=== PATIENT | male | born 1955 | race Caucasian/White ===

== ENCOUNTER → 2018-03-25 | Outpatient (CLI) | payer BC ==
--- NOTE | 2018-03-25 15:20 | US ---
EXAMINATION TYPE: US kidneys/renal and bladder DATE OF EXAM: 03/25/2018 COMPARISON: US of 2010 CLINICAL HISTORY: N17.9 KIDNEY FAILURE, N28.9 KNOWN RENAL DISEASE. EXAM MEASUREMENTS: Right Kidney: 23.3 x 10.1 x 12.9 cm Left Kidney: 21.1 x 10.1 x 10.3 cm Right Kidney: no renal cortex seen, polycystic kidney Left Kidney: no renal cortex seen, polycystic kidney Bladder: wnl Bilateral Jets seen: Yes There is no evidence for hydronephrosis at this point in time. No nephrolithiasis is seen. No gross evidence of solid masses are identified. The urinary bladder is anechoic. Bilateral ureteral jets are seen. IMPRESSION: Findings again suggestive of polycystic kidney disease is seen on the prior of 2010. No gross evidenc e of solid renal mass or hydronephrosis.
== END ==
LOC: RADUSWWP 13:52
PROVIDERS: ATTEND Internal Medicine
DX: N17.9 Acute kidney failure, unspecified (principal)
CPT/HCPCS: 76770

== ENCOUNTER 2018-04-25 07:09 | Day surgery (SDC) | payer BC ==
[2018-04-22 09:30] VITALS: BMI 31.8
[~2018-04-25 07:09] MED LIST: LACTATED RINGERS 1,000 ML IV SCH; LIDOCAINE 1% 20 ML VIAL (10MG/ML) FOR IV START INTRADERMA PRN
[2018-04-25 07:48] VITALS: TEMP 97.4
[2018-04-25] MEDS ORDERED: PROPOFOL 10 MG/ML 20 ML VIAL IV ONE (08:16)
--- NOTE | 2018-04-25 08:43 | P.PCN ---
Date of Procedure: 04/25/18 Procedure(s) Performed: Procedure: Total colonoscopy and biopsy. Preoperative diagnosis: Screening for neoplasia, patient has history of polyps. Postoperative diagnosis: 1. Sigmoid diverticulosis with no evidence of acute diverticulitis or strictures. 2. Two diminutive polyps in the proximal right colon biopsied, but no large polyps or cancer. Preparation: HalfLytely prep. Sedation: Was provided by anesthesia. Brief clinical history: The patient is a 63-year-old male who is scheduled for this evaluation for screening for neoplasia age being his risk factor as well as history of polyps. He had a prior exam in March 2014. This would be his surveillance because of history of polyps. He has no abdominal complaints, bleeding or anemia. Procedure: With the patient on his left lateral decubitus position and after informed consent and adequate sedation, the perianal area was inspected and it did not show any fissures or fistulas. There were no masses felt on digital rectal examination. The Olympus CFH 190L video colonoscope was then inserted in the rectum in the usual fashion and advanced to the cecum. There were several diverticular orifices seen scattered in the sigmoid with no evidence of acute diverticulitis or strictures. 2 diminutive polyps were seen in the proximal right colon and these were biopsied but there were no large polyps or tumors. The mucosa appeared healthy. I retroflexed the endoscope in the rectum before the endoscope was withdrawn. The patient tolerated the procedure well. Plan: The patient was reassured. Discussed dietary measures. He will follow up with you as planned and I recommended repeat exam in 5 years.
[2018-04-25 09:08] VITALS: BP 130/90; PULSE 78; RESP 18
== END 2018-04-25 09:13 | disposition home or self-care (01) ==
LOC: ORWHC2ENDO 07:09
DX: Z12.11 Encounter for screening for malignant neoplasm of colon (principal); K63.5 Polyp of colon; K57.30 Diverticulosis of large intestine without perforation or abscess without bleeding; Z86.010 Personal history of colon polyps; J44.9 Chronic obstructive pulmonary disease, unspecified; K21.9 Gastro-esophageal reflux disease without esophagitis; M19.90 Unspecified osteoarthritis, unspecified site; I10 Essential (primary) hypertension; K04.7 Periapical abscess without sinus; Z79.899 Other long term (current) drug therapy; Z87.442 Personal history of urinary calculi
CPT/HCPCS: 88305; 45380; J2704

== ENCOUNTER 2021-12-05 09:45 | Inpatient (IN) | payer BC, MEDICARE ==
--- NOTE | 2021-12-05 10:28 | ED ---
General Adult HPI - General Chief complaint: Nausea/Vomiting/Diarrhea Stated complaint: Vomiting,abd & back pain Time Seen by Provider: 12/05/21 10:20 Source: patient, RN notes reviewed Mode of arrival: ambulatory Limitations: no limitations - History of Present Illness Initial comments: 66-year-old male presents to the emergency department on day 3 of loss of appetite, nausea and vomiting, and lower abdominal pain. Patient states his symptoms have been progressively worsening and is unable to tolerate any oral intake. Complains of diffuse lower abdominal pain. Reports marked fatigue and generalized weakness. States he has had cold sweats but no known fever. No known sick exposures. Denies dizziness, chest pain, shortness of breath, pain with breathing, diarrhea, and dysuria. - Related Data Home Medications Medication Instructions Recorded Confirmed Omeprazole [PriLOSEC] 20 mg PO DAILY 03/26/14 12/05/21 lisinopriL [Prinivil] 20 mg PO DAILY 03/26/14 12/05/21 Acetaminophen Tab [Tylenol Tab] 500 mg PO Q6H PRN 12/05/21 12/05/21 Multivit-Min/FA/Lycopen/Lutein 1 tab PO DAILY 12/05/21 12/05/21 [Centrum Silver Men Tablet] amLODIPine [Norvasc] 5 mg PO DAILY 12/05/21 12/05/21 Allergies Allergy/AdvReac Type Severity Reaction Status Date / Time No Known Allergies Allergy Verified 12/05/21 12:25 Review of Systems ROS Statement: Those systems with pertinent positive or pertinent negative responses have been documented in the HPI. ROS Other: All systems not noted in ROS Statement are negative. Past Medical History Past Medical History: COPD, GERD/Reflux, Hypertension, Osteoarthritis (OA) Additional Past Medical History / Comment(s): BACK PAIN, KIDNEY STONES. abscessed tooth tx with antibiotics History of Any Multi-Drug Resistant Organisms: None Reported Past Surgical History: Appendectomy, Orthopedic Surgery Additional Past Surgical History / Comment(s): ed. KNEE SURG A CHILD. ORIF LEFT ANKLE. Past Anesthesia/Blood Transfusion Reactions: No Reported Reaction Past Psychological History: No Psychological Hx Reported Smoking Status: Never smoker Past Alcohol Use History: Occasional Past Drug Use History: Marijuana - Past Family History Mother Family Medical History: No Reported History General Exam Limitations: no limitations General appearance: alert, in distress (Well-developed, ill-appearing male in moderate distress due to pain. Initial temperature 96.7, pulse 101, respirati ons 24, blood pressure 154/89, pulse ox 96% on room air.) Eye exam: Present: normal appearance, PERRL, EOMI. Absent: scleral icterus, conjunctival injection ENT exam: Present: mucous membranes dry Respiratory exam: Present: normal lung sounds bilaterally. Absent: respiratory distress, wheezes, rales, rhonchi, stridor, chest wall tenderness Cardiovascular Exam: Present: tachycardia, normal heart sounds GI/Abdominal exam: Present: distended, tenderness (Generalized tenderness upon palpation of the lower abdomen), normal bowel sounds, other (periumbilical discoloration). Absent: guarding, rebound, rigid Extremities exam: Present: other (Left lower extremity dusky in color. Patient states this is normal given the previous surgery. +2 pedal and posttibial pulse. ) Back exam: Present: normal inspection, full ROM, paraspinal tenderness (Nonlocalized tenderness upon palpation of the low back patient attributes to m ultiple episodes of vomiting dry heaves.). Absent: vertebral tenderness Neurological exam: Present: alert, oriented X3 Expanded Patient oriented to: Present: person, place, time Speech: Present: fluid speech Cranial nerves: EOM's Intact: Normal Motor strength exam: RUE: 5, LUE: 5, RLE: 5, LLE: 5 Eye Response: (4) open spontaneously Motor Response: (6) obeys commands Verbal Response: (5) oriented [place] Total: 15 Psychiatric exam: Present: flat affect Skin exam: Present: warm, intact, normal color, diaphoretic Course Vital Signs 12/05/21 12/05/21 12/05/21 09:50 11:24 11:40 Temperature 96.7 F L Pulse Rate 101 H 94 87 Respiratory 24 20 20 Rate Blood Pressure 154/89 65/47 77/61 O2 Sat by Pulse 96 96 91 L Oximetry 12/05/21 12/05/21 12/05/21 14:18 14:48 15:25 Temperature Pulse Rate 100 102 H 96 Respiratory 20 20 Rate Blood Pressure 98/78 108/73 110/73 O2 Sat by Pulse 97 91 L Oximetry 12/05/21 15:57 Temperature Pulse Rate 98 Respiratory 18 Rate Blood Pressure 110/73 O2 Sat by Pulse 92 L Oximetry - Reevaluation(s) Reevaluation #1: 12/05/21 11:30 On reassessment, patient is taken to room 6. EKG was obtained and IV access was placed. Patient is now hypotensive (89/42) and remains diaphoretic. Complains of pain radiating to the back. Periumbilical discoloration noted. Abdomen is markedly tender upon palpation. Dr. Dukes is notified and is present at bedside to reassess. Patient will go to CT prior to labs given his change in condition. 12/05/21 12:30 Upon reassessment, patient is resting more comfortably at this time. NG has bee n placed with 1500 mL output. Patient does flank for sepsis, however this does not appear to be the case; his hypotension and tachycardia are more likely secondary to poor oral intake and pain secondary to bowel obstruction. He has received 2 L of IV fluids, but given his renal failure, fluids will be infused gently. 12/05/21 13:[address] Ge who agrees to accept this patient. Consults will be placed to his surgery, cardiology, nephrology, and intensive care. I was also provided with an EKG showing a transient episode of atrial fibrillation with rapid ventricular response. Ventricular rate of 147. Patient did return to sinus rhythm with a rate in the 80s spontaneously. Cardiology consult placed. Medical Decision Making - Medical Decision Making 66-year-old male with a past medical history of hypertension, COPD, and polycystic kidney disease presents to the emergency department for evaluation of dental pain. Upon exam, patient is ill-appearing and in distress due to pain. Abdomen is distended and tender upon palpation of both lower quadrants. CT of the abdomen and pelvis was obtained without contrast due to poor renal function. Results are concerning for small bowel obstruction but no perforation. Laboratory studies were obtained. Patient is hemoconcentrated likely due to poor oral intake. Hemoglobin and hematocrit are significantly elevated. BUN and creatinine are also markedly elevated. Lactic is 3.4. Patient is given 2 L of IV fluids due to hypotension. He was then placed at a maintenance rate being cognizant of his poor renal function. Patient is not felt to be septic, but related to volume depletion secondary to his small bowel obstruction. Patient was given small doses of Dilaudid given his hypotension. NG was placed with 1500mL output; patient is resting more comfortably. Vital signs have improved. He will be admitted to the hospital. Dr. Ge agrees to accept this admission. Consults will be placed to nephrology for renal failure, cardiology for episodic A. 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 Attending: Ernst. - Lab Data Result diagrams: 12/05/21 11:34 12/05/21 11:34 Lab Results 12/05/21 12/05/21 12/05/21 Range/Units 09:57 11:26 11:34 WBC 11.6 H (3.8-10.6) k/uL RBC 6.96 H (4.30-5.90) m/uL Hgb 21.3 H* (13.0-17.5) gm/dL Hct 65.8 H* (39.0-53.0) % MCV 94.5 (80.0-100.0) fL MCH 30.6 (25.0-35.0) pg MCHC 32.4 (31.0-37.0) g/dL RDW 13.9 (11.5-15.5) % Plt Count 116 L (150-450) k/uL MPV 7.7 Neutrophils % 85 % Lymphocytes % 4 % Monocytes % 7 % Eosinophils % 1 % Basophils % 2 % Neutrophils # 9.8 H (1.3-7.7) k/uL Lymphocytes # 0.5 L (1.0-4.8) k/uL Monocytes # 0.8 (0-1.0) k/uL Eosinophils # 0.1 (0-0.7) k/uL Basophils # 0.2 (0-0.2) k/uL PT (9.0-12.0) sec INR (<1.2) APTT (22.0-30.0) sec Sodium (137-145) mmol/L Potassium (3.5-5.1) mmol/L Chloride (98-107) mmol/L Carbon Dioxide (22-30) mmol/L Anion Gap mmol/L BUN (9-20) mg/dL Creatinine (0.66-1.25) mg/dL Est GFR (CKD-EPI)AfAm (>60 ml/min/1.73 sqM) Est GFR (CKD-EPI)NonAf (>60 ml/min/1.73 sqM) Glucose (74-99) mg/dL Lactic Ac Sepsis Rflx Plasma Lactic Acid Chase (0.7-2.0) mmol/L Calcium (8.4-10.2) mg/dL Total Bilirubin (0.2-1.3) mg/dL AST (17-59) U/L ALT (4-49) U/L Alkaline Phosphatase (38-126) U/L Total Protein (6.3-8.2) g/dL Albumin (3.5-5.0) g/dL Lipase (23-300) U/L Gastric Occult Blood (Negative) Coronavirus (PCR) Not Detected (Not Detectd) Blood Type AB Positive Blood Type Confirm Blood Type Recheck No Previous Record Bld Type Recheck Status CABO Indicated Antibody Screen NEGATIVE Spec Expiration Date 12/08/2021 - 232512/05/21 12/05/21 12/05/21 Range/Units 11:34 11:34 12:05 WBC (3.8-10.6) k/uL RBC (4.30-5.90) m/uL Hgb (13.0-17.5) gm/dL Hct (39.0-53.0) % MCV (80.0-100.0) fL MCH (25.0-35.0) pg MCHC (31.0-37.0) g/dL RDW (11.5-15.5) % Plt Count (150-450) k/uL MPV Neutrophils % % Lymphocytes % % Monocytes % % Eosinophils % % Basophils % % Neutrophils # (1.3-7.7) k/uL Lymphocytes # (1.0-4.8) k/uL Monocytes # (0-1.0) k/uL Eosinophils # (0-0.7) k/uL Basophils # (0-0.2) k/uL PT (9.0-12.0) sec INR (<1.2) APTT (22.0-30.0) sec Sodium 134 L (137-145) mmol/L Potassium 5.0 (3.5-5.1) mmol/L Chloride 94 L (98-107) mmol/L Carbon Dioxide 16 L (22-30) mmol/L Anion Gap 24 mmol/L BUN 91 H (9-20) mg/dL Creatinine 4.95 H (0.66-1.25) mg/dL Est GFR (CKD-EPI)AfAm 13 (>60 ml/min/1.73 sqM) Est GFR (CKD-EPI)NonAf 11 (>60 ml/min/1.73 sqM) Glucose 142 H (74-99) mg/dL Lactic Ac Sepsis Rflx Plasma Lactic Acid Chase 3.4 H* (0.7-2.0) mmol/L Calcium 10.1 (8.4-10.2) mg/dL Total Bilirubin 1.5 H (0.2-1.3) mg/dL AST 95 H (17-59) U/L ALT 62 H (4-49) U/L Alkaline Phosphatase 59 (38-126) U/L Total Protein 6.8 (6.3-8.2) g/dL Albumin 4.1 (3.5-5.0) g/dL Lipase 103 (23-300) U/L Gastric Occult Blood (Negative) Coronavirus (PCR) (Not Detectd) Blood Type Blood Type Confirm AB Positive Blood Type Recheck Bld Type Recheck Status Antibody Screen Spec Expiration Date 12/05/21 12/05/21 12/05/21 Range/Units 12:28 13:00 13:08 WBC (3.8-10.6) k/uL RBC (4.30-5.90) m/uL Hgb (13.0-17.5) gm/dL Hct (39.0-53.0) % MCV (80.0-100.0) fL MCH (25.0-35.0) pg MCHC (31.0-37.0) g/dL RDW (11.5-15.5) % Plt Count (150-450) k/uL MPV Neutrophils % % Lymphocytes % % Monocytes % % Eosinophils % % Basophils % % Neutrophils # (1.3-7.7) k/uL Lymphocytes # (1.0-4.8) k/uL Monocytes # (0-1.0) k/uL Eosinophils # (0-0.7) k/uL Basophils # (0-0.2) k/uL PT 11.7 (9.0-12.0) sec INR 1.1 (<1.2) APTT 25.9 (22.0-30.0) sec Sodium (137-145) mmol/L Potassium (3.5-5.1) mmol/L Chloride (98-107) mmol/L Carbon Dioxide (22-30) mmol/L Anion Gap mmol/L BUN (9-20) mg/dL Creatinine (0.66-1.25) mg/dL Est GFR (CKD-EPI)AfAm (>60 ml/min/1.73 sqM) Est GFR (CKD-EPI)NonAf (>60 ml/min/1.73 sqM) Glucose (74-99) mg/dL Lactic Ac Sepsis Rflx Y Plasma Lactic Acid Chase (0.7-2.0) mmol/L Calcium (8.4-10.2) mg/dL Total Bilirubin (0.2-1.3) mg/dL AST (17-59) U/L ALT (4-49) U/L Alkaline Phosphatase (38-126) U/L Total Protein (6.3-8.2) g/dL Albumin (3.5-5.0) g/dL Lipase (23-300) U/L Gastric Occult Blood Positive (Negative) Coronavirus (PCR) (Not Detectd) Blood Type Blood Type Confirm Blood Type Recheck Bld Type Recheck Status Antibody Screen Spec Expiration Date - EKG Data EKG shows normal: sinus rhythm Rate: normal EKG Comments: #1. EKG obtained at 1107 shows sinus tachycardia with occasional supraventricular premature complexes and left anterior fascicular block. Ventricular rate 100, ME interval 166, QRS duration 89, QT/QTC 323/380. Interpretation abnormal ECG. #2. EKG obtained and 1258 shows atrial fibrillation with rapid ventricular response and possible right ventricular hypertrophy. Ventricular rate 147, ME interval indeterminate, QRS duration 97, QT/QTC 304/388. Interpretation abnormal ECG. - Radiology Data Radiology results: report reviewed, image reviewed Two-view chest x-ray was obtained. Report was reviewed in its entirety. Impression per Dr. Enriquez is may be some mild interstitial lung disease. Question coronary artery disease. Compression deformity of L1 is chronic. CT of the abdomen and pelvis was obtained. Report was reviewed in its entirety. Impression per Dr. Miller is #1. Findings felt to reflect distal small bowel obstruction. #2. Autosomal dominant polycystic kidney disease. #3. Small am ount of ascites about the liver and within the pelvis. Disposition Clinical Impression: Renal failure, Small bowel obstruction, Hypotension Disposition: ADMITTED IP TO THIS [facility] Condition: Serious Decision Date: 12/05/21 Decision Time: 13:17
--- NOTE | 2021-12-05 10:59 | XR ---
EXAMINATION TYPE: XR chest 2V DATE OF EXAM: 12/05/2021 COMPARISON: NONE HISTORY: Shortness of breath, nausea and vomiting, epigastric pain TECHNIQUE: Frontal and lateral views of the chest are obtained. FINDINGS: Lung volumes are low. There is no focal air space opacity, pleural effusion, or pneumothora x seen. The cardiac silhouette size is within normal limits, possible coronary artery calcifications . The aorta is dense. Interstitium mildly increased. The osseous structures are intact, compression deformity is noted at L1 as on prior MRI. IMPRESSION: May be some mild interstitial lung disease. Question coronary artery disease. Compressio n deformity L1 is chronic
[2021-12-05] MEDS ORDERED: SODIUM CHLORIDE 0.9% 1,000 ML IV STA (11:32)
[2021-12-05] MEDS ORDERED: HYDROmorphone 0.5 MG/0.5 ML SYRINGE IVP STA ×3 (11:32→13:26)
[2021-12-05 11:44] LABS: Basophils # (A) 0.2 k/uL (0-0.2); Basophils % (A) 2 %; Eosinophils # (A) 0.1 k/uL (0-0.7); Eosinophils % (A) 1 %; Lymphocytes # (A) 0.5 k/uL (1.0-4.8); Lymphocytes % (A) 4 %; MCH 30.6 pg (25.0-35.0); MCHC 32.4 g/dL (31.0-37.0); MCV 94.5 fL (80.0-100.0); Mean Platelet Volume 7.7; Monocytes # (A) 0.8 k/uL (0-1.0); Monocytes % (A) 7 %; Neutrophils # (A) 9.8 k/uL (1.3-7.7); Neutrophils % (A) 85 %; Platelet Count 116 k/uL (150-450); RBC 6.96 m/uL (4.30-5.90); RDW 13.9 % (11.5-15.5); WBC 11.6 k/uL (3.8-10.6)
[2021-12-05 11:56] LABS: Albumin 4.1 g/dL (3.5-5.0); Calcium 10.1 mg/dL (8.4-10.2); Total Bilirubin 1.5 mg/dL (0.2-1.3); Total Protein 6.8 g/dL (6.3-8.2)
[2021-12-05 12:22] LABS: HCT 65.8 % (39.0-53.0); HGB 21.3 gm/dL (13.0-17.5)
--- NOTE | 2021-12-05 12:25 | CT ---
EXAMINATION TYPE: CT abdomen pelvis wo con DATE OF EXAM: 12/05/2021 COMPARISON: none HISTORY: abdominal pain radiating to back Examination of the solid and hollow viscera is limited given the lack of contrast. FINDINGS: LUNG BASES: No evidence for nodule. No evidence for infiltrate. LIVER/GB: The gallbladder is unremarkable. Multiple hepatic cysts. PANCREAS: No pancreatic mass identified. No inflammatory process seen. SPLEEN: No evidence for splenomegaly. No intrasplenic lesions seen. ADRENALS: No adrenal nodules identified. No evidence for thickening. KIDNEYS: Changes of polycystic kidney disease. No nephrolithiasis. No hydronephrosis. BOWEL: Dilated stomach and small bowel with transition zone within the right lower quadrant and decom pressed large bowel. Small bowel loops measure up to 5 cm in greatest dimension. Findings are felt to reflect distal small bowel obstruction. No evidence for abscess or free air. Small amount of free fl uid seen within the pelvis. Lymph nodes: No evidence for adenopathy greater than 1 cm. Abdominal aorta: Atheromatous changes seen. No evidence for aneurysm. Genital organs: No significant abnormality. Other: Fat-containing hernia seen. IMPRESSION: 1 findings felt to reflect distal small bowel obstruction. 2. Autosomal dominant polycystic kidney disease. 3. Small amount of ascites about the liver and within the pelvis.
[2021-12-05] MEDS: SODIUM CHLORIDE 0.9% 1,000 ML IV STA ×2 (12:38→17:29)
[2021-12-05 13:21] LABS: INR 1.1 (<1.2); Partial Thromboplastin Time 25.9 sec (22.0-30.0); Prothrombin Time 11.7 sec (9.0-12.0)
[2021-12-05] MEDS ORDERED: NALOXONE 0.4 MG/ML 1 ML VIAL IV PRN (13:26)
--- NOTE | 2021-12-05 13:39 | P.HPIM ---
History of Present Illness H&P Date: 12/05/21 Constantino Hernandez, is a 66 year old male who presented to [facility] emergency room, with a chief complaint of abdominal pain nausea and vomiting, his symptoms started 3 days ago and has been worsening. He was evaluated in the emergency room vital examination on presentation revealed a temperature of 96.7 pulse 101 respiration 24 blood pressure 154/89 however blood pressure dropped to 65/47 shortly after arrival pulse ox was 96% on room air Laboratory data revealed a white blood count of 11.6 hemoglobin 21.3 platelet count 116 sodium 134 potassium 5.0 chloride 94 CO2 16 BUN 91 creatinine 4.95 lactic acid was elevated at 3.4 total bilirubin 1.5 AST 95 ALT 62 lipase within normal limits, zavala virus PCR was negative Testing in the emergency room revealed chest x-ray done in the emergency room revealed interstitial lung disease and chronic compression deformity of L1, computed tomography scan of the abdomen and pelvis revealed distal small bowel obstruction and 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 On review of systems patient is alert and oriented 3, he has an NG tube in, he is complaining of some abdominal discomfort, otherwise he denies any complaints, there is no fever or chills no headache or dizziness no chest pain no shortness of breath, no nausea or vomiting since NG tube has been placed, no burning with urination no frequency or urgency and no hematuria. Past Medical History Past Medical History: COPD, GERD/Reflux, Hypertension, Osteoarthritis (OA) Additional Past Medical History / Comment(s): BACK PAIN, KIDNEY STONES. abscessed tooth tx with antibiotics History of Any Multi-Drug Resistant Organisms: None Reported Past Surgical History: Appendectomy, Orthopedic Surgery Additional Past Surgical History / Comment(s): ed. KNEE SURG A CHILD. ORIF LEFT ANKLE. Past Anesthesia/Blood Transfusion Reactions: No Reported Reaction Past Psychological History: No Psychological Hx Reported Smoking Status: Never smoker Past Alcohol Use History: Occasional Past Drug Use History: Marijuana - Past Family History Mother Family Medical History: No Reported History Medications and Allergies Home Medications Medication Instructions Recorded Confirmed Type Omeprazole [PriLOSEC] 20 mg PO DAILY 03/26/14 12/05/21 History lisinopriL [Prinivil] 20 mg PO DAILY 03/26/14 12/05/21 History Acetaminophen Tab [Tylenol Tab] 500 mg PO Q6H PRN 12/05/21 12/05/21 History Multivit-Min/FA/Lycopen/Lutein 1 tab PO DAILY 12/05/21 12/05/21 History [Centrum Silver Men Tablet] amLODIPine [Norvasc] 5 mg PO DAILY 12/05/21 12/05/21 History Allergies Allergy/AdvReac Type Severity Reaction Status Date / Time No Known Allergies Allergy Verified 12/05/21 12:25 Physical Exam Vitals: Vital Signs Temp Pulse Resp BP Pulse Ox 12/05/21 11:40 87 20 77/61 91 L 12/05/21 11:24 94 20 65/47 96 12/05/21 09:50 96.7 F L 101 H 24 154/89 96 Intake and Output 12/04/21 12/05/21 12/05/21 22:59 06:59 14:59 Other: Weight 113.398 kg In general patient is alert and oriented x 3 in no distress HEENT head normocephalic and atraumatic, NG tube is in Neck is supple no JVD no goiter no lymphadenopathy no carotid bruit Chest examination is clear to auscultation no crackles no wheezing Cardiac exam reveals regular heart sounds S1 and S2 no gallops no murmurs Abdomen is soft with mild diffuse tenderness no palpable masses no organomegaly Extremity exam reveals no edema no cyanosis or clubbing Neurological examination reveals no gross focal deficits Results CBC & Chem 7: 12/05/21 11:34 12/05/21 11:34 Labs: Abnormal Lab Results - Last 24 Hours (Table) 12/05/21 12/05/21 12/05/21 Range/Units 11:34 11:34 11:34 WBC 11.6 H (3.8-10.6) k/uL RBC 6.96 H (4.30-5.90) m/uL Hgb 21.3 H* (13.0-17.5) gm/dL Hct 65.8 H* (39.0-53.0) % Plt Count 116 L (150-450) k/uL Neutrophils # 9.8 H (1.3-7.7) k/uL Lymphocytes # 0.5 L (1.0-4.8) k/uL Sodium 134 L (137-145) mmol/L Chloride 94 L (98-107) mmol/L Carbon Dioxide 16 L (22-30) mmol/L BUN 91 H (9-20) mg/dL Creatinine 4.95 H (0.66-1.25) mg/dL Glucose 142 H (74-99) mg/dL Plasma Lactic Acid Chase 3.4 H* (0.7-2.0) mmol/L Total Bilirubin 1.5 H (0.2-1.3) mg/dL AST 95 H (17-59) U/L ALT 62 H (4-49) U/L Assessment and Plan Plan: Distal small bowel obstruction Underlying history of COPD Underlying history of hypertension Acute on chronic renal failure was elevated BUN and creatinine Chronic kidney disease with evidence of autosomal dominant polycystic kidney disease on computed tomography scan Episodes of atrial flutter in the emergency room Underlying history of osteoarthritis. At this time patient is in the emergency room plan is to admit to ICU He is maintained on IV fluids and NG tube is in Surgical consultation requested in regard to distal small bowel obstruction Pulmonary critical care consult requested Cardiology consult requested in regard to episodes of atrial flutter Nephrology consultation was requested in that regard to acute on chronic renal failure Will follow closely
[2021-12-05] MEDS ORDERED: PANTOPRAZOLE 40 MG/10 ML VIAL IVP STA (14:25)
[2021-12-05] MEDS ORDERED: ONDANSETRON 4 MG/2 ML VIAL IVP STA (15:17)
--- NOTE | 2021-12-05 16:12 | XR ---
EXAMINATION TYPE: XR chest 1V confirm line [facility] DATE OF EXAM: 12/05/2021 COMPARISON: Chest x-ray 12/05/2021 HISTORY: NG tube placement TECHNIQUE: Single frontal view of the chest is obtained. FINDINGS: NG tube has been placed, distal tip not well seen, tube is coursing towards the left upper quadrant, side-port not definitively seen. No acute cardiopulmonary disease is evident. IMPRESSION: NG tube as described.
[2021-12-05 16:38] LABS: Glucose,Whole Blood 136 mg/dL (70-110)
[2021-12-05] MEDS ORDERED: SODIUM CHLORIDE 0.9% 1,000 ML IV ONE (16:46)
--- NOTE | 2021-12-05 16:57 | P.CNPUL ---
History of Present Illness Consult date: 12/05/21 Chief complaint: Abdominal pain History of present illness: This is a 66-year-old male patient, who presented to the emergency because of abdominal pain and nausea and emesis and the patient states that he has not passed a bowel movement for the past 3 days. His oral intake was minimal and was becoming progressively more sick and dehydrated. Upon arrival, he was hypotensive with a BP of 65/47. The patient was started on IV fluids. The theresa leon is known to have polycystic kidney disease and he has chronic kidney disease and his baseline creatinine was 1.8 from 2019. His initial blood work showed a white cell count of 11.6. His hemoglobin was elevated at 21.3 and the baseline is not known. It'll platelet count 214. BUN was at 91 with a creatinine of 4.95 consistent with an acute on top of chronic kidney disease. Lactic acid level was elevated at 3.4. Based on that, a CAT scan of the abdomen was done that showed a distended stomach, distended small bowel, transition point and a decompressed large bowel. The patient is known to have an umbilical hernia. No evidence of any incarceration. There was evidence of polycystic kidney disease. The patient currently has an NG tube in place. He has occult positive stools. The NG output was 1600. He is known to have COPD, polycystic kidney disease, hypertension. No previous history of abdominal surgeries. His abdomen is still distended. No altered mentation. He is able to follow commands and answer questions appropriately. No previous history of cardiac disease. The liver function tests showed an AST of 95, ALT of 62, normal alkaline phosphatase of 59, and the bilirubin was at 1.5. Follow-up lactic acid level is down to 2.5. His COVID 19 by PCR was negative. Normal coagulation profile. Review of Systems Constitutional: Reports daytime sleepiness, Reports poor appetite, Reports weakness, Denies chills, Denies fever Eyes: denies as per HPI, denies blurred vision, denies bulging eye, denies decreased vision, denies diplopia, denies discharge, denies dry eye, denies irritation, denies itching, denies pain, denies photophobia, denies loss of peripheral vision, denies loss of vision, denies tunnel vision/blind spots Ears: deny: decreased hearing, ear discharge, earache, tinnitus Ears, nose, mouth and throat: Reports as per HPI Breasts: absent: as per HPI, gynecomastia Cardiovascular: Reports dyspnea on exertion, Denies decreased exercise tolerance Respiratory: Reports as per HPI Gastrointestinal: Reports abdominal pain, Reports loss of appetite, Reports nausea, Reports vomiting Genitourinary: Reports as per HPI Musculoskeletal: Reports as per HPI Musculoskeletal: absent: ankle pain, ankle stiffness, ankle swelling Integumentary: Reports as per HPI Neurological: Reports as per HPI Psychiatric: Reports as per HPI Endocrine: Reports as per HPI Hematologic/Lymphatic: Reports as per HPI Allergic/Immunologic: Reports as per HPI Past Medical History Past Medical History: COPD, GERD/Reflux, Hypertension, Osteoarthritis (OA) Additional Past Medical History / Comment(s): BACK PAIN, KIDNEY STONES. abscessed tooth tx with antibiotics History of Any Multi-Drug Resistant Organisms: None Reported Past Surgical History: Appendectomy, Orthopedic Surgery Additional Past Surgical History / Comment(s): ed. KNEE SURG A CHILD. ORIF LEFT ANKLE. Past Anesthesia/Blood Transfusion Reactions: No Reported Reaction Past Psychological History: No Psychological Hx Reported Smoking Status: Never smoker Past Alcohol Use History: Occasional Past Drug Use History: Marijuana - Past Family History Mother Family Medical History: No Reported History Medications and Allergies Home Medications Medication Instructions Recorded Confirmed Type Omeprazole [PriLOSEC] 20 mg PO DAILY 03/26/14 12/05/21 History lisinopriL [Prinivil] 20 mg PO DAILY 03/26/14 12/05/21 History Acetaminophen Tab [Tylenol Tab] 500 mg PO Q6H PRN 12/05/21 12/05/21 History Multivit-Min/FA/Lycopen/Lutein 1 tab PO DAILY 12/05/21 12/05/21 History [Centrum Silver Men Tablet] amLODIPine [Norvasc] 5 mg PO DAILY 12/05/21 12/05/21 History Allergies Allergy/AdvReac Type Severity Reaction Status Date / Time No Known Allergies Allergy Verified 12/05/21 12:25 Physical Exam Vitals: Vital Signs Temp Pulse Resp BP Pulse Ox 12/05/21 15:57 98 18 110/73 92 L 12/05/21 15:25 96 20 110/73 91 L 12/05/21 14:48 102 H 108/73 12/05/21 14:18 100 20 98/78 97 12/05/21 11:40 87 20 77/61 91 L 12/05/21 11:24 94 20 65/47 96 12/05/21 09:50 96.7 F L 101 H 24 154/89 96 Intake and Output 12/05/21 12/05/21 12/05/21 06:59 14:59 22:59 Other: Weight 113.398 kg The patient is calm and comfortable. Breathing is nonlabored and the patient is currently on oxygen at 2 L Head exam was generally normal. There was no scleral icterus or corneal arcus. Mucous membranes were moist. Neck was supple and without jugular venous distension, thyromegaly, or carotid bruits. Carotids were easily palpable bilaterally. There was no adenopathy. The patient is a Mallampati class IV. Lungs were clear to auscultation and percussion, and with normal diaphragmatic excursion. No wheezes or rales were noted. Cardiac exam revealed the PMI to be normally situated and sized. The rhythm was regular and no extrasystoles were noted during several minutes of auscultation. The first and second heart sounds were normal and physiologic splitting of the second heart sound was noted. There were no murmurs, rubs, clicks, or gallops. Abdomen is distended. There is mild direct tenderness. No rebound tenderness or guarding. No organomegaly. There is an umbilical hernia which is reducible. Bowel sounds are hypoactive. Examination of the extremities revealed easily palpable radial, femoral and pedal pulses. There was no cyanosis, clubbing or edema. Examination of the skin revealed no evidence of significant rashes, suspicious appearing nevi or other concerning lesions. Results - Laboratory Findings CBC and BMP: 12/05/21 11:34 12/05/21 11:34 PT/INR, D-dimer PT 11.7 sec (9.0-12.0) 12/05/21 13:00 INR 1.1 (<1.2) 12/05/21 13:00 Abnormal lab findings: Abnormal Labs 12/05/21 12/05/21 12/05/21 11:34 11:34 11:34 WBC 11.6 H RBC 6.96 H Hgb 21.3 H* Hct 65.8 H* Plt Count 116 L Neutrophils # 9.8 H Lymphocytes # 0.5 L Sodium 134 L Chloride 94 L Carbon Dioxide 16 L BUN 91 H Creatinine 4.95 H Glucose 142 H POC Glucose (mg/dL) Plasma Lactic Acid Chase 3.4 H* Total Bilirubin 1.5 H AST 95 H ALT 62 H 12/05/21 12/05/21 14:52 16:36 WBC RBC Hgb Hct Plt Count Neutrophils # Lymphocytes # Sodium Chloride Carbon Dioxide BUN Creatinine Glucose POC Glucose (mg/dL) 136 H Plasma Lactic Acid Chase 2.5 H* Total Bilirubin AST ALT - Diagnostic Findings Chest x-ray: image reviewed Assessment and Plan Plan: Acute small bowel obstruction. The patient presented to us with abdominal pain and distention and no bowel movements for the past 3 days. He also had nausea and emesis. CAT scan of the abdomen is consistent with small bowel obstruction. NG tube was placed for decompression. Total of 1.6 L of gastric output was obtained Abdominal pain secondary to above Umbilical hernia without evidence of any incarceration Acute on chronic kidney disease. The patient is known to have chronic with cystic kidney disease and he was extremely dehydrated and he developed an acute kidney injury on top of his chronic kidney failure Acute dehydration secondary to above Secondary erythrocytosis with an elevated hemoglobin level. Rule out underlying obstructive sleep apnea. Rule out dehydration. Current hematocrit and hemog lobin of elevated. Hemoglobin is at 21 Anion gap metabolic acidosis, mild lactic acidosis COPD Hypertension maternal lisinopril and Norvasc on outpatient basis Osteoarthritis Acid reflux Chronic back pain History of kidney stones Plan The patient has already received a total of 2 L of normal saline. We will introduce another 1 L and will maintain him on a rate of 100 mL an hour. We'll need an immediate Rivero catheter insertion to monitor his urine output. Keep NG tube in place and monitor the output. empiric antibiotic coverage with IV Zosyn Obtain a general surgery consultation Pain control with Dilaudid as needed IV Protonix Lovenox 40 mg subcu 40 prophylaxis Hold antihypertensive medication for now Supplemental O2 to maintain a saturation above 90% Monitor hemoglobin and will consult hematology as the hemoglobin/hematocrit remains elevated Keep the patient intensive care unit for now. We will obtain also nephrology consultation.
[2021-12-05 17:41] LABS: Appearance,Urine Cloudy (Clear); Bilirubin,Urine Negative (Negative); Blood,Urine Large (Negative); Color,Urine Yellow; Glucose,Urine (UA) Negative (Negative); Hyaline Casts,Urine 1 /lpf (0-2); Ketones,Urine Negative (Negative); Leukocyte Esterase,Urine Negative (Negative); Mucus,Urine Rare /hpf; Nitrite,Urine Negative (Negative); Protein,Urine 1+ (Negative); RBC,Urine 1 /hpf (0-5); Specific Gravity,Urine 1.019 (1.001-1.035); Urobilinogen,Urine <2.0 mg/dL (<2.0)
--- NOTE | 2021-12-05 17:44 | P.GSCN ---
History of Present Illness Consult date: 12/05/21 Reason for Consult: Small bowel obstruction, abdominal pain, lactic acidosis, tachycardia and hypotension History of present illness: Patient is a 66-year-old gentleman who presents to [facility] emergency department 12/05/2021 with complaints of 72 hours of progressive diffuse abdominal pain with radiation to the lower back, progressive nausea and multiple bouts of emesis without signs of GI bleeding. Symptoms are accompanied by a bsence of bowel movement and new onset obstipation. He hasn't had similar problems in the past. Surgical history is significant for a remote appendectomy many years ago. He underwent colonoscopy within the past 2 years and recalls some manner of lesions or polyps may have been removed. No previous EGD. No known personal history of inflammatory bowel disease. Nasogastric tube was placed in the emergency department, some 2000 mL of gastric aspirate obtained and the patient has had some mild to modest relief and abdominal distention and pain. He did have a transient episode of atrial flutter in the emergency department. He denies known history of arrhythmias. No known personal history of heart attack, stroke, DVT or pulmonary embolus. He is not maintained on any manner of oral anticoagulants. Computed tomography scan of the abdomen and pelvis was obtained in the emergency department, images and official report were reviewed. There is evidence of distal mechanical small bowel obstruction with transition point in the right lower quadrant, there is proximal dilation of the small bowel and stomach up to around 4.5 cm or so. There is mild mesenteric edema, trace intra-abdominal free fluid, no free air. There is extensive polycystic kidney disease and mild cystic disease of the liver. Patient has a fat-containing umbilical hernia. Initially patient showed a modest tachycardia and a degree of hypotension and mild lactic acidosis between 3 and 4. This says are shown improvement with administration of 3000 mL crystalloids. Laboratory studies showed normal range INR 1.1, mild leukocytosis with evidence OF 11.6, SIGNS OF CONCENTRATION WITH HEMOGLOBIN 21.3, PLATELET COUNT OF 116. SERUM SODIUM WAS 134, POTASSIUM 5.0, CO2 16, CREATININE OF 4.95 AND GLUCOSE OF 142. L ipase acceptable at 103. COVID screen was negative. Review of Systems All systems: negative - Constitutional Reports as per HPI - EENT Ears, nose, mouth and throat: Reports as per HPI - Cardiovascular Reports as per HPI - Respiratory Reports as per HPI - Gastrointestinal Reports as per HPI - Genitourinary Reports as per HPI - Musculoskeletal Reports as per HPI - Integumentary Reports as per HPI - Neurological Reports as per HPI - Psychiatric Reports as per HPI - Endocrine Reports as per HPI - Hematologic/Lymphatic Reports as per HPI - Allergic/Immunologic Reports as per HPI Past Medical History Past Medical History: COPD, GERD/Reflux, Hypertension, Osteoarthritis (OA) Additional Past Medical History / Comment(s): BACK PAIN, KIDNEY STONES. abscessed tooth tx with antibiotics History of Any Multi-Drug Resistant Organisms: None Reported Past Surgical History: Appendectomy, Orthopedic Surgery Additional Past Surgical History / Comment(s): ed. KNEE SURG A CHILD. ORIF LEFT ANKLE. Past Anesthesia/Blood Transfusion Reactions: No Reported Reaction Past Psychological History: No Psychological Hx Reported Smoking Status: Never smoker Past Alcohol Use History: Occasional Past Drug Use History: Marijuana - Past Family History Mother Family Medical History: No Reported History Medications and Allergies Home Medications Medication Instructions Recorded Confirmed Type Omeprazole [PriLOSEC] 20 mg PO DAILY 03/26/14 12/05/21 History lisinopriL [Prinivil] 20 mg PO DAILY 03/26/14 12/05/21 History Acetaminophen Tab [Tylenol Tab] 500 mg PO Q6H PRN 12/05/21 12/05/21 History Multivit-Min/FA/Lycopen/Lutein 1 tab PO DAILY 12/05/21 12/05/21 History [Centrum Silver Men Tablet] amLODIPine [Norvasc] 5 mg PO DAILY 12/05/21 12/05/21 History Allergies Allergy/AdvReac Type Severity Reaction Status Date / Time No Known Allergies Allergy Verified 12/05/21 12:25 Surgical - Exam Osteopathic Statement: *. No significant issues noted on an osteopathic structural exam other than those noted in the History and Physical/Consult. Vital Signs Temp Pulse Resp BP Pulse Ox 96.7 F L 101 H 24 154/89 96 12/05/21 09:50 12/05/21 09:50 12/05/21 09:50 12/05/21 09:50 12/05/21 09:50 - General well developed, well nourished, no distress - Eyes PERRL, normal ocular movement - ENT normal pinna, normal nares, normal mucosa, no hearing loss, no congestion - Neck no masses, trachea midline, no venous distension - Respiratory normal expansion, normal respiratory effort, clear to auscultation - Cardiovascular Rhythm: regular - Abdomen Abdomen is moderately distended with tympany, mild diffuse tenderness with more focal moderate right lower quadrant tenderness to palpation. No guarding or rebound. Umbilical hernia is reducible without difficulty. No clinical signs of peritonitis. Abdomen: distended - Neurologic normal coordination, normal sensation - Psychiatric oriented to time, oriented to person, oriented to place, speech is normal Results - Labs 12/05/21 11:34 12/05/21 11:34 Abnormal Lab Results - Last 24 Hours (Table) 12/05/21 12/05/21 12/05/21 Range/Units 11:34 11:34 11:34 WBC 11.6 H (3.8-10.6) k/uL RBC 6.96 H (4.30-5.90) m/uL Hgb 21.3 H* (13.0-17.5) gm/dL Hct 65.8 H* (39.0-53.0) % Plt Count 116 L (150-450) k/uL Neutrophils # 9.8 H (1.3-7.7) k/uL Lymphocytes # 0.5 L (1.0-4.8) k/uL Sodium 134 L (137-145) mmol/L Chloride 94 L (98-107) mmol/L Carbon Dioxide 16 L (22-30) mmol/L BUN 91 H (9-20) mg/dL Creatinine 4.95 H (0.66-1.25) mg/dL Glucose 142 H (74-99) mg/dL POC Glucose (mg/dL) (70-110) mg/dL Plasma Lactic Acid Chase 3.4 H* (0.7-2.0) mmol/L Total Bilirubin 1.5 H (0.2-1.3) mg/dL AST 95 H (17-59) U/L ALT 62 H (4-49) U/L 12/05/21 12/05/21 Range/Units 14:52 16:36 WBC (3.8-10.6) k/uL RBC (4.30-5.90) m/uL Hgb (13.0-17.5) gm/dL Hct (39.0-53.0) % Plt Count (150-450) k/uL Neutrophils # (1.3-7.7) k/uL Lymphocytes # (1.0-4.8) k/uL Sodium (137-145) mmol/L Chloride (98-107) mmol/L Carbon Dioxide (22-30) mmol/L BUN (9-20) mg/dL Creatinine (0.66-1.25) mg/dL Glucose (74-99) mg/dL POC Glucose (mg/dL) 136 H (70-110) mg/dL Plasma Lactic Acid Chase 2.5 H* (0.7-2.0) mmol/L Total Bilirubin (0.2-1.3) mg/dL AST (17-59) U/L ALT (4-49) U/L Diabetes panel 12/05/21 Range/Units 11:34 Sodium 134 L (137-145) mmol/L Potassium 5.0 (3.5-5.1) mmol/L Chloride 94 L (98-107) mmol/L Carbon Dioxide 16 L (22-30) mmol/L BUN 91 H (9-20) mg/dL Creatinine 4.95 H (0.66-1.25) mg/dL Glucose 142 H (74-99) mg/dL Calcium 10.1 (8.4-10.2) mg/dL AST 95 H (17-59) U/L ALT 62 H (4-49) U/L Alkaline Phosphatase 59 (38-126) U/L Total Protein 6.8 (6.3-8.2) g/dL Albumin 4.1 (3.5-5.0) g/dL Calcium panel 12/05/21 Range/Units 11:34 Calcium 10.1 (8.4-10.2) mg/dL Albumin 4.1 (3.5-5.0) g/dL Pituitary panel 12/05/21 Range/Units 11:34 Sodium 134 L (137-145) mmol/L Potassium 5.0 (3.5-5.1) mmol/L Chloride 94 L (98-107) mmol/L Carbon Dioxide 16 L (22-30) mmol/L BUN 91 H (9-20) mg/dL Creatinine 4.95 H (0.66-1.25) mg/dL Glucose 142 H (74-99) mg/dL Calcium 10.1 (8.4-10.2) mg/dL Adrenal panel 12/05/21 Range/Units 11:34 Sodium 134 L (137-145) mmol/L Potassium 5.0 (3.5-5.1) mmol/L Chloride 94 L (98-107) mmol/L Carbon Dioxide 16 L (22-30) mmol/L BUN 91 H (9-20) mg/dL Creatinine 4.95 H (0.66-1.25) mg/dL Glucose 142 H (74-99) mg/dL Calcium 10.1 (8.4-10.2) mg/dL Total Bilirubin 1.5 H (0.2-1.3) mg/dL AST 95 H (17-59) U/L ALT 62 H (4-49) U/L Alkaline Phosphatase 59 (38-126) U/L Total Protein 6.8 (6.3-8.2) g/dL Albumin 4.1 (3.5-5.0) g/dL - Imaging Chest x-ray: report reviewed CT scan - abdomen: report reviewed, image reviewed CT scan - pelvis: report reviewed, image reviewed Assessment and Plan Assessment: 66-year-old gentleman with presentation, clinical history, and imaging consistent with an acute distal small bowel obstruction. Signs of hypovolemic shock on initial presentation, resolving with crystalloids. Extensive polycystic kidney disease with likely a degree of acute on chronic kidney injury. No evidence of peritonitis on exam, no conclusive evidence of sepsis. Lactic acidosis is improving with IV fluids. Suspect due to intra-abdominal adhesions likely associated with previous appendectomy. Transient episode of atrial flutter that I suspect is related to pressure on the heart from his rather distended stomach on initial imaging. Plan: Options for treatment were discussed with the patient. We'll continue with initial nonoperative management with IV fluids, nasogastric decompression, and bowel rest. If he is not showing signs of resolution by day 3 will administer a Gastrografin challenge. If he doesn't resolve by day 5 will anticipate need for laparotomy. If he has interval decompensation at any point we will need to adjust our plan accordingly. Time with Patient: Greater than 30
[2021-12-05 18:44] LABS: Potassium 5.2 mmol/L (3.5-5.1)
[2021-12-05] MEDS: SODIUM CHLORIDE 0.9% 1,000 ML IV SCH (19:06)
[2021-12-05] MEDS: HYDROmorphone 0.5 MG/0.5 ML SYRINGE IVP PRN ×2 (19:54→22:20)
[2021-12-05] MEDS ORDERED: FAMOTIDINE 20 MG/2 ML VIAL IV SCH (21:00)
[2021-12-05] MEDS ORDERED: PIPERACILLIN-TAZOBACTAM 3.375 GM in SODIUM CHLORIDE 0.9% 100 ML IVPB SCH (21:00)
[2021-12-05] MEDS ORDERED: DILTIAZEM DRIP BOLUS FROM BAG 1 MG SOLN IV ONE (22:58)
[2021-12-05] MEDS: DILTIAZEM 125 MG in SODIUM CHLORIDE 0.9% 100 ML IV SCH (23:13)
[2021-12-06] MEDS ORDERED: DILTIAZEM DRIP BOLUS FROM BAG 1 MG SOLN IV ONE (00:21)
[2021-12-06] MEDS: HYDROmorphone 0.5 MG/0.5 ML SYRINGE IVP PRN ×10 (01:10→23:11)
[2021-12-06] MEDS ORDERED: SODIUM CHLORIDE 0.9% 500 ML 500 ML IV ONE (02:15)
[2021-12-06] MEDS: METOPROLOL TARTRATE 5 MG/5 ML VIAL IVP SCH ×2 (02:17→02:33)
[2021-12-06] MEDS: SODIUM CHLORIDE 0.9% 1,000 ML IV SCH ×3 (03:30→23:30)
--- NOTE | 2021-12-06 04:17 | XR ---
EXAMINATION TYPE: XR chest 1V portable DATE OF EXAM: 12/06/2021 COMPARISON: 12/05/2021 HISTORY: Tube placement TECHNIQUE: Single view FINDINGS: There is a nasogastric tube and its tip appears to be at the distal esophagus near the tia roesophageal junction. There is some patchy mild atelectasis at the lung bases. No heart failure. The re are no hilar masses. IMPRESSION: There is increased atelectasis at the lung bases compared to yesterday. NG tube has tip i n the distal esophagus.
--- NOTE | 2021-12-06 06:02 | XR ---
EXAMINATION TYPE: XR chest 1V portable DATE OF EXAM: 12/06/2021 COMPARISON: Today HISTORY: Tube placement TECHNIQUE: Single view FINDINGS: There is some linear density left and right lung base consistent with atelectasis. Heart si ze is normal. No heart failure. There is nasogastric tube tip is in the gastric fundus. IMPRESSION: NG tube is in the stomach. There is some atelectasis at the lung bases without change.
[2021-12-06 06:50] LABS: HGB 18.5 gm/dL (13.0-17.5); MCH 30.4 pg (25.0-35.0); MCHC 31.7 g/dL (31.0-37.0); Mean Platelet Volume 8.1; RBC 6.07 m/uL (4.30-5.90)
[2021-12-06 07:01] LABS: Albumin 3.1 g/dL (3.5-5.0); Calcium 7.8 mg/dL (8.4-10.2); Potassium 4.8 mmol/L (3.5-5.1); Total Bilirubin 0.8 mg/dL (0.2-1.3); Total Protein 5.4 g/dL (6.3-8.2)
[2021-12-06 07:04] LABS: HCT 58.3 % (39.0-53.0)
[2021-12-06 07:05] LABS: Platelet Count 93 k/uL (150-450)
[2021-12-06 08:16] LABS: Band Neutrophils % 3 %; Lymphocytes # (M) 1.17 k/uL (1.0-4.8); Monocytes # (M) 0.63 k/uL (0-1.0); Neutrophils % (M) 77 %; Nucleated Red Blood Cells 0 /100 WBC (0-0); Total Cells Counted 100
[2021-12-06] MEDS: PANTOPRAZOLE 40 MG/10 ML VIAL IVP SCH (08:59)
[2021-12-06] MEDS ORDERED: SODIUM BICARB 8.4% 50 ML SYR (1 MEQ/ML) IV STA (09:14)
--- NOTE | 2021-12-06 09:14 | P.NPCON ---
History of Present Illness - Reason for Consult acute renal failure, chronic renal failure - History of Present Illness Reason for consultation: Acute kidney injury on chronic kidney disease History of present illness: Patient is a 66-year-old male seen in renal consultation for acute kidney injury on chronic kidney disease. Patient has chronic kidney disease stage IIIB with baseline creatinine near 1.8 and 2020 due to polycystic kidney disease. Patient presented to the hospital with nausea and vomiting as well as sharp abdominal pain started 3 days ago. Patient states he has not been able to keep anything down orally due to the vomiting. He also noticed distention of his abdomen. He denies any hematuria or dysuria. Denies use of nonsteroidals. Patient has received 3 L of normal saline and is currently maintained on normal saline at 100 mL an hour. He is noted to have small bowel obstruction and currently has an NG tube. Surgery is following. He went into A. fib with RVR last night and is maintained on Cardizem drip. Heart rate is still in the 130s. No hydronephrosis was noted on CAT scan. Creatinine was 4.95 on admission and is 3.8 today. Urine output has been 50-75 mL an hour for the last 3 hours. Patient is awake but tired. Denies chest pain or shortness of breath. Afebrile. Vital signs are stable. In A. fib. General: Awake. No acute distress. HEENT: Head exam is unremarkable. NG tube noted. LUNGS: Breath sounds decreased. HEART: Irregular rate and rhythm. ABDOMEN: Soft, distention noted. Nontender. EXTREMITITES: No edema. Past Medical History Past Medical History: COPD, GERD/Reflux, Hypertension, Osteoarthritis (OA) Additional Past Medical History / Comment(s): BACK PAIN, KIDNEY STONES. abscessed tooth tx with antibiotics History of Any Multi-Drug Resistant Organisms: None Reported Past Surgical History: Appendectomy, Orthopedic Surgery Additional Past Surgical History / Comment(s): ed. KNEE SURG A CHILD. ORIF LEFT ANKLE. Past Anesthesia/Blood Transfusion Reactions: No Reported Reaction Past Psychological History: No Psychological Hx Reported Smoking Status: Never smoker Past Alcohol Use History: Occasional Past Drug Use History: Marijuana - Past Family History Mother Family Medical History: No Reported History Medications and Allergies Home Medications Medication Instructions Recorded Confirmed Type Omeprazole [PriLOSEC] 20 mg PO DAILY 03/26/14 12/05/21 History lisinopriL [Prinivil] 20 mg PO DAILY 03/26/14 12/05/21 History Acetaminophen Tab [Tylenol Tab] 500 mg PO Q6H PRN 12/05/21 12/05/21 History Multivit-Min/FA/Lycopen/Lutein 1 tab PO DAILY 12/05/21 12/05/21 History [Centrum Silver Men Tablet] amLODIPine [Norvasc] 5 mg PO DAILY 12/05/21 12/05/21 History Allergies Allergy/AdvReac Type Severity Reaction Status Date / Time No Known Allergies Allergy Verified 12/05/21 12:25 Physical Exam Vitals: Vital Signs Temp Pulse Resp BP Pulse Ox 12/06/21 07:00 115 H 16 98/88 93 L 12/06/21 06:30 125 H 21 72/61 92 L 12/06/21 06:00 126 H 16 87/65 93 L 12/06/21 05:30 130 H 18 70/57 90 L 12/06/21 05:00 126 H 22 80/53 93 L 12/06/21 04:30 107 H 17 112/61 92 L 12/06/21 04:00 97.8 F 129 H 15 112/61 93 L 12/06/21 03:30 112 H 18 84/72 93 L 12/06/21 03:00 138 H 22 95/67 94 L 12/06/21 02:30 99 12 84/52 92 L 12/06/21 02:00 125 H 16 65/48 91 L 12/06/21 01:30 138 H 17 79/56 92 L 12/06/21 01:00 136 H 165 H 79/64 94 L 12/06/21 00:30 133 H 16 88/64 94 L 12/06/21 00:00 97.9 F 142 H 18 81/64 93 L 12/05/21 23:30 152 H 18 82/65 92 L 12/05/21 23:00 151 H 16 88/67 93 L 12/05/21 22:30 105 H 25 H 97/68 93 L 12/05/21 22:04 89 19 114/95 92 L 12/05/21 22:00 92 22 114/95 93 L 12/05/21 21:30 96 20 107/89 93 L 12/05/21 21:00 92 17 86/66 94 L 12/05/21 20:30 104 H 42 H 88/66 90 L 12/05/21 20:00 98.0 F 112 H 20 98/71 94 L 12/05/21 19:00 112 H 24 92/73 93 L 12/05/21 18:45 108 H 22 89/74 93 L 12/05/21 18:30 109 H 17 106/73 91 L 12/05/21 18:15 109 H 10 L 130/81 93 L 12/05/21 18:00 107 H 21 116/79 93 L 12/05/21 17:59 16 12/05/21 17:45 92 19 123/74 93 L 12/05/21 17:30 96 39 H 115/81 95 12/05/21 17:20 92 18 115/81 93 L 12/05/21 17:10 91 17 96/73 94 L 12/05/21 17:00 92 19 96/67 92 L 12/05/21 16:50 97 20 96/67 92 L 12/05/21 16:40 97.9 F 98 22 88/63 93 L 12/05/21 16:35 16 12/05/21 15:57 98 18 110/73 92 L 12/05/21 15:25 96 20 110/73 91 L 12/05/21 14:48 102 H 108/73 12/05/21 14:18 100 20 98/78 97 12/05/21 11:40 87 20 77/61 91 L 12/05/21 11:24 94 20 65/47 96 12/05/21 09:50 96.7 F L 101 H 24 154/89 96 Intake and Output 12/05/21 12/06/21 12/06/21 22:59 06:59 14:59 Intake Total 1430 1224.25 100 Output Total 625 540 50 Balance 805 684.25 50 Intake: IV 300 1200 100 Sodium Chloride 0.9% 1, 300 700 100 000 ml @ 100 mls/hr IV . Q10H [facility] Rx#:[id number] Sodium Chloride 0.9% 500 500 ml 500 ml @ 999 mls/hr IV .Q31M [facility] Rx#:[id number] Intake, IV Titration 1130 24.25 Amount Diltiazem 125 mg In 24.25 Sodium Chloride 0.9% 100 ml @ 5 MG/HR 5 mls/hr IV .Q24H [facility] Rx#:[id number] Sodium Chloride 0.9% 1, 130 000 ml @ 100 mls/hr IV . Q10H [facility] Rx#:[id number] Sodium Chloride 0.9% 1, 1000 000 ml @ 999 mls/hr IV . Q1H1M [facility] Rx#:[id number] Output: Urine 625 540 50 Other: Voiding Method Indwelling Catheter Indwelling Catheter Weight 113.398 kg 119 kg 118.2 kg Results - Lab Results Most recent lab results Calcium 7.8 mg/dL (8.4-10.2) L 12/06/21 06:19 12/06/21 06:19 12/06/21 06:19 Assessment and Plan Plan: Assessment: 1. Acute kidney injury mostly prerenal secondary to hypovolemia from vomiting as well as hypotension and A. fib. Creatinine 4.95 on admission and as 3.82 today. No hydronephrosis noted on CAT scan. 2. Chronic kidney disease stage IIIB with baseline creatinine near 1.18 2020 secondary to polycystic kidney disease. 3. A. fib with RVR maintain on Cardizem drip. Cardiology following. 4. Metabolic acidosis secondary to acute kidney injury and IV fluids. Also lactic acidosis. 5. Small bowel obstruction. Has NG tube. Surgery following. Plan: Maintain IV fluids. 2 A of sodium bicarb IV push today. Avoid nephrotoxins. Continue to monitor renal function and urine output. Thank you for the consultation. I will continue to follow the patient with you during his hospital stay.
[2021-12-06] MEDS ORDERED: DEXTROSE 5% IN WATER 100 ML with AMIODARONE 150 MG IV ONE (09:20)
--- NOTE | 2021-12-06 09:21 | P.CRDCN ---
History of Present Illness Consult date: 12/06/21 History of present illness: History of Present Illness: The patient is a 66-year-old male with no prior cardiac history who presented was progressive abdominal discomfort, going on for 3 days, was found to have small bowel obstruction. Cardiology consultation was requested because of atrial fibrillation. The patient has a history of hypertension but no other cardiac history. He is active physically and only limited by his back pain. He has no history of arrhythmia, chest discomfort or dyspnea. 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 He has no PND, orthopnea or palpitations. He continues to have an NG tube. He is on IV Cardizem and he had episodes of hypotension. He continues to be in atrial fibrillation with rapid ventricular response. He is unaware of the arrhythmia. He has chronic discoloration of his lower extremities, unchanged. Has a history of polycystic kidney disease. He has no prior abdominal surgery. He is a nonsmoker nondrinker. His corneas factors positive for hypertension, his nondiabetic. Medications: Amlodipine 5 mg daily, lisinopril 20 mg daily, Prilosec Review of Systems: Respiratory: No history of asthma, bronchitis or recent cough. GI: No nausea or vomiting . No history of peptic ulcer disease. No recent GI bl eed. : He has the recent abdominal discomfort, he had no bowel movement in 4 days Nervous System: No stroke or seizure. Physical Examination: 66-year-old male, alert, nauseated ,Blood pressure 98/70, Heart rate 120s Head: Normocephalic. Eyes: Sclerae nonicteric. Neck: Good carotid upstroke, no bruit, no jugular venous distention. Lungs: Clear to auscultation. Heart: Irregular rate and rhythm, S1-S2, no S3, no rub. No murmur. Abdomen: Soft , distended, mild tenderness, hypoactive bowel sounds Extremities: Chronic discoloration bilaterally with trace edema. Labs: Hemoglobin 21.3, white blood cell 11.6. BUN 91, creatinine 4.95, AST 95, ALT 62, plasma lactic acid 3.4. This morning his BUN 3.82 with a creatinine 96, his hemoglobin is 18.5. Computed tomography scan shows distal small bowel obstruction was polycystic kidney disease and small amount of ascites. EKG: EKG in the ER is suggestive of sinus tachycardia, on the monitor now he is in atrial fibrillation Impression: 1. Small bowel obstruction, NG tube in place, followed by surgery 2. Atrial fibrillation, new onset with rapid ventricular response, probably exacerbated by the abdominal status 3. . Erythrocytosis 4. Acute renal injury, acute on chronic with a history of polycystic kidney disease 5. History of hypertension 6. History of chronic back pain Plan: 1. Obtain an echocardiogram Doppler 2. Continue IV Cardizem 3. Start IV amiodarone 4. Hold anticoagulation pending surgical intervention, if no surgery is planned then start IV heparin 5. Follow renal functions 6. Depending on his progress further recommendations will be made 7. Thank you for this consult we will follow with you Past Medical History Past Medical History: COPD, GERD/Reflux, Hypertension, Osteoarthritis (OA) Additional Past Medical History / Comment(s): BACK PAIN, KIDNEY STONES. abscessed tooth tx with antibiotics History of Any Multi-Drug Resistant Organisms: None Reported Past Surgical History: Appendectomy, Orthopedic Surgery Additional Past Surgical History / Comment(s): ed. KNEE SURG A CHILD. ORIF LEFT ANKLE. Past Anesthesia/Blood Transfusion Reactions: No Reported Reaction Past Psychological History: No Psychological Hx Reported Smoking Status: Never smoker Past Alcohol Use History: Occasional Past Drug Use History: Marijuana - Past Family History Mother Family Medical History: No Reported History Medications and Allergies Home Medications Medication Instructions Recorded Confirmed Type Omeprazole [PriLOSEC] 20 mg PO DAILY 03/26/14 12/05/21 History lisinopriL [Prinivil] 20 mg PO DAILY 03/26/14 12/05/21 History Acetaminophen Tab [Tylenol Tab] 500 mg PO Q6H PRN 12/05/21 12/05/21 History Multivit-Min/FA/Lycopen/Lutein 1 tab PO DAILY 12/05/21 12/05/21 History [Centrum Silver Men Tablet] amLODIPine [Norvasc] 5 mg PO DAILY 12/05/21 12/05/21 History Allergies Allergy/AdvReac Type Severity Reaction Status Date / Time No Known Allergies Allergy Verified 12/05/21 12:25 Physical Exam Vitals: Vital Signs Temp Pulse Resp BP Pulse Ox 12/06/21 07:00 115 H 16 98/88 93 L 12/06/21 06:30 125 H 21 72/61 92 L 12/06/21 06:00 126 H 16 87/65 93 L 12/06/21 05:30 130 H 18 70/57 90 L 12/06/21 05:00 126 H 22 80/53 93 L 12/06/21 04:30 107 H 17 112/61 92 L 12/06/21 04:00 97.8 F 129 H 15 112/61 93 L 12/06/21 03:30 112 H 18 84/72 93 L 12/06/21 03:00 138 H 22 95/67 94 L 12/06/21 02:30 99 12 84/52 92 L 12/06/21 02:00 125 H 16 65/48 91 L 12/06/21 01:30 138 H 17 79/56 92 L 12/06/21 01:00 136 H 165 H 79/64 94 L 12/06/21 00:30 133 H 16 88/64 94 L 12/06/21 00:00 97.9 F 142 H 18 81/64 93 L 12/05/21 23:30 152 H 18 82/65 92 L 12/05/21 23:00 151 H 16 88/67 93 L 12/05/21 22:30 105 H 25 H 97/68 93 L 12/05/21 22:04 89 19 114/95 92 L 12/05/21 22:00 92 22 114/95 93 L 12/05/21 21:30 96 20 107/89 93 L 12/05/21 21:00 92 17 86/66 94 L 12/05/21 20:30 104 H 42 H 88/66 90 L 12/05/21 20:00 98.0 F 112 H 20 98/71 94 L 12/05/21 19:00 112 H 24 92/73 93 L 12/05/21 18:45 108 H 22 89/74 93 L 12/05/21 18:30 109 H 17 106/73 91 L 12/05/21 18:15 109 H 10 L 130/81 93 L 12/05/21 18:00 107 H 21 116/79 93 L 12/05/21 17:59 16 12/05/21 17:45 92 19 123/74 93 L 12/05/21 17:30 96 39 H 115/81 95 12/05/21 17:20 92 18 115/81 93 L 12/05/21 17:10 91 17 96/73 94 L 12/05/21 17:00 92 19 96/67 92 L 12/05/21 16:50 97 20 96/67 92 L 12/05/21 16:40 97.9 F 98 22 88/63 93 L 12/05/21 16:35 16 12/05/21 15:57 98 18 110/73 92 L 12/05/21 15:25 96 20 110/73 91 L 12/05/21 14:48 102 H 108/73 12/05/21 14:18 100 20 98/78 97 12/05/21 11:40 87 20 77/61 91 L 12/05/21 11:24 94 20 65/47 96 12/05/21 09:50 96.7 F L 101 H 24 154/89 96 Intake and Output 12/05/21 12/06/21 12/06/21 22:59 06:59 14:59 Intake Total 1430 1224.25 134.5 Output Total 625 540 50 Balance 805 684.25 84.5 Intake: IV 300 1200 100 Sodium Chloride 0.9% 1, 300 700 100 000 ml @ 100 mls/hr IV . Q10H [facility] Rx#:[id number] Sodium Chloride 0.9% 500 500 ml 500 ml @ 999 mls/hr IV .Q31M [facility] Rx#:[id number] Intake, IV Titration 1130 24.25 34.5 Amount Diltiazem 125 mg In 24.25 34.5 Sodium Chloride 0.9% 100 ml @ 5 MG/HR 5 mls/hr IV .Q24H [facility] Rx#:[id number] Sodium Chloride 0.9% 1, 130 000 ml @ 100 mls/hr IV . Q10H [facility] Rx#:[id number] Sodium Chloride 0.9% 1, 1000 000 ml @ 999 mls/hr IV . Q1H1M [facility] Rx#:[id number] Output: Urine 625 540 50 Other: Voiding Method Indwelling Catheter Indwelling Catheter Weight 113.398 kg 119 kg 118.2 kg Results 12/06/21 06:19 12/06/21 06:19 Cardiac Enzymes 12/05/21 12/06/21 Range/Units 11:34 06:19 AST 95 H 52 (17-59) U/L Coagulation 12/05/21 Range/Units 13:00 PT 11.7 (9.0-12.0) sec APTT 25.9 (22.0-30.0) sec CBC 12/05/21 12/06/21 Range/Units 11:34 06:19 WBC 11.6 H 9.0 (3.8-10.6) k/uL RBC 6.96 H 6.07 H (4.30-5.90) m/uL Hgb 21.3 H* 18.5 H (13.0-17.5) gm/dL Hct 65.8 H* 58.3 H* (39.0-53.0) % Plt Count 116 L 93 L (150-450) k/uL Comprehensive Metabolic Panel 12/05/21 12/05/21 12/06/21 Range/Units 11:34 18:08 06:19 Sodium 134 L 135 L 138 (137-145) mmol/L Potassium 5.0 5.2 H 4.8 (3.5-5.1) mmol/L Chloride 94 L 97 L 105 (98-107) mmol/L Carbon Dioxide 16 L 21 L 18 L (22-30) mmol/L BUN 91 H 96 H (9-20) mg/dL Creatinine 4.95 H 3.82 H (0.66-1.25) mg/dL Glucose 142 H 131 H (74-99) mg/dL Calcium 10.1 7.8 L (8.4-10.2) mg/dL AST 95 H 52 (17-59) U/L ALT 62 H 58 H (4-49) U/L Alkaline Phosphatase 59 47 (38-126) U/L Total Protein 6.8 5.4 L (6.3-8.2) g/dL Albumin 4.1 3.1 L (3.5-5.0) g/dL Current Medications Generic Name Dose Route Start Last Admin Trade Name Freq PRN Reason Stop Dose Admin Hydromorphone HCl 0.5 mg 12/05/21 13:26 12/06/21 08:59 Hydromorphone 0.5 Mg/0.5 Ml Syringe IVP 0.5 mg Q2HR PRN Administration Pain Scale 4 to 5 Sodium Chloride 1,000 mls @ 100 mls/hr 12/05/21 17:00 12/06/21 03:30 Saline 0.9% IV 100 mls/hr .Q10H [facility] Administration Diltiazem HCl 125 mg/ Sodium 125 mls @ 5 mls/hr 12/05/21 23:00 12/06/21 09:07 Chloride IV 10 mg/hr .Q24H [facility] 10 mls/hr Infusion 5 MG/HR Amiodarone HCl 150 mg/ 103 mls @ 618 mls/hr 12/06/21 09:20 Dextrose/Water IV 12/06/21 09:29 .Q10M [facility] Amiodarone HCl 360 mg/ 200 mls @ 33.333 mls/hr 12/06/21 09:30 Dextrose/Water IV 12/06/21 15:29 .Q6H [facility] Protocol 1 MG/MIN Amiodarone HCl 450 mg/ 250 mls @ 16.667 mls/hr 12/06/21 15:30 Dextrose/Water IV 12/07/21 09:29 .Q15H [facility] Protocol 0.5 MG/MIN Naloxone HCl 0.2 mg 12/05/21 13:26 Naloxone 0.4 Mg/Ml 1 Ml Vial IV Q2M PRN Opioid Reversal Pantoprazole Sodium 40 mg 12/06/21 09:00 12/06/21 08:59 Pantoprazole 40 Mg/10 Ml Vial IVP 40 mg DAILY [facility] Administration Intake and Output 12/05/21 12/06/21 12/06/21 22:59 06:59 14:59 Intake Total 1430 1224.25 134.5 Output Total 625 540 50 Balance 805 684.25 84.5 Intake: IV 300 1200 100 Sodium Chloride 0.9% 1, 300 700 100 000 ml @ 100 mls/hr IV . Q10H [facility] Rx#:[id number] Sodium Chloride 0.9% 500 500 ml 500 ml @ 999 mls/hr IV .Q31M [facility] Rx#:[id number] Intake, IV Titration 1130 24.25 34.5 Amount Diltiazem 125 mg In 24.25 34.5 Sodium Chloride 0.9% 100 ml @ 5 MG/HR 5 mls/hr IV .Q24H [facility] Rx#:[id number] Sodium Chloride 0.9% 1, 130 000 ml @ 100 mls/hr IV . Q10H [facility] Rx#:[id number] Sodium Chloride 0.9% 1, 1000 000 ml @ 999 mls/hr IV . Q1H1M [facility] Rx#:[id number] Output: Urine 625 540 50 Other: Voiding Method Indwelling Catheter Indwelling Catheter Weight 113.398 kg 119 kg 118.2 kg Patient Weight 12/07/21 06:59 Weight 118.2 kg 12/06/21 06:19 12/06/21 06:19
[2021-12-06] MEDS ORDERED: AMIODARONE 360 MG in DEXTROSE 5% IN WATER 200 ML IV ONE ×2 (09:30)
--- NOTE | 2021-12-06 09:38 | P.PN ---
Subjective Progress Note Date: 12/06/21 This is a 66-year-old male patient, who presented to the emergency because of abdominal pain and nausea and emesis and the patient states that he has not passed a bowel movement for the past 3 days. His oral intake was minimal and was becoming progressively more sick and dehydrated. Upon arrival, he was hypotensive with a BP of 65/47. The patient was started on IV fluids. The patient is known to have polycystic kidney disease and he has chronic kidney disease and his baseline creatinine was 1.8 from 2019. His initial blood work showed a white cell count of 11.6. His hemoglobin was elevated at 21.3 and the baseline is not known. It'll platelet count 214. BUN was at 91 with a creatinine of 4.95 consistent with an acute on top of chronic kidney disease. Lactic acid level was elevated at 3.4. Based on that, a CAT scan of the abdomen was done that showed a distended stomach, distended small bowel, transition point and a decompressed large bowel. The patient is known to have an umbilical hernia. No evidence of any incarceration. There was evidence of polycystic kidney disease. The patient currently has an NG tube in place. He has occult positive stools. The NG output was 1600. He is known to have COPD, polycystic kidney disease, hypertension. No previous history of abdominal surgeries. His abdomen is still distended. No altered mentation. He is able to follow commands and answer questions appropriately. No previous history of cardiac disease. The liver function tests showed an AST of 95, ALT of 62, normal alkaline phosphatase of 59, and the bilirubin was at 1.5. Follow-up lactic acid level is down to 2.5. His COVID 19 by PCR was negative. Normal coagulation profile. On 12/06/2021, the patient's condition essentially unchanged. The patient has an NG tube in place and output was around 400 mL over the past 12 hours. Abdomen is slightly distended. The patient umbilical hernia. He does have some mild direct tenderness. No bowel sounds. No bowel movements. No flatus. He remains obstructive. He was IV fluids and he is still on IV fluids running at the rate of 100 mL an hour of normal saline. The blood work from today shows a white cell count of 9 with a hemoglobin of 18.5. There was an obvious drop in hemoglobin from 21 down to 18. Platelet counts are 93. Blood work shows improvement acute kidney injury. The patient's creatinine is down to 3.8 with a BM 96. Serum bicarbonate of 18 with a sodium level of 138. Liver function tests are all within normal limits. The patient was weaned by general surgery. We'll continue our conservative measures of gastric decompression via an NG tube and general surgeries also on the case. Chest x-ray from today shows some atelectatic changes in lung bases. NG tube is in a good location the stomach. No other acute abnormalities noted. The patient was also seen by nephrology and the patient was also seen by cardiology. The patient wasn't into atrial fibrillation with rapid ventricular response yesterday. He was initially on a Cardizem drip which controlled his rate is not controlled his rate. He became hypotensive. Subsequently, he was switched to a amiodarone drip and currently he is loaded with amiodarone and he is on a maintenance of 1 mg per minute as part of the loading protocol. His current heart rate is 101 and it is still in atrial fibrillation. Echo was also ordered by cardiology. Objective - Vital Signs Vital signs: Vital Signs Temp 97.8 F 12/06/21 04:00 Pulse 115 H 12/06/21 07:00 Resp 16 12/06/21 07:00 BP 98/88 12/06/21 07:00 Pulse Ox 93 L 12/06/21 07:00 FiO2 Intake & Output 12/05/21 12/06/21 12/06/21 18:59 06:59 18:59 Intake Total 1130 1524.25 134.5 Output Total 225 940 50 Balance 905 584.25 84.5 Weight 113.398 kg 119 kg 118.2 kg Intake: IV 1500 100 Sodium Chloride 0.9% 1, 1000 100 000 ml @ 100 mls/hr IV . Q10H [facility] Rx#:[id number] Sodium Chloride 0.9% 500 500 ml 500 ml @ 999 mls/hr IV .Q31M [facility] Rx#:[id number] Intake, IV Titration 1130 24.25 34.5 Amount Diltiazem 125 mg In 24.25 34.5 Sodium Chloride 0.9% 100 ml @ 5 MG/HR 5 mls/hr IV .Q24H [facility] Rx#:[id number] Sodium Chloride 0.9% 1, 130 000 ml @ 100 mls/hr IV . Q10H [facility] Rx#:[id number] Sodium Chloride 0.9% 1, 1000 000 ml @ 999 mls/hr IV . Q1H1M [facility] Rx#:[id number] Output: Urine 225 940 50 Other: Voiding Method Indwelling Catheter Indwelling Catheter - Exam The patient is calm and comfortable. Breathing is nonlabored and the patient is currently on oxygen at 2 L, resting comfortably in bed Head exam was generally normal. There was no scleral icterus or corneal arcus. Mucous membranes were moist. Neck was supple and without jugular venous distension, thyromegaly, or carotid bruits. Carotids were easily palpable bilaterally. There was no adenopathy. The patient is a Mallampati class IV. Lungs were clear to auscultation and percussion, and with normal diaphragmatic excursion. No wheezes or rales were noted. Cardiac exam revealed the PMI to be normally situated and sized. The rhythm was irregular consistent with atrial fibrillation with rapid ventricular response and the heart is improved as the patient is currently on amiodarone and no extrasystoles were noted during several minutes of auscultation. The first and second heart sounds were normal and physiologic splitting of the second heart sound was noted. There were no murmurs, rubs, clicks, or gallops. Abdomen is distended. There is mild direct tenderness. No rebound tenderness or guarding. No organomegaly. There is an umbilical hernia which is reducible. Bowel sounds are hypoactive. Examination of the extremities revealed easily palpable radial, femoral and pedal pulses. There was no cyanosis, clubbing or edema. Examination of the skin revealed no evidence of significant rashes, suspicious appearing nevi or other concerning lesions. - Labs CBC & Chem 7: 12/06/21 06:19 12/06/21 06:19 Labs: Abnormal Lab Results - Last 24 Hours (Table) 12/05/21 12/05/21 12/05/21 Range/Units 11:34 11:34 11:34 WBC 11.6 H (3.8-10.6) k/uL RBC 6.96 H (4.30-5.90) m/uL Hgb 21.3 H* (13.0-17.5) gm/dL Hct 65.8 H* (39.0-53.0) % Plt Count 116 L (150-450) k/uL Neutrophils # 9.8 H (1.3-7.7) k/uL Lymphocytes # 0.5 L (1.0-4.8) k/uL Sodium 134 L (137-145) mmol/L Potassium (3.5-5.1) mmol/L Chloride 94 L (98-107) mmol/L Carbon Dioxide 16 L (22-30) mmol/L BUN 91 H (9-20) mg/dL Creatinine 4.95 H (0.66-1.25) mg/dL Glucose 142 H (74-99) mg/dL POC Glucose (mg/dL) (70-110) mg/dL Plasma Lactic Acid Chase 3.4 H* (0.7-2.0) mmol/L Calcium (8.4-10.2) mg/dL Total Bilirubin 1.5 H (0.2-1.3) mg/dL AST 95 H (17-59) U/L ALT 62 H (4-49) U/L Total Protein (6.3-8.2) g/dL Albumin (3.5-5.0) g/dL Urine Protein (Negative) Urine Blood (Negative) Urine Mucus (None) /hpf 12/05/21 12/05/21 12/05/21 Range/Units 14:52 16:36 17:00 WBC (3.8-10.6) k/uL RBC (4.30-5.90) m/uL Hgb (13.0-17.5) gm/dL Hct (39.0-53.0) % Plt Count (150-450) k/uL Neutrophils # (1.3-7.7) k/uL Lymphocytes # (1.0-4.8) k/uL Sodium (137-145) mmol/L Potassium (3.5-5.1) mmol/L Chloride (98-107) mmol/L Carbon Dioxide (22-30) mmol/L BUN (9-20) mg/dL Creatinine (0.66-1.25) mg/dL Glucose (74-99) mg/dL POC Glucose (mg/dL) 136 H (70-110) mg/dL Plasma Lactic Acid Chase 2.5 H* (0.7-2.0) mmol/L Calcium (8.4-10.2) mg/dL Total Bilirubin (0.2-1.3) mg/dL AST (17-59) U/L ALT (4-49) U/L Total Protein (6.3-8.2) g/dL Albumin (3.5-5.0) g/dL Urine Protein 1+ H (Negative) Urine Blood Large H (Negative) Urine Mucus Rare H (None) /hpf 12/05/21 12/05/21 12/06/21 Range/Units 18:08 18:08 06:19 WBC (3.8-10.6) k/uL RBC 6.07 H (4.30-5.90) m/uL Hgb 18.5 H (13.0-17.5) gm/dL Hct 58.3 H* (39.0-53.0) % Plt Count 93 L (150-450) k/uL Neutrophils # (1.3-7.7) k/uL Lymphocytes # (1.0-4.8) k/uL Sodium 135 L (137-145) mmol/L Potassium 5.2 H (3.5-5.1) mmol/L Chloride 97 L (98-107) mmol/L Carbon Dioxide 21 L (22-30) mmol/L BUN (9-20) mg/dL Creatinine (0.66-1.25) mg/dL Glucose (74-99) mg/dL POC Glucose (mg/dL) (70-110) mg/dL Plasma Lactic Acid Chase 2.1 H* (0.7-2.0) mmol/L Calcium (8.4-10.2) mg/dL Total Bilirubin (0.2-1.3) mg/dL AST (17-59) U/L ALT (4-49) U/L Total Protein (6.3-8.2) g/dL Albumin (3.5-5.0) g/dL Urine Protein (Negative) Urine Blood (Negative) Urine Mucus (None) /hpf 12/06/21 Range/Units 06:19 WBC (3.8-10.6) k/uL RBC (4.30-5.90) m/uL Hgb (13.0-17.5) gm/dL Hct (39.0-53.0) % Plt Count (150-450) k/uL Neutrophils # (1.3-7.7) k/uL Lymphocytes # (1.0-4.8) k/uL Sodium (137-145) mmol/L Potassium (3.5-5.1) mmol/L Chloride (98-107) mmol/L Carbon Dioxide 18 L (22-30) mmol/L BUN 96 H (9-20) mg/dL Creatinine 3.82 H (0.66-1.25) mg/dL Glucose 131 H (74-99) mg/dL POC Glucose (mg/dL) (70-110) mg/dL Plasma Lactic Acid Chase (0.7-2.0) mmol/L Calcium 7.8 L (8.4-10.2) mg/dL Total Bilirubin (0.2-1.3) mg/dL AST (17-59) U/L ALT 58 H (4-49) U/L Total Protein 5.4 L (6.3-8.2) g/dL Albumin 3.1 L (3.5-5.0) g/dL Urine Protein (Negative) Urine Blood (Negative) Urine Mucus (None) /hpf Assessment and Plan Plan: Acute small bowel obstruction. The patient presented to us with abdominal pain and distention and no bowel movements for the past 3 days. He also had nausea and emesis. CAT scan of the abdomen is consistent with small bowel obstruction. NG tube was placed for decompression. Total of 1.6 L of gastric output was obtained. On today's evaluation, NG tube remains in place and bowel obstr uction remains active and unchanged with increased output from the NG and order of 400 mL over the past 8 hours. He continues to have bowel rest and gastric decompression. General surgeries on the case. Abdominal pain secondary to above New onset atrial fibrillation with rapid ventricular response, currently on amiodarone drip Umbilical hernia without evidence of any incarceration Acute on chronic kidney disease. The patient is known to have chronic with cystic kidney disease and he was extremely dehydrated and he developed an acute kidney injury on top of his chronic kidney failure, renal function continues to improve Acute dehydration secondary to above Secondary erythrocytosis with an elevated hemoglobin level. Rule out underlying obstructive sleep apnea. Rule out dehydration. Current hematocrit and hemoglobin of elevated. Hemoglobin was 21 at time of admission and hemoglobin is down to 18 Anion gap metabolic acidosis, mild lactic acidosis COPD Hypertension maternal lisinopril and Norvasc on outpatient basis Osteoarthritis Acid reflux Chronic back pain History of kidney stones Plan Continue IV fluids with normal saline today to 100 mL an hour Keep NG tube in place Bicarb deficit is being replaced by nephrology Continue amiodarone drip in regards to atrial fibrillation, no anticoagulants for now Echocardiogram General surgery consultation is appreciated Pain control with Dilaudid as needed IV Protonix Lovenox 40 mg subcu 40 prophylaxis Hold antihypertensive medication for now Supplemental O2 to maintain a saturation above 90% Keep the patient intensive care unit for now.
[2021-12-06] MEDS ORDERED: SODIUM BICARB 8.4% 50 ML SYR (1 MEQ/ML) ONE (09:50)
--- NOTE | 2021-12-06 11:31 | P.PN ---
Subjective Progress Note Date: 12/06/21 Constantino Hernandez, is a 66 year old male who presented to [facility] emergency room, with a chief complaint of abdominal pain nausea and vomiting, his symptoms started 3 days ago and has been worsening. He was evaluated in the emergency room vital examination on presentation revealed a temperature of 96.7 pulse 101 respiration 24 blood pressure 154/89 however blood pressure dropped to 65/47 shortly after arrival pulse ox was 96% on room air Laboratory data revealed a white blood count of 11.6 hemoglobin 21.3 platelet count 116 sodium 134 potassium 5.0 chloride 94 CO2 16 BUN 91 creatinine 4.95 la ctic acid was elevated at 3.4 total bilirubin 1.5 AST 95 ALT 62 lipase within normal limits, zavala virus PCR was negative Testing in the emergency room revealed chest x-ray done in the emergency room revealed interstitial lung disease and chronic compression deformity of L1, computed tomography scan of the abdomen and pelvis revealed distal small bowel obstruction and 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 In the emergency room patient had an NG tube placed and had large amount of fluid removed, plan is to admit patient, consultation for surgery, nephrology, cardiology, and critical care initiated in the emergency room Past medical history is significant for history of hypertension, history of COPD, history of osteoarthritis, history of chronic kidney disease, history of chronic back pain. 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 On review of systems patient is alert and oriented 3, he has an NG tube in, he is complaining of some abdominal discomfort, otherwise he denies any complaints, there is no fever or chills no headache or dizziness no chest pain no shortness of breath, no nausea or vomiting since NG tube has been placed, no burning with urination no frequency or urgency and no hematuria. On 12/06/2021 patient was seen and examined in the ICU he is alert responsive in no apparent distress, he has an NG tube, he is maintained on oxygen via nasal cannula at 4 L, vital exam at 8 AM temperature 98.4 pulse 123 respiration 16 blood pressure 78/64 pulse ox 92% he is sleepy and denies any complaints at this time, there is no fever or chills no headache or dizziness no chest pain no shortness of breath no cough no nausea or vomiting no abdominal pain no diarrhea and no urinary symptoms, patient has not had any bowel movement or passed any gas since admission, there is some improvement on his laboratory data white blood count is down from 11.6-9.0 creatinine is down from 4.95-3.82 and lactic acid is down to 1.5, recommendation from nephrology, cardiology and critical care reviewed Objective - Vital Signs Vital signs: Vital Signs Temp 98.4 F 12/06/21 08:00 Pulse 109 H 12/06/21 10:30 Resp 13 12/06/21 10:30 BP 83/57 12/06/21 10:30 Pulse Ox 96 12/06/21 10:30 FiO2 Intake & Output 12/05/21 12/06/21 12/06/21 18:59 06:59 18:59 Intake Total 1130 1524.25 760.5 Output Total 225 940 325 Balance 905 584.25 435.5 Weight 113.398 kg 119 kg 118.2 kg Intake: IV 1500 500 Sodium Chloride 0.9% 1, 1000 500 000 ml @ 100 mls/hr IV . Q10H [facility] Rx#:[id number] Sodium Chloride 0.9% 500 500 ml 500 ml @ 999 mls/hr IV .Q31M [facility] Rx#:[id number] Intake, IV Titration 1130 24.25 260.5 Amount Amiodarone 360 mg In 66 Dextrose 5% in Water 200 ml @ 1 MG/MIN 33.333 mls/ hr IV .Q6H [facility] Rx#: [id number] Dextrose 5% in Water 100 150 ml @ 618 mls/hr IV .Q10M [facility] with Amiodarone 150 mg Rx#:[id number] Diltiazem 125 mg In 24.25 44.5 Sodium Chloride 0.9% 100 ml @ 5 MG/HR 5 mls/hr IV .Q24H [facility] Rx#:[id number] Sodium Chloride 0.9% 1, 130 000 ml @ 100 mls/hr IV . Q10H [facility] Rx#:[id number] Sodium Chloride 0.9% 1, 1000 000 ml @ 999 mls/hr IV . Q1H1M [facility] Rx#:[id number] Output: Urine 225 940 325 Other: Voiding Method Indwelling Catheter Indwelling Catheter Indwelling Catheter - Exam In general patient is alert and oriented x 3 in no distress HEENT head normocephalic and atraumatic, NG tube is in Neck is supple no JVD no goiter no lymphadenopathy no carotid bruit Chest examination is clear to auscultation no crackles no wheezing Cardiac exam reveals regular heart sounds S1 and S2 no gallops no murmurs Abdomen is soft with mild diffuse tenderness no palpable masses no organomegaly Extremity exam reveals no edema no cyanosis or clubbing Neurological examination reveals no gross focal deficits - Labs CBC & Chem 7: 12/06/21 06:19 12/06/21 06:19 Labs: Abnormal Lab Results - Last 24 Hours (Table) 12/05/21 12/05/21 12/05/21 Range/Units 11:34 11:34 11:34 WBC 11.6 H (3.8-10.6) k/uL RBC 6.96 H (4.30-5.90) m/uL Hgb 21.3 H* (13.0-17.5) gm/dL Hct 65.8 H* (39.0-53.0) % Plt Count 116 L (150-450) k/uL Neutrophils # 9.8 H (1.3-7.7) k/uL Lymphocytes # 0.5 L (1.0-4.8) k/uL Sodium 134 L (137-145) mmol/L Potassium (3.5-5.1) mmol/L Chloride 94 L (98-107) mmol/L Carbon Dioxide 16 L (22-30) mmol/L BUN 91 H (9-20) mg/dL Creatinine 4.95 H (0.66-1.25) mg/dL Glucose 142 H (74-99) mg/dL POC Glucose (mg/dL) (70-110) mg/dL Plasma Lactic Acid Chase 3.4 H* (0.7-2.0) mmol/L Calcium (8.4-10.2) mg/dL Total Bilirubin 1.5 H (0.2-1.3) mg/dL AST 95 H (17-59) U/L ALT 62 H (4-49) U/L Total Protein (6.3-8.2) g/dL Albumin (3.5-5.0) g/dL Urine Protein (Negative) Urine Blood (Negative) Urine Mucus (None) /hpf 12/05/21 12/05/21 12/05/21 Range/Units 14:52 16:36 17:00 WBC (3.8-10.6) k/uL RBC (4.30-5.90) m/uL Hgb (13.0-17.5) gm/dL Hct (39.0-53.0) % Plt Count (150-450) k/uL Neutrophils # (1.3-7.7) k/uL Lymphocytes # (1.0-4.8) k/uL Sodium (137-145) mmol/L Potassium (3.5-5.1) mmol/L Chloride (98-107) mmol/L Carbon Dioxide (22-30) mmol/L BUN (9-20) mg/dL Creatinine (0.66-1.25) mg/dL Glucose (74-99) mg/dL POC Glucose (mg/dL) 136 H (70-110) mg/dL Plasma Lactic Acid Chase 2.5 H* (0.7-2.0) mmol/L Calcium (8.4-10.2) mg/dL Total Bilirubin (0.2-1.3) mg/dL AST (17-59) U/L ALT (4-49) U/L Total Protein (6.3-8.2) g/dL Albumin (3.5-5.0) g/dL Urine Protein 1+ H (Negative) Urine Blood Large H (Negative) Urine Mucus Rare H (None) /hpf 12/05/21 12/05/21 12/06/21 Range/Units 18:08 18:08 06:19 WBC (3.8-10.6) k/uL RBC 6.07 H (4.30-5.90) m/uL Hgb 18.5 H (13.0-17.5) gm/dL Hct 58.3 H* (39.0-53.0) % Plt Count 93 L (150-450) k/uL Neutrophils # (1.3-7.7) k/uL Lymphocytes # (1.0-4.8) k/uL Sodium 135 L (137-145) mmol/L Potassium 5.2 H (3.5-5.1) mmol/L Chloride 97 L (98-107) mmol/L Carbon Dioxide 21 L (22-30) mmol/L BUN (9-20) mg/dL Creatinine (0.66-1.25) mg/dL Glucose (74-99) mg/dL POC Glucose (mg/dL) (70-110) mg/dL Plasma Lactic Acid Chase 2.1 H* (0.7-2.0) mmol/L Calcium (8.4-10.2) mg/dL Total Bilirubin (0.2-1.3) mg/dL AST (17-59) U/L ALT (4-49) U/L Total Protein (6.3-8.2) g/dL Albumin (3.5-5.0) g/dL Urine Protein (Negative) Urine Blood (Negative) Urine Mucus (None) /hpf 12/06/21 Range/Units 06:19 WBC (3.8-10.6) k/uL RBC (4.30-5.90) m/uL Hgb (13.0-17.5) gm/dL Hct (39.0-53.0) % Plt Count (150-450) k/uL Neutrophils # (1.3-7.7) k/uL Lymphocytes # (1.0-4.8) k/uL Sodium (137-145) mmol/L Potassium (3.5-5.1) mmol/L Chloride (98-107) mmol/L Carbon Dioxide 18 L (22-30) mmol/L BUN 96 H (9-20) mg/dL Creatinine 3.82 H (0.66-1.25) mg/dL Glucose 131 H (74-99) mg/dL POC Glucose (mg/dL) (70-110) mg/dL Plasma Lactic Acid Chase (0.7-2.0) mmol/L Calcium 7.8 L (8.4-10.2) mg/dL Total Bilirubin (0.2-1.3) mg/dL AST (17-59) U/L ALT 58 H (4-49) U/L Total Protein 5.4 L (6.3-8.2) g/dL Albumin 3.1 L (3.5-5.0) g/dL Urine Protein (Negative) Urine Blood (Negative) Urine Mucus (None) /hpf Assessment and Plan Plan: Distal small bowel obstruction Underlying history of COPD Underlying history of hypertension Acute on chronic renal failure was elevated BUN and creatinine Chronic kidney disease with evidence of autosomal dominant polycystic kidney disease on computed tomography scan Episodes of atrial flutter in the emergency room Underlying history of osteoarthritis. At this time patient is in the emergency room plan is to admit to ICU He is maintained on IV fluids and NG tube is in Surgical consultation requested in regard to distal small bowel obstruction Pulmonary critical care consult requested Cardiology consult requested in regard to episodes of atrial flutter Nephrology consultation was requested in that regard to acute on chronic renal failure Will follow closely
--- NOTE | 2021-12-06 14:06 | P.PN ---
Subjective Progress Note Date: 12/06/21 Principal diagnosis: Acute small bowel obstruction with transition point, hypovolemic shock, new onset atrial fibrillation with rapid ventricular response, acute on chronic kidney injury Patient seen and examined at bedside. Abdominal pain and distention are very slightly Improved today compared to yesterday, still has a persistent lower back pain. Nasogastric tube remains in place with gastric output. No signs of upper GI bleeding. Overnight he's had more persistent atrial fibrillation and flutter with rapid ventricular response, has been started on Cardizem and request has been made for interval anticoagulation with heparin drip by cardiology. Echocardiogram is pending. Denies chest pain or shortness of breath at rest. He's feeling hungry, voiding without issue, has yet to have any flatus or bowel movement although he feels like he may be getting close. Patient's lactic acidosis is normalized overnight. Leukocytosis is improved to 9.0, hemoglobin still shows signs of concentration at 18, platelet count slightly low at 93. Metabolic panel shows slight improvement in serum creatinine to 3.8 to today. CO2 is a bit low at 18. Has been afebrile, modestly tachycardic in the setting of atrial arrhythmia, and relatively hypotensive overnight. Objective - Vital Signs Vital signs: Vital Signs Temp 97.4 F L 12/06/21 12:00 Pulse 146 H 12/06/21 13:30 Resp 19 12/06/21 13:30 BP 96/68 12/06/21 13:30 Pulse Ox 94 L 12/06/21 13:30 FiO2 Intake & Output 12/05/21 12/06/21 12/06/21 18:59 06:59 18:59 Intake Total 1130 1524.25 1026.5 Output Total 225 940 525 Balance 905 584.25 501.5 Weight 113.398 kg 119 kg 118.2 kg Intake: IV 1500 700 Sodium Chloride 0.9% 1, 1000 700 000 ml @ 100 mls/hr IV . Q10H [facility] Rx#:[id number] Sodium Chloride 0.9% 500 500 ml 500 ml @ 999 mls/hr IV .Q31M [facility] Rx#:[id number] Intake, IV Titration 1130 24.25 326.5 Amount Amiodarone 360 mg In 132 Dextrose 5% in Water 200 ml @ 1 MG/MIN 33.333 mls/ hr IV .Q6H [facility] Rx#: [id number] Dextrose 5% in Water 100 150 ml @ 618 mls/hr IV .Q10M [facility] with Amiodarone 150 mg Rx#:[id number] Diltiazem 125 mg In 24.25 44.5 Sodium Chloride 0.9% 100 ml @ 5 MG/HR 5 mls/hr IV .Q24H [facility] Rx#:[id number] Sodium Chloride 0.9% 1, 130 000 ml @ 100 mls/hr IV . Q10H [facility] Rx#:[id number] Sodium Chloride 0.9% 1, 1000 000 ml @ 999 mls/hr IV . Q1H1M [facility] Rx#:[id number] Output: Urine 225 940 525 Other: Voiding Method Indwelling Catheter Indwelling Catheter Indwelling Catheter - Constitutional General appearance: Present: cooperative, no acute distress, obese - EENT Eyes: Present: PERRLA ENT: Present: hearing grossly normal, NA/AT - Respiratory Respiratory: bilateral: CTA - Cardiovascular Rhythm: regularly irregular - Gastrointestinal Gastrointestinal Comment(s): Abdomen is soft, mild diffuse tenderness to palpation, moderately distended. Exam slightly improved compared to yesterday. No clinical signs of pancreatitis. Focal tenderness over the right lower quadrant has slightly improved. General gastrointestinal: Present: decreased bowel sounds, distended - Integumentary Integumentary: Present: normal - Neurologic Neurologic: Present: CNII-XII intact - Psychiatric Psychiatric: Present: A&O x's 3, appropriate affect, intact judgment & insight - Labs CBC & Chem 7: 12/06/21 06:19 12/06/21 06:19 Labs: Abnormal Lab Results - Last 24 Hours (Table) 12/05/21 12/05/21 12/05/21 Range/Units 14:52 16:36 17:00 RBC (4.30-5.90) m/uL Hgb (13.0-17.5) gm/dL Hct (39.0-53.0) % Plt Count (150-450) k/uL Sodium (137-145) mmol/L Potassium (3.5-5.1) mmol/L Chloride (98-107) mmol/L Carbon Dioxide (22-30) mmol/L BUN (9-20) mg/dL Creatinine (0.66-1.25) mg/dL Glucose (74-99) mg/dL POC Glucose (mg/dL) 136 H (70-110) mg/dL Plasma Lactic Acid Chase 2.5 H* (0.7-2.0) mmol/L Calcium (8.4-10.2) mg/dL ALT (4-49) U/L Total Protein (6.3-8.2) g/dL Albumin (3.5-5.0) g/dL Urine Protein 1+ H (Negative) Urine Blood Large H (Negative) Urine Mucus Rare H (None) /hpf 12/05/21 12/05/21 12/06/21 Range/Units 18:08 18:08 06:19 RBC 6.07 H (4.30-5.90) m/uL Hgb 18.5 H (13.0-17.5) gm/dL Hct 58.3 H* (39.0-53.0) % Plt Count 93 L (150-450) k/uL Sodium 135 L (137-145) mmol/L Potassium 5.2 H (3.5-5.1) mmol/L Chloride 97 L (98-107) mmol/L Carbon Dioxide 21 L (22-30) mmol/L BUN (9-20) mg/dL Creatinine (0.66-1.25) mg/dL Glucose (74-99) mg/dL POC Glucose (mg/dL) (70-110) mg/dL Plasma Lactic Acid Chase 2.1 H* (0.7-2.0) mmol/L Calcium (8.4-10.2) mg/dL ALT (4-49) U/L Total Protein (6.3-8.2) g/dL Albumin (3.5-5.0) g/dL Urine Protein (Negative) Urine Blood (Negative) Urine Mucus (None) /hpf 12/06/21 Range/Units 06:19 RBC (4.30-5.90) m/uL Hgb (13.0-17.5) gm/dL Hct (39.0-53.0) % Plt Count (150-450) k/uL Sodium (137-145) mmol/L Potassium (3.5-5.1) mmol/L Chloride (98-107) mmol/L Carbon Dioxide 18 L (22-30) mmol/L BUN 96 H (9-20) mg/dL Creatinine 3.82 H (0.66-1.25) mg/dL Glucose 131 H (74-99) mg/dL POC Glucose (mg/dL) (70-110) mg/dL Plasma Lactic Acid Chase (0.7-2.0) mmol/L Calcium 7.8 L (8.4-10.2) mg/dL ALT 58 H (4-49) U/L Total Protein 5.4 L (6.3-8.2) g/dL Albumin 3.1 L (3.5-5.0) g/dL Urine Protein (Negative) Urine Blood (Negative) Urine Mucus (None) /hpf Assessment and Plan Assessment: 66-year-old gentleman with presentation, clinical history, and imaging consistent with an acute distal small bowel obstruction with right lower quadrant transition point, likely relating to adhesions associated with remote appendectomy. No evidence of peritonitis on exam, no conclusive evidence of sepsis. Physical exam today shows very minimal improvement if any. Signs of hypovolemic shock and mild lactic acidosis on initial presentation, resolving with crystalloids. New onset atrial fibrillation and flutter with rapid ventricular response, suspect relative hypotension due to the same. Extensive polycystic kidney disease with a degree of acute on chronic kidney injury, serum creatinine started to trend down today. Mild thrombocytopenia. Plan: Continue with bowel rest, nasogastric decompression, IV fluids. Okay for ice chips sparingly. If he doesn't show signs of resolution tomorrow will anticipate repeat CT abdomen and pelvis with oral contrast via nasogastric tube to assess for persistence of mechanical obstruction this coming Wednesday. Rate control and anticoagulation with heparin per cardiology. Nephrology following as well. Time with Patient: Greater than 30
[2021-12-06] MEDS ORDERED: HEPARIN SODIUM 1,000 UN/ML (10ML VL) IV ONE (15:00)
[2021-12-06] MEDS: HEPARIN SOD,PORK IN 0.45% NACL 25,000 UNIT in 0.45% NACL 1 250ML.BAG IV SCH (15:10)
[2021-12-06] MEDS: AMIODARONE 450 MG in DEXTROSE 5% IN WATER 250 ML IV SCH ×2 (15:11)
--- NOTE | 2021-12-06 17:00 | CA ---
Transthoracic Echo Report Name: Constantino Hernandez Age: 66 Gender: M : 1955 Exam Date: 12/06/2021 12:10 Exam Location: [place] [facility] Ht (in): 75 Wt (lb): 260 Ordering Physician: Antonio Martinez MD ([id number]) Attending/Referring Phys: Seo Manager Yuni Ashton RDCS Procedure CPT: Indications: afib Cardiac Hx: Technical Quality: Good Contrast 1: Total Dose (mL): Contrast 2: Total Dose (mL): MEASUREMENTS (Male / Female) Normal Values 2D ECHO LV Diastolic Diameter PLAX 5.1 cm 4.2 - 5.9 / 3.9 - 5.3 cm LV Systolic Diameter PLAX 3.0 cm IVS Diastolic Thickness 1.2 cm 0.6 - 1.0 / 0.6 - 0.9 cm LVPW Diastolic Thickness 1.2 cm 0.6 - 1.0 / 0.6 - 0.9 cm LV Relative Wall Thickness 0.5 RV Internal Dim ED PLAX 3.1 cm LA Systolic Diameter LX 3.3 cm 3.0 - 4.0 / 2.7 - 3.8 cm LA Volume 57.3 cm??? 18 - 58 / 22 - 52 cm??? M-MODE Aortic Root Diameter MM 4.4 cm MV E Point Septal Separation 0.6 cm AV Cusp Separation MM 2.2 cm DOPPLER AV Peak Velocity 135.1 cm/s AV Peak Gradient 7.3 mmHg MV Area PHT 5.7 cm??? MV Deceleration Time 225.0 ms TR Peak Velocity 225.0 cm/s TR Peak Gradient 20.3 mmHg Right Ventricular Systolic Press 25.3 mmHg FINDINGS Left Ventricle Left ventricular ejection fraction is estimated at 60-65 %. Left ventricular cavity size normal. Mild left ventricular hypertrophy. Right Ventricle Normal right ventricular size. Right ventricular systolic pressure within normal limits. Right Atrium Normal right atrial size. Left Atrium Normal left atrial size. No patent foramen ovale. Mitral Valve Structurally normal mitral valve. No mitral stenosis, or prolapse. Mild mitral regurgitation Aortic Valve Trileaflet aortic valve. No aortic valve stenosis or regurgitation. Tricuspid Valve Mild tricuspid regurgitation.structurally normal tricuspid valve. Pulmonic Valve Structurally normal pulmonic valve. Pericardium Normal pericardium. No pericardial effusion. Aorta Moderate aortic dilatation at the level of the sinuses of valsalva 44 mm CONCLUSIONS 1. Normal left ventricle size and systolic function with mild left ventricular hypertrophy 2. Mild mitral and tricuspid regurgitation 3. Mildly dilated aortic root Previewed by: Dr. Antonio Martinez MD (Electronically Signed) Final Date: 06 December 2021 17:00
[2021-12-06] MEDS: HEPARIN SODIUM 1,000 UN/ML (10ML VL) IV PRN (21:42)
[2021-12-07] MEDS: HYDROmorphone 0.5 MG/0.5 ML SYRINGE IVP PRN ×4 (01:14→23:18)
[2021-12-07] MEDS: DILTIAZEM 125 MG in SODIUM CHLORIDE 0.9% 100 ML IV SCH ×2 (01:29→14:47)
[2021-12-07 04:45] LABS: Basophils % (A) 0 %; Eosinophils % (A) 0 %; HCT 54.1 % (39.0-53.0); HGB 17.8 gm/dL (13.0-17.5); Lymphocytes # (A) 0.4 k/uL (1.0-4.8); Lymphocytes % (A) 5 %; MCH 30.3 pg (25.0-35.0); MCHC 32.9 g/dL (31.0-37.0); Mean Platelet Volume 8.6; Monocytes # (A) 0.7 k/uL (0-1.0); Monocytes % (A) 8 %; Neutrophils # (A) 7.8 k/uL (1.3-7.7); Neutrophils % (A) 85 %; Platelet Count 113 k/uL (150-450); RBC 5.88 m/uL (4.30-5.90); RDW 14.1 % (11.5-15.5); WBC 9.1 k/uL (3.8-10.6)
[2021-12-07 04:50] LABS: INR 1.2 (<1.2); Partial Thromboplastin Time 42.6 sec (22.0-30.0); Prothrombin Time 12.3 sec (9.0-12.0)
[2021-12-07 04:55] LABS: Albumin 3.3 g/dL (3.5-5.0); Calcium 8.3 mg/dL (8.4-10.2); Potassium 4.3 mmol/L (3.5-5.1); Total Protein 5.8 g/dL (6.3-8.2)
[2021-12-07] MEDS: HEPARIN SODIUM 1,000 UN/ML (10ML VL) IV PRN (05:07)
[2021-12-07] MEDS: AMIODARONE 450 MG in DEXTROSE 5% IN WATER 250 ML IV SCH ×2 (06:09)
--- NOTE | 2021-12-07 07:36 | XR ---
EXAMINATION TYPE: XR chest 1V portable DATE OF EXAM: 12/07/2021 HISTORY: Shortness of breath. COMPARISON: 12/06/2021 TECHNIQUE: Single view of the chest is submitted. FINDINGS: Demonstrated are scattered senescent parenchymal change. NG tube is seen coursing towards the stomac h. Basilar infiltrates or atelectasis. Prominent interstitial pattern is nonspecific. The heart is stable. Hilar and mediastinal structures are within normal limits. Degenerative changes are seen of the dorsal spine. IMPRESSION: 1. Basilar infiltrates or atelectasis. Prominent interstitial pattern is nonspecific.
[2021-12-07] MEDS: PANTOPRAZOLE 40 MG/10 ML VIAL IVP SCH (08:13)
--- NOTE | 2021-12-07 08:33 | P.PN ---
Subjective Progress Note Date: 12/07/21 This is a 66-year-old male patient, who presented to the emergency because of abdominal pain and nausea and emesis and the patient states that he has not passed a bowel movement for the past 3 days. His oral intake was minimal and was becoming progressively more sick and dehydrated. Upon arrival, he was hypotensive with a BP of 65/47. The patient was started on IV fluids. The patient is known to have polycystic kidney disease and he has chronic kidney disease and his baseline creatinine was 1.8 from 2019. His initial blood work showed a white cell count of 11.6. His hemoglobin was elevated at 21.3 and the baseline is not known. It'll platelet count 214. BUN was at 91 with a creatinine of 4.95 consistent with an acute on top of chronic kidney disease. Lactic acid level was elevated at 3.4. Based on that, a CAT scan of the abdomen was done that showed a distended stomach, distended small bowel, transition point and a decompressed large bowel. The patient is known to have an umbilical hernia. No evidence of any incarceration. There was evidence of polycystic kidney disease. The patient currently has an NG tube in place. He has occult positive stools. The NG output was 1600. He is known to have COPD, polycystic kidney disease, hypertension. No previous history of abdominal surgeries. His abdomen is still distended. No altered mentation. He is able to follow commands and answer questions appropriately. No previous history of cardiac disease. The liver function tests showed an AST of 95, ALT of 62, normal alkaline phosphatase of 59, and the bilirubin was at 1.5. Follow-up lactic acid level is down to 2.5. His COVID 19 by PCR was negative. Normal coagulation profile. On 12/06/2021, the patient's condition essentially unchanged. The patient has an NG tube in place and output was around 400 mL over the past 12 hours. Abdomen is slightly distended. The patient umbilical hernia. He does have some mild direct tenderness. No bowel sounds. No bowel movements. No flatus. He remains obstructive. He was IV fluids and he is still on IV fluids running at the rate of 100 mL an hour of normal saline. The blood work from today shows a white cell count of 9 with a hemoglobin of 18.5. There was an obvious drop in hemoglobin from 21 down to 18. Platelet counts are 93. Blood work shows improvement acute kidney injury. The patient's creatinine is down to 3.8 with a BM 96. Serum bicarbonate of 18 with a sodium level of 138. Liver function tests are all within normal limits. The patient was weaned by general surgery. We'll continue our conservative measures of gastric decompression via an NG tube and general surgeries also on the case. Chest x-ray from today shows some atelectatic changes in lung bases. NG tube is in a good location the stomach. No other acute abnormalities noted. The patient was also seen by nephrology and the patient was also seen by cardiology. The patient wasn't into atrial fibrillation with rapid ventricular response yesterday. He was initially on a Cardizem drip which controlled his rate is not controlled his rate. He became hypotensive. Subsequently, he was switched to a amiodarone drip and currently he is loaded with amiodarone and he is on a maintenance of 1 mg per minute as part of the loading protocol. His current heart rate is 101 and it is still in atrial fibrillation. Echo was also ordered by cardiology. 12/07/2021, the patient is more lethargic compared to yesterday. This morning, he is confused and lethargic. He was requiring significant OUTPUT overnight and he has taken 0.5 mg of Dilaudid IV every 2 hours. NG output is still high in the order of 600 mL. Normal bowel sounds. Abdomen remains distended. The same time, the patient is in atrial fibrillation with rapid ventricular response. Earlier this morning, his heart rate went up to 153. It is still irregular. The patient remains on amiodarone 0.5 mg per minute and the patient also was started on IV heparin yesterday. No evidence of any bleeding. PTT this morning is at 42.6. At the same time, the patient's creatinine continues to improve. He is currently on IV fluids in the form of normal saline at the rate of 100 mL an hour and the BUN is at 92 with a creatinine of 3.18. Sodium is 143. LFTs are within normal limits. The white cell count is at 9.1. The blood cultures of been negative thus far. The overall fluid balance over the past 24 hours has been +1.4 L. She is afebrile. His neurologic exam is nonfocal. He remains on IV Protonix. Gen. surgery is on the case. Echocardiogram was done yesterday and the patient has a preserved LV function with an ejection fraction of 60%. No valvular Abnormalities. Objective - Vital Signs Vital signs: Vital Signs Temp 98 F 12/07/21 04:00 Pulse 155 H 12/07/21 07:00 Resp 17 12/07/21 07:00 BP 109/89 12/07/21 07:00 Pulse Ox 95 12/07/21 07:00 FiO2 Intake & Output 12/06/21 12/07/21 12/07/21 18:59 06:59 18:59 Intake Total 1642.6 1732.115 Output Total 1500 2055 Balance 142.6 -322.885 Weight 118.2 kg 118.2 kg Intake: IV 1200 1300 Sodium Chloride 0.9% 1, 1200 1300 000 ml @ 100 mls/hr IV . Q10H [facility] Rx#:[id number] Intake, IV Titration 442.6 432.115 Amount Amiodarone 360 mg In 198 Dextrose 5% in Water 200 ml @ 1 MG/MIN 33.333 mls/ hr IV .Q6H [facility] Rx#: [id number] Amiodarone 450 mg In 50.1 266.149 Dextrose 5% in Water 250 ml @ 0.5 MG/MIN 16.667 mls/hr IV .Q15H [facility] Rx#: [id number] Dextrose 5% in Water 100 150 ml @ 618 mls/hr IV .Q10M [facility] with Amiodarone 150 mg Rx#:[id number] Diltiazem 125 mg In 44.5 Sodium Chloride 0.9% 100 ml @ 5 MG/HR 5 mls/hr IV .Q24H [facility] Rx#:[id number] Heparin Sod,Pork in 0.45% 165.966 NaCl 25,000 unit In 0.45 % NaCl 1 250ml.bag @ 8.46 UNITS/KG/HR 10 mls/hr IV .Q24H [facility] Rx#:[id number] Output: Gastric Drainage 450 600 Urine 1050 1455 Other: Voiding Method Indwelling Catheter Indwelling Catheter - Exam The patient is calm and comfortable. Breathing is nonlabored and the patient is currently on oxygen at 2 L, resting comfortably in bed Head exam was generally normal. There was no scleral icterus or corneal arcus. Mucous membranes were moist. Neck was supple and without jugular venous distension, thyromegaly, or carotid bruits. Carotids were easily palpable bilaterally. There was no adenopathy. The patient is a Mallampati class IV. Lungs were clear to auscultation and percussion, and with normal diaphragmatic excursion. No wheezes or rales were noted. Cardiac exam revealed the PMI to be normally situated and sized. The rhythm was irregular consistent with atrial fibrillation with rapid ventricular response and the heart is improved as the patient is currently on amiodarone and no extrasystoles were noted during several minutes of auscultation. The first and second heart sounds were normal and physiologic splitting of the second heart sound was noted. There were no murmurs, rubs, clicks, or gallops. Abdomen is distended. There is mild direct tenderness. No rebound tenderness or guarding. No organomegaly. There is an umbilical hernia which is reducible. Bowel sounds are hypoactive. Examination of the extremities revealed easily palpable radial, femoral and pedal pulses. There was no cyanosis, clubbing or edema. Examination of the skin revealed no evidence of significant rashes, suspicious appearing nevi or other concerning lesions. - Labs CBC & Chem 7: 12/07/21 03:58 12/07/21 03:58 Labs: Abnormal Lab Results - Last 24 Hours (Table) 12/06/21 12/07/21 12/07/21 Range/Units 20:56 03:58 03:58 Hgb 17.8 H (13.0-17.5) gm/dL Hct 54.1 H (39.0-53.0) % Plt Count 113 L (150-450) k/uL Neutrophils # 7.8 H (1.3-7.7) k/uL Lymphocytes # 0.4 L (1.0-4.8) k/uL PT (9.0-12.0) sec INR (<1.2) APTT 31.8 H (22.0-30.0) sec Carbon Dioxide 19 L (22-30) mmol/L BUN 92 H (9-20) mg/dL Creatinine 3.18 H (0.66-1.25) mg/dL Glucose 147 H (74-99) mg/dL Calcium 8.3 L (8.4-10.2) mg/dL ALT 68 H (4-49) U/L Total Protein 5.8 L (6.3-8.2) g/dL Albumin 3.3 L (3.5-5.0) g/dL 12/07/21 Range/Units 03:58 Hgb (13.0-17.5) gm/dL Hct (39.0-53.0) % Plt Count (150-450) k/uL Neutrophils # (1.3-7.7) k/uL Lymphocytes # (1.0-4.8) k/uL PT 12.3 H (9.0-12.0) sec INR 1.2 H (<1.2) APTT 42.6 H (22.0-30.0) sec Carbon Dioxide (22-30) mmol/L BUN (9-20) mg/dL Creatinine (0.66-1.25) mg/dL Glucose (74-99) mg/dL Calcium (8.4-10.2) mg/dL ALT (4-49) U/L Total Protein (6.3-8.2) g/dL Albumin (3.5-5.0) g/dL Microbiology - Last 24 Hours (Table) 12/05/21 15:15 Blood Culture - Preliminary Blood No Growth after 24 hours 12/05/21 15:05 Blood Culture - Preliminary Blood No Growth after 24 hours Assessment and Plan Plan: Acute small bowel obstruction. The patient presented to us with abdominal pain and distention and no bowel movements for the past 3 days. He also had nausea and emesis. CAT scan of the abdomen is consistent with small bowel obstruction. NG tube was placed for decompression. Since his admission to the intensive care unit, the patient has not shown any progress. NG tube remains in place. Output from the NG tube remains high. No bowel sounds. Hemodynamically, he remains in atrial fibrillation with rapid ventricular response. No hypotension. Adequate urine output for now. General surgeries on the case. May consider expiratory laparotomy Altered mental status, delirium, could be metabolic encephalopathy, could be drug induced encephalopathy. Abdominal pain secondary to above New onset atrial fibrillation with rapid ventricular response, currently on amiodarone drip, and the patient continues to be in A. fib with RVR. The patient is on amiodarone drip for now and the patient is also on low-dose heparin drip. The patient's heart is in the 160s. Echo of the heart showed no acute abnormalities Umbilical hernia without evidence of any incarceration Acute on chronic kidney disease. The patient is known to have chronic with cystic kidney disease and he was extremely dehydrated and he developed an acute kidney injury on top of his chronic kidney failure, renal function continues to improve Acute dehydration secondary to above Secondary erythrocytosis with an elevated hemoglobin level. Rule out underlying obstructive sleep apnea. Rule out dehydration. Current hematocrit and hemoglobin of elevated. Hemoglobin was 21 at time of admission and hemoglobin is down to 17 Anion gap metabolic acidosis, mild lactic acidosis COPD Hypertension maternal lisinopril and Norvasc on outpatient basis Osteoarthritis Acid reflux Chronic back pain History of kidney stones Plan Continue IV fluids with normal saline today to 100 mL an hour Given another 1 liter bolus of normal saline. Chest x-ray from today showing some atelectatic changes in the right midlung and some mild interstitial markings. Given another amiodarone bolus 150 mg IV and continue the maintenance of 0.5 mg per minute. Echo was noted Keep NG tube in place Continue normal saline infusion Continued IV heparin May need to consider exp laparotomy and this will discuss with general surgery Check another lactic acid level Check. Calcitonin level Supplemental O2 to maintain a saturation above 90%, currently on 5 L minimize the use of narcotic medications including Dilaudid Keep the patient intensive care unit for now.
[2021-12-07] MEDS ORDERED: SODIUM CHLORIDE 0.9% 1,000 ML IV ONE ×2 (08:34→23:34)
[2021-12-07] MEDS ORDERED: DEXTROSE 5% IN WATER 100 ML with AMIODARONE 150 MG IV ONE (09:00)
[2021-12-07] MEDS ORDERED: SODIUM BICARB 8.4% 50 ML SYR (1 MEQ/ML) IV STA (09:30)
--- NOTE | 2021-12-07 09:31 | P.PN ---
Subjective Patient is seen in follow-up for acute kidney injury on chronic kidney disease. Renal function improving. Nonoliguric. More confused today. NG tube output about 600 mL overnight. On amiodarone drip for A. fib. Vital signs are stable. In A. fib. General: Awake. Confused. HEENT: Head exam is unremarkable. LUNGS: Breath sounds decreased. HEART: Irregular rate and rhythm. ABDOMEN: Distention noted. EXTREMITITES: No edema. Objective - Vital Signs Vital signs: Vital Signs Temp 97.6 F 12/07/21 08:00 Pulse 141 H 12/07/21 09:00 Resp 29 H 12/07/21 09:00 BP 93/67 12/07/21 09:00 Pulse Ox 96 12/07/21 09:00 FiO2 Intake & Output 12/06/21 12/07/21 12/07/21 18:59 06:59 18:59 Intake Total 1642.6 1732.115 100 Output Total 1500 2055 200 Balance 142.6 -322.885 -100 Weight 118.2 kg 118.2 kg Intake: IV 1200 1300 100 Sodium Chloride 0.9% 1, 1200 1300 100 000 ml @ 100 mls/hr IV . Q10H [facility] Rx#:[id number] Intake, IV Titration 442.6 432.115 Amount Amiodarone 360 mg In 198 Dextrose 5% in Water 200 ml @ 1 MG/MIN 33.333 mls/ hr IV .Q6H [facility] Rx#: [id number] Amiodarone 450 mg In 50.1 266.149 Dextrose 5% in Water 250 ml @ 0.5 MG/MIN 16.667 mls/hr IV .Q15H [facility] Rx#: [id number] Dextrose 5% in Water 100 150 ml @ 618 mls/hr IV .Q10M [facility] with Amiodarone 150 mg Rx#:[id number] Diltiazem 125 mg In 44.5 Sodium Chloride 0.9% 100 ml @ 5 MG/HR 5 mls/hr IV .Q24H [facility] Rx#:[id number] Heparin Sod,Pork in 0.45% 165.966 NaCl 25,000 unit In 0.45 % NaCl 1 250ml.bag @ 8.46 UNITS/KG/HR 10 mls/hr IV .Q24H [facility] Rx#:[id number] Output: Gastric Drainage 450 600 Urine 1050 1455 200 Other: Voiding Method Indwelling Catheter Indwelling Catheter Indwelling Catheter - Labs CBC & Chem 7: 12/07/21 03:58 12/07/21 03:58 Labs: Abnormal Lab Results - Last 24 Hours (Table) 12/06/21 12/07/21 12/07/21 Range/Units 20:56 03:58 03:58 Hgb 17.8 H (13.0-17.5) gm/dL Hct 54.1 H (39.0-53.0) % Plt Count 113 L (150-450) k/uL Neutrophils # 7.8 H (1.3-7.7) k/uL Lymphocytes # 0.4 L (1.0-4.8) k/uL PT (9.0-12.0) sec INR (<1.2) APTT 31.8 H (22.0-30.0) sec Carbon Dioxide 19 L (22-30) mmol/L BUN 92 H (9-20) mg/dL Creatinine 3.18 H (0.66-1.25) mg/dL Glucose 147 H (74-99) mg/dL Calcium 8.3 L (8.4-10.2) mg/dL ALT 68 H (4-49) U/L Total Protein 5.8 L (6.3-8.2) g/dL Albumin 3.3 L (3.5-5.0) g/dL 12/07/21 Range/Units 03:58 Hgb (13.0-17.5) gm/dL Hct (39.0-53.0) % Plt Count (150-450) k/uL Neutrophils # (1.3-7.7) k/uL Lymphocytes # (1.0-4.8) k/uL PT 12.3 H (9.0-12.0) sec INR 1.2 H (<1.2) APTT 42.6 H (22.0-30.0) sec Carbon Dioxide (22-30) mmol/L BUN (9-20) mg/dL Creatinine (0.66-1.25) mg/dL Glucose (74-99) mg/dL Calcium (8.4-10.2) mg/dL ALT (4-49) U/L Total Protein (6.3-8.2) g/dL Albumin (3.5-5.0) g/dL Microbiology - Last 24 Hours (Table) 12/05/21 15:15 Blood Culture - Preliminary Blood No Growth after 24 hours 12/05/21 15:05 Blood Culture - Preliminary Blood No Growth after 24 hours Assessment and Plan Plan: Assessment: 1. Acute kidney injury mostly prerenal secondary to hypovolemia from vomiting as well as hypotension and A. fib. Creatinine 4.95 on admission and is 3.18 today. No hydronephrosis noted on CAT scan. 2. Chronic kidney disease stage IIIB with baseline creatinine near 1.18 2020 secondary to polycystic kidney disease. 3. A. fib with RVR maintained on amiodarone drip. Cardiology following. 4. Metabolic acidosis secondary to acute kidney injury and IV fluids. Also lactic acidosis. Better. 5. Small bowel obstruction. Has NG tube. Surgery following. Plan: Maintain IV fluids. Receiving another liter bolus of normal saline now. Avoid nephrotoxins. Continue to monitor renal function and urine output. 2 A of sodium bicarbonate IV push today.
--- NOTE | 2021-12-07 09:38 | P.PN ---
Subjective Progress Note Date: 12/07/21 PROGRESS NOTE The patient is more confused today but is able to answer questions. He denies any chest discomfort or dyspnea but continues to have abdominal discomfort. His abdomen is distended. He denies any change in his breathing. He is in atrial fibrillation with rapid ventricular response. He continues to have an NG tube. His blood pressure has been borderline but stable. His echocardiogram showed a preserved systolic function. There was no significant valvular abnormalities. He received an additional IV amiodarone bolus. Medications: Amiodarone, IV Cardizem PHYSICAL EXAMINATION: Blood pressure 93/70 heart rate 04/04/1939 LUNGS: Clear to auscultation HEART: Irregular rate and rhythm, S1, S2. No S3. No systolic murmur ABDOMEN: Soft, mild tenderness, distended, hypoactive bowel sounds, no organomegaly EXTREMETIES: No edema , chronic discoloration LAB: Hemoglobin 17.8, BUN 92, creatinine 3.18 IMPRESSION: 1. Small bowel obstruction, surgery following 2. Atrial fibrillation with rapid ventricle response 3. Hypotension 4. Change in mental status with confusion, could be metabolic encephalopathy 5. Erythrocytosis 6. Abnormal renal functions PLAN: 1. Continue IV amiodarone 2. Add IV Lopressor 3. Follow renal functions 4. IV fluid 5. Await the input of surgical team regarding small bowel obstruction Objective - Vital Signs Vital signs: Vital Signs Temp 97.6 F 12/07/21 08:00 Pulse 141 H 12/07/21 09:00 Resp 29 H 12/07/21 09:00 BP 93/67 12/07/21 09:00 Pulse Ox 96 12/07/21 09:00 FiO2 Intake & Output 12/06/21 12/07/21 12/07/21 18:59 06:59 18:59 Intake Total 1642.6 1732.115 100 Output Total 1500 2055 200 Balance 142.6 -322.885 -100 Weight 118.2 kg 118.2 kg Intake: IV 1200 1300 100 Sodium Chloride 0.9% 1, 1200 1300 100 000 ml @ 100 mls/hr IV . Q10H [facility] Rx#:[id number] Intake, IV Titration 442.6 432.115 Amount Amiodarone 360 mg In 198 Dextrose 5% in Water 200 ml @ 1 MG/MIN 33.333 mls/ hr IV .Q6H [facility] Rx#: [id number] Amiodarone 450 mg In 50.1 266.149 Dextrose 5% in Water 250 ml @ 0.5 MG/MIN 16.667 mls/hr IV .Q15H [facility] Rx#: [id number] Dextrose 5% in Water 100 150 ml @ 618 mls/hr IV .Q10M [facility] with Amiodarone 150 mg Rx#:[id number] Diltiazem 125 mg In 44.5 Sodium Chloride 0.9% 100 ml @ 5 MG/HR 5 mls/hr IV .Q24H [facility] Rx#:[id number] Heparin Sod,Pork in 0.45% 165.966 NaCl 25,000 unit In 0.45 % NaCl 1 250ml.bag @ 8.46 UNITS/KG/HR 10 mls/hr IV .Q24H [facility] Rx#:[id number] Output: Gastric Drainage 450 600 Urine 1050 1455 200 Other: Voiding Method Indwelling Catheter Indwelling Catheter Indwelling Catheter - Labs CBC & Chem 7: 12/07/21 03:58 12/07/21 03:58 Labs: Abnormal Lab Results - Last 24 Hours (Table) 12/06/21 12/07/21 12/07/21 Range/Units 20:56 03:58 03:58 Hgb 17.8 H (13.0-17.5) gm/dL Hct 54.1 H (39.0-53.0) % Plt Count 113 L (150-450) k/uL Neutrophils # 7.8 H (1.3-7.7) k/uL Lymphocytes # 0.4 L (1.0-4.8) k/uL PT (9.0-12.0) sec INR (<1.2) APTT 31.8 H (22.0-30.0) sec Carbon Dioxide 19 L (22-30) mmol/L BUN 92 H (9-20) mg/dL Creatinine 3.18 H (0.66-1.25) mg/dL Glucose 147 H (74-99) mg/dL Calcium 8.3 L (8.4-10.2) mg/dL ALT 68 H (4-49) U/L Total Protein 5.8 L (6.3-8.2) g/dL Albumin 3.3 L (3.5-5.0) g/dL 12/07/21 Range/Units 03:58 Hgb (13.0-17.5) gm/dL Hct (39.0-53.0) % Plt Count (150-450) k/uL Neutrophils # (1.3-7.7) k/uL Lymphocytes # (1.0-4.8) k/uL PT 12.3 H (9.0-12.0) sec INR 1.2 H (<1.2) APTT 42.6 H (22.0-30.0) sec Carbon Dioxide (22-30) mmol/L BUN (9-20) mg/dL Creatinine (0.66-1.25) mg/dL Glucose (74-99) mg/dL Calcium (8.4-10.2) mg/dL ALT (4-49) U/L Total Protein (6.3-8.2) g/dL Albumin (3.5-5.0) g/dL Microbiology - Last 24 Hours (Table) 12/05/21 15:15 Blood Culture - Preliminary Blood No Growth after 24 hours 12/05/21 15:05 Blood Culture - Preliminary Blood No Growth after 24 hours
[2021-12-07] MEDS: SODIUM CHLORIDE 0.9% 1,000 ML IV SCH ×2 (10:13→23:55)
[2021-12-07] MEDS: HEPARIN SOD,PORK IN 0.45% NACL 25,000 UNIT in 0.45% NACL 1 250ML.BAG IV SCH (10:48)
--- NOTE | 2021-12-07 11:18 | P.PN ---
Subjective Progress Note Date: 12/07/21 Constantino Hernandez, is a 66 year old male who presented to [facility] emergency room, with a chief complaint of abdominal pain nausea and vomiting, his symptoms started 3 days ago and has been worsening. He was evaluated in the emergency room vital examination on presentation revealed a temperature of 96.7 pulse 101 respiration 24 blood pressure 154/89 however blood pressure dropped to 65/47 shortly after arrival pulse ox was 96% on room air Laboratory data revealed a white blood count of 11.6 hemoglobin 21.3 platelet count 116 sodium 134 potassium 5.0 chloride 94 CO2 16 BUN 91 creatinine 4.95 la ctic acid was elevated at 3.4 total bilirubin 1.5 AST 95 ALT 62 lipase within normal limits, zavala virus PCR was negative Testing in the emergency room revealed chest x-ray done in the emergency room revealed interstitial lung disease and chronic compression deformity of L1, computed tomography scan of the abdomen and pelvis revealed distal small bowel obstruction and 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 In the emergency room patient had an NG tube placed and had large amount of fluid removed, plan is to admit patient, consultation for surgery, nephrology, cardiology, and critical care initiated in the emergency room Past medical history is significant for history of hypertension, history of COPD, history of osteoarthritis, history of chronic kidney disease, history of chronic back pain. 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 On review of systems patient is alert and oriented 3, he has an NG tube in, he is complaining of some abdominal discomfort, otherwise he denies any complaints, there is no fever or chills no headache or dizziness no chest pain no shortness of breath, no nausea or vomiting since NG tube has been placed, no burning with urination no frequency or urgency and no hematuria. On 12/06/2021 patient was seen and examined in the ICU he is alert responsive in no apparent distress, he has an NG tube, he is maintained on oxygen via nasal cannula at 4 L, vital exam at 8 AM temperature 98.4 pulse 123 respiration 16 blood pressure 78/64 pulse ox 92% he is sleepy and denies any complaints at this time, there is no fever or chills no headache or dizziness no chest pain no shortness of breath no cough no nausea or vomiting no abdominal pain no diarrhea and no urinary symptoms, patient has not had any bowel movement or passed any gas since admission, there is some improvement on his laboratory data white blood count is down from 11.6-9.0 creatinine is down from 4.95-3.82 and lactic acid is down to 1.5, recommendation from nephrology, cardiology and critical care reviewed On 12/07/2021 patient is more confused. Per nursing staff patient had increased confusion throughout the night. Heart rate remains elevated. Cardiology services are following patient is on amiodarone. Surgical services ordering abdominal x-ray. Lactic acid 2.1. Creatinine improving to 3.18 awaiting further recommendations from surgery and critical care services Objective - Vital Signs Vital signs: Vital Signs Temp 97.6 F 12/07/21 08:00 Pulse 141 H 12/07/21 09:00 Resp 29 H 12/07/21 09:00 BP 93/67 12/07/21 09:00 Pulse Ox 96 12/07/21 09:00 FiO2 Intake & Output 12/06/21 12/07/21 12/07/21 18:59 06:59 18:59 Intake Total 1642.6 3707.129 6100.564 Output Total 1500 2055 475 Balance 142.6 -322.885 909.564 Weight 118.2 kg 118.2 kg Intake: IV 1200 1300 300 Sodium Chloride 0.9% 1, 1200 1300 300 000 ml @ 100 mls/hr IV . Q10H [facility] Rx#:[id number] Intake, IV Titration 442.6 906.360 2117.564 Amount Amiodarone 360 mg In 198 Dextrose 5% in Water 200 ml @ 1 MG/MIN 33.333 mls/ hr IV .Q6H [facility] Rx#: [id number] Amiodarone 450 mg In 50.1 266.149 Dextrose 5% in Water 250 ml @ 0.5 MG/MIN 16.667 mls/hr IV .Q15H [facility] Rx#: [id number] Dextrose 5% in Water 100 150 ml @ 618 mls/hr IV .Q10M [facility] with Amiodarone 150 mg Rx#:[id number] Diltiazem 125 mg In 44.5 Sodium Chloride 0.9% 100 ml @ 5 MG/HR 5 mls/hr IV .Q24H [facility] Rx#:[id number] Heparin Sod,Pork in 0.45% 165.966 84.564 NaCl 25,000 unit In 0.45 % NaCl 1 250ml.bag @ 8.46 UNITS/KG/HR 10 mls/hr IV .Q24H [facility] Rx#:[id number] Sodium Chloride 0.9% 1, 1000 000 ml @ 999 mls/hr IV . Q1H1M [facility] Rx#:[id number] Output: Gastric Drainage 450 600 Urine 1050 1455 475 Other: Voiding Method Indwelling Catheter Indwelling Catheter Indwelling Catheter - Exam In general patient is alert and oriented x 3 in no distress HEENT head normocephalic and atraumatic, NG tube is in Neck is supple no JVD no goiter no lymphadenopathy no carotid bruit Chest examination is clear to auscultation no crackles no wheezing Cardiac exam reveals regular heart sounds S1 and S2 no gallops no murmurs Abdomen is soft with mild diffuse tenderness no palpable masses no organomegaly Extremity exam reveals no edema no cyanosis or clubbing Neurological examination reveals no gross focal deficits - Labs CBC & Chem 7: 12/07/21 03:58 12/07/21 03:58 Labs: Abnormal Lab Results - Last 24 Hours (Table) 12/06/21 12/07/21 12/07/21 Range/Units 20:56 03:58 03:58 Hgb 17.8 H (13.0-17.5) gm/dL Hct 54.1 H (39.0-53.0) % Plt Count 113 L (150-450) k/uL Neutrophils # 7.8 H (1.3-7.7) k/uL Lymphocytes # 0.4 L (1.0-4.8) k/uL PT (9.0-12.0) sec INR (<1.2) APTT 31.8 H (22.0-30.0) sec Carbon Dioxide 19 L (22-30) mmol/L BUN 92 H (9-20) mg/dL Creatinine 3.18 H (0.66-1.25) mg/dL Glucose 147 H (74-99) mg/dL Plasma Lactic Acid Chase (0.7-2.0) mmol/L Calcium 8.3 L (8.4-10.2) mg/dL ALT 68 H (4-49) U/L Total Protein 5.8 L (6.3-8.2) g/dL Albumin 3.3 L (3.5-5.0) g/dL 12/07/21 12/07/21 12/07/21 Range/Units 03:58 09:44 09:44 Hgb (13.0-17.5) gm/dL Hct (39.0-53.0) % Plt Count (150-450) k/uL Neutrophils # (1.3-7.7) k/uL Lymphocytes # (1.0-4.8) k/uL PT 12.3 H (9.0-12.0) sec INR 1.2 H (<1.2) APTT 42.6 H 69.3 H (22.0-30.0) sec Carbon Dioxide (22-30) mmol/L BUN (9-20) mg/dL Creatinine (0.66-1.25) mg/dL Glucose (74-99) mg/dL Plasma Lactic Acid Chase 2.1 H* (0.7-2.0) mmol/L Calcium (8.4-10.2) mg/dL ALT (4-49) U/L Total Protein (6.3-8.2) g/dL Albumin (3.5-5.0) g/dL Microbiology - Last 24 Hours (Table) 12/05/21 15:15 Blood Culture - Preliminary Blood No Growth after 24 hours 12/05/21 15:05 Blood Culture - Preliminary Blood No Growth after 24 hours Assessment and Plan Plan: Distal small bowel obstruction Underlying history of COPD Underlying history of hypertension Acute on chronic renal failure was elevated BUN and creatinine Chronic kidney disease with evidence of autosomal dominant polycystic kidney disease on computed tomography scan Episodes of atrial flutter in the emergency room Underlying history of osteoarthritis. At this time patient is in the emergency room plan is to admit to ICU He is maintained on IV fluids and NG tube is in Surgical consultation requested in regard to distal small bowel obstruction Pulmonary critical care consult requested Cardiology consult requested in regard to episodes of atrial flutter Nephrology consultation was requested in that regard to acute on chronic renal failure Will follow closely
[2021-12-07] MEDS: METOPROLOL TARTRATE 5 MG/5 ML VIAL IVP SCH ×2 (11:28→16:16)
--- NOTE | 2021-12-07 11:34 | XR ---
EXAMINATION TYPE: XR abdomen 2V DATE OF EXAM: 12/07/2021 HISTORY: Pain. Technique: 4 views of the abdomen are submitted. Comparison: None. Findings: The NG tube appears to terminate within the distal esophagus and should be advanced. There are dilate d loops of small bowel measuring up to 4.4 cm. Nondistended large bowel noted. There is no convincing evidence of pneumoperitoneum. The Bowel gas pattern is nonspecific and nonobstructive. No sizable air-fluid levels are seen. No mass effects are noted. No renal calcifications are identified. IMPRESSION: 1. NG tube should be advanced. 2. Dilated small bowel may reflect ileus however distal left complete or early partial small bowel ob struction not excluded.
[2021-12-07] MEDS ORDERED: IOPAMIDOL CONTRAST (ORAL USE) VIAL PO PRN (11:58)
--- NOTE | 2021-12-07 11:58 | P.PN ---
Subjective Progress Note Date: 12/07/21 Principal diagnosis: Acute small bowel obstruction with transition point, hypovolemic shock, new onset atrial fibrillation with rapid ventricular response, acute on chronic kidney injury Patient seen and examined at bedside. Per nursing he started showing signs of agitation and disorientation. Patient tells me he does not have a drinking habit. He remains in atrial fibrillation with rapid ventricular response with a rate up to the 160s, cardiology following, has not been responsive to amiodarone. Remains relatively hypotensive with systolic blood pressure to low 100s over 80s. Afebrile. Saturating well at 96%. Patient tells me that he is feeling slightly better compared to yesterday but he looks restless and uncomfortable. He tells me his abdominal pain is no worse. Denies flatus or bowel movement yet. Morning labs show normal range white blood cell count 9.1, hemoglobin still a bit high at 17.8 suggesting improving volume deficit, platelet count of 113. INR is 1.2. Metabolic panel shows mildly low CO2 at 19, creatinine trending down slowly to 3.18. Venous lactate just above the normal threshold at 2.1. Blood cultures obtained December 05 are negative to date. Abdominal x-ray from today shows no colleen signs of pneumoperitoneum, compared to the CT there may be very slight improvement in distention of the small bowel, there is air and stool visualized today descending colon which was present on his initial CT. I don't appreciate any passage of air to the descending colon or rectum. His NG tube is resting with its tip in the distal esophagus. Objective - Vital Signs Vital signs: Vital Signs Temp 97.6 F 12/07/21 08:00 Pulse 156 H 12/07/21 11:00 Resp 21 12/07/21 11:00 BP 100/79 12/07/21 11:00 Pulse Ox 96 12/07/21 11:00 FiO2 Intake & Output 12/06/21 12/07/21 12/07/21 18:59 06:59 18:59 Intake Total 1642.6 6494.186 4026.564 Output Total 1500 2055 700 Balance 142.6 -322.885 934.564 Weight 118.2 kg 118.2 kg Intake: IV 1200 1300 400 Sodium Chloride 0.9% 1, 1200 1300 400 000 ml @ 100 mls/hr IV . Q10H [facility] Rx#:[id number] Intake, IV Titration 442.6 105.048 2766.564 Amount Amiodarone 360 mg In 198 Dextrose 5% in Water 200 ml @ 1 MG/MIN 33.333 mls/ hr IV .Q6H [facility] Rx#: [id number] Amiodarone 450 mg In 50.1 266.149 Dextrose 5% in Water 250 ml @ 0.5 MG/MIN 16.667 mls/hr IV .Q15H [facility] Rx#: [id number] Dextrose 5% in Water 100 150 ml @ 618 mls/hr IV .Q10M [facility] with Amiodarone 150 mg Rx#:[id number] Dextrose 5% in Water 100 150 ml @ 618 mls/hr IV .Q10M [facility] with Amiodarone 150 mg Rx#:[id number] Diltiazem 125 mg In 44.5 Sodium Chloride 0.9% 100 ml @ 5 MG/HR 5 mls/hr IV .Q24H [facility] Rx#:[id number] Heparin Sod,Pork in 0.45% 165.966 84.564 NaCl 25,000 unit In 0.45 % NaCl 1 250ml.bag @ 8.46 UNITS/KG/HR 10 mls/hr IV .Q24H [facility] Rx#:[id number] Sodium Chloride 0.9% 1, 1000 000 ml @ 999 mls/hr IV . Q1H1M [facility] Rx#:[id number] Output: Gastric Drainage 450 600 Urine 1050 1455 700 Other: Voiding Method Indwelling Catheter Indwelling Catheter Indwelling Catheter - Constitutional General appearance: Present: mild distress, obese - EENT Eyes: Present: PERRLA ENT: Present: NA/AT - Respiratory Respiratory: bilateral: CTA - Cardiovascular Details: Tenderness with atrial fibrillation and rapid ventricular response on telemetry. Rhythm: irregularly irregular - Gastrointestinal Gastrointestinal Comment(s): Mild to moderate diffuse tenderness to palpation, essentially equivocal exam compared to yesterday. General gastrointestinal: Present: decreased bowel sounds, distended - Neurologic Neurologic Comment(s): Patient shows some mild to moderate confusion and restlessness. No focal motor or sensory deficits appreciated. - Psychiatric Psychiatric Comment(s): Patient is confused, able to offer some brief responses to some questions. - Labs CBC & Chem 7: 12/07/21 03:58 12/07/21 03:58 Labs: Abnormal Lab Results - Last 24 Hours (Table) 12/06/21 12/07/21 12/07/21 Range/Units 20:56 03:58 03:58 Hgb 17.8 H (13.0-17.5) gm/dL Hct 54.1 H (39.0-53.0) % Plt Count 113 L (150-450) k/uL Neutrophils # 7.8 H (1.3-7.7) k/uL Lymphocytes # 0.4 L (1.0-4.8) k/uL PT (9.0-12.0) sec INR (<1.2) APTT 31.8 H (22.0-30.0) sec Carbon Dioxide 19 L (22-30) mmol/L BUN 92 H (9-20) mg/dL Creatinine 3.18 H (0.66-1.25) mg/dL Glucose 147 H (74-99) mg/dL Plasma Lactic Acid Chase (0.7-2.0) mmol/L Calcium 8.3 L (8.4-10.2) mg/dL ALT 68 H (4-49) U/L Total Protein 5.8 L (6.3-8.2) g/dL Albumin 3.3 L (3.5-5.0) g/dL 12/07/21 12/07/21 12/07/21 Range/Units 03:58 09:44 09:44 Hgb (13.0-17.5) gm/dL Hct (39.0-53.0) % Plt Count (150-450) k/uL Neutrophils # (1.3-7.7) k/uL Lymphocytes # (1.0-4.8) k/uL PT 12.3 H (9.0-12.0) sec INR 1.2 H (<1.2) APTT 42.6 H 69.3 H (22.0-30.0) sec Carbon Dioxide (22-30) mmol/L BUN (9-20) mg/dL Creatinine (0.66-1.25) mg/dL Glucose (74-99) mg/dL Plasma Lactic Acid Chase 2.1 H* (0.7-2.0) mmol/L Calcium (8.4-10.2) mg/dL ALT (4-49) U/L Total Protein (6.3-8.2) g/dL Albumin (3.5-5.0) g/dL Microbiology - Last 24 Hours (Table) 12/05/21 15:15 Blood Culture - Preliminary Blood No Growth after 24 hours 12/05/21 15:05 Blood Culture - Preliminary Blood No Growth after 24 hours - Imaging and Cardiology Chest x-ray: report reviewed, image reviewed Assessment and Plan Assessment: 66-year-old gentleman with presentation, clinical history, and imaging consistent with an acute distal small bowel obstruction with right lower quadrant transition point, likely relating to adhesions associated with remote appendectomy. No evidence of peritonitis on exam, no conclusive evidence of sepsis. Physical exam today equivocal compared to yesterday. No evidence of pneumoperitoneum on abdominal x-ray. Has of diffuse tenderness and distention consistent with yesterday but no guarding or rebound. Doubt perforation or bowel ischemia at present. Signs of hypovolemic shock and mild lactic acidosis on initial presentation, resolving with crystalloids. New onset atrial fibrillation and flutter with rapid ventricular response, suspect relative hypotension due to the same. Interval worsening may have to do malpositioned nasogastric tube and an increasing gastric distention putting pressure on the heart. Mild lactic acidosis may have to do with impaired perfusion the setting of tachyarrhythmia. Extensive polycystic kidney disease with a degree of acute on chronic kidney injury, serum creatinine started to trend down. Mild thrombocytopenia. Plan: Continue with bowel rest, nasogastric decompression, IV fluids. Advance nasogastric tube at least [address] abdomen and pelvis with oral contrast via nasogastric tube to assess for persistence of mechanical obstruction this coming Wednesday. Rate control and anticoagulation with heparin per cardiology. Nephrology following as well. If persistent obstruction implicated on imaging tomorrow will entertain surgical exploration. Time with Patient: Greater than 30
--- NOTE | 2021-12-07 13:42 | P.PN ---
Progress Note - Text Progress Note Date: 12/07/[address] Sanders, patient more confused today, lactic acid more elevated at this time will start coverage with IV antibiotics ( Zosyn and Flagyl ) despite noemal WBC at this time CT scan of the abdomen and pelvis scheduled for 5:00 am tomorrow
[2021-12-07] MEDS: PIPERACILLIN-TAZOBACTAM 3.375 GM in SODIUM CHLORIDE 0.9% 100 ML IVPB SCH (14:08)
[2021-12-07] MEDS ORDERED: HALOPERIDOL LACTATE 5 MG/ML 1 ML VIAL IVP PRN (14:20)
[2021-12-07] MEDS: DEXMEDETOMIDINE/0.9% NACL(PMX) 400 MCG in EMPTY BAG 1 BAG IV SCH (14:25)
--- NOTE | 2021-12-07 14:36 | P.PCN ---
Date of Procedure: 12/07/21 Preoperative Diagnosis: Bowel obstruction Postoperative Diagnosis: Same Procedure(s) Performed: Central line insertion Anesthesia: local Estimated Blood Loss (ml): 0 Pathology: other Condition: critical Disposition: ICU Operative Findings: Indication: Hemodynamic monitoring/Intravenous access. A time-out was completed verifying correct patient, procedure, site, positioning, and implant(s) or special equipment if applicable. The patient was placed in a dependent position appropriate for central line placement based on the vein to be cannulated. The patients left chest was prepped and draped in sterile fashion. 1% Lidocaine was used to anesthetize the surrounding skin area. A triple lumen 9F Cordis catheter was introduced into the left subclavian vein using Seldinger technique. The catheter was threaded smoothly over the guide wire and appropriate blood return was obtained. Each lumen of the catheter was evacuated of air and flushed with sterile saline. The catheter was then sutured in place to the skin and a sterile dressing applied. Perfusion to the extremity distal to the point of catheter insertion was checked and found to be adequate. The patient tolerated the procedure well and there were no complications.
--- NOTE | 2021-12-07 14:39 | XR ---
EXAMINATION TYPE: XR chest 1V confirm line [facility] DATE OF EXAM: 12/07/2021 COMPARISON: 12/07/2021 HISTORY: Confirm line placement. TECHNIQUE: Single frontal view of the chest is obtained. FINDINGS: There is no focal air space opacity, pleural effusion, or pneumothorax seen. The cardiac silhouette size is within normal limits. The osseous structures are intact. There is been interval insertion of a left arm PICC line the tip of which is in the SVC/RA junction. IMPRESSION: PICC line tip in the SVC/RA junction. There is an NG tube within the stomach. Suggestion of mild pulmonary vascular congestion unchanged compared to previous.
[2021-12-07 14:46] LABS: Basophils % (A) 0 %; Eosinophils % (A) 0 %; HCT 54.4 % (39.0-53.0); Lymphocytes # (A) 0.6 k/uL (1.0-4.8); Lymphocytes % (A) 6 %; MCH 30.3 pg (25.0-35.0); MCHC 33.1 g/dL (31.0-37.0); MCV 91.5 fL (80.0-100.0); Mean Platelet Volume 8.2; Monocytes # (A) 0.8 k/uL (0-1.0); Monocytes % (A) 8 %; Neutrophils # (A) 8.4 k/uL (1.3-7.7); Neutrophils % (A) 83 %; Platelet Count 106 k/uL (150-450); RBC 5.95 m/uL (4.30-5.90); RDW 14.2 % (11.5-15.5); WBC 10.1 k/uL (3.8-10.6)
[2021-12-07 14:57] LABS: Albumin 3.4 g/dL (3.5-5.0); Calcium 8.2 mg/dL (8.4-10.2); Magnesium 2.3 mg/dL (1.6-2.3); Potassium 4.2 mmol/L (3.5-5.1); Total Bilirubin 1.3 mg/dL (0.2-1.3)
[2021-12-07] MEDS: metroNIDAZOLE-NS PMX 500 MG in SALINE 1 100ML.BAG IVPB SCH (16:15)
[2021-12-07 20:05] LABS: ABG Base Excess 2.2 mmol/L; ABG HCO3 26 mmol/L (21-25); ABG Oxygen Saturation 95.1 % (94-97); ABG PCO2 36 mmHg (35-45); ABG PH 7.46 (7.35-7.45); ABG PO2 80 mmHg (83-108); ABG TCO2 27 mmol/L (19-24); Allen Test Performed? Yes
[2021-12-07] MEDS ORDERED: propofoL 100 ML IV ONE (20:34)
[2021-12-07] MEDS ORDERED: NOREPINEPHRIN 4 MG-0.9% NS PMX 4 MG/250 ML ML IV ONE (20:49)
--- NOTE | 2021-12-07 21:18 | XR ---
EXAMINATION TYPE: XR chest 1V portable DATE OF EXAM: 12/07/2021 COMPARISON: 12/07/2021 HISTORY: Line placement TECHNIQUE: Single view FINDINGS: There is endotracheal tube 3.5 cm from the kuldeep. There is left subclavian catheter with t ip in the superior vena cava. There is nasogastric tube in the stomach. There is some mild pulmonary interstitial edema Heart size is normal. There are chest leads. IMPRESSION: There is some increased pulmonary interstitial density not changed compared to exam earlier today. No obvious heart failure. Tubing in good position.
[2021-12-07 22:09] LABS: ABG HCO3 24 mmol/L (21-25); ABG Oxygen Saturation 99.1 % (94-97); ABG PCO2 34 mmHg (35-45); ABG PH 7.46 (7.35-7.45); ABG PO2 375 mmHg (83-108); ABG TCO2 25 mmol/L (19-24); Allen Test Performed? Yes
[2021-12-07] MEDS ORDERED: AMIODARONE 360 MG in DEXTROSE 5% IN WATER 200 ML IV ONE ×2 (22:24)
[2021-12-08] MEDS: METOPROLOL TARTRATE 5 MG/5 ML VIAL IVP SCH ×4 (00:01→23:22)
[2021-12-08] MEDS: fentaNYL (PF). 1,000 MCG in SODIUM CHLORIDE 0.9% 80 ML IV SCH ×4 (00:17→19:44)
[2021-12-08] MEDS: metroNIDAZOLE-NS PMX 500 MG in SALINE 1 100ML.BAG IVPB SCH ×4 (00:25→23:23)
[2021-12-08 00:48] LABS: Magnesium 2.3 mg/dL (1.6-2.3); Potassium 4.2 mmol/L (3.5-5.1)
[2021-12-08] MEDS: NOREPINEPHRINE 8 MG in SODIUM CHLORIDE 0.9% 250 ML IV SCH ×4 (01:18→23:09)
[2021-12-08] MEDS: HEPARIN SODIUM 1,000 UN/ML (10ML VL) IV PRN (02:04)
[2021-12-08] MEDS: CHLORHEXIDINE GLUCONATE 15 ML CUP MUCOUS MEM SCH ×3 (02:22→20:28)
[2021-12-08] MEDS: PIPERACILLIN-TAZOBACTAM 3.375 GM in SODIUM CHLORIDE 0.9% 100 ML IVPB SCH ×3 (02:57→18:18)
[2021-12-08] MEDS: AMIODARONE 450 MG in DEXTROSE 5% IN WATER 250 ML IV SCH ×4 (04:14→18:47)
[2021-12-08] MEDS: HEPARIN SOD,PORK IN 0.45% NACL 25,000 UNIT in 0.45% NACL 1 250ML.BAG IV SCH ×2 (04:15→18:16)
--- NOTE | 2021-12-08 05:29 | CT ---
EXAMINATION TYPE: CT abdomen pelvis wo con DATE OF EXAM: 12/08/2021 COMPARISON: 12/05/2021 HISTORY: follow upsmall bowel obstruction CT DLP: 3293.7 mGycm Automated exposure control for dose reduction was used. Images obtained from the diaphragm to the floor the pelvis with oral contrast. There is infiltrate and atelectasis at both lung bases. There are small bilateral pleural effusions. Heart is top normal in size. No pericardial effusion. There are multiple cysts in the liver that measure up to 3 cm. The bile ducts are not dilated. There is nasogastric tube in the stomach. Stomach is intact. No evidence of a splenic mass. No evidence of pancreatic mass. There is extensive cystic changes throughout the kidneys which are replaced by cysts and consistent w ith adult type polycystic kidney disease. There is a Rivero catheter in the urinary bladder. There is fat-containing small bilateral inguinal hernias. There are small amount of low-density free fluid in the pelvis. There are multiple dilated small bowel loops with fluid levels. Small bowel dilated up to 4.3 cm. Large bowel is not dilated. Distal small bowel not dilated. Transition point not seen. The lumbar spine shows normal alignment of the vertebra. There is anterior wedging 65% of the L1 vert ebral body that appears old. The bony pelvis is intact. The hip joints are intact. IMPRESSION: Dilated small bowel suggestive of a mechanical small bowel obstruction. Transition point not seen. Th is is likely in the mid ileum. Dilation similar to old exam. There is significant reduction of the di lated stomach compared to old exam. Polycystic disease noted of the liver and the kidneys. There is mild low density free fluid in the pe lvis without much change.
[2021-12-08 05:43] LABS: HCT 51.6 % (39.0-53.0); HGB 16.6 gm/dL (13.0-17.5); MCH 30.5 pg (25.0-35.0); MCHC 32.1 g/dL (31.0-37.0); MCV 94.9 fL (80.0-100.0); Mean Platelet Volume 7.9; RBC 5.44 m/uL (4.30-5.90); RDW 14.2 % (11.5-15.5); WBC 11.8 k/uL (3.8-10.6)
[2021-12-08 05:55] LABS: Platelet Count 169 k/uL (150-450)
[2021-12-08 05:57] LABS: Calcium 7.7 mg/dL (8.4-10.2); Potassium 4.2 mmol/L (3.5-5.1)
[2021-12-08 06:04] LABS: ABG Base Excess -0.9 mmol/L; ABG HCO3 23 mmol/L (21-25); ABG Oxygen Saturation 94.5 % (94-97); ABG PCO2 34 mmHg (35-45); ABG PH 7.45 (7.35-7.45); ABG PO2 76 mmHg (83-108); ABG TCO2 24 mmol/L (19-24); Allen Test Performed? Yes
--- NOTE | 2021-12-08 06:14 | CT ---
EXAMINATION TYPE: CT brain wo con DATE OF EXAM: 12/08/2021 COMPARISON: None HISTORY: AMS CT DLP: 1263.4 mGycm Automated exposure control for dose reduction was used. Images of the brain obtained with no contrast. There is some mild cerebral atrophy. There is no mass effect or midline shift. No sign of intracrania l hemorrhage. Calvarium is intact. There is normal aeration of the mastoid sinuses. Skull base is int act. IMPRESSION: Minimal atrophy. No acute intracranial abnormality.
[2021-12-08] MEDS: SODIUM CHLORIDE 0.9% 1,000 ML IV SCH (07:39)
[2021-12-08] MEDS: DEXMEDETOMIDINE/0.9% NACL(PMX) 400 MCG in EMPTY BAG 1 BAG IV SCH ×2 (07:40→23:20)
[2021-12-08] MEDS ORDERED: SODIUM CHLORIDE 0.45% 1,000 ML IV SCH (07:45)
[2021-12-08] MEDS: PANTOPRAZOLE 40 MG/10 ML VIAL IVP SCH (08:28)
--- NOTE | 2021-12-08 09:01 | P.PN ---
Subjective Progress Note Date: 12/08/21 Principal diagnosis: Acute small bowel obstruction with transition point, hypovolemic shock, new onset atrial fibrillation with rapid ventricular response, acute on chronic kidney injury Edges and examined at bedside. Clinical events from the past 24 hours reviewed. Patient was intubated yesterday for tachypnea, hypoxia and worsening mental status changes. He continues on amiodarone drip and low-dose beta marialuisa. He remains in atrial fibrillation but rate is under better control, mean arterial pressures above 65 on arterial line. Continues with heparin drip, is on a low- dose levo fed drip at 0.15 mcg/kg/m. Rivero catheters in place with clear urine output. Computed tomography scan of abdomen and pelvis was obtained showing a less distinct transition point, persistent mild distention of small bowel, contrast does not pass through to the cecum but there may be slightly more air and stool in the ascending and proximal transverse colon. There is been interval development of soft tissue edema, mild mesenteric edema, and a small amount of low density intra-abdominal free fluid without free air. Recent chest x-ray shows interstitial infiltrates. Nasogastric tube remains in place with gastric output, no signs of upper GI bleeding. Patient's mild lactic acidosis is normalized on follow-up. Creatinine is trending down slowly to 2.49, sodium is high today at 150. There is slight leukocytosis at 11.8 thousand. Objective - Vital Signs Vital signs: Vital Signs Temp 99.1 F 12/08/21 08:00 Pulse 111 H 12/08/21 08:45 Resp 21 12/08/21 08:45 BP 107/72 12/08/21 08:00 Pulse Ox 92 L 12/08/21 08:45 FiO2 50 12/08/21 08:00 Intake & Output 12/07/21 12/08/21 12/08/21 18:59 06:59 18:59 Intake Total 2636.836 2879.461 436.226 Output Total 1675 1390 240 Balance 882.861 0720.461 196.226 Weight 122.6 kg Intake: IV 1100 2400 280 Piperacillin-Tazobactam 3 100 .375 gm In Sodium Chloride 0.9% 100 ml @ 25 mls/hr IVPB Q12H [facility] Rx# :[id number] Sodium Chloride 0.9% 1, 1100 700 80 000 ml @ 100 mls/hr IV . Q10H [facility] Rx#:[id number] Sodium Chloride 0.9% 1, 1000 000 ml @ 999 mls/hr IV . Q1H1M ONE Rx#:[id number] metroNIDAZOLE-NS PMX 500 600 200 mg In Saline 1 100ml.bag @ 100 mls/hr IVPB Q8HR [facility] Rx#:[id number] Intake, IV Titration 1536.836 479.461 156.226 Amount Dexmedetomidine/0.9% NaCl 65.601 (Pmx) 400 mcg In Empty Bag 1 bag @ 0.2 MCG/KG/HR 5.91 mls/hr IV .[id number] [facility] Rx#:[id number] Dextrose 5% in Water 100 150 ml @ 618 mls/hr IV .Q10M ONE with Amiodarone 150 mg Rx#:[id number] Diltiazem 125 mg In 0 Sodium Chloride 0.9% 100 ml @ 5 MG/HR 5 mls/hr IV .Q24H [facility] Rx#:[id number] Heparin Sod,Pork in 0.45% 186.836 147.198 NaCl 25,000 unit In 0.45 % NaCl 1 250ml.bag @ 8.46 UNITS/KG/HR 10 mls/hr IV .Q24H [facility] Rx#:[id number] Piperacillin-Tazobactam 3 100 .375 gm In Sodium Chloride 0.9% 100 ml @ 25 mls/hr IVPB Q12H [facility] Rx# :[id number] Sodium Chloride 0.9% 1, 1000 000 ml @ 999 mls/hr IV . Q1H1M ONE Rx#:[id number] fentaNYL (PF). 1,000 mcg 68.167 In Sodium Chloride 0.9% 80 ml @ 100 MCG/HR 10 mls /hr IV .Q10H [facility] Rx#: [id number] metroNIDAZOLE-NS PMX 500 100 mg In Saline 1 100ml.bag @ 100 mls/hr IVPB Q8HR [facility] Rx#:[id number] propofoL 1,000 mg In 266.662 88.059 Empty Bag 1 bag @ 5 MCG/ KG/MIN 3.546 mls/hr IV . Q24H [facility] Rx#:[id number] Output: Gastric Drainage 250 Urine 1675 1140 240 Other: Voiding Method Indwelling Catheter Indwelling Catheter ABP, PAP, CO, CI - Last Documented Arterial Blood Pressure 143/79 - Constitutional Constitutional Comment(s): Patient's intubated and sedated, GCS 3T General appearance: Present: no acute distress - EENT EENT Comment(s): And the tracheal tubes in place, nasogastric tubes in place. ENT: Present: NA/AT - Respiratory Details: Lung sounds coarse mechanical bilaterally. - Cardiovascular Details: Continues with atrial fibrillation on telemetry. Heart rate between 110-130 Rhythm: regularly irregular - Gastrointestinal Gastrointestinal Comment(s): Abdomen is soft, less distended than yesterday, no guarding or rebound appreciated. General gastrointestinal: Present: decreased bowel sounds - Neurologic Neurologic Comment(s): GCS 3T - Labs CBC & Chem 7: 12/08/21 05:30 12/08/21 05:30 Labs: Abnormal Lab Results - Last 24 Hours (Table) 12/07/21 12/07/21 12/07/21 Range/Units 09:44 09:44 09:44 WBC (3.8-10.6) k/uL RBC (4.30-5.90) m/uL Hgb (13.0-17.5) gm/dL Hct (39.0-53.0) % Plt Count (150-450) k/uL Neutrophils # (1.3-7.7) k/uL Lymphocytes # (1.0-4.8) k/uL APTT 69.3 H (22.0-30.0) sec ABG pH (7.35-7.45) ABG pCO2 (35-45) mmHg ABG pO2 (83-108) mmHg ABG HCO3 (21-25) mmol/L ABG Total CO2 (19-24) mmol/L ABG O2 Saturation (94-97) % Sodium (137-145) mmol/L Chloride (98-107) mmol/L Carbon Dioxide (22-30) mmol/L BUN (9-20) mg/dL Creatinine (0.66-1.25) mg/dL Glucose (74-99) mg/dL Plasma Lactic Acid Chase 2.1 H* (0.7-2.0) mmol/L Calcium (8.4-10.2) mg/dL ALT (4-49) U/L Total Protein (6.3-8.2) g/dL Albumin (3.5-5.0) g/dL Procalcitonin 1.52 H (0.02-0.09) ng/mL 12/07/21 12/07/21 12/07/21 Range/Units 13:32 13:32 13:32 WBC (3.8-10.6) k/uL RBC 5.95 H (4.30-5.90) m/uL Hgb 18.0 H (13.0-17.5) gm/dL Hct 54.4 H (39.0-53.0) % Plt Count 106 L (150-450) k/uL Neutrophils # 8.4 H (1.3-7.7) k/uL Lymphocytes # 0.6 L (1.0-4.8) k/uL APTT (22.0-30.0) sec ABG pH (7.35-7.45) ABG pCO2 (35-45) mmHg ABG pO2 (83-108) mmHg ABG HCO3 (21-25) mmol/L ABG Total CO2 (19-24) mmol/L ABG O2 Saturation (94-97) % Sodium 147 H (137-145) mmol/L Chloride 110 H (98-107) mmol/L Carbon Dioxide (22-30) mmol/L BUN 78 H (9-20) mg/dL Creatinine 2.52 H (0.66-1.25) mg/dL Glucose 144 H (74-99) mg/dL Plasma Lactic Acid Chase 2.4 H* (0.7-2.0) mmol/L Calcium 8.2 L (8.4-10.2) mg/dL ALT 63 H (4-49) U/L Total Protein 6.0 L (6.3-8.2) g/dL Albumin 3.4 L (3.5-5.0) g/dL Procalcitonin (0.02-0.09) ng/mL 12/07/21 12/07/21 12/07/21 Range/Units 17:14 20:00 22:01 WBC (3.8-10.6) k/uL RBC (4.30-5.90) m/uL Hgb (13.0-17.5) gm/dL Hct (39.0-53.0) % Plt Count (150-450) k/uL Neutrophils # (1.3-7.7) k/uL Lymphocytes # (1.0-4.8) k/uL APTT 38.6 H (22.0-30.0) sec ABG pH 7.46 H 7.46 H (7.35-7.45) ABG pCO2 34 L (35-45) mmHg ABG pO2 80 L 375 H (83-108) mmHg ABG HCO3 26 H (21-25) mmol/L ABG Total CO2 27 H 25 H (19-24) mmol/L ABG O2 Saturation 99.1 H (94-97) % Sodium (137-145) mmol/L Chloride (98-107) mmol/L Carbon Dioxide (22-30) mmol/L BUN (9-20) mg/dL Creatinine (0.66-1.25) mg/dL Glucose (74-99) mg/dL Plasma Lactic Acid Chase (0.7-2.0) mmol/L Calcium (8.4-10.2) mg/dL ALT (4-49) U/L Total Protein (6.3-8.2) g/dL Albumin (3.5-5.0) g/dL Procalcitonin (0.02-0.09) ng/mL 12/07/21 12/08/21 12/08/21 Range/Units 23:45 05:30 05:30 WBC 11.8 H (3.8-10.6) k/uL RBC (4.30-5.90) m/uL Hgb (13.0-17.5) gm/dL Hct (39.0-53.0) % Plt Count (150-450) k/uL Neutrophils # (1.3-7.7) k/uL Lymphocytes # (1.0-4.8) k/uL APTT 42.2 H (22.0-30.0) sec ABG pH (7.35-7.45) ABG pCO2 (35-45) mmHg ABG pO2 (83-108) mmHg ABG HCO3 (21-25) mmol/L ABG Total CO2 (19-24) mmol/L ABG O2 Saturation (94-97) % Sodium 150 H (137-145) mmol/L Chloride 116 H (98-107) mmol/L Carbon Dioxide 20 L (22-30) mmol/L BUN 69 H (9-20) mg/dL Creatinine 2.49 H (0.66-1.25) mg/dL Glucose 157 H (74-99) mg/dL Plasma Lactic Acid Chase (0.7-2.0) mmol/L Calcium 7.7 L (8.4-10.2) mg/dL ALT (4-49) U/L Total Protein (6.3-8.2) g/dL Albumin (3.5-5.0) g/dL Procalcitonin (0.02-0.09) ng/mL 12/08/21 Range/Units 06:01 WBC (3.8-10.6) k/uL RBC (4.30-5.90) m/uL Hgb (13.0-17.5) gm/dL Hct (39.0-53.0) % Plt Count (150-450) k/uL Neutrophils # (1.3-7.7) k/uL Lymphocytes # (1.0-4.8) k/uL APTT (22.0-30.0) sec ABG pH (7.35-7.45) ABG pCO2 34 L (35-45) mmHg ABG pO2 76 L (83-108) mmHg ABG HCO3 (21-25) mmol/L ABG Total CO2 (19-24) mmol/L ABG O2 Saturation (94-97) % Sodium (137-145) mmol/L Chloride (98-107) mmol/L Carbon Dioxide (22-30) mmol/L BUN (9-20) mg/dL Creatinine (0.66-1.25) mg/dL Glucose (74-99) mg/dL Plasma Lactic Acid Chase (0.7-2.0) mmol/L Calcium (8.4-10.2) mg/dL ALT (4-49) U/L Total Protein (6.3-8.2) g/dL Albumin (3.5-5.0) g/dL Procalcitonin (0.02-0.09) ng/mL Microbiology - Last 24 Hours (Table) 12/05/21 15:15 Blood Culture - Preliminary Blood No Growth after 48 hours 12/05/21 15:05 Blood Culture - Preliminary Blood No Growth after 48 hours - Imaging and Cardiology Chest x-ray: report reviewed, image reviewed CT scan - abdomen: report reviewed, image reviewed CT Scan - head: report reviewed, image reviewed CT scan - pelvis: report reviewed, image reviewed Assessment and Plan Assessment: 66-year-old gentleman with presentation, clinical history, and imaging consistent with an acute distal small bowel obstruction with right lower quadrant transition point, likely relating to adhesions associated with remote appendectomy. No evidence of peritonitis on exam, no conclusive evidence of sepsis. Physical exam today equivocal compared to yesterday. No evidence of pneumoperitoneum on abdominal x-ray. Has of diffuse tenderness and distention consistent with yesterday but no guarding or rebound. Doubt perforation or bowel ischemia at present. Signs of hypovolemic shock and mild lactic acidosis on initial presentation, resolving with crystalloids. New onset atrial fibrillation and flutter with rapid ventricular response, suspect relative hypotension due to the same. Interval worsening may have to do malpositioned nasogastric tube and an increasing gastric distention putting pressure on the heart. Mild lactic acidosis may have to do with impaired perfusion the setting of tachyarrhythmia. Hypoxic Ventilator-dependent respiratory failure. Extensive polycystic kidney disease with a degree of acute on chronic kidney injury, serum creatinine started to trend down. Mild thrombocytopenia. Plan: Continue with ICU care, ventilator support, wean pressors as tolerated. Arrhythmia is coming under better control, I suspect his global perfusion is improving as well. At present I doubt bowel ischemia or perforation. Hopefully as he stabilizes a bit more from a cardiovascular standpoint we may see some passage of contrast to the cecum. Will obtain a flat plate abdominal x-ray tomorrow. If by then he still looks obstructed will plan to hold his heparin drip for 6 hours and move forward with an abdominal exploration. Time with Patient: Greater than 30
[2021-12-08] MEDS ORDERED: SODIUM BICARB 8.4% 50 ML SYR (1 MEQ/ML) IV STA (09:13)
--- NOTE | 2021-12-08 09:14 | P.PN ---
Subjective Patient is seen in follow-up for acute kidney injury on chronic kidney disease. Renal function fairly stable. Nonoliguric. Intubated. NG tube output about 200 mL overnight. On amiodarone drip for A. fib. On Levophed. Vital signs are stable. In A. fib. General: Intubated. HEENT: Head exam is unremarkable. LUNGS: Breath sounds decreased. HEART: Irregular rate and rhythm. ABDOMEN: Distention noted. EXTREMITITES: No edema. Objective - Vital Signs Vital signs: Vital Signs Temp 99.1 F 12/08/21 08:00 Pulse 121 H 12/08/21 09:00 Resp 33 H 12/08/21 09:00 BP 93/71 12/08/21 09:00 Pulse Ox 94 L 12/08/21 09:00 FiO2 50 12/08/21 08:00 Intake & Output 12/07/21 12/08/21 12/08/21 18:59 06:59 18:59 Intake Total 2636.836 2879.461 734.741 Output Total 1675 1390 240 Balance 773.775 6237.461 494.741 Weight 122.6 kg Intake: IV 1100 2400 280 Piperacillin-Tazobactam 3 100 .375 gm In Sodium Chloride 0.9% 100 ml @ 25 mls/hr IVPB Q12H [facility] Rx# :[id number] Sodium Chloride 0.9% 1, 1100 700 80 000 ml @ 100 mls/hr IV . Q10H [facility] Rx#:[id number] Sodium Chloride 0.9% 1, 1000 000 ml @ 999 mls/hr IV . Q1H1M [facility] Rx#:[id number] metroNIDAZOLE-NS PMX 500 600 200 mg In Saline 1 100ml.bag @ 100 mls/hr IVPB Q8HR [facility] Rx#:[id number] Intake, IV Titration 1536.836 479.461 454.741 Amount Dexmedetomidine/0.9% NaCl 65.601 (Pmx) 400 mcg In Empty Bag 1 bag @ 0.2 MCG/KG/HR 5.91 mls/hr IV .[id number] [facility] Rx#:[id number] Dextrose 5% in Water 100 150 ml @ 618 mls/hr IV .Q10M ONE with Amiodarone 150 mg Rx#:[id number] Diltiazem 125 mg In 0 Sodium Chloride 0.9% 100 ml @ 5 MG/HR 5 mls/hr IV .Q24H [facility] Rx#:[id number] Heparin Sod,Pork in 0.45% 186.836 147.198 NaCl 25,000 unit In 0.45 % NaCl 1 250ml.bag @ 8.46 UNITS/KG/HR 10 mls/hr IV .Q24H [facility] Rx#:[id number] Norepinephrine 8 mg In 258.572 Sodium Chloride 0.9% 250 ml @ 0.05 MCG/KG/MIN 11. 436 mls/hr IV .[id number] [facility] Rx#:[id number] Piperacillin-Tazobactam 3 100 .375 gm In Sodium Chloride 0.9% 100 ml @ 25 mls/hr IVPB Q12H [facility] Rx# :[id number] Sodium Chloride 0.9% 1, 1000 000 ml @ 999 mls/hr IV . Q1H1M [facility] Rx#:[id number] fentaNYL (PF). 1,000 mcg 86.834 In Sodium Chloride 0.9% 80 ml @ 100 MCG/HR 10 mls /hr IV .Q10H [facility] Rx#: [id number] metroNIDAZOLE-NS PMX 500 100 mg In Saline 1 100ml.bag @ 100 mls/hr IVPB Q8HR [facility] Rx#:[id number] propofoL 1,000 mg In 266.662 109.335 Empty Bag 1 bag @ 5 MCG/ KG/MIN 3.546 mls/hr IV . Q24H [facility] Rx#:[id number] Output: Gastric Drainage 250 Urine 1675 1140 240 Other: Voiding Method Indwelling Catheter Indwelling Catheter ABP, PAP, CO, CI - Last Documented Arterial Blood Pressure 87/57 - Labs CBC & Chem 7: 12/08/21 05:30 12/08/21 05:30 Labs: Abnormal Lab Results - Last 24 Hours (Table) 12/07/21 12/07/21 12/07/21 Range/Units 09:44 09:44 09:44 WBC (3.8-10.6) k/uL RBC (4.30-5.90) m/uL Hgb (13.0-17.5) gm/dL Hct (39.0-53.0) % Plt Count (150-450) k/uL Neutrophils # (1.3-7.7) k/uL Lymphocytes # (1.0-4.8) k/uL APTT 69.3 H (22.0-30.0) sec ABG pH (7.35-7.45) ABG pCO2 (35-45) mmHg ABG pO2 (83-108) mmHg ABG HCO3 (21-25) mmol/L ABG Total CO2 (19-24) mmol/L ABG O2 Saturation (94-97) % Sodium (137-145) mmol/L Chloride (98-107) mmol/L Carbon Dioxide (22-30) mmol/L BUN (9-20) mg/dL Creatinine (0.66-1.25) mg/dL Glucose (74-99) mg/dL Plasma Lactic Acid Chase 2.1 H* (0.7-2.0) mmol/L Calcium (8.4-10.2) mg/dL ALT (4-49) U/L Total Protein (6.3-8.2) g/dL Albumin (3.5-5.0) g/dL Procalcitonin 1.52 H (0.02-0.09) ng/mL 12/07/21 12/07/21 12/07/21 Range/Units 13:32 13:32 13:32 WBC (3.8-10.6) k/uL RBC 5.95 H (4.30-5.90) m/uL Hgb 18.0 H (13.0-17.5) gm/dL Hct 54.4 H (39.0-53.0) % Plt Count 106 L (150-450) k/uL Neutrophils # 8.4 H (1.3-7.7) k/uL Lymphocytes # 0.6 L (1.0-4.8) k/uL APTT (22.0-30.0) sec ABG pH (7.35-7.45) ABG pCO2 (35-45) mmHg ABG pO2 (83-108) mmHg ABG HCO3 (21-25) mmol/L ABG Total CO2 (19-24) mmol/L ABG O2 Saturation (94-97) % Sodium 147 H (137-145) mmol/L Chloride 110 H (98-107) mmol/L Carbon Dioxide (22-30) mmol/L BUN 78 H (9-20) mg/dL Creatinine 2.52 H (0.66-1.25) mg/dL Glucose 144 H (74-99) mg/dL Plasma Lactic Acid Chase 2.4 H* (0.7-2.0) mmol/L Calcium 8.2 L (8.4-10.2) mg/dL ALT 63 H (4-49) U/L Total Protein 6.0 L (6.3-8.2) g/dL Albumin 3.4 L (3.5-5.0) g/dL Procalcitonin (0.02-0.09) ng/mL 12/07/21 12/07/21 12/07/21 Range/Units 17:14 20:00 22:01 WBC (3.8-10.6) k/uL RBC (4.30-5.90) m/uL Hgb (13.0-17.5) gm/dL Hct (39.0-53.0) % Plt Count (150-450) k/uL Neutrophils # (1.3-7.7) k/uL Lymphocytes # (1.0-4.8) k/uL APTT 38.6 H (22.0-30.0) sec ABG pH 7.46 H 7.46 H (7.35-7.45) ABG pCO2 34 L (35-45) mmHg ABG pO2 80 L 375 H (83-108) mmHg ABG HCO3 26 H (21-25) mmol/L ABG Total CO2 27 H 25 H (19-24) mmol/L ABG O2 Saturation 99.1 H (94-97) % Sodium (137-145) mmol/L Chloride (98-107) mmol/L Carbon Dioxide (22-30) mmol/L BUN (9-20) mg/dL Creatinine (0.66-1.25) mg/dL Glucose (74-99) mg/dL Plasma Lactic Acid Chase (0.7-2.0) mmol/L Calcium (8.4-10.2) mg/dL ALT (4-49) U/L Total Protein (6.3-8.2) g/dL Albumin (3.5-5.0) g/dL Procalcitonin (0.02-0.09) ng/mL 12/07/21 12/08/21 12/08/21 Range/Units 23:45 05:30 05:30 WBC 11.8 H (3.8-10.6) k/uL RBC (4.30-5.90) m/uL Hgb (13.0-17.5) gm/dL Hct (39.0-53.0) % Plt Count (150-450) k/uL Neutrophils # (1.3-7.7) k/uL Lymphocytes # (1.0-4.8) k/uL APTT 42.2 H (22.0-30.0) sec ABG pH (7.35-7.45) ABG pCO2 (35-45) mmHg ABG pO2 (83-108) mmHg ABG HCO3 (21-25) mmol/L ABG Total CO2 (19-24) mmol/L ABG O2 Saturation (94-97) % Sodium 150 H (137-145) mmol/L Chloride 116 H (98-107) mmol/L Carbon Dioxide 20 L (22-30) mmol/L BUN 69 H (9-20) mg/dL Creatinine 2.49 H (0.66-1.25) mg/dL Glucose 157 H (74-99) mg/dL Plasma Lactic Acid Chase (0.7-2.0) mmol/L Calcium 7.7 L (8.4-10.2) mg/dL ALT (4-49) U/L Total Protein (6.3-8.2) g/dL Albumin (3.5-5.0) g/dL Procalcitonin (0.02-0.09) ng/mL 12/08/21 Range/Units 06:01 WBC (3.8-10.6) k/uL RBC (4.30-5.90) m/uL Hgb (13.0-17.5) gm/dL Hct (39.0-53.0) % Plt Count (150-450) k/uL Neutrophils # (1.3-7.7) k/uL Lymphocytes # (1.0-4.8) k/uL APTT (22.0-30.0) sec ABG pH (7.35-7.45) ABG pCO2 34 L (35-45) mmHg ABG pO2 76 L (83-108) mmHg ABG HCO3 (21-25) mmol/L ABG Total CO2 (19-24) mmol/L ABG O2 Saturation (94-97) % Sodium (137-145) mmol/L Chloride (98-107) mmol/L Carbon Dioxide (22-30) mmol/L BUN (9-20) mg/dL Creatinine (0.66-1.25) mg/dL Glucose (74-99) mg/dL Plasma Lactic Acid Chase (0.7-2.0) mmol/L Calcium (8.4-10.2) mg/dL ALT (4-49) U/L Total Protein (6.3-8.2) g/dL Albumin (3.5-5.0) g/dL Procalcitonin (0.02-0.09) ng/mL Microbiology - Last 24 Hours (Table) 12/05/21 15:15 Blood Culture - Preliminary Blood No Growth after 48 hours 12/05/21 15:05 Blood Culture - Preliminary Blood No Growth after 48 hours Assessment and Plan Plan: Assessment: 1. Acute kidney injury mostly prerenal secondary to hypovolemia from vomiting as well as hypotension and A. fib. Creatinine 4.95 on admission and is 2.49 today. No hydronephrosis noted on CAT scan. 2. Chronic kidney disease stage IIIB with baseline creatinine near 1.8 in 2020 secondary to polycystic kidney disease. 3. A. fib with RVR maintained on amiodarone drip. Cardiology following. 4. Metabolic acidosis secondary to acute kidney injury and IV fluids. 5. Small bowel obstruction. Has NG tube. Surgery following. 6. Hypernatremia from lack of oral water intake. 7. Shock maintained on Levophed. Plan: Stop normal saline. Start D5W at 100 mL an hour. Repeat sodium level this evening. Avoid nephrotoxins. Continue to monitor renal function and urine output. Monitor bicarb.
--- NOTE | 2021-12-08 09:14 | XR ---
EXAMINATION TYPE: XR chest 1V portable DATE OF EXAM: 12/08/2021 COMPARISON: 12/07/2021 HISTORY: Tube placement TECHNIQUE: Single frontal view of the chest is obtained. FINDINGS: ET and NG tube and central line stable. Interstitial pattern with bilateral infiltrate and pleural effusion noted. Heart size stable. No sizable pneumothorax. IMPRESSION: Pleural-parenchymal findings bilateral subsegmental atelectasis or infiltrate with small effusion. Mild underlying chronic interstitial lung disease, venous congestion or pneumonitis in the differential diagnosis
--- NOTE | 2021-12-08 09:53 | P.PN ---
Subjective PROGRESS NOTE The patient is more confused today but is able to answer questions. He denies any chest discomfort or dyspnea but continues to have abdominal discomfort. His abdomen is distended. He denies any change in his breathing. He is in atrial fibrillation with rapid ventricular response. He continues to have an NG tube. His blood pressure has been borderline but stable. His echocardiogram showed a preserved systolic function. There was no significant valvular abnormalities. He received an additional IV amiodarone bolus. 12/08 Patient seen and examined. Patient remains on norepinephrine at 0.18 with fairly well-controlled blood pressures. Receiving metoprolol 2.5 mg IV 3 times a day with some improvement in heart rates into the 100-110 range. Remains on amiodarone drip at 0.5. Remains intubated and sedated with FiO2 50% and a PEEP of 5. Noted to be hypernatremic and he was changed to D5W. Remains on a heparin drip for atrial fibrillation and no signs of bleeding per nursing. Cardizem drip have been discontinued as was causing some hypotension however is tolerating the metoprolol. Creatinine mildly improving to 2.4. PHYSICAL EXAMINATION: LUNGS: Clear to auscultation HEART: Irregular rate and rhythm, S1, S2. No S3. No systolic murmur ABDOMEN: Soft, mild tenderness, distended, hypoactive bowel sounds, no or ganomegaly EXTREMETIES: No edema , chronic discoloration LAB: IMPRESSION: 1. Small bowel obstruction, surgery following 2. Atrial fibrillation with rapid ventricle response 3. Hypotension, likely septic shock 4. Change in mental status with confusion, could be metabolic encephalopathy 5. Erythrocytosis 6. BELL, improving PLAN: Continue with IV heparin however hold if surgery is considered. Continue with supportive care and wean sedation and vasopressors as able. His heart rates appear somewhat better with the IV metoprolol and likely some expected mild tachycardia. Continue with IV amiodarone 0.5 at this time and transition to oral when patient able to tolerate oral medications. Creatinine appears improving. Patient was changed to D5. Echo showing preserved EF without significant valvular disease. Continue to monitor. Prognosis guarded. Objective - Vital Signs Vital signs: Vital Signs Temp 99.1 F 12/08/21 08:00 Pulse 121 H 12/08/21 09:00 Resp 33 H 12/08/21 09:00 BP 93/71 12/08/21 09:00 Pulse Ox 94 L 12/08/21 09:00 FiO2 50 12/08/21 08:00 Intake & Output 12/07/21 12/08/21 12/08/21 18:59 06:59 18:59 Intake Total 2636.836 2879.461 734.741 Output Total 1675 1390 240 Balance 698.368 8828.461 494.741 Weight 122.6 kg Intake: IV 1100 2400 280 Piperacillin-Tazobactam 3 100 .375 gm In Sodium Chloride 0.9% 100 ml @ 25 mls/hr IVPB Q12H [facility] Rx# :[id number] Sodium Chloride 0.9% 1, 1100 700 80 000 ml @ 100 mls/hr IV . Q10H [facility] Rx#:[id number] Sodium Chloride 0.9% 1, 1000 000 ml @ 999 mls/hr IV . Q1H1M [facility] Rx#:[id number] metroNIDAZOLE-NS PMX 500 600 200 mg In Saline 1 100ml.bag @ 100 mls/hr IVPB Q8HR [facility] Rx#:[id number] Intake, IV Titration 1536.836 479.461 454.741 Amount Dexmedetomidine/0.9% NaCl 65.601 (Pmx) 400 mcg In Empty Bag 1 bag @ 0.2 MCG/KG/HR 5.91 mls/hr IV .[id number] [facility] Rx#:[id number] Dextrose 5% in Water 100 150 ml @ 618 mls/hr IV .Q10M [facility] with Amiodarone 150 mg Rx#:[id number] Diltiazem 125 mg In 0 Sodium Chloride 0.9% 100 ml @ 5 MG/HR 5 mls/hr IV .Q24H [facility] Rx#:[id number] Heparin Sod,Pork in 0.45% 186.836 147.198 NaCl 25,000 unit In 0.45 % NaCl 1 250ml.bag @ 8.46 UNITS/KG/HR 10 mls/hr IV .Q24H [facility] Rx#:[id number] Norepinephrine 8 mg In 258.572 Sodium Chloride 0.9% 250 ml @ 0.05 MCG/KG/MIN 11. 436 mls/hr IV .[id number] [facility] Rx#:[id number] Piperacillin-Tazobactam 3 100 .375 gm In Sodium Chloride 0.9% 100 ml @ 25 mls/hr IVPB Q12H [facility] Rx# :[id number] Sodium Chloride 0.9% 1, 1000 000 ml @ 999 mls/hr IV . Q1H1M [facility] Rx#:[id number] fentaNYL (PF). 1,000 mcg 86.834 In Sodium Chloride 0.9% 80 ml @ 100 MCG/HR 10 mls /hr IV .Q10H [facility] Rx#: [id number] metroNIDAZOLE-NS PMX 500 100 mg In Saline 1 100ml.bag @ 100 mls/hr IVPB Q8HR [facility] Rx#:[id number] propofoL 1,000 mg In 266.662 109.335 Empty Bag 1 bag @ 5 MCG/ KG/MIN 3.546 mls/hr IV . Q24H [facility] Rx#:[id number] Output: Gastric Drainage 250 Urine 1675 1140 240 Other: Voiding Method Indwelling Catheter Indwelling Catheter ABP, PAP, CO, CI - Last Documented Arterial Blood Pressure 87/57 - Labs CBC & Chem 7: 12/08/21 05:30 12/08/21 05:30 Labs: Abnormal Lab Results - Last 24 Hours (Table) 12/07/21 12/07/21 12/07/21 Range/Units 09:44 09:44 09:44 WBC (3.8-10.6) k/uL RBC (4.30-5.90) m/uL Hgb (13.0-17.5) gm/dL Hct (39.0-53.0) % Plt Count (150-450) k/uL Neutrophils # (1.3-7.7) k/uL Lymphocytes # (1.0-4.8) k/uL APTT 69.3 H (22.0-30.0) sec ABG pH (7.35-7.45) ABG pCO2 (35-45) mmHg ABG pO2 (83-108) mmHg ABG HCO3 (21-25) mmol/L ABG Total CO2 (19-24) mmol/L ABG O2 Saturation (94-97) % Sodium (137-145) mmol/L Chloride (98-107) mmol/L Carbon Dioxide (22-30) mmol/L BUN (9-20) mg/dL Creatinine (0.66-1.25) mg/dL Glucose (74-99) mg/dL Plasma Lactic Acid Chase 2.1 H* (0.7-2.0) mmol/L Calcium (8.4-10.2) mg/dL ALT (4-49) U/L Total Protein (6.3-8.2) g/dL Albumin (3.5-5.0) g/dL Procalcitonin 1.52 H (0.02-0.09) ng/mL 12/07/21 12/07/21 12/07/21 Range/Units 13:32 13:32 13:32 WBC (3.8-10.6) k/uL RBC 5.95 H (4.30-5.90) m/uL Hgb 18.0 H (13.0-17.5) gm/dL Hct 54.4 H (39.0-53.0) % Plt Count 106 L (150-450) k/uL Neutrophils # 8.4 H (1.3-7.7) k/uL Lymphocytes # 0.6 L (1.0-4.8) k/uL APTT (22.0-30.0) sec ABG pH (7.35-7.45) ABG pCO2 (35-45) mmHg ABG pO2 (83-108) mmHg ABG HCO3 (21-25) mmol/L ABG Total CO2 (19-24) mmol/L ABG O2 Saturation (94-97) % Sodium 147 H (137-145) mmol/L Chloride 110 H (98-107) mmol/L Carbon Dioxide (22-30) mmol/L BUN 78 H (9-20) mg/dL Creatinine 2.52 H (0.66-1.25) mg/dL Glucose 144 H (74-99) mg/dL Plasma Lactic Acid Chase 2.4 H* (0.7-2.0) mmol/L Calcium 8.2 L (8.4-10.2) mg/dL ALT 63 H (4-49) U/L Total Protein 6.0 L (6.3-8.2) g/dL Albumin 3.4 L (3.5-5.0) g/dL Procalcitonin (0.02-0.09) ng/mL 12/07/21 12/07/21 12/07/21 Range/Units 17:14 20:00 22:01 WBC (3.8-10.6) k/uL RBC (4.30-5.90) m/uL Hgb (13.0-17.5) gm/dL Hct (39.0-53.0) % Plt Count (150-450) k/uL Neutrophils # (1.3-7.7) k/uL Lymphocytes # (1.0-4.8) k/uL APTT 38.6 H (22.0-30.0) sec ABG pH 7.46 H 7.46 H (7.35-7.45) ABG pCO2 34 L (35-45) mmHg ABG pO2 80 L 375 H (83-108) mmHg ABG HCO3 26 H (21-25) mmol/L ABG Total CO2 27 H 25 H (19-24) mmol/L ABG O2 Saturation 99.1 H (94-97) % Sodium (137-145) mmol/L Chloride (98-107) mmol/L Carbon Dioxide (22-30) mmol/L BUN (9-20) mg/dL Creatinine (0.66-1.25) mg/dL Glucose (74-99) mg/dL Plasma Lactic Acid Chase (0.7-2.0) mmol/L Calcium (8.4-10.2) mg/dL ALT (4-49) U/L Total Protein (6.3-8.2) g/dL Albumin (3.5-5.0) g/dL Procalcitonin (0.02-0.09) ng/mL 12/07/21 12/08/21 12/08/21 Range/Units 23:45 05:30 05:30 WBC 11.8 H (3.8-10.6) k/uL RBC (4.30-5.90) m/uL Hgb (13.0-17.5) gm/dL Hct (39.0-53.0) % Plt Count (150-450) k/uL Neutrophils # (1.3-7.7) k/uL Lymphocytes # (1.0-4.8) k/uL APTT 42.2 H (22.0-30.0) sec ABG pH (7.35-7.45) ABG pCO2 (35-45) mmHg ABG pO2 (83-108) mmHg ABG HCO3 (21-25) mmol/L ABG Total CO2 (19-24) mmol/L ABG O2 Saturation (94-97) % Sodium 150 H (137-145) mmol/L Chloride 116 H (98-107) mmol/L Carbon Dioxide 20 L (22-30) mmol/L BUN 69 H (9-20) mg/dL Creatinine 2.49 H (0.66-1.25) mg/dL Glucose 157 H (74-99) mg/dL Plasma Lactic Acid Chase (0.7-2.0) mmol/L Calcium 7.7 L (8.4-10.2) mg/dL ALT (4-49) U/L Total Protein (6.3-8.2) g/dL Albumin (3.5-5.0) g/dL Procalcitonin (0.02-0.09) ng/mL 12/08/21 12/08/21 Range/Units 06:01 08:49 WBC (3.8-10.6) k/uL RBC (4.30-5.90) m/uL Hgb (13.0-17.5) gm/dL Hct (39.0-53.0) % Plt Count (150-450) k/uL Neutrophils # (1.3-7.7) k/uL Lymphocytes # (1.0-4.8) k/uL APTT 66.2 H (22.0-30.0) sec ABG pH (7.35-7.45) ABG pCO2 34 L (35-45) mmHg ABG pO2 76 L (83-108) mmHg ABG HCO3 (21-25) mmol/L ABG Total CO2 (19-24) mmol/L ABG O2 Saturation (94-97) % Sodium (137-145) mmol/L Chloride (98-107) mmol/L Carbon Dioxide (22-30) mmol/L BUN (9-20) mg/dL Creatinine (0.66-1.25) mg/dL Glucose (74-99) mg/dL Plasma Lactic Acid Chase (0.7-2.0) mmol/L Calcium (8.4-10.2) mg/dL ALT (4-49) U/L Total Protein (6.3-8.2) g/dL Albumin (3.5-5.0) g/dL Procalcitonin (0.02-0.09) ng/mL Microbiology - Last 24 Hours (Table) 12/05/21 15:15 Blood Culture - Preliminary Blood No Growth after 48 hours 12/05/21 15:05 Blood Culture - Preliminary Blood No Growth after 48 hours
[2021-12-08] MEDS: DEXTROSE 5% IN WATER 1,000 ML IV SCH ×2 (10:16→18:18)
--- NOTE | 2021-12-08 11:33 | P.PN ---
Subjective Progress Note Date: 12/08/21 Principal diagnosis: Small bowel obstruction, abdominal sepsis, and septic shock This is a 66-year-old male patient, who presented to the emergency because of abdominal pain and nausea and emesis and the patient states that he has not passed a bowel movement for the past 3 days. His oral intake was minimal and was becoming progressively more sick and dehydrated. Upon arrival, he was hypotensive with a BP of 65/47. The patient was started on IV fluids. The patient is known to have polycystic kidney disease and he has chronic kidney disease and his baseline creatinine was 1.8 from 2019. His initial blood work showed a white cell count of 11.6. His hemoglobin was elevated at 21.3 and the baseline is not known. It'll platelet count 214. BUN was at 91 with a creatin ine of 4.95 consistent with an acute on top of chronic kidney disease. Lactic acid level was elevated at 3.4. Based on that, a CAT scan of the abdomen was done that showed a distended stomach, distended small bowel, transition point and a decompressed large bowel. The patient is known to have an umbilical hernia. No evidence of any incarceration. There was evidence of polycystic kidney disease. The patient currently has an NG tube in place. He has occult positive stools. The NG output was 1600. He is known to have COPD, polycystic kidney disease, hypertension. No previous history of abdominal surgeries. His abdomen is still distended. No altered mentation. He is able to follow c ommands and answer questions appropriately. No previous history of cardiac disease. The liver function tests showed an AST of 95, ALT of 62, normal alkaline phosphatase of 59, and the bilirubin was at 1.5. Follow-up lactic acid level is down to 2.5. His COVID 19 by PCR was negative. Normal coagulation profile. On 12/06/2021, the patient's condition essentially unchanged. The patient has an NG tube in place and output was around 400 mL over the past 12 hours. Abdomen is slightly distended. The patient umbilical hernia. He does have some mild direct tenderness. No bowel sounds. No bowel movements. No flatus. He remains obstructive. He was IV fluids and he is still on IV fluids running at the rate of 100 mL an hour of normal saline. The blood work from today shows a white cell count of 9 with a hemoglobin of 18.5. There was an obvious drop in hemoglobin from 21 down to 18. Platelet counts are 93. Blood work shows improvement acute kidney injury. The patient's creatinine is down to 3.8 with a BM 96. Serum bicarbonate of 18 with a sodium level of 138. Liver function tests are all within normal limits. The patient was weaned by general surgery. We'll continue our conservative measures of gastric decompression via an NG tube and general surgeries also on the case. Chest x-ray from today shows some atelectatic changes in lung bases. NG tube is in a good location the stomach. No other acute abnormalities noted. The patient was also seen by nephrology and the patient was also seen by cardiology. The patient wasn't into atrial fibrillation with rapid ventricular response yesterday. He was initially on a Cardizem drip which controlled his rate is not controlled his rate. He became hypotensive. Subsequently, he was switched to a amiodarone drip and currently he is loaded with amiodarone and he is on a maintenance of 1 mg per minute as part of the loading protocol. His current heart rate is 101 and it is still in atrial fibrillation. Echo was also ordered by cardiology. 12/07/2021, the patient is more lethargic compared to yesterday. This morning, he is confused and lethargic. He was requiring significant OUTPUT overnight and he has taken 0.5 mg of Dilaudid IV every 2 hours. NG output is still high in the order of 600 mL. Normal bowel sounds. Abdomen remains distended. The same time, the patient is in atrial fibrillation with rapid ventricular response. Earlier this morning, his heart rate went up to 153. It is still irregular. The patient remains on amiodarone 0.5 mg per minute and the patient also was started on IV heparin yesterday. No evidence of any bleeding. PTT this morning is at 42.6. At the same time, the patient's creatinine continues to improve. He is currently on IV fluids in the form of normal saline at the rate of 100 mL an hour and the BUN is at 92 with a creatinine of 3.18. Sodium is 143. LFTs are within normal limits. The white cell count is at 9.1. The blood cultures of been negative thus far. The overall fluid balance over the past 24 hours has been +1.4 L. She is afebrile. His neurologic exam is nonfocal. He remains on IV Protonix. Gen. surgery is on the case. Echocardiogram was done yesterday and the patient has a preserved LV function with an ejection fraction of 60%. No valvular Abnormalities. Reevaluated today on 12/08/2021, patient is intubated and mechanically ventilate d. Patient was intubated placed last night, and his clinical condition continued to deteriorate. Patient is now on assist control rate of 26, volume 450 FiO2 50% and PEEP of 5, ABG this morning showed a pO2 of 76 pCO2 34 pH of 7.45 and this is patient is on norepinephrine at 0.14 mcg/kg/m also on propofol at 50 mcg/kg/m patient is on IV fluid at 80 mL/h he is also on heparin for atrial fibrillation and his renal functioning seems to be improving however his BUN is 69 creatinine 2.49 and his sodium is 1:15 hence his IV fluid was changed to D5W by nephrology earlier today. Patient is on antibiotics is also on Flagyl. He is on amiodarone 0.5 mg/m, and he is on fentanyl at 0.8 mcg/kg/h all labs were reviewed today, his PTT is 66.2 WBC count is 11.8 hemoglobin is 16.6. Chest x-ray showed endotracheal tube and nasogastric tube as well as central line is stable position. It also showed evidence of interstitial edema/infiltrates with subsegmental atelectasis and small effusion. Pulmonary vascular congestion is noted, underlying pneumonia is not entirely ruled out, it is definitely in the differential diagnoses but this is felt to be less likely Objective - Vital Signs Vital signs: Vital Signs Temp 99.1 F 12/08/21 08:00 Pulse 105 H 12/08/21 10:00 Resp 32 H 12/08/21 10:00 BP 92/66 12/08/21 10:00 Pulse Ox 94 L 12/08/21 10:00 FiO2 50 12/08/21 11:01 Intake & Output 12/07/21 12/08/21 12/08/21 18:59 06:59 18:59 Intake Total 2636.836 2879.461 834.741 Output Total 1675 1390 355 Balance 318.039 9104.461 479.741 Weight 122.6 kg Intake: IV 1100 2400 380 Dextrose 5% in Water 1, 100 000 ml @ 100 mls/hr IV . Q10H [facility] Rx#:[id number] Piperacillin-Tazobactam 3 100 .375 gm In Sodium Chloride 0.9% 100 ml @ 25 mls/hr IVPB Q12H [facility] Rx# :[id number] Sodium Chloride 0.9% 1, 1100 700 80 000 ml @ 100 mls/hr IV . Q10H [facility] Rx#:[id number] Sodium Chloride 0.9% 1, 1000 000 ml @ 999 mls/hr IV . Q1H1M [facility] Rx#:[id number] metroNIDAZOLE-NS PMX 500 600 200 mg In Saline 1 100ml.bag @ 100 mls/hr IVPB Q8HR [facility] Rx#:[id number] Intake, IV Titration 1536.836 479.461 454.741 Amount Dexmedetomidine/0.9% NaCl 65.601 (Pmx) 400 mcg In Empty Bag 1 bag @ 0.2 MCG/KG/HR 5.91 mls/hr IV .[id number] [facility] Rx#:[id number] Dextrose 5% in Water 100 150 ml @ 618 mls/hr IV .Q10M [facility] with Amiodarone 150 mg Rx#:[id number] Diltiazem 125 mg In 0 Sodium Chloride 0.9% 100 ml @ 5 MG/HR 5 mls/hr IV .Q24H [facility] Rx#:[id number] Heparin Sod,Pork in 0.45% 186.836 147.198 NaCl 25,000 unit In 0.45 % NaCl 1 250ml.bag @ 8.46 UNITS/KG/HR 10 mls/hr IV .Q24H [facility] Rx#:[id number] Norepinephrine 8 mg In 258.572 Sodium Chloride 0.9% 250 ml @ 0.05 MCG/KG/MIN 11. 436 mls/hr IV .[id number] [facility] Rx#:[id number] Piperacillin-Tazobactam 3 100 .375 gm In Sodium Chloride 0.9% 100 ml @ 25 mls/hr IVPB Q12H [facility] Rx# :[id number] Sodium Chloride 0.9% 1, 1000 000 ml @ 999 mls/hr IV . Q1H1M [facility] Rx#:[id number] fentaNYL (PF). 1,000 mcg 86.834 In Sodium Chloride 0.9% 80 ml @ 100 MCG/HR 10 mls /hr IV .Q10H [facility] Rx#: [id number] metroNIDAZOLE-NS PMX 500 100 mg In Saline 1 100ml.bag @ 100 mls/hr IVPB Q8HR [facility] Rx#:[id number] propofoL 1,000 mg In 266.662 109.335 Empty Bag 1 bag @ 5 MCG/ KG/MIN 3.546 mls/hr IV . Q24H [facility] Rx#:[id number] Output: Gastric Drainage 250 Urine 1675 1140 355 Other: Voiding Method Indwelling Catheter Indwelling Catheter Indwelling Catheter ABP, PAP, CO, CI - Last Documented Arterial Blood Pressure 99/59 - Exam Physical Exam: Revealed a 66-year-old white male intubated and sedated and mec hanically ventilated in no distress. Head: Atraumatic, normocephalic, endotracheal tube and orogastric tube are intact HEENT:[Neck is supple.] [No neck masses.] [No thyromegaly.] [No JVD.]., EOMI, nonicteric. Chest: [Crackles at the bases symmetrical chest expansion Cardiac Exam: Irregular irregular rhythm. [Normal S1 and S2, no S3 gallop, no murmur.] Abdomen: [Obese, distended, could not appreciate tenderness however the patient is sedated and on fentanyl drip no megaly, no rebound, no guarding, no bowel sounds Extremities: [No clubbing, trace of bipedal edema, no cyanosis.], Diminished p ulses bilaterally. Neurological Exam: Cannot assess, patient is sedated and ventilated. Psychiatric: Could not assess. Musculoskeletal: No deformities. Skin: No rashes - Labs CBC & Chem 7: 12/08/21 05:30 12/08/21 05:30 Labs: Abnormal Lab Results - Last 24 Hours (Table) 12/07/21 12/07/21 12/07/21 Range/Units 09:44 13:32 13:32 WBC (3.8-10.6) k/uL RBC 5.95 H (4.30-5.90) m/uL Hgb 18.0 H (13.0-17.5) gm/dL Hct 54.4 H (39.0-53.0) % Plt Count 106 L (150-450) k/uL Neutrophils # 8.4 H (1.3-7.7) k/uL Lymphocytes # 0.6 L (1.0-4.8) k/uL APTT (22.0-30.0) sec ABG pH (7.35-7.45) ABG pCO2 (35-45) mmHg ABG pO2 (83-108) mmHg ABG HCO3 (21-25) mmol/L ABG Total CO2 (19-24) mmol/L ABG O2 Saturation (94-97) % Sodium 147 H (137-145) mmol/L Chloride 110 H (98-107) mmol/L Carbon Dioxide (22-30) mmol/L BUN 78 H (9-20) mg/dL Creatinine 2.52 H (0.66-1.25) mg/dL Glucose 144 H (74-99) mg/dL Plasma Lactic Acid Chase (0.7-2.0) mmol/L Calcium 8.2 L (8.4-10.2) mg/dL ALT 63 H (4-49) U/L Total Protein 6.0 L (6.3-8.2) g/dL Albumin 3.4 L (3.5-5.0) g/dL Procalcitonin 1.52 H (0.02-0.09) ng/mL 12/07/21 12/07/21 12/07/21 Range/Units 13:32 17:14 20:00 WBC (3.8-10.6) k/uL RBC (4.30-5.90) m/uL Hgb (13.0-17.5) gm/dL Hct (39.0-53.0) % Plt Count (150-450) k/uL Neutrophils # (1.3-7.7) k/uL Lymphocytes # (1.0-4.8) k/uL APTT 38.6 H (22.0-30.0) sec ABG pH 7.46 H (7.35-7.45) ABG pCO2 (35-45) mmHg ABG pO2 80 L (83-108) mmHg ABG HCO3 26 H (21-25) mmol/L ABG Total CO2 27 H (19-24) mmol/L ABG O2 Saturation (94-97) % Sodium (137-145) mmol/L Chloride (98-107) mmol/L Carbon Dioxide (22-30) mmol/L BUN (9-20) mg/dL Creatinine (0.66-1.25) mg/dL Glucose (74-99) mg/dL Plasma Lactic Acid Chase 2.4 H* (0.7-2.0) mmol/L Calcium (8.4-10.2) mg/dL ALT (4-49) U/L Total Protein (6.3-8.2) g/dL Albumin (3.5-5.0) g/dL Procalcitonin (0.02-0.09) ng/mL 12/07/21 12/07/21 12/08/21 Range/Units 22:01 23:45 05:30 WBC (3.8-10.6) k/uL RBC (4.30-5.90) m/uL Hgb (13.0-17.5) gm/dL Hct (39.0-53.0) % Plt Count (150-450) k/uL Neutrophils # (1.3-7.7) k/uL Lymphocytes # (1.0-4.8) k/uL APTT 42.2 H (22.0-30.0) sec ABG pH 7.46 H (7.35-7.45) ABG pCO2 34 L (35-45) mmHg ABG pO2 375 H (83-108) mmHg ABG HCO3 (21-25) mmol/L ABG Total CO2 25 H (19-24) mmol/L ABG O2 Saturation 99.1 H (94-97) % Sodium 150 H (137-145) mmol/L Chloride 116 H (98-107) mmol/L Carbon Dioxide 20 L (22-30) mmol/L BUN 69 H (9-20) mg/dL Creatinine 2.49 H (0.66-1.25) mg/dL Glucose 157 H (74-99) mg/dL Plasma Lactic Acid Chase (0.7-2.0) mmol/L Calcium 7.7 L (8.4-10.2) mg/dL ALT (4-49) U/L Total Protein (6.3-8.2) g/dL Albumin (3.5-5.0) g/dL Procalcitonin (0.02-0.09) ng/mL 12/08/21 12/08/21 12/08/21 Range/Units 05:30 06:01 08:49 WBC 11.8 H (3.8-10.6) k/uL RBC (4.30-5.90) m/uL Hgb (13.0-17.5) gm/dL Hct (39.0-53.0) % Plt Count (150-450) k/uL Neutrophils # (1.3-7.7) k/uL Lymphocytes # (1.0-4.8) k/uL APTT 66.2 H (22.0-30.0) sec ABG pH (7.35-7.45) ABG pCO2 34 L (35-45) mmHg ABG pO2 76 L (83-108) mmHg ABG HCO3 (21-25) mmol/L ABG Total CO2 (19-24) mmol/L ABG O2 Saturation (94-97) % Sodium (137-145) mmol/L Chloride (98-107) mmol/L Carbon Dioxide (22-30) mmol/L BUN (9-20) mg/dL Creatinine (0.66-1.25) mg/dL Glucose (74-99) mg/dL Plasma Lactic Acid Chase (0.7-2.0) mmol/L Calcium (8.4-10.2) mg/dL ALT (4-49) U/L Total Protein (6.3-8.2) g/dL Albumin (3.5-5.0) g/dL Procalcitonin (0.02-0.09) ng/mL Microbiology - Last 24 Hours (Table) 12/08/21 03:20 Sputum Culture - Preliminary Sputum 12/05/21 15:15 Blood Culture - Preliminary Blood No Growth after 48 hours 12/05/21 15:05 Blood Culture - Preliminary Blood No Growth after 48 hours Assessment and Plan Assessment: Impression: Acute small bowel obstruction Abdominal sepsis and septic shock Acute metabolic encephalopathy secondary to above New onset atrial fibrillation with RVR, patient is presently on amiodarone and is also on heparin History of umbilical hernia without incarceration Acute kidney injury secondary to sepsis Acute dehydration Anion gap metabolic acidosis secondary to abdominal sepsis and renal failure Underlying COPD Benign essential hypertension Degenerative joint disease History of nephrolithiasis Chronic back pain Recommendation: Continue ventilatory support Continue IV fluid agree with D5W since the patient is developing hyponatremia Continue amiodarone and heparin Continue norepinephrine,/hemodynamic support Continue propofol and fentanyl Continue nasogastric tube to suction Continue IV heparin Continue to monitor renal profile and electrolytes Continue GI and DVT prophylaxis Consider TPN Patient may require surgical intervention in the next 24 hours. We'll continue to optimize his clinical status in the IC as much as possible. Prognosis is definitely guarded and the patient is critically ill. Critical care time is over 30 minutes. Discussed his condition with surgery on the case. Time with Patient: Greater than 30
[2021-12-08 12:10] LABS: Glucose,Whole Blood 153 mg/dL (70-110)
--- NOTE | 2021-12-08 17:26 | P.PN ---
Subjective Progress Note Date: 12/08/21 Constantino Hernandez, is a 66 year old male who presented to [facility] emergency room, with a chief complaint of abdominal pain nausea and vomiting, his symptoms started 3 days ago and has been worsening. He was evaluated in the emergency room vital examination on presentation revealed a temperature of 96.7 pulse 101 respiration 24 blood pressure 154/89 however blood pressure dropped to 65/47 shortly after arrival pulse ox was 96% on room air Laboratory data revealed a white blood count of 11.6 hemoglobin 21.3 platelet count 116 sodium 134 potassium 5.0 chloride 94 CO2 16 BUN 91 creatinine 4.95 la ctic acid was elevated at 3.4 total bilirubin 1.5 AST 95 ALT 62 lipase within normal limits, zavala virus PCR was negative Testing in the emergency room revealed chest x-ray done in the emergency room revealed interstitial lung disease and chronic compression deformity of L1, computed tomography scan of the abdomen and pelvis revealed distal small bowel obstruction and 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 In the emergency room patient had an NG tube placed and had large amount of fluid removed, plan is to admit patient, consultation for surgery, nephrology, cardiology, and critical care initiated in the emergency room Past medical history is significant for history of hypertension, history of COPD, history of osteoarthritis, history of chronic kidney disease, history of chronic back pain. 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 On review of systems patient is alert and oriented 3, he has an NG tube in, he is complaining of some abdominal discomfort, otherwise he denies any complaints, there is no fever or chills no headache or dizziness no chest pain no shortness of breath, no nausea or vomiting since NG tube has been placed, no burning with urination no frequency or urgency and no hematuria. On 12/06/2021 patient was seen and examined in the ICU he is alert responsive in no apparent distress, he has an NG tube, he is maintained on oxygen via nasal cannula at 4 L, vital exam at 8 AM temperature 98.4 pulse 123 respiration 16 blood pressure 78/64 pulse ox 92% he is sleepy and denies any complaints at this time, there is no fever or chills no headache or dizziness no chest pain no shortness of breath no cough no nausea or vomiting no abdominal pain no diarrhea and no urinary symptoms, patient has not had any bowel movement or passed any gas since admission, there is some improvement on his laboratory data white blood count is down from 11.6-9.0 creatinine is down from 4.95-3.82 and lactic acid is down to 1.5, recommendation from nephrology, cardiology and critical care reviewed On 12/07/2021 patient is more confused. Per nursing staff patient had increased confusion throughout the night. Heart rate remains elevated. Cardiology services are following patient is on amiodarone. Surgical services ordering abdominal x-ray. Lactic acid 2.1. Creatinine improving to 3.18 awaiting further recommendations from surgery and critical care services On 12/08/2021 patient was seen and examined in the ICU he is intubated sedated maintained on mechanical ventilation, he is on assist control with FiO2 of 50% PEEP of 5 and draped of 26 he is maintained on norepinephrine for pressure control he remains in atrial fibrillation with a heart rate of 125 he is maintained on IV heparin kidney function is improving gradually his sodium is elevated at 150 he is maintained on IV amiodarone he is also maintained on IV antibiotics Zosyn and Flagyl, pulmonary critical care, cardiology, infectious disease, and nephrology are following patient is also followed by general surgery for bowel obstruction computed tomography scan of the brain done this morning did not reveal any evidence of intracranial bleeding, computed tomography scan of the abdomen and pelvis done again this morning and revealed evidence of bowel obstruction without significant change from previous computed tomography scan, will continue to follow closely prognosis is guarded. Objective - Vital Signs Vital signs: Vital Signs Temp 99.1 F 12/08/21 08:00 Pulse 105 H 12/08/21 10:00 Resp 32 H 12/08/21 10:00 BP 92/66 12/08/21 10:00 Pulse Ox 94 L 12/08/21 10:00 FiO2 50 12/08/21 08:00 Intake & Output 12/07/21 12/08/21 12/08/21 18:59 06:59 18:59 Intake Total 2636.836 2879.461 834.741 Output Total 1675 1390 355 Balance 508.395 8472.461 479.741 Weight 122.6 kg Intake: IV 1100 2400 380 Dextrose 5% in Water 1, 100 000 ml @ 100 mls/hr IV . Q10H [facility] Rx#:[id number] Piperacillin-Tazobactam 3 100 .375 gm In Sodium Chloride 0.9% 100 ml @ 25 mls/hr IVPB Q12H [facility] Rx# :[id number] Sodium Chloride 0.9% 1, 1100 700 80 000 ml @ 100 mls/hr IV . Q10H [facility] Rx#:[id number] Sodium Chloride 0.9% 1, 1000 000 ml @ 999 mls/hr IV . Q1H1M [facility] Rx#:[id number] metroNIDAZOLE-NS PMX 500 600 200 mg In Saline 1 100ml.bag @ 100 mls/hr IVPB Q8HR [facility] Rx#:[id number] Intake, IV Titration 1536.836 479.461 454.741 Amount Dexmedetomidine/0.9% NaCl 65.601 (Pmx) 400 mcg In Empty Bag 1 bag @ 0.2 MCG/KG/HR 5.91 mls/hr IV .[id number] [facility] Rx#:[id number] Dextrose 5% in Water 100 150 ml @ 618 mls/hr IV .Q10M [facility] with Amiodarone 150 mg Rx#:[id number] Diltiazem 125 mg In 0 Sodium Chloride 0.9% 100 ml @ 5 MG/HR 5 mls/hr IV .Q24H [facility] Rx#:[id number] Heparin Sod,Pork in 0.45% 186.836 147.198 NaCl 25,000 unit In 0.45 % NaCl 1 250ml.bag @ 8.46 UNITS/KG/HR 10 mls/hr IV .Q24H [facility] Rx#:[id number] Norepinephrine 8 mg In 258.572 Sodium Chloride 0.9% 250 ml @ 0.05 MCG/KG/MIN 11. 436 mls/hr IV .[id number] [facility] Rx#:[id number] Piperacillin-Tazobactam 3 100 .375 gm In Sodium Chloride 0.9% 100 ml @ 25 mls/hr IVPB Q12H [facility] Rx# :[id number] Sodium Chloride 0.9% 1, 1000 000 ml @ 999 mls/hr IV . Q1H1M [facility] Rx#:[id number] fentaNYL (PF). 1,000 mcg 86.834 In Sodium Chloride 0.9% 80 ml @ 100 MCG/HR 10 mls /hr IV .Q10H [facility] Rx#: [id number] metroNIDAZOLE-NS PMX 500 100 mg In Saline 1 100ml.bag @ 100 mls/hr IVPB Q8HR [facility] Rx#:[id number] propofoL 1,000 mg In 266.662 109.335 Empty Bag 1 bag @ 5 MCG/ KG/MIN 3.546 mls/hr IV . Q24H [facility] Rx#:[id number] Output: Gastric Drainage 250 Urine 1675 1140 355 Other: Voiding Method Indwelling Catheter Indwelling Catheter Indwelling Catheter ABP, PAP, CO, CI - Last Documented Arterial Blood Pressure 99/59 - Exam In general patient is intubated, sedated, maintained on mechanical ventilation HEENT head normocephalic and atraumatic, NG tube is in Neck is supple no JVD no goiter no lymphadenopathy no carotid bruit Chest examination is clear to auscultation no crackles no wheezing Cardiac exam reveals regular heart sounds S1 and S2 no gallops no murmurs Abdomen is soft with mild diffuse tenderness no palpable masses no organomegaly Extremity exam reveals no edema no cyanosis or clubbing Neurological examination reveals no gross focal deficits - Labs CBC & Chem 7: 12/08/21 05:30 12/08/21 05:30 Labs: Abnormal Lab Results - Last 24 Hours (Table) 12/07/21 12/07/21 12/07/21 Range/Units 09:44 13:32 13:32 WBC (3.8-10.6) k/uL RBC 5.95 H (4.30-5.90) m/uL Hgb 18.0 H (13.0-17.5) gm/dL Hct 54.4 H (39.0-53.0) % Plt Count 106 L (150-450) k/uL Neutrophils # 8.4 H (1.3-7.7) k/uL Lymphocytes # 0.6 L (1.0-4.8) k/uL APTT (22.0-30.0) sec ABG pH (7.35-7.45) ABG pCO2 (35-45) mmHg ABG pO2 (83-108) mmHg ABG HCO3 (21-25) mmol/L ABG Total CO2 (19-24) mmol/L ABG O2 Saturation (94-97) % Sodium 147 H (137-145) mmol/L Chloride 110 H (98-107) mmol/L Carbon Dioxide (22-30) mmol/L BUN 78 H (9-20) mg/dL Creatinine 2.52 H (0.66-1.25) mg/dL Glucose 144 H (74-99) mg/dL Plasma Lactic Acid Chase (0.7-2.0) mmol/L Calcium 8.2 L (8.4-10.2) mg/dL ALT 63 H (4-49) U/L Total Protein 6.0 L (6.3-8.2) g/dL Albumin 3.4 L (3.5-5.0) g/dL Procalcitonin 1.52 H (0.02-0.09) ng/mL 12/07/21 12/07/21 12/07/21 Range/Units 13:32 17:14 20:00 WBC (3.8-10.6) k/uL RBC (4.30-5.90) m/uL Hgb (13.0-17.5) gm/dL Hct (39.0-53.0) % Plt Count (150-450) k/uL Neutrophils # (1.3-7.7) k/uL Lymphocytes # (1.0-4.8) k/uL APTT 38.6 H (22.0-30.0) sec ABG pH 7.46 H (7.35-7.45) ABG pCO2 (35-45) mmHg ABG pO2 80 L (83-108) mmHg ABG HCO3 26 H (21-25) mmol/L ABG Total CO2 27 H (19-24) mmol/L ABG O2 Saturation (94-97) % Sodium (137-145) mmol/L Chloride (98-107) mmol/L Carbon Dioxide (22-30) mmol/L BUN (9-20) mg/dL Creatinine (0.66-1.25) mg/dL Glucose (74-99) mg/dL Plasma Lactic Acid Chase 2.4 H* (0.7-2.0) mmol/L Calcium (8.4-10.2) mg/dL ALT (4-49) U/L Total Protein (6.3-8.2) g/dL Albumin (3.5-5.0) g/dL Procalcitonin (0.02-0.09) ng/mL 12/07/21 12/07/21 12/08/21 Range/Units 22:01 23:45 05:30 WBC (3.8-10.6) k/uL RBC (4.30-5.90) m/uL Hgb (13.0-17.5) gm/dL Hct (39.0-53.0) % Plt Count (150-450) k/uL Neutrophils # (1.3-7.7) k/uL Lymphocytes # (1.0-4.8) k/uL APTT 42.2 H (22.0-30.0) sec ABG pH 7.46 H (7.35-7.45) ABG pCO2 34 L (35-45) mmHg ABG pO2 375 H (83-108) mmHg ABG HCO3 (21-25) mmol/L ABG Total CO2 25 H (19-24) mmol/L ABG O2 Saturation 99.1 H (94-97) % Sodium 150 H (137-145) mmol/L Chloride 116 H (98-107) mmol/L Carbon Dioxide 20 L (22-30) mmol/L BUN 69 H (9-20) mg/dL Creatinine 2.49 H (0.66-1.25) mg/dL Glucose 157 H (74-99) mg/dL Plasma Lactic Acid Chase (0.7-2.0) mmol/L Calcium 7.7 L (8.4-10.2) mg/dL ALT (4-49) U/L Total Protein (6.3-8.2) g/dL Albumin (3.5-5.0) g/dL Procalcitonin (0.02-0.09) ng/mL 12/08/21 12/08/21 12/08/21 Range/Units 05:30 06:01 08:49 WBC 11.8 H (3.8-10.6) k/uL RBC (4.30-5.90) m/uL Hgb (13.0-17.5) gm/dL Hct (39.0-53.0) % Plt Count (150-450) k/uL Neutrophils # (1.3-7.7) k/uL Lymphocytes # (1.0-4.8) k/uL APTT 66.2 H (22.0-30.0) sec ABG pH (7.35-7.45) ABG pCO2 34 L (35-45) mmHg ABG pO2 76 L (83-108) mmHg ABG HCO3 (21-25) mmol/L ABG Total CO2 (19-24) mmol/L ABG O2 Saturation (94-97) % Sodium (137-145) mmol/L Chloride (98-107) mmol/L Carbon Dioxide (22-30) mmol/L BUN (9-20) mg/dL Creatinine (0.66-1.25) mg/dL Glucose (74-99) mg/dL Plasma Lactic Acid Chase (0.7-2.0) mmol/L Calcium (8.4-10.2) mg/dL ALT (4-49) U/L Total Protein (6.3-8.2) g/dL Albumin (3.5-5.0) g/dL Procalcitonin (0.02-0.09) ng/mL Microbiology - Last 24 Hours (Table) 12/08/21 03:20 Sputum Culture - Preliminary Sputum 12/05/21 15:15 Blood Culture - Preliminary Blood No Growth after 48 hours 12/05/21 15:05 Blood Culture - Preliminary Blood No Growth after 48 hours Assessment and Plan Plan: Distal small bowel obstruction Underlying history of COPD Underlying history of hypertension Acute on chronic renal failure was elevated BUN and creatinine Chronic kidney disease with evidence of autosomal dominant polycystic kidney disease on computed tomography scan Episodes of atrial flutter in the emergency room Underlying history of osteoarthritis. At this time patient is in the emergency room plan is to admit to ICU He is maintained on IV fluids and NG tube is in Surgical consultation requested in regard to distal small bowel obstruction Pulmonary critical care consult requested Cardiology consult requested in regard to episodes of atrial flutter Nephrology consultation was requested in that regard to acute on chronic renal failure Will follow closely
[2021-12-08 17:49] LABS: Glucose,Whole Blood 153 mg/dL (70-110)
[2021-12-08] MEDS: HYDROmorphone 0.5 MG/0.5 ML SYRINGE IVP PRN (18:22)
[2021-12-08 23:39] LABS: Glucose,Whole Blood 140 mg/dL (70-110)
[2021-12-09] MEDS: AMIODARONE 450 MG in DEXTROSE 5% IN WATER 250 ML IV SCH ×6 (00:33→23:27)
[2021-12-09] MEDS: fentaNYL (PF). 1,000 MCG in SODIUM CHLORIDE 0.9% 80 ML IV SCH ×3 (01:06→11:34)
[2021-12-09] MEDS: PIPERACILLIN-TAZOBACTAM 3.375 GM in SODIUM CHLORIDE 0.9% 100 ML IVPB SCH ×3 (02:54→18:44)
[2021-12-09 04:26] LABS: Basophils % (A) 0 %; Eosinophils # (A) 0.1 k/uL (0-0.7); Eosinophils % (A) 1 %; HCT 48.9 % (39.0-53.0); HGB 15.7 gm/dL (13.0-17.5); Lymphocytes # (A) 1.1 k/uL (1.0-4.8); Lymphocytes % (A) 11 %; MCH 30.6 pg (25.0-35.0); MCHC 32.1 g/dL (31.0-37.0); MCV 95.3 fL (80.0-100.0); Monocytes # (A) 0.8 k/uL (0-1.0); Monocytes % (A) 8 %; Neutrophils # (A) 7.7 k/uL (1.3-7.7); Neutrophils % (A) 77 %; Platelet Count 137 k/uL (150-450); RBC 5.14 m/uL (4.30-5.90); RDW 14.3 % (11.5-15.5)
[2021-12-09 04:48] LABS: Albumin 2.6 g/dL (3.5-5.0); Calcium 7.9 mg/dL (8.4-10.2); Total Bilirubin 0.6 mg/dL (0.2-1.3); Total Protein 4.8 g/dL (6.3-8.2)
[2021-12-09] MEDS: NOREPINEPHRINE 8 MG in SODIUM CHLORIDE 0.9% 250 ML IV SCH ×2 (04:48→12:13)
[2021-12-09] MEDS: DEXTROSE 5% IN WATER 1,000 ML IV SCH ×2 (05:19→16:00)
[2021-12-09 06:10] LABS: ABG HCO3 27 mmol/L (21-25); ABG Oxygen Saturation 95.8 % (94-97); ABG PCO2 43 mmHg (35-45); ABG PO2 79 mmHg (83-108); ABG TCO2 28 mmol/L (19-24); Allen Test Performed? Yes
--- NOTE | 2021-12-09 06:49 | P.PN ---
Subjective PROGRESS NOTE The patient is more confused today but is able to answer questions. He denies any chest discomfort or dyspnea but continues to have abdominal discomfort. His abdomen is distended. He denies any change in his breathing. He is in atrial fibrillation with rapid ventricular response. He continues to have an NG tube. His blood pressure has been borderline but stable. His echocardiogram showed a preserved systolic function. There was no significant valvular abnormalities. He received an additional IV amiodarone bolus. 12/08 Patient seen and examined. Patient remains on norepinephrine at 0.18 with fairly well-controlled blood pressures. Receiving metoprolol 2.5 mg IV 3 times a day with some improvement in heart rates into the 100-110 range. Remains on amiodarone drip at 0.5. Remains intubated and sedated with FiO2 50% and a PEEP of 5. Noted to be hypernatremic and he was changed to D5W. Remains on a heparin drip for atrial fibrillation and no signs of bleeding per nursing. Cardizem drip have been discontinued as was causing some hypotension however is tolerating the metoprolol. Creatinine mildly improving to 2.4. 12/09 Patient seen and examined. Patient remains on ventilator with 50% FiO2 and a PEEP of 5. Remains on norepinephrine currently is 0.16 as well as heparin drip and amiodarone drip given he is nothing by mouth. Patient is maintained on D5 at 100 mL per hour. Creatinine mildly improved to 2.3 today. Patient's vasopressor needs mildly increased after metoprolol however metoprolol appears to be improving heart rate and mainly in the 80s up to 120s occasionally. PHYSICAL EXAMINATION: LUNGS: Clear to auscultation HEART: Irregular rate and rhythm, S1, S2. No S3. No systolic murmur ABDOMEN: Soft, mild tenderness, distended, hypoactive bowel sounds, no organomegaly EXTREMETIES: No edema , chronic discoloration LAB: IMPRESSION: 1. Small bowel obstruction, surgery following 2. Atrial fibrillation with rapid ventricle response 3. Hypotension, likely septic shock 4. Change in mental status with confusion, could be metabolic encephalopathy 5. Erythrocytosis 6. BELL, improving PLAN: Continue with IV amiodarone while patient is nothing by mouth. Surgery following for small bowel obstruction. Patient higher risk for surgery however currently appears optimized from a heart standpoint and no absolute contraindications to surgery. Hold heparin if surgery considered. Continue with supportive care. Prognosis guarded. Objective - Vital Signs Vital signs: Vital Signs Temp 98.8 F 12/09/21 04:00 Pulse 93 12/09/21 06:00 Resp 27 H 12/09/21 06:00 BP 102/74 12/09/21 05:15 Pulse Ox 94 L 12/09/21 06:00 FiO2 50 12/09/21 06:00 Intake & Output 12/08/21 12/08/21 12/09/21 06:59 18:59 06:59 Intake Total 2879.461 2944.731 2387.355 Output Total 1390 1365 1365 Balance 4444.870 4861.731 1022.355 Weight 122.6 kg 123 kg Intake: IV 2400 1380 1300 Dextrose 5% in Water 1, 900 1100 000 ml @ 100 mls/hr IV . Q10H [facility] Rx#:[id number] Piperacillin-Tazobactam 3 100 100 100 .375 gm In Sodium Chloride 0.9% 100 ml @ 25 mls/hr IVPB Q12H [facility] Rx# :[id number] Sodium Chloride 0.9% 1, 700 80 000 ml @ 100 mls/hr IV . Q10H [facility] Rx#:[id number] Sodium Chloride 0.9% 1, 1000 000 ml @ 999 mls/hr IV . Q1H1M [facility] Rx#:[id number] metroNIDAZOLE-NS PMX 500 600 300 100 mg In Saline 1 100ml.bag @ 100 mls/hr IVPB Q8HR [facility] Rx#:[id number] Intake, IV Titration 001.497 4248.731 1087.355 Amount Amiodarone 450 mg In 242.505 Dextrose 5% in Water 250 ml @ 0.5 MG/MIN 16.667 mls/hr IV .Q15H [facility] Rx#: [id number] Dexmedetomidine/0.9% NaCl 65.601 (Pmx) 400 mcg In Empty Bag 1 bag @ 0.2 MCG/KG/HR 5.91 mls/hr IV .[id number] [facility] Rx#:[id number] Heparin Sod,Pork in 0.45% 147.198 250 NaCl 25,000 unit In 0.45 % NaCl 1 250ml.bag @ 8.46 UNITS/KG/HR 10 mls/hr IV .Q24H [facility] Rx#:[id number] Norepinephrine 8 mg In 516.000 361.980 Sodium Chloride 0.9% 250 ml @ 0.05 MCG/KG/MIN 11. 436 mls/hr IV .[id number] [facility] Rx#:[id number] fentaNYL (PF). 1,000 mcg 168.167 282.125 In Sodium Chloride 0.9% 80 ml @ 100 MCG/HR 10 mls /hr IV .Q10H [facility] Rx#: [id number] propofoL 1,000 mg In 266.662 388.059 443.250 Empty Bag 1 bag @ 5 MCG/ KG/MIN 3.546 mls/hr IV . Q24H [facility] Rx#:[id number] Output: Gastric Drainage 250 300 400 Urine 1140 1065 965 Other: Voiding Method Indwelling Catheter Indwelling Catheter Indwelling Catheter ABP, PAP, CO, CI - Last Documented Arterial Blood Pressure 111/74 - Labs CBC & Chem 7: 12/09/21 04:09 12/09/21 04:09 Labs: Abnormal Lab Results - Last 24 Hours (Table) 12/08/21 12/08/21 12/08/21 Range/Units 08:49 12:08 17:47 Plt Count (150-450) k/uL APTT 66.2 H (22.0-30.0) sec ABG pO2 (83-108) mmHg ABG HCO3 (21-25) mmol/L ABG Total CO2 (19-24) mmol/L Sodium (137-145) mmol/L Chloride (98-107) mmol/L BUN (9-20) mg/dL Creatinine (0.66-1.25) mg/dL Glucose (74-99) mg/dL POC Glucose (mg/dL) 153 H 153 H (70-110) mg/dL Calcium (8.4-10.2) mg/dL Total Protein (6.3-8.2) g/dL Albumin (3.5-5.0) g/dL 12/08/21 12/08/21 12/08/21 Range/Units 18:04 22:56 23:37 Plt Count (150-450) k/uL APTT (22.0-30.0) sec ABG pO2 (83-108) mmHg ABG HCO3 (21-25) mmol/L ABG Total CO2 (19-24) mmol/L Sodium 148 H 147 H (137-145) mmol/L Chloride (98-107) mmol/L BUN (9-20) mg/dL Creatinine (0.66-1.25) mg/dL Glucose (74-99) mg/dL POC Glucose (mg/dL) 140 H (70-110) mg/dL Calcium (8.4-10.2) mg/dL Total Protein (6.3-8.2) g/dL Albumin (3.5-5.0) g/dL 12/09/21 12/09/21 12/09/21 Range/Units 04:09 04:09 04:09 Plt Count 137 L (150-450) k/uL APTT 64.3 H (22.0-30.0) sec ABG pO2 (83-108) mmHg ABG HCO3 (21-25) mmol/L ABG Total CO2 (19-24) mmol/L Sodium 146 H (137-145) mmol/L Chloride 112 H (98-107) mmol/L BUN 53 H (9-20) mg/dL Creatinine 2.31 H (0.66-1.25) mg/dL Glucose 168 H (74-99) mg/dL POC Glucose (mg/dL) (70-110) mg/dL Calcium 7.9 L (8.4-10.2) mg/dL Total Protein 4.8 L (6.3-8.2) g/dL Albumin 2.6 L (3.5-5.0) g/dL 12/09/21 Range/Units 06:07 Plt Count (150-450) k/uL APTT (22.0-30.0) sec ABG pO2 79 L (83-108) mmHg ABG HCO3 27 H (21-25) mmol/L ABG Total CO2 28 H (19-24) mmol/L Sodium (137-145) mmol/L Chloride (98-107) mmol/L BUN (9-20) mg/dL Creatinine (0.66-1.25) mg/dL Glucose (74-99) mg/dL POC Glucose (mg/dL) (70-110) mg/dL Calcium (8.4-10.2) mg/dL Total Protein (6.3-8.2) g/dL Albumin (3.5-5.0) g/dL Microbiology - Last 24 Hours (Table) 12/05/21 15:15 Blood Culture - Preliminary Blood No Growth after 72 hours 12/05/21 15:05 Blood Culture - Preliminary Blood No Growth after 72 hours 12/08/21 03:20 Gram Stain - Preliminary Sputum Sputum Culture - Preliminary
--- NOTE | 2021-12-09 08:11 | XR ---
Abdomen HISTORY: Small bowel obstruction Frontal the abdomen on 2 images correlated to prior exam CT 12/08/2021, abdomen 12/07/2021 NG tube is in place with the distal tip within the stomach. There are distended loops of small bowel. Basilar increased density may reflect atelectasis, effusion, difficult to exclude pneumonia. No evid ent pneumoperitoneum. There are probable vascular calcifications within the pelvis. Degenerative disc changes noted in the visualized spine. IMPRESSION: Findings consistent with small bowel obstruction, correlate.
--- NOTE | 2021-12-09 08:29 | XR ---
EXAMINATION TYPE: XR chest 1V portable DATE OF EXAM: 12/09/2021 COMPARISON: Chest x-ray 12/08/2021 HISTORY: Intubated TECHNIQUE: Single frontal view of the chest is obtained. FINDINGS: Endotracheal tube, NG tube, left-sided PICC line are overlying appropriate positions. Dist al tip the NG tube not included on exam. No evident pneumothorax. Lung volumes are low and the patien t is rotated. Cardiac mediastinal silhouette is stable. There is some prominence interstitium and dinh tral vascularity. There are overlying leads. Patchy basilar density is noted, there is blunting of th e left costophrenic angle. IMPRESSION: Correlate for congestive heart failure, there may be small effusion, difficult to exclud e pneumonia.
[2021-12-09] MEDS: METOPROLOL TARTRATE 5 MG/5 ML VIAL IVP SCH ×3 (09:11→23:05)
[2021-12-09] MEDS: metroNIDAZOLE-NS PMX 500 MG in SALINE 1 100ML.BAG IVPB SCH ×3 (09:12→23:05)
[2021-12-09] MEDS: CHLORHEXIDINE GLUCONATE 15 ML CUP MUCOUS MEM SCH ×2 (09:12→20:02)
[2021-12-09] MEDS: PANTOPRAZOLE 40 MG/10 ML VIAL IVP SCH (09:12)
[2021-12-09] MEDS: HEPARIN SOD,PORK IN 0.45% NACL 25,000 UNIT in 0.45% NACL 1 250ML.BAG IV SCH (09:12)
--- NOTE | 2021-12-09 09:13 | P.PN ---
Subjective Patient is seen in follow-up for acute kidney injury on chronic kidney disease. Renal function fairly stable. Nonoliguric. Intubated. NG tube output about 300 mL overnight. On amiodarone drip for A. fib. On Levophed. Receiving D5W. Sodium level 146 today. Vital signs are stable. In A. fib. General: Intubated. HEENT: Head exam is unremarkable. LUNGS: Breath sounds decreased. HEART: Irregular rate and rhythm. ABDOMEN: Distention noted. EXTREMITITES: No edema. Objective - Vital Signs Vital signs: Vital Signs Temp 98.6 F 12/09/21 08:00 Pulse 96 12/09/21 08:00 Resp 26 H 12/09/21 08:00 BP 103/74 12/09/21 08:00 Pulse Ox 94 L 12/09/21 08:00 FiO2 50 12/09/21 08:00 Intake & Output 12/08/21 12/09/21 12/09/21 18:59 06:59 18:59 Intake Total 2944.731 2487.355 100 Output Total 1365 1450 125 Balance 0452.723 3392.355 -25 Weight 123 kg Intake: IV 1380 1400 100 Dextrose 5% in Water 1, 900 1200 100 000 ml @ 100 mls/hr IV . Q10H [facility] Rx#:[id number] Piperacillin-Tazobactam 3 100 100 .375 gm In Sodium Chloride 0.9% 100 ml @ 25 mls/hr IVPB Q12H [facility] Rx# :[id number] Sodium Chloride 0.9% 1, 80 000 ml @ 100 mls/hr IV . Q10H [facility] Rx#:[id number] metroNIDAZOLE-NS PMX 500 300 100 mg In Saline 1 100ml.bag @ 100 mls/hr IVPB Q8HR [facility] Rx#:[id number] Intake, IV Titration 9860.499 8968.355 Amount Amiodarone 450 mg In 242.505 Dextrose 5% in Water 250 ml @ 0.5 MG/MIN 16.667 mls/hr IV .Q15H [facility] Rx#: [id number] Heparin Sod,Pork in 0.45% 250 NaCl 25,000 unit In 0.45 % NaCl 1 250ml.bag @ 8.46 UNITS/KG/HR 10 mls/hr IV .Q24H [facility] Rx#:[id number] Norepinephrine 8 mg In 516.000 361.980 Sodium Chloride 0.9% 250 ml @ 0.05 MCG/KG/MIN 11. 436 mls/hr IV .[id number] [facility] Rx#:[id number] fentaNYL (PF). 1,000 mcg 168.167 282.125 In Sodium Chloride 0.9% 80 ml @ 100 MCG/HR 10 mls /hr IV .Q10H [facility] Rx#: [id number] propofoL 1,000 mg In 388.059 443.250 Empty Bag 1 bag @ 5 MCG/ KG/MIN 3.546 mls/hr IV . Q24H [facility] Rx#:[id number] Output: Gastric Drainage 300 400 Urine 1065 1050 125 Other: Voiding Method Indwelling Catheter Indwelling Catheter ABP, PAP, CO, CI - Last Documented Arterial Blood Pressure 107/77 - Labs CBC & Chem 7: 12/09/21 04:09 12/09/21 04:09 Labs: Abnormal Lab Results - Last 24 Hours (Table) 12/08/21 12/08/21 12/08/21 Range/Units 08:49 12:08 17:47 Plt Count (150-450) k/uL APTT 66.2 H (22.0-30.0) sec ABG pO2 (83-108) mmHg ABG HCO3 (21-25) mmol/L ABG Total CO2 (19-24) mmol/L Sodium (137-145) mmol/L Chloride (98-107) mmol/L BUN (9-20) mg/dL Creatinine (0.66-1.25) mg/dL Glucose (74-99) mg/dL POC Glucose (mg/dL) 153 H 153 H (70-110) mg/dL Calcium (8.4-10.2) mg/dL Total Protein (6.3-8.2) g/dL Albumin (3.5-5.0) g/dL 12/08/21 12/08/21 12/08/21 Range/Units 18:04 22:56 23:37 Plt Count (150-450) k/uL APTT (22.0-30.0) sec ABG pO2 (83-108) mmHg ABG HCO3 (21-25) mmol/L ABG Total CO2 (19-24) mmol/L Sodium 148 H 147 H (137-145) mmol/L Chloride (98-107) mmol/L BUN (9-20) mg/dL Creatinine (0.66-1.25) mg/dL Glucose (74-99) mg/dL POC Glucose (mg/dL) 140 H (70-110) mg/dL Calcium (8.4-10.2) mg/dL Total Protein (6.3-8.2) g/dL Albumin (3.5-5.0) g/dL 12/09/21 12/09/21 12/09/21 Range/Units 04:09 04:09 04:09 Plt Count 137 L (150-450) k/uL APTT 64.3 H (22.0-30.0) sec ABG pO2 (83-108) mmHg ABG HCO3 (21-25) mmol/L ABG Total CO2 (19-24) mmol/L Sodium 146 H (137-145) mmol/L Chloride 112 H (98-107) mmol/L BUN 53 H (9-20) mg/dL Creatinine 2.31 H (0.66-1.25) mg/dL Glucose 168 H (74-99) mg/dL POC Glucose (mg/dL) (70-110) mg/dL Calcium 7.9 L (8.4-10.2) mg/dL Total Protein 4.8 L (6.3-8.2) g/dL Albumin 2.6 L (3.5-5.0) g/dL 12/09/21 Range/Units 06:07 Plt Count (150-450) k/uL APTT (22.0-30.0) sec ABG pO2 79 L (83-108) mmHg ABG HCO3 27 H (21-25) mmol/L ABG Total CO2 28 H (19-24) mmol/L Sodium (137-145) mmol/L Chloride (98-107) mmol/L BUN (9-20) mg/dL Creatinine (0.66-1.25) mg/dL Glucose (74-99) mg/dL POC Glucose (mg/dL) (70-110) mg/dL Calcium (8.4-10.2) mg/dL Total Protein (6.3-8.2) g/dL Albumin (3.5-5.0) g/dL Microbiology - Last 24 Hours (Table) 12/05/21 15:15 Blood Culture - Preliminary Blood No Growth after 72 hours 12/05/21 15:05 Blood Culture - Preliminary Blood No Growth after 72 hours 12/08/21 03:20 Gram Stain - Preliminary Sputum Sputum Culture - Preliminary Assessment and Plan Plan: Assessment: 1. Acute kidney injury mostly prerenal secondary to hypovolemia from vomiting as well as hypotension and A. fib. Creatinine 4.95 on admission and is 2.31 today. No hydronephrosis noted on CAT scan. 2. Chronic kidney disease stage IIIB with baseline creatinine near 1.8 in 2019 secondary to polycystic kidney disease. 3. A. fib with RVR maintained on amiodarone drip. Cardiology following. 4. Metabolic acidosis secondary to acute kidney injury and IV fluids. Improved. 5. Small bowel obstruction. Has NG tube. Surgery following. 6. Hypernatremia from lack of oral water intake. Better with D5W. 7. Shock maintained on Levophed. Plan: Maintain D5W 100 mL an hour. Repeat sodium level this evening. Avoid nephrotoxins. Continue to monitor renal function and urine output. Wean FiO2 and vasopressors.
[2021-12-09 12:06] LABS: Glucose,Whole Blood 121 mg/dL (70-110)
--- NOTE | 2021-12-09 12:51 | P.PN ---
Subjective Progress Note Date: 12/09/21 Principal diagnosis: Acute small bowel obstruction with transition point, hypovolemic shock, new onset atrial fibrillation with rapid ventricular response, acute on chronic kidney injury Patient seen and examined at bedside. Remains sedated on the ventilator. Rate set at 26 for a degree of acidosis. Nasogastric tube remains in place with more clear-appearing aspirate. Remains on amiodarone drip, atrial fibrillation with rapid ventricular response under better rate control with a rate between 80 and 100. I'll remains relatively hypotensive but with mean arterial pressures above 65. Pressor requirement is down almost half compared to yesterday. Remains relatively hypoxic on 50% FiO2. Laboratory studies showed normal range white blood cell count at 10.0, hemoglobin no settling to 15.7, platelet count 137. Creatinine 2.31. Liver function studies within normal limits. Sequence of abdominal images all was reviewed with our staff radiologist. He had a computed tomography scan abdomen and pelvis on initial presentation showing a mechanical obstruction of the distal ileum. Subsequent abdominal flat plate was consistent with the same. A repeat CT abdomen and pelvis was then obtained yesterday showing essentially equivocal results but the transition point was no longer clearly demonstrated. Abdominal x-ray from this morning and now seems to show passage of contrast into the ascending colon and new stool present in the rectum and suggestive of improvement of his obstruction. No pneumoperitoneum as visualized. His follow-up computed tomography scan did demonstrate soft tissue and mesenteric edema and chest x-rays have shown interstitial infiltrates, question of mild effusion and potential element of congestive heart failure. Objective - Vital Signs Vital signs: Vital Signs Temp 99.1 F 12/09/21 12:00 Pulse 101 H 12/09/21 12:00 Resp 26 H 12/09/21 12:00 BP 93/64 12/09/21 12:00 Pulse Ox 93 L 12/09/21 12:00 FiO2 50 12/09/21 12:00 Intake & Output 12/08/21 12/09/21 12/09/21 18:59 06:59 18:59 Intake Total 2944.731 2487.355 1492.083 Output Total 1365 1450 565 Balance 1797.698 1276.355 927.083 Weight 123 kg Intake: IV 1380 1400 500 Dextrose 5% in Water 1, 900 1200 500 000 ml @ 100 mls/hr IV . Q10H [facility] Rx#:[id number] Piperacillin-Tazobactam 3 100 100 .375 gm In Sodium Chloride 0.9% 100 ml @ 25 mls/hr IVPB Q12H [facility] Rx# :[id number] Sodium Chloride 0.9% 1, 80 000 ml @ 100 mls/hr IV . Q10H [facility] Rx#:[id number] metroNIDAZOLE-NS PMX 500 300 100 mg In Saline 1 100ml.bag @ 100 mls/hr IVPB Q8HR [facility] Rx#:[id number] Intake, IV Titration 5505.333 2663.355 992.083 Amount Amiodarone 450 mg In 242.505 Dextrose 5% in Water 250 ml @ 0.5 MG/MIN 16.667 mls/hr IV .Q15H [facility] Rx#: [id number] Amiodarone 450 mg In 194.448 Dextrose 5% in Water 250 ml @ 0.5 MG/MIN 16.667 mls/hr IV .Q15H [facility] Rx#: [id number] Heparin Sod,Pork in 0.45% 250 256.7 NaCl 25,000 unit In 0.45 % NaCl 1 250ml.bag @ 8.46 UNITS/KG/HR 10 mls/hr IV .Q24H [facility] Rx#:[id number] Norepinephrine 8 mg In 516.000 361.980 233.599 Sodium Chloride 0.9% 250 ml @ 0.05 MCG/KG/MIN 11. 436 mls/hr IV .[id number] [facility] Rx#:[id number] fentaNYL (PF). 1,000 mcg 168.167 282.125 109.821 In Sodium Chloride 0.9% 80 ml @ 100 MCG/HR 10 mls /hr IV .Q10H [facility] Rx#: [id number] propofoL 1,000 mg In 388.059 443.250 197.515 Empty Bag 1 bag @ 5 MCG/ KG/MIN 3.546 mls/hr IV . Q24H [facility] Rx#:[id number] Output: Gastric Drainage 300 400 100 Urine 1065 1050 465 Other: Voiding Method Indwelling Catheter Indwelling Catheter Indwelling Catheter ABP, PAP, CO, CI - Last Documented Arterial Blood Pressure 88/64 - Exam Patient remains intubated and sedated on the ventilator. GCS 3T. - Constitutional General appearance: Present: no acute distress, obese - EENT ENT: Present: NA/AT - Respiratory Details: Lung sounds coarse mechanical bilaterally. - Cardiovascular Rhythm: irregularly irregular - Gastrointestinal Gastrointestinal Comment(s): Abdominal exam is improved compared to the past 48 hours. Abdomen is soft, no guarding or rebound, and tympany is resolving, distention is resolving. No clinical signs of peritonitis. - Neurologic Neurologic: Present: CNII-XII intact - Labs CBC & Chem 7: 12/09/21 04:09 12/09/21 04:09 Labs: Abnormal Lab Results - Last 24 Hours (Table) 12/08/21 12/08/21 12/08/21 Range/Units 17:47 18:04 22:56 Plt Count (150-450) k/uL APTT (22.0-30.0) sec ABG pO2 (83-108) mmHg ABG HCO3 (21-25) mmol/L ABG Total CO2 (19-24) mmol/L Sodium 148 H 147 H (137-145) mmol/L Chloride (98-107) mmol/L BUN (9-20) mg/dL Creatinine (0.66-1.25) mg/dL Glucose (74-99) mg/dL POC Glucose (mg/dL) 153 H (70-110) mg/dL Calcium (8.4-10.2) mg/dL Total Protein (6.3-8.2) g/dL Albumin (3.5-5.0) g/dL 12/08/21 12/09/21 12/09/21 Range/Units 23:37 04:09 04:09 Plt Count 137 L (150-450) k/uL APTT (22.0-30.0) sec ABG pO2 (83-108) mmHg ABG HCO3 (21-25) mmol/L ABG Total CO2 (19-24) mmol/L Sodium 146 H (137-145) mmol/L Chloride 112 H (98-107) mmol/L BUN 53 H (9-20) mg/dL Creatinine 2.31 H (0.66-1.25) mg/dL Glucose 168 H (74-99) mg/dL POC Glucose (mg/dL) 140 H (70-110) mg/dL Calcium 7.9 L (8.4-10.2) mg/dL Total Protein 4.8 L (6.3-8.2) g/dL Albumin 2.6 L (3.5-5.0) g/dL 12/09/21 12/09/21 12/09/21 Range/Units 04:09 06:07 12:04 Plt Count (150-450) k/uL APTT 64.3 H (22.0-30.0) sec ABG pO2 79 L (83-108) mmHg ABG HCO3 27 H (21-25) mmol/L ABG Total CO2 28 H (19-24) mmol/L Sodium (137-145) mmol/L Chloride (98-107) mmol/L BUN (9-20) mg/dL Creatinine (0.66-1.25) mg/dL Glucose (74-99) mg/dL POC Glucose (mg/dL) 121 H (70-110) mg/dL Calcium (8.4-10.2) mg/dL Total Protein (6.3-8.2) g/dL Albumin (3.5-5.0) g/dL Microbiology - Last 24 Hours (Table) 12/05/21 15:15 Blood Culture - Preliminary Blood No Growth after 72 hours 12/05/21 15:05 Blood Culture - Preliminary Blood No Growth after 72 hours 12/08/21 03:20 Gram Stain - Preliminary Sputum Sputum Culture - Preliminary - Imaging and Cardiology Chest x-ray: report reviewed, image reviewed Abdominal x-ray: report reviewed, image reviewed CT scan - abdomen: report reviewed, image reviewed CT scan - pelvis: report reviewed, image reviewed Assessment and Plan Assessment: 66-year-old gentleman with presentation, clinical history, and imaging consis tent with an acute distal small bowel obstruction with right lower quadrant transition point, likely relating to adhesions associated with remote appendectomy. No evidence of peritonitis on exam, no conclusive evidence of sepsis. Physical exam today improved compared to yesterday. No evidence of pneumoperitoneum on abdominal x-ray suggestion of resolution of mechanical obstruction on today's abdominal flat plate film with what would appear to be passage of contrast to the ascending colon and passage of stool into the sigmoid and rectum. Doubt perforation or bowel ischemia at present. Signs of hypovolemic shock and mild lactic acidosis on initial presentation. Pressor requirement coming down. New onset atrial fibrillation and flutter with rapid ventricular response, hypotension due to the same. Element of pulmonary congestion seen on chest x- ray. On heparin drip. Hypoxic Ventilator-dependent respiratory failure. Extensive polycystic kidney disease with a degree of acute on chronic kidney injury, serum creatinine started to trend down. Mild thrombocytopenia. Plan: Continue with ICU care, ventilator support, wean pressors as tolerated. Arrhythmia is coming under better control, I suspect his global perfusion is improving as well. At present I doubt bowel ischemia or perforation. His radiographic findings and physical exam findings are encouraging today. Will obtain another flat plate abdominal x-ray tomorrow at 5 AM. May resume heparin drip for now. I'll reassess the patient tomorrow morning at 7 AM. Aforementioned findings and plan were discussed with the patient's at bedside and she is in agreement. Time with Patient: Greater than 30
--- NOTE | 2021-12-09 14:03 | P.PN ---
Subjective Progress Note Date: 12/09/21 Principal diagnosis: Small bowel obstruction, abdominal sepsis, and septic shock This is a 66-year-old male patient, who presented to the emergency because of abdominal pain and nausea and emesis and the patient states that he has not passed a bowel movement for the past 3 days. His oral intake was minimal and was becoming progressively more sick and dehydrated. Upon arrival, he was hypotensive with a BP of 65/47. The patient was started on IV fluids. The patient is known to have polycystic kidney disease and he has chronic kidney disease and his baseline creatinine was 1.8 from 2019. His initial blood work showed a white cell count of 11.6. His hemoglobin was elevated at 21.3 and the baseline is not known. It'll platelet count 214. BUN was at 91 with a creatin ine of 4.95 consistent with an acute on top of chronic kidney disease. Lactic acid level was elevated at 3.4. Based on that, a CAT scan of the abdomen was done that showed a distended stomach, distended small bowel, transition point and a decompressed large bowel. The patient is known to have an umbilical hernia. No evidence of any incarceration. There was evidence of polycystic kidney disease. The patient currently has an NG tube in place. He has occult positive stools. The NG output was 1600. He is known to have COPD, polycystic kidney disease, hypertension. No previous history of abdominal surgeries. His abdomen is still distended. No altered mentation. He is able to follow c ommands and answer questions appropriately. No previous history of cardiac disease. The liver function tests showed an AST of 95, ALT of 62, normal alkaline phosphatase of 59, and the bilirubin was at 1.5. Follow-up lactic acid level is down to 2.5. His COVID 19 by PCR was negative. Normal coagulation profile. On 12/06/2021, the patient's condition essentially unchanged. The patient has an NG tube in place and output was around 400 mL over the past 12 hours. Abdomen is slightly distended. The patient umbilical hernia. He does have some mild direct tenderness. No bowel sounds. No bowel movements. No flatus. He remains obstructive. He was IV fluids and he is still on IV fluids running at the rate of 100 mL an hour of normal saline. The blood work from today shows a white cell count of 9 with a hemoglobin of 18.5. There was an obvious drop in hemoglobin from 21 down to 18. Platelet counts are 93. Blood work shows improvement acute kidney injury. The patient's creatinine is down to 3.8 with a BM 96. Serum bicarbonate of 18 with a sodium level of 138. Liver function tests are all within normal limits. The patient was weaned by general surgery. We'll continue our conservative measures of gastric decompression via an NG tube and general surgeries also on the case. Chest x-ray from today shows some atelectatic changes in lung bases. NG tube is in a good location the stomach. No other acute abnormalities noted. The patient was also seen by nephrology and the patient was also seen by cardiology. The patient wasn't into atrial fibrillation with rapid ventricular response yesterday. He was initially on a Cardizem drip which controlled his rate is not controlled his rate. He became hypotensive. Subsequently, he was switched to a amiodarone drip and currently he is loaded with amiodarone and he is on a maintenance of 1 mg per minute as part of the loading protocol. His current heart rate is 101 and it is still in atrial fibrillation. Echo was also ordered by cardiology. 12/07/2021, the patient is more lethargic compared to yesterday. This morning, he is confused and lethargic. He was requiring significant OUTPUT overnight and he has taken 0.5 mg of Dilaudid IV every 2 hours. NG output is still high in the order of 600 mL. Normal bowel sounds. Abdomen remains distended. The same time, the patient is in atrial fibrillation with rapid ventricular response. Earlier this morning, his heart rate went up to 153. It is still irregular. The patient remains on amiodarone 0.5 mg per minute and the patient also was started on IV heparin yesterday. No evidence of any bleeding. PTT this morning is at 42.6. At the same time, the patient's creatinine continues to improve. He is currently on IV fluids in the form of normal saline at the rate of 100 mL an hour and the BUN is at 92 with a creatinine of 3.18. Sodium is 143. LFTs are within normal limits. The white cell count is at 9.1. The blood cultures of been negative thus far. The overall fluid balance over the past 24 hours has been +1.4 L. She is afebrile. His neurologic exam is nonfocal. He remains on IV Protonix. Gen. surgery is on the case. Echocardiogram was done yesterday and the patient has a preserved LV function with an ejection fraction of 60%. No valvular Abnormalities. Reevaluated today on 12/08/2021, patient is intubated and mechanically ventilate d. Patient was intubated placed last night, and his clinical condition continued to deteriorate. Patient is now on assist control rate of 26, volume 450 FiO2 50% and PEEP of 5, ABG this morning showed a pO2 of 76 pCO2 34 pH of 7.45 and this is patient is on norepinephrine at 0.14 mcg/kg/m also on propofol at 50 mcg/kg/m patient is on IV fluid at 80 mL/h he is also on heparin for atrial fibrillation and his renal functioning seems to be improving however his BUN is 69 creatinine 2.49 and his sodium is 1:15 hence his IV fluid was changed to D5W by nephrology earlier today. Patient is on antibiotics is also on Flagyl. He is on amiodarone 0.5 mg/m, and he is on fentanyl at 0.8 mcg/kg/h all labs were reviewed today, his PTT is 66.2 WBC count is 11.8 hemoglobin is 16.6. Chest x-ray showed endotracheal tube and nasogastric tube as well as central line is stable position. It also showed evidence of interstitial edema/infiltrates with subsegmental atelectasis and small effusion. Pulmonary vascular congestion is noted, underlying pneumonia is not entirely ruled out, it is definitely in the differential diagnoses but this is felt to be less likely Reevaluated today on 12/09/21, remains in the ICU intubated and mechanically ventilated. Patient is on assist control rate of 26, volume 450 FiO2 50% and PEEP of 5. ABG showed a pO2 of 79 pCO2 43 pH of 7.40. Hence no changes were made in the ventilator settings. Chest x-ray today showed minimal vascular congestion, no evidence of pneumonia/infiltrate patient remains on amiodarone of 0.5 mg/m and required norepinephrine at 0.14 mcg/kg/m he is on propofol at 50 mcg/kg/m he is also on Flagyl and Zosyn. Patient is receiving fentanyl at 1.5 mcg/kg/h. Flat plate of the abdomen continues to show dilated bowel however the surgeon on the case and reviewed the case with the radiologist and felt there may be actually better passage of contrast into the ascending colon and a new stool present in the rectum suggestive of improvement of the obstruction. Hence surgery is not planning any surgical intervention at this point, patient was cleared for surgical intervention if felt necessary by surgery on the case. I cleared the patient, and the boiler testing technician cleared the patient. WBC count today is 10 hemoglobin 15.7 PTT is 64.3 patient remains on heparin. Electrolytes are normal slightly elevated sodium of 146, renal profile is improving BUN is down to 53 and creatinine is down to 2.31 Objective - Vital Signs Vital signs: Vital Signs Temp 99.1 F 12/09/21 12:00 Pulse 92 12/09/21 13:15 Resp 26 H 12/09/21 13:15 BP 94/72 12/09/21 13:00 Pulse Ox 93 L 12/09/21 13:15 FiO2 50 12/09/21 12:00 Intake & Output 12/08/21 12/09/21 12/09/21 18:59 06:59 18:59 Intake Total 2944.731 2487.355 1492.083 Output Total 1365 1450 565 Balance 5234.079 5664.355 927.083 Weight 123 kg Intake: IV 1380 1400 500 Dextrose 5% in Water 1, 900 1200 500 000 ml @ 100 mls/hr IV . Q10H [facility] Rx#:[id number] Piperacillin-Tazobactam 3 100 100 .375 gm In Sodium Chloride 0.9% 100 ml @ 25 mls/hr IVPB Q12H [facility] Rx# :[id number] Sodium Chloride 0.9% 1, 80 000 ml @ 100 mls/hr IV . Q10H [facility] Rx#:[id number] metroNIDAZOLE-NS PMX 500 300 100 mg In Saline 1 100ml.bag @ 100 mls/hr IVPB Q8HR [facility] Rx#:[id number] Intake, IV Titration 6449.316 9535.355 992.083 Amount Amiodarone 450 mg In 242.505 Dextrose 5% in Water 250 ml @ 0.5 MG/MIN 16.667 mls/hr IV .Q15H [facility] Rx#: [id number] Amiodarone 450 mg In 194.448 Dextrose 5% in Water 250 ml @ 0.5 MG/MIN 16.667 mls/hr IV .Q15H [facility] Rx#: [id number] Heparin Sod,Pork in 0.45% 250 256.7 NaCl 25,000 unit In 0.45 % NaCl 1 250ml.bag @ 8.46 UNITS/KG/HR 10 mls/hr IV .Q24H [facility] Rx#:[id number] Norepinephrine 8 mg In 516.000 361.980 233.599 Sodium Chloride 0.9% 250 ml @ 0.05 MCG/KG/MIN 11. 436 mls/hr IV .T13L82H [facility] Rx#:[id number] fentaNYL (PF). 1,000 mcg 168.167 282.125 109.821 In Sodium Chloride 0.9% 80 ml @ 100 MCG/HR 10 mls /hr IV .Q10H [facility] Rx#: [id number] propofoL 1,000 mg In 388.059 443.250 197.515 Empty Bag 1 bag @ 5 MCG/ KG/MIN 3.546 mls/hr IV . Q24H [facility] Rx#:[id number] Output: Gastric Drainage 300 400 100 Urine 1065 1050 465 Other: Voiding Method Indwelling Catheter Indwelling Catheter Indwelling Catheter ABP, PAP, CO, CI - Last Documented Arterial Blood Pressure 95/61 - Exam Physical Exam: Revealed a 66-year-old white male intubated and sedated and mechanically ventilated in no distress. Head: Atraumatic, normocephalic, endotracheal tube and orogastric tube are intact HEENT:[Neck is supple.] [No neck masses.] [No thyromegaly.] [No JVD.]., EOMI, nonicteric. Chest: [Crackles at the bases symmetrical chest expansion Cardiac Exam: Irregular irregular rhythm. [Normal S1 and S2, no S3 gallop, no murmur.] Abdomen: [Obese, distended, could not appreciate tenderness however the patient is sedated and on fentanyl drip no megaly, no rebound, no guarding, no bowel sounds Extremities: [No clubbing, trace of bipedal edema, no cyanosis.], Diminished pulses bilaterally. Neurological Exam: Cannot assess, patient is sedated and ventilated. Psychiatric: Could not assess. Musculoskeletal: No deformities. Skin: No rashes - Labs CBC & Chem 7: 12/09/21 04:09 12/09/21 04:09 Labs: Abnormal Lab Results - Last 24 Hours (Table) 12/08/21 12/08/21 12/08/21 Range/Units 17:47 18:04 22:56 Plt Count (150-450) k/uL APTT (22.0-30.0) sec ABG pO2 (83-108) mmHg ABG HCO3 (21-25) mmol/L ABG Total CO2 (19-24) mmol/L Sodium 148 H 147 H (137-145) mmol/L Chloride (98-107) mmol/L BUN (9-20) mg/dL Creatinine (0.66-1.25) mg/dL Glucose (74-99) mg/dL POC Glucose (mg/dL) 153 H (70-110) mg/dL Calcium (8.4-10.2) mg/dL Total Protein (6.3-8.2) g/dL Albumin (3.5-5.0) g/dL 12/08/21 12/09/21 12/09/21 Range/Units 23:37 04:09 04:09 Plt Count 137 L (150-450) k/uL APTT (22.0-30.0) sec ABG pO2 (83-108) mmHg ABG HCO3 (21-25) mmol/L ABG Total CO2 (19-24) mmol/L Sodium 146 H (137-145) mmol/L Chloride 112 H (98-107) mmol/L BUN 53 H (9-20) mg/dL Creatinine 2.31 H (0.66-1.25) mg/dL Glucose 168 H (74-99) mg/dL POC Glucose (mg/dL) 140 H (70-110) mg/dL Calcium 7.9 L (8.4-10.2) mg/dL Total Protein 4.8 L (6.3-8.2) g/dL Albumin 2.6 L (3.5-5.0) g/dL 12/09/21 12/09/21 12/09/21 Range/Units 04:09 06:07 12:04 Plt Count (150-450) k/uL APTT 64.3 H (22.0-30.0) sec ABG pO2 79 L (83-108) mmHg ABG HCO3 27 H (21-25) mmol/L ABG Total CO2 28 H (19-24) mmol/L Sodium (137-145) mmol/L Chloride (98-107) mmol/L BUN (9-20) mg/dL Creatinine (0.66-1.25) mg/dL Glucose (74-99) mg/dL POC Glucose (mg/dL) 121 H (70-110) mg/dL Calcium (8.4-10.2) mg/dL Total Protein (6.3-8.2) g/dL Albumin (3.5-5.0) g/dL Microbiology - Last 24 Hours (Table) 12/05/21 15:15 Blood Culture - Preliminary Blood No Growth after 72 hours 12/05/21 15:05 Blood Culture - Preliminary Blood No Growth after 72 hours 12/08/21 03:20 Gram Stain - Preliminary Sputum Sputum Culture - Preliminary Assessment and Plan Assessment: Impression: Acute small bowel obstruction Abdominal sepsis and septic shock Acute metabolic encephalopathy secondary to above New onset atrial fibrillation with RVR, patient is presently on amiodarone and is also on heparin umbilical hernia without incarceration Acute kidney injury secondary to sepsis Acute dehydration improving and his renal functioning is also improving with hyd ration. Anion gap metabolic acidosis secondary to abdominal sepsis and renal failure Underlying COPD Benign essential hypertension Degenerative joint disease History of nephrolithiasis Chronic back pain Recommendation: Continue ventilatory support, no changes were made in vent settings today. Continue IV fluid, continue to monitor electrolytes. And renal profile. Continue amiodarone and heparin Continue norepinephrine,/hemodynamic support Continue propofol and fentanyl Continue nasogastric tube to suction Continue IV heparin Continue GI and DVT prophylaxis Consider TPN Discussed condition with surgery on the case. No plans for surgical intervention at this point considering his new flat plate of the abdomen Patient may require surgical intervention in the next 24 hours. Remains critically ill Critical care time is over 30 minutes. Time with Patient: Greater than 30
--- NOTE | 2021-12-09 15:51 | CDI ---
Documentation Clarification Form Date: 12/09/2021 03:34:33 PM From: Marcela Diaz CCS, CCDS Admit Date: 12/05/2021 01:39:00 PM Patient Name: Constantino Hernandez Visit Number: [id number] Discharge Date: ATTENTION: The Clinical Documentation Specialists (CDI) and [facility] Coding Staff appreciate your assistance in clarifying documentation. Please respond to the clarification below the line at the bottom and electronically sign. The CDI & [facility] Coding staff will review the response and follow-up if needed. Please note: Queries are made part of the Legal Health Record. If you have any questions, please contact the author of this message via ITS. Dr. Bessy Mehta: Hypoxic Ventilator-dependent respiratory failure is documented in the 12/08 & 12/09 Surgery Consult Progress Note. The patient was intubated and put on the vent on 12/07. Based on this information and the findings below, is there an additional diagnosis that is clinically appropriate for this patient? History/Risk Factors per the 12/05 H/P: Hypertension, COPD, Osteoarthritis, CKD, Chronic Back Pain, GERD, Kidney stones. Non smoker. Clinical Indicators: Presented to the ED on 12/05 with Nausea, Vomiting, Diarrhea and Abdominal and Back Pain; Fatigue and generalized weakness. Became hypotensive in ED, NGT placed. Received 2L of IV fluids for renal failure. Admit with Renal failure, Small bowel obstruction and Hypotension 12/05 VS: T 96.7, P 101, R 24, BP 154/80, PO 96 RA. 12/05 PO 91 RA. 12/07 PO 92 5Lnc, 89 5Lnc. Intubated/Vent. 12/05 CO2 16, 21. 12/07 CO2 19, 23. 12/07 Blood Gas: ABG pH 7.46, pO2 80, HCO3 26, Total CO2 27. 12/05 CXR: May be some mild interstitial lung disease. Question CAD. 12/07 CXR: Basilar infiltrates or atelectasis. Treatment 12/05: IV Dilaudid 0.5 mg x3, IV Na Chl 1,000 mls @ 999 mls/hr q1H x2, IV Na Chl 1,000 mls @ 130 mls/hr q7H, IV Zosyn 100 mls @ 25 mls/hr q12H, IV Cardizem 125 mls @ 5 mls/hr q24H. 12/07: Elev HOB, Ventilator, IV Na Chl 1,000 mls @ 999 mls/hr q1, IV Dextrose/Water w/Amiodarone, IV Na Bicarb 100 ml x1, IV Zosyn 100 mls @ 25 mls/hr q12H, IV Haldol 5 mg x1/prn, IV Lopressor 2.5 mg q8H, IV Flagyl 100 mls @ 100 mls/hr q8H, IV Propofol, , IV Levophed. Is there an additional diagnosis that is clinically appropriate for this patient? [ ] Acute Hypoxic Respiratory Failure [ ] Acute Hypercapnic Respiratory Failure [ ] Acute on Chronic Hypoxic Respiratory Failure [ ] Acute on Chronic Hypercapnic Respiratory Failure [ ] Other Diagnosis, please specify: [ ] Unable to determine, please specify: (Template Last Revised: May 2020) MTDD
--- NOTE | 2021-12-09 17:35 | P.PN ---
Subjective Progress Note Date: 12/09/21 Constantino Hernandez, is a 66 year old male who presented to [facility] emergency room, with a chief complaint of abdominal pain nausea and vomiting, his symptoms started 3 days ago and has been worsening. He was evaluated in the emergency room vital examination on presentation revealed a temperature of 96.7 pulse 101 respiration 24 blood pressure 154/89 however blood pressure dropped to 65/47 shortly after arrival pulse ox was 96% on room air Laboratory data revealed a white blood count of 11.6 hemoglobin 21.3 platelet count 116 sodium 134 potassium 5.0 chloride 94 CO2 16 BUN 91 creatinine 4.95 la ctic acid was elevated at 3.4 total bilirubin 1.5 AST 95 ALT 62 lipase within normal limits, zavala virus PCR was negative Testing in the emergency room revealed chest x-ray done in the emergency room revealed interstitial lung disease and chronic compression deformity of L1, computed tomography scan of the abdomen and pelvis revealed distal small bowel obstruction and 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 In the emergency room patient had an NG tube placed and had large amount of fluid removed, plan is to admit patient, consultation for surgery, nephrology, cardiology, and critical care initiated in the emergency room Past medical history is significant for history of hypertension, history of COPD, history of osteoarthritis, history of chronic kidney disease, history of chronic back pain. 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 On review of systems patient is alert and oriented 3, he has an NG tube in, he is complaining of some abdominal discomfort, otherwise he denies any complaints, there is no fever or chills no headache or dizziness no chest pain no shortness of breath, no nausea or vomiting since NG tube has been placed, no burning with urination no frequency or urgency and no hematuria. On 12/06/2021 patient was seen and examined in the ICU he is alert responsive in no apparent distress, he has an NG tube, he is maintained on oxygen via nasal cannula at 4 L, vital exam at 8 AM temperature 98.4 pulse 123 respiration 16 blood pressure 78/64 pulse ox 92% he is sleepy and denies any complaints at this time, there is no fever or chills no headache or dizziness no chest pain no shortness of breath no cough no nausea or vomiting no abdominal pain no diarrhea and no urinary symptoms, patient has not had any bowel movement or passed any gas since admission, there is some improvement on his laboratory data white blood count is down from 11.6-9.0 creatinine is down from 4.95-3.82 and lactic acid is down to 1.5, recommendation from nephrology, cardiology and critical care reviewed On 12/07/2021 patient is more confused. Per nursing staff patient had increased confusion throughout the night. Heart rate remains elevated. Cardiology services are following patient is on amiodarone. Surgical services ordering abdominal x-ray. Lactic acid 2.1. Creatinine improving to 3.18 awaiting further recommendations from surgery and critical care services On 12/08/2021 patient was seen and examined in the ICU he is intubated sedated maintained on mechanical ventilation, he is on assist control with FiO2 of 50% PEEP of 5 and draped of 26 he is maintained on norepinephrine for pressure control he remains in atrial fibrillation with a heart rate of 125 he is maintained on IV heparin kidney function is improving gradually his sodium is elevated at 150 he is maintained on IV amiodarone he is also maintained on IV antibiotics Zosyn and Flagyl, pulmonary critical care, cardiology, infectious disease, and nephrology are following patient is also followed by general surgery for bowel obstruction computed tomography scan of the brain done this morning did not reveal any evidence of intracranial bleeding, computed tomography scan of the abdomen and pelvis done again this morning and revealed evidence of bowel obstruction without significant change from previous computed tomography scan, will continue to follow closely prognosis is guarded. On 12/09/2021 patient was seen and examined in the ICU he is intubated sedated maintained on mechanical ventilation, no significant change on his ventilation settings, temperature is 90.8 heart rate 80 blood pressure 94/60 white blood count is 10.0 hemoglobin 15.7 platelet count 137 sodium 146 potassium 4.0 chloride 112 CO2 24 BUN 53 creatinine 2.31 patient was cleared by pulmonary and cardiology for abdominal surgery, however surgeon stated that there is some improvement on abdomen x-ray, no plans for surgery today, will continue to monitor closely Objective - Vital Signs Vital signs: Vital Signs Temp 98.3 F 12/09/21 16:00 Pulse 87 12/09/21 16:00 Resp 26 H 12/09/21 16:00 BP 97/75 12/09/21 16:00 Pulse Ox 93 L 12/09/21 16:00 FiO2 50 12/09/21 16:00 Intake & Output 12/08/21 12/09/21 12/09/21 18:59 06:59 18:59 Intake Total 2944.731 2487.355 2061.616 Output Total 1365 1450 865 Balance 3060.980 2566.355 1196.616 Weight 123 kg Intake: IV 1380 1400 900 Dextrose 5% in Water 1, 900 1200 900 000 ml @ 100 mls/hr IV . Q10H [facility] Rx#:[id number] Piperacillin-Tazobactam 3 100 100 .375 gm In Sodium Chloride 0.9% 100 ml @ 25 mls/hr IVPB Q12H [facility] Rx# :[id number] Sodium Chloride 0.9% 1, 80 000 ml @ 100 mls/hr IV . Q10H [facility] Rx#:[id number] metroNIDAZOLE-NS PMX 500 300 100 mg In Saline 1 100ml.bag @ 100 mls/hr IVPB Q8HR [facility] Rx#:[id number] Intake, IV Titration 3860.162 0435.355 1161.616 Amount Amiodarone 450 mg In 242.505 Dextrose 5% in Water 250 ml @ 0.5 MG/MIN 16.667 mls/hr IV .Q15H [facility] Rx#: [id number] Amiodarone 450 mg In 194.448 Dextrose 5% in Water 250 ml @ 0.5 MG/MIN 16.667 mls/hr IV .Q15H [facility] Rx#: [id number] Heparin Sod,Pork in 0.45% 250 256.7 NaCl 25,000 unit In 0.45 % NaCl 1 250ml.bag @ 8.46 UNITS/KG/HR 10 mls/hr IV .Q24H [facility] Rx#:[id number] Norepinephrine 8 mg In 516.000 361.980 275.682 Sodium Chloride 0.9% 250 ml @ 0.05 MCG/KG/MIN 11. 436 mls/hr IV .[id number] [facility] Rx#:[id number] fentaNYL (PF). 1,000 mcg 168.167 282.125 137.271 In Sodium Chloride 0.9% 80 ml @ 100 MCG/HR 10 mls /hr IV .Q10H [facility] Rx#: [id number] propofoL 1,000 mg In 388.059 443.250 297.515 Empty Bag 1 bag @ 5 MCG/ KG/MIN 3.546 mls/hr IV . Q24H [facility] Rx#:[id number] Output: Gastric Drainage 300 400 100 Urine 1065 1050 765 Other: Voiding Method Indwelling Catheter Indwelling Catheter Indwelling Catheter ABP, PAP, CO, CI - Last Documented Arterial Blood Pressure 94/62 - Exam In general patient is intubated, sedated, maintained on mechanical ventilation HEENT head normocephalic and atraumatic, NG tube is in Neck is supple no JVD no goiter no lymphadenopathy no carotid bruit Chest examination is clear to auscultation no crackles no wheezing Cardiac exam reveals regular heart sounds S1 and S2 no gallops no murmurs Abdomen is soft with mild diffuse tenderness no palpable masses no organomegaly Extremity exam reveals no edema no cyanosis or clubbing Neurological examination reveals no gross focal deficits - Labs CBC & Chem 7: 12/09/21 04:09 12/09/21 17:01 Labs: Abnormal Lab Results - Last 24 Hours (Table) 12/08/21 12/08/21 12/08/21 Range/Units 17:47 18:04 22:56 Plt Count (150-450) k/uL APTT (22.0-30.0) sec ABG pO2 (83-108) mmHg ABG HCO3 (21-25) mmol/L ABG Total CO2 (19-24) mmol/L Sodium 148 H 147 H (137-145) mmol/L Chloride (98-107) mmol/L BUN (9-20) mg/dL Creatinine (0.66-1.25) mg/dL Glucose (74-99) mg/dL POC Glucose (mg/dL) 153 H (70-110) mg/dL Calcium (8.4-10.2) mg/dL Total Protein (6.3-8.2) g/dL Albumin (3.5-5.0) g/dL 12/08/21 12/09/21 12/09/21 Range/Units 23:37 04:09 04:09 Plt Count 137 L (150-450) k/uL APTT (22.0-30.0) sec ABG pO2 (83-108) mmHg ABG HCO3 (21-25) mmol/L ABG Total CO2 (19-24) mmol/L Sodium 146 H (137-145) mmol/L Chloride 112 H (98-107) mmol/L BUN 53 H (9-20) mg/dL Creatinine 2.31 H (0.66-1.25) mg/dL Glucose 168 H (74-99) mg/dL POC Glucose (mg/dL) 140 H (70-110) mg/dL Calcium 7.9 L (8.4-10.2) mg/dL Total Protein 4.8 L (6.3-8.2) g/dL Albumin 2.6 L (3.5-5.0) g/dL 12/09/21 12/09/21 12/09/21 Range/Units 04:09 06:07 12:04 Plt Count (150-450) k/uL APTT 64.3 H (22.0-30.0) sec ABG pO2 79 L (83-108) mmHg ABG HCO3 27 H (21-25) mmol/L ABG Total CO2 28 H (19-24) mmol/L Sodium (137-145) mmol/L Chloride (98-107) mmol/L BUN (9-20) mg/dL Creatinine (0.66-1.25) mg/dL Glucose (74-99) mg/dL POC Glucose (mg/dL) 121 H (70-110) mg/dL Calcium (8.4-10.2) mg/dL Total Protein (6.3-8.2) g/dL Albumin (3.5-5.0) g/dL Microbiology - Last 24 Hours (Table) 12/05/21 15:15 Blood Culture - Preliminary Blood No Growth after 72 hours 12/05/21 15:05 Blood Culture - Preliminary Blood No Growth after 72 hours 12/08/21 03:20 Gram Stain - Preliminary Sputum Sputum Culture - Preliminary Assessment and Plan Plan: Distal small bowel obstruction Underlying history of COPD Underlying history of hypertension Acute on chronic renal failure was elevated BUN and creatinine Chronic kidney disease with evidence of autosomal dominant polycystic kidney disease on computed tomography scan Episodes of atrial flutter in the emergency room Underlying history of osteoarthritis. At this time patient is in the emergency room plan is to admit to ICU He is maintained on IV fluids and NG tube is in Surgical consultation requested in regard to distal small bowel obstruction Pulmonary critical care consult requested Cardiology consult requested in regard to episodes of atrial flutter Nephrology consultation was requested in that regard to acute on chronic renal failure Will follow closely
[2021-12-09 17:43] LABS: Glucose,Whole Blood 140 mg/dL (70-110)
[2021-12-09] MEDS: DEXMEDETOMIDINE/0.9% NACL(PMX) 400 MCG in EMPTY BAG 1 BAG IV SCH (18:31)
[2021-12-10] MEDS: DEXTROSE 5% IN WATER 1,000 ML IV SCH ×3 (01:08→20:08)
[2021-12-10] MEDS: PIPERACILLIN-TAZOBACTAM 3.375 GM in SODIUM CHLORIDE 0.9% 100 ML IVPB SCH ×3 (02:20→19:57)
[2021-12-10] MEDS: HEPARIN SOD,PORK IN 0.45% NACL 25,000 UNIT in 0.45% NACL 1 250ML.BAG IV SCH ×2 (03:02→16:35)
[2021-12-10 05:04] LABS: Basophils % (A) 0 %; Eosinophils # (A) 0.1 k/uL (0-0.7); Eosinophils % (A) 2 %; HCT 47.1 % (39.0-53.0); Lymphocytes # (A) 0.9 k/uL (1.0-4.8); Lymphocytes % (A) 10 %; MCH 30.7 pg (25.0-35.0); MCHC 31.9 g/dL (31.0-37.0); MCV 96.2 fL (80.0-100.0); Mean Platelet Volume 8.2; Monocytes # (A) 0.4 k/uL (0-1.0); Monocytes % (A) 5 %; Neutrophils % (A) 82 %; Platelet Count 137 k/uL (150-450); RBC 4.89 m/uL (4.30-5.90); RDW 14.5 % (11.5-15.5); WBC 8.6 k/uL (3.8-10.6)
[2021-12-10 06:03] LABS: ABG Base Excess 2.5 mmol/L; ABG HCO3 26 mmol/L (21-25); ABG Oxygen Saturation 96.6 % (94-97); ABG PCO2 35 mmHg (35-45); ABG PH 7.48 (7.35-7.45); ABG PO2 89 mmHg (83-108); ABG TCO2 27 mmol/L (19-24); Allen Test Performed? Yes
[2021-12-10 06:11] LABS: Glucose,Whole Blood 108 mg/dL (70-110)
[2021-12-10 06:16] LABS: Albumin 2.4 g/dL (3.5-5.0); Calcium 7.6 mg/dL (8.4-10.2); Potassium 3.8 mmol/L (3.5-5.1); Total Bilirubin 0.6 mg/dL (0.2-1.3); Total Protein 4.5 g/dL (6.3-8.2)
[2021-12-10] MEDS ORDERED: Potassium Replacement Protocol 1 EACH MISC MISCELLANE PRN (06:32)
[2021-12-10] MEDS: POTASSIUM CHLORIDE 10 MEQ in WATER FOR INJECTION 1 100ML.BAG IVPB SCH ×2 (06:43→08:09)
--- NOTE | 2021-12-10 07:53 | P.PN ---
Subjective Progress Note Date: 12/10/21 Principal diagnosis: Acute small bowel obstruction with transition point, hypovolemic shock, new onset atrial fibrillation with rapid ventricular response, acute on chronic kidney injury Patient seen and examined at bedside. Breathing slightly above the ventilator. Pressor requirement continuing to come down now at 0.04 mcg/kg/m, around fortis pressor requirement was yesterday. Her main sedated on the ventilator, appears comfortable at rest. Heart rate is now normalizing down to the 80s. Still slightly hypotensive from a relative standpoint but mean arterial pressure r emains above 65. Oxygenation is slightly improved on ABG. It is no longer acidotic. White blood cell count normal range at 8.6, hemoglobin 15.0, platelet count 137. Metabolic panel shows normal range sodium, potassium 3.8, creatinine continuing to trend down at 1.91. Liver function studies within normal limits. Chest x-ray from this morning was reviewed, and TURP rotation by radiology is pending blood images seemed to suggest more discrete by basilar pleural effusions, slight improvement in aeration and lung volumes. Abdominal x-ray similarly was reviewed showing less prominence of small bowel distention and an increase and air seen along the distal transverse and a persistent suggestion of a small amount of oral contrast at the ascending colon. No free air. Objective - Vital Signs Vital signs: Vital Signs Temp 98.2 F 12/10/21 00:00 Pulse 80 12/10/21 07:00 Resp 26 H 12/10/21 07:00 BP 111/80 12/10/21 06:30 Pulse Ox 96 12/10/21 07:00 FiO2 50 12/10/21 07:00 Intake & Output 12/09/21 12/10/21 12/10/21 18:59 06:59 18:59 Intake Total 2387.541 2098.937 Output Total 1015 1705 Balance 1372.541 393.937 Weight 125.4 kg Intake: IV 1100 1450 Dextrose 5% in Water 1, 1100 1300 000 ml @ 100 mls/hr IV . Q10H [facility] Rx#:[id number] Piperacillin-Tazobactam 3 50 .375 gm In Sodium Chloride 0.9% 100 ml @ 25 mls/hr IVPB Q12H [facility] Rx# :[id number] metroNIDAZOLE-NS PMX 500 100 mg In Saline 1 100ml.bag @ 100 mls/hr IVPB Q8HR [facility] Rx#:[id number] Intake, IV Titration 1287.541 648.937 Amount Amiodarone 450 mg In 194.448 Dextrose 5% in Water 250 ml @ 0.5 MG/MIN 16.667 mls/hr IV .Q15H [facility] Rx#: [id number] Heparin Sod,Pork in 0.45% 256.7 243.3 NaCl 25,000 unit In 0.45 % NaCl 1 250ml.bag @ 8.46 UNITS/KG/HR 10 mls/hr IV .Q24H [facility] Rx#:[id number] Norepinephrine 8 mg In 275.682 153.162 Sodium Chloride 0.9% 250 ml @ 0.05 MCG/KG/MIN 11. 436 mls/hr IV .[id number] [facility] Rx#:[id number] fentaNYL (PF). 1,000 mcg 163.196 In Sodium Chloride 0.9% 80 ml @ 100 MCG/HR 10 mls /hr IV .Q10H [facility] Rx#: [id number] propofoL 1,000 mg In 397.515 252.475 Empty Bag 1 bag @ 5 MCG/ KG/MIN 3.546 mls/hr IV . Q24H [facility] Rx#:[id number] Output: Gastric Drainage 100 650 Urine 915 1055 Other: Voiding Method Indwelling Catheter Indwelling Catheter ABP, PAP, CO, CI - Last Documented Arterial Blood Pressure 105/73 - Constitutional Constitutional Comment(s): Patient intubated and sedated, GCS 3T General appearance: Present: average body habitus - EENT ENT: Present: NA/AT - Respiratory Details: Endotracheal tube in place, lung sounds coarse a mechanical bilaterally. Breathing slightly above the vent at 30. - Cardiovascular Details: Continues with atrial fibrillation on telemetry bed rate is much more reasonable. Heart sounds are distant. - Gastrointestinal Gastrointestinal Comment(s): Abdominal distention continues to show slow improvement. Abdomen is soft. No guarding or rebound. - Neurologic Neurologic Comment(s): GCS 3T - Labs CBC & Chem 7: 12/10/21 04:27 12/10/21 04:27 Labs: Abnormal Lab Results - Last 24 Hours (Table) 12/09/21 12/09/21 12/10/21 Range/Units 12:04 17:42 04:27 Plt Count 137 L (150-450) k/uL Lymphocytes # 0.9 L (1.0-4.8) k/uL APTT (22.0-30.0) sec ABG pH (7.35-7.45) ABG HCO3 (21-25) mmol/L ABG Total CO2 (19-24) mmol/L Chloride (98-107) mmol/L BUN (9-20) mg/dL Creatinine (0.66-1.25) mg/dL Glucose (74-99) mg/dL POC Glucose (mg/dL) 121 H 140 H (70-110) mg/dL Calcium (8.4-10.2) mg/dL Total Protein (6.3-8.2) g/dL Albumin (3.5-5.0) g/dL 12/10/21 12/10/21 12/10/21 Range/Units 04:27 04:27 05:58 Plt Count (150-450) k/uL Lymphocytes # (1.0-4.8) k/uL APTT 56.7 H (22.0-30.0) sec ABG pH 7.48 H (7.35-7.45) ABG HCO3 26 H (21-25) mmol/L ABG Total CO2 27 H (19-24) mmol/L Chloride 111 H (98-107) mmol/L BUN 38 H (9-20) mg/dL Creatinine 1.91 H (0.66-1.25) mg/dL Glucose 140 H (74-99) mg/dL POC Glucose (mg/dL) (70-110) mg/dL Calcium 7.6 L (8.4-10.2) mg/dL Total Protein 4.5 L (6.3-8.2) g/dL Albumin 2.4 L (3.5-5.0) g/dL Microbiology - Last 24 Hours (Table) 12/05/21 15:15 Blood Culture - Preliminary Blood No Growth after 96 hours 12/05/21 15:05 Blood Culture - Preliminary Blood No Growth after 96 hours - Imaging and Cardiology Chest x-ray: image reviewed Abdominal x-ray: image reviewed Assessment and Plan Assessment: 66-year-old gentleman with presentation, clinical history, and imaging consistent with an acute distal small bowel obstruction with right lower quadrant transition point, likely relating to adhesions associated with remote appendectomy. No evidence of peritonitis on exam, no conclusive evidence of sepsis. Physical exam today improved compared to yesterday. No evidence of pneumoperitoneum on abdominal x-ray, suggestion of resolution of mechanical obstruction on today's abdominal flat plate film with what would appear to be passage of contrast to the ascending colon. Doubt perforation or bowel ischemia at present. Signs of hypovolemic shock and mild lactic acidosis on initial presentation. Pressor requirement coming down. New onset atrial fibrillation and flutter with rapid ventricular response, hypotension due to the same. Element of pulmonary congestion seen on chest x- ray. On heparin drip. Showing slow overall improvement. Hypoxic Ventilator-dependent respiratory failure. Extensive polycystic kidney disease with a degree of acute on chronic kidney injury, serum creatinine started to trend down. Mild thrombocytopenia. Plan: Continue with ICU care, wean ventilator and pressors as tolerated. At present I doubt bowel ischemia or perforation, his acidosis is resolving as his heart function has improved with better control of arrhythmia. His radiographic findings and physical exam are encouraging for resolving obstruction today. No surgical interventions planned for the time being. Time with Patient: Greater than 30
[2021-12-10] MEDS: METOPROLOL TARTRATE 5 MG/5 ML VIAL IVP SCH ×2 (08:09→16:34)
[2021-12-10] MEDS: PANTOPRAZOLE 40 MG/10 ML VIAL IVP SCH (08:09)
[2021-12-10] MEDS: metroNIDAZOLE-NS PMX 500 MG in SALINE 1 100ML.BAG IVPB SCH ×2 (08:09→16:34)
[2021-12-10] MEDS: CHLORHEXIDINE GLUCONATE 15 ML CUP MUCOUS MEM SCH ×2 (08:09→19:57)
--- NOTE | 2021-12-10 08:38 | XR ---
EXAMINATION TYPE: XR abdomen 1V DATE OF EXAM: 12/10/2021 COMPARISON: 12/09/2021 HISTORY: Small bowel obstruction follow-up TECHNIQUE: One view abdominal series FINDINGS: The osseous structures are intact. The bowel gas pattern is nonspecific. NG tube is seen with the ti p likely the level of the GE junction. Bibasilar consolidation and small effusion. Persistent promine nt bowel loops are seen in the midabdomen. Arthropathy of the hips. IMPRESSION: 1. NG tube seen with the tip at the level GE junction recommend advancement. There does appear to be interval reduction in the dilated bowel loops with persistent bowel distention suspicious for bowel o bstruction. 2. Bilateral lower lobe infiltrate and small effusion.
--- NOTE | 2021-12-10 08:39 | XR ---
EXAMINATION TYPE: XR chest 1V portable DATE OF EXAM: 12/10/2021 COMPARISON: 12/09/2021 HISTORY: Tube placement TECHNIQUE: Single frontal view of the chest is obtained. FINDINGS: ET and NG tube stable. Bilateral lower lobe consolidation and pleural effusion. Heart is e nlarged. No pneumothorax. Coarsened interstitial. Ectasia of the aorta. IMPRESSION: 1. Bilateral infiltrate and pleural effusion correlate for pneumonia. Underlying venous congestion no t excluded.
--- NOTE | 2021-12-10 09:22 | P.PN ---
Subjective Progress Note Date: 12/10/21 Patient is examined today in the ICU resting comfortably intubated and sedated. Remains on IV norepinephrine amiodarone and heparin. Patient is on IV Lopressor heart rate is maintaining in the 80s. On telemetry he remains in atrial fibrillation with a controlled ventricle rate. Blood cultures remained negative. Surgery feels that his small bowel obstruction is improving, and at this time there is no plan for surgery. Will continue with IV medications and the patient is able to take oral. Objective - Vital Signs Vital signs: Vital Signs Temp 98.3 F 12/10/21 08:00 Pulse 88 12/10/21 08:15 Resp 29 H 12/10/21 08:15 BP 121/88 12/10/21 08:15 Pulse Ox 98 12/10/21 08:15 FiO2 50 12/10/21 08:15 Intake & Output 12/09/21 12/10/21 12/10/21 18:59 06:59 18:59 Intake Total 2387.541 2098.937 262.755 Output Total 1015 1705 120 Balance 1372.541 393.937 142.755 Weight 125.4 kg Intake: IV 1100 1450 100 Dextrose 5% in Water 1, 1100 1300 100 000 ml @ 100 mls/hr IV . Q10H [facility] Rx#:[id number] Piperacillin-Tazobactam 3 50 .375 gm In Sodium Chloride 0.9% 100 ml @ 25 mls/hr IVPB Q12H [facility] Rx# :[id number] metroNIDAZOLE-NS PMX 500 100 mg In Saline 1 100ml.bag @ 100 mls/hr IVPB Q8HR [facility] Rx#:[id number] Intake, IV Titration 1287.541 648.937 162.755 Amount Amiodarone 450 mg In 194.448 Dextrose 5% in Water 250 ml @ 0.5 MG/MIN 16.667 mls/hr IV .Q15H [facility] Rx#: [id number] Heparin Sod,Pork in 0.45% 256.7 243.3 NaCl 25,000 unit In 0.45 % NaCl 1 250ml.bag @ 8.46 UNITS/KG/HR 10 mls/hr IV .Q24H [facility] Rx#:[id number] Norepinephrine 8 mg In 275.682 153.162 62.755 Sodium Chloride 0.9% 250 ml @ 0.05 MCG/KG/MIN 11. 436 mls/hr IV .[id number] [facility] Rx#:[id number] Potassium Chloride 10 meq 100 In Water For Injection 1 100ml.bag @ 100 mls/hr IVPB Q1H [facility] Rx#: [id number] fentaNYL (PF). 1,000 mcg 163.196 In Sodium Chloride 0.9% 80 ml @ 100 MCG/HR 10 mls /hr IV .Q10H [facility] Rx#: [id number] propofoL 1,000 mg In 397.515 252.475 Empty Bag 1 bag @ 5 MCG/ KG/MIN 3.546 mls/hr IV . Q24H [facility] Rx#:[id number] Output: Gastric Drainage 100 650 Urine 915 1055 120 Other: Voiding Method Indwelling Catheter Indwelling Catheter Indwelling Catheter ABP, PAP, CO, CI - Last Documented Arterial Blood Pressure 123/79 - Exam PHYSICAL EXAM: VITAL SIGNS: Reviewed. GENERAL: Well-developed in no acute distress. HEENT: Head is normocephalic. Pupils are equal, round. Sclerae anicteric. Mucous membranes of the mouth are moist. NECK: Supple. No JVD or thyromegaly RESPIRATORY: Patient is intubated and sedated Lungs diminished with scattered wheezes bilaterally CARDIO: irregular rate and rhythm. No murmur or gallops. EXTREMITIES: Normal range of motion. No clubbing or cyanosis. Peripheral pulses intact. Negative for bilateral lower extremity edema NEURO: Orientated to person, time, mood is appropriate - Labs CBC & Chem 7: 12/10/21 04:27 12/10/21 04:27 Labs: Abnormal Lab Results - Last 24 Hours (Table) 12/09/21 12/09/21 12/10/21 Range/Units 12:04 17:42 04:27 Plt Count 137 L (150-450) k/uL Lymphocytes # 0.9 L (1.0-4.8) k/uL APTT (22.0-30.0) sec ABG pH (7.35-7.45) ABG HCO3 (21-25) mmol/L ABG Total CO2 (19-24) mmol/L Chloride (98-107) mmol/L BUN (9-20) mg/dL Creatinine (0.66-1.25) mg/dL Glucose (74-99) mg/dL POC Glucose (mg/dL) 121 H 140 H (70-110) mg/dL Calcium (8.4-10.2) mg/dL Total Protein (6.3-8.2) g/dL Albumin (3.5-5.0) g/dL 12/10/21 12/10/21 12/10/21 Range/Units 04:27 04:27 05:58 Plt Count (150-450) k/uL Lymphocytes # (1.0-4.8) k/uL APTT 56.7 H (22.0-30.0) sec ABG pH 7.48 H (7.35-7.45) ABG HCO3 26 H (21-25) mmol/L ABG Total CO2 27 H (19-24) mmol/L Chloride 111 H (98-107) mmol/L BUN 38 H (9-20) mg/dL Creatinine 1.91 H (0.66-1.25) mg/dL Glucose 140 H (74-99) mg/dL POC Glucose (mg/dL) (70-110) mg/dL Calcium 7.6 L (8.4-10.2) mg/dL Total Protein 4.5 L (6.3-8.2) g/dL Albumin 2.4 L (3.5-5.0) g/dL Microbiology - Last 24 Hours (Table) 12/05/21 15:15 Blood Culture - Preliminary Blood No Growth after 96 hours 12/05/21 15:05 Blood Culture - Preliminary Blood No Growth after 96 hours Assessment and Plan Assessment: Atrial fibrillation with rapid ventricular response Hypotension secondary to septic shock Improving acute kidney injury Plan: Continue with all current cardiac medications Continue with IV amiodarone IV heparin and IV Lopressor will transition to oral when patient is able to tolerate oral medications Surgery continues to follow for small bowel obstruction Continue telemetry monitoring Prognosis guarded. Further recommendations based on clinical course The above impression and plan of care have been discussed and directed by the signing physician. Sheela Chao, nurse practitioner, acting as scribe for signing physician.
--- NOTE | 2021-12-10 09:31 | P.PN ---
Subjective Patient is seen in follow-up for acute kidney injury on chronic kidney disease. Renal function better today. Nonoliguric. Intubated. NG tube output about 300 mL overnight. On amiodarone drip for A. fib. On Levophed. Receiving D5W. Sodium level 143 today. Vital signs are stable. In A. fib. General: Intubated. HEENT: Head exam is unremarkable. LUNGS: Breath sounds decreased. HEART: Irregular rate and rhythm. ABDOMEN: Distention noted. EXTREMITITES: No edema. Objective - Vital Signs Vital signs: Vital Signs Temp 98.3 F 12/10/21 08:00 Pulse 88 12/10/21 08:15 Resp 29 H 12/10/21 08:15 BP 121/88 12/10/21 08:15 Pulse Ox 98 12/10/21 08:15 FiO2 50 12/10/21 08:15 Intake & Output 12/09/21 12/10/21 12/10/21 18:59 06:59 18:59 Intake Total 2387.541 2098.937 262.755 Output Total 1015 1705 120 Balance 1372.541 393.937 142.755 Weight 125.4 kg Intake: IV 1100 1450 100 Dextrose 5% in Water 1, 1100 1300 100 000 ml @ 100 mls/hr IV . Q10H [facility] Rx#:[id number] Piperacillin-Tazobactam 3 50 .375 gm In Sodium Chloride 0.9% 100 ml @ 25 mls/hr IVPB Q12H [facility] Rx# :[id number] metroNIDAZOLE-NS PMX 500 100 mg In Saline 1 100ml.bag @ 100 mls/hr IVPB Q8HR [facility] Rx#:[id number] Intake, IV Titration 1287.541 648.937 162.755 Amount Amiodarone 450 mg In 194.448 Dextrose 5% in Water 250 ml @ 0.5 MG/MIN 16.667 mls/hr IV .Q15H [facility] Rx#: [id number] Heparin Sod,Pork in 0.45% 256.7 243.3 NaCl 25,000 unit In 0.45 % NaCl 1 250ml.bag @ 8.46 UNITS/KG/HR 10 mls/hr IV .Q24H [facility] Rx#:[id number] Norepinephrine 8 mg In 275.682 153.162 62.755 Sodium Chloride 0.9% 250 ml @ 0.05 MCG/KG/MIN 11. 436 mls/hr IV .[id number] [facility] Rx#:[id number] Potassium Chloride 10 meq 100 In Water For Injection 1 100ml.bag @ 100 mls/hr IVPB Q1H [facility] Rx#: [id number] fentaNYL (PF). 1,000 mcg 163.196 In Sodium Chloride 0.9% 80 ml @ 100 MCG/HR 10 mls /hr IV .Q10H [facility] Rx#: [id number] propofoL 1,000 mg In 397.515 252.475 Empty Bag 1 bag @ 5 MCG/ KG/MIN 3.546 mls/hr IV . Q24H [facility] Rx#:[id number] Output: Gastric Drainage 100 650 Urine 915 1055 120 Other: Voiding Method Indwelling Catheter Indwelling Catheter Indwelling Catheter ABP, PAP, CO, CI - Last Documented Arterial Blood Pressure 123/79 - Labs CBC & Chem 7: 12/10/21 04:27 12/10/21 04:27 Labs: Abnormal Lab Results - Last 24 Hours (Table) 12/09/21 12/09/21 12/10/21 Range/Units 12:04 17:42 04:27 Plt Count 137 L (150-450) k/uL Lymphocytes # 0.9 L (1.0-4.8) k/uL APTT (22.0-30.0) sec ABG pH (7.35-7.45) ABG HCO3 (21-25) mmol/L ABG Total CO2 (19-24) mmol/L Chloride (98-107) mmol/L BUN (9-20) mg/dL Creatinine (0.66-1.25) mg/dL Glucose (74-99) mg/dL POC Glucose (mg/dL) 121 H 140 H (70-110) mg/dL Calcium (8.4-10.2) mg/dL Total Protein (6.3-8.2) g/dL Albumin (3.5-5.0) g/dL 12/10/21 12/10/21 12/10/21 Range/Units 04:27 04:27 05:58 Plt Count (150-450) k/uL Lymphocytes # (1.0-4.8) k/uL APTT 56.7 H (22.0-30.0) sec ABG pH 7.48 H (7.35-7.45) ABG HCO3 26 H (21-25) mmol/L ABG Total CO2 27 H (19-24) mmol/L Chloride 111 H (98-107) mmol/L BUN 38 H (9-20) mg/dL Creatinine 1.91 H (0.66-1.25) mg/dL Glucose 140 H (74-99) mg/dL POC Glucose (mg/dL) (70-110) mg/dL Calcium 7.6 L (8.4-10.2) mg/dL Total Protein 4.5 L (6.3-8.2) g/dL Albumin 2.4 L (3.5-5.0) g/dL Microbiology - Last 24 Hours (Table) 12/05/21 15:15 Blood Culture - Preliminary Blood No Growth after 96 hours 12/05/21 15:05 Blood Culture - Preliminary Blood No Growth after 96 hours Assessment and Plan Plan: Assessment: 1. Acute kidney injury mostly prerenal secondary to hypovolemia from vomiting as well as hypotension and A. fib. Creatinine 4.95 on admission and is 1.91 today. No hydronephrosis noted on CAT scan. 2. Chronic kidney disease stage IIIB with baseline creatinine near 1.8 in 2020 secondary to polycystic kidney disease. 3. A. fib with RVR maintained on amiodarone drip. Cardiology following. 4. Metabolic acidosis secondary to acute kidney injury and IV fluids. Improved. 5. Small bowel obstruction. Has NG tube. Surgery following. 6. Hypernatremia from lack of oral water intake. Better with D5W. 7. Shock maintained on Levophed. Plan: Maintain D5W. Repeat sodium level this evening. Avoid nephrotoxins. Continue to monitor renal function and urine output. Wean FiO2 and vasopressors.
--- NOTE | 2021-12-10 10:14 | P.PN ---
Subjective Progress Note Date: 12/10/21 Constantino Hernandez, is a 66 year old male who presented to [facility] emergency room, with a chief complaint of abdominal pain nausea and vomiting, his symptoms started 3 days ago and has been worsening. He was evaluated in the emergency room vital examination on presentation revealed a temperature of 96.7 pulse 101 respiration 24 blood pressure 154/89 however blood pressure dropped to 65/47 shortly after arrival pulse ox was 96% on room air Laboratory data revealed a white blood count of 11.6 hemoglobin 21.3 platelet count 116 sodium 134 potassium 5.0 chloride 94 CO2 16 BUN 91 creatinine 4.95 la ctic acid was elevated at 3.4 total bilirubin 1.5 AST 95 ALT 62 lipase within normal limits, zavala virus PCR was negative Testing in the emergency room revealed chest x-ray done in the emergency room revealed interstitial lung disease and chronic compression deformity of L1, computed tomography scan of the abdomen and pelvis revealed distal small bowel obstruction and 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 In the emergency room patient had an NG tube placed and had large amount of fluid removed, plan is to admit patient, consultation for surgery, nephrology, cardiology, and critical care initiated in the emergency room Past medical history is significant for history of hypertension, history of COPD, history of osteoarthritis, history of chronic kidney disease, history of chronic back pain. 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 On review of systems patient is alert and oriented 3, he has an NG tube in, he is complaining of some abdominal discomfort, otherwise he denies any complaints, there is no fever or chills no headache or dizziness no chest pain no shortness of breath, no nausea or vomiting since NG tube has been placed, no burning with urination no frequency or urgency and no hematuria. On 12/06/2021 patient was seen and examined in the ICU he is alert responsive in no apparent distress, he has an NG tube, he is maintained on oxygen via nasal cannula at 4 L, vital exam at 8 AM temperature 98.4 pulse 123 respiration 16 blood pressure 78/64 pulse ox 92% he is sleepy and denies any complaints at this time, there is no fever or chills no headache or dizziness no chest pain no shortness of breath no cough no nausea or vomiting no abdominal pain no diarrhea and no urinary symptoms, patient has not had any bowel movement or passed any gas since admission, there is some improvement on his laboratory data white blood count is down from 11.6-9.0 creatinine is down from 4.95-3.82 and lactic acid is down to 1.5, recommendation from nephrology, cardiology and critical care reviewed On 12/07/2021 patient is more confused. Per nursing staff patient had increased confusion throughout the night. Heart rate remains elevated. Cardiology services are following patient is on amiodarone. Surgical services ordering abdominal x-ray. Lactic acid 2.1. Creatinine improving to 3.18 awaiting further recommendations from surgery and critical care services On 12/08/2021 patient was seen and examined in the ICU he is intubated sedated maintained on mechanical ventilation, he is on assist control with FiO2 of 50% PEEP of 5 and draped of 26 he is maintained on norepinephrine for pressure control he remains in atrial fibrillation with a heart rate of 125 he is maintained on IV heparin kidney function is improving gradually his sodium is elevated at 150 he is maintained on IV amiodarone he is also maintained on IV antibiotics Zosyn and Flagyl, pulmonary critical care, cardiology, infectious disease, and nephrology are following patient is also followed by general surgery for bowel obstruction computed tomography scan of the brain done this morning did not reveal any evidence of intracranial bleeding, computed tomography scan of the abdomen and pelvis done again this morning and revealed evidence of bowel obstruction without significant change from previous computed tomography scan, will continue to follow closely prognosis is guarded. On 12/09/2021 patient was seen and examined in the ICU he is intubated sedated maintained on mechanical ventilation, no significant change on his ventilation settings, temperature is 90.8 heart rate 80 blood pressure 94/60 white blood count is 10.0 hemoglobin 15.7 platelet count 137 sodium 146 potassium 4.0 chloride 112 CO2 24 BUN 53 creatinine 2.31 patient was cleared by pulmonary and cardiology for abdominal surgery, however surgeon stated that there is some improvement on abdomen x-ray, no plans for surgery today, will continue to monitor closely 12/10/2021 2 patient remains in the intensive care unit intubated and sedated. No plans for surgical intervention at this time. Patient remains on Levophed for pressure support. Patient also on amiodarone. IV antibiotics of Flagyl and Zosyn. Critical care, surgical, cardiology and nephrology service following Objective - Vital Signs Vital signs: Vital Signs Temp 98.3 F 12/10/21 08:00 Pulse 79 12/10/21 09:30 Resp 24 12/10/21 09:30 BP 103/82 12/10/21 09:30 Pulse Ox 95 12/10/21 09:30 FiO2 50 12/10/21 09:30 Intake & Output 12/09/21 12/10/21 12/10/21 18:59 06:59 18:59 Intake Total 2387.541 2098.937 362.755 Output Total 1015 1705 270 Balance 1372.541 393.937 92.755 Weight 125.4 kg Intake: IV 1100 1450 200 Dextrose 5% in Water 1, 1100 1300 200 000 ml @ 100 mls/hr IV . Q10H [facility] Rx#:[id number] Piperacillin-Tazobactam 3 50 .375 gm In Sodium Chloride 0.9% 100 ml @ 25 mls/hr IVPB Q12H [facility] Rx# :[id number] metroNIDAZOLE-NS PMX 500 100 mg In Saline 1 100ml.bag @ 100 mls/hr IVPB Q8HR [facility] Rx#:[id number] Intake, IV Titration 1287.541 648.937 162.755 Amount Amiodarone 450 mg In 194.448 Dextrose 5% in Water 250 ml @ 0.5 MG/MIN 16.667 mls/hr IV .Q15H [facility] Rx#: [id number] Heparin Sod,Pork in 0.45% 256.7 243.3 NaCl 25,000 unit In 0.45 % NaCl 1 250ml.bag @ 8.46 UNITS/KG/HR 10 mls/hr IV .Q24H [facility] Rx#:[id number] Norepinephrine 8 mg In 275.682 153.162 62.755 Sodium Chloride 0.9% 250 ml @ 0.05 MCG/KG/MIN 11. 436 mls/hr IV .[id number] [facility] Rx#:[id number] Potassium Chloride 10 meq 100 In Water For Injection 1 100ml.bag @ 100 mls/hr IVPB Q1H [facility] Rx#: [id number] fentaNYL (PF). 1,000 mcg 163.196 In Sodium Chloride 0.9% 80 ml @ 100 MCG/HR 10 mls /hr IV .Q10H [facility] Rx#: [id number] propofoL 1,000 mg In 397.515 252.475 Empty Bag 1 bag @ 5 MCG/ KG/MIN 3.546 mls/hr IV . Q24H [facility] Rx#:[id number] Output: Gastric Drainage 100 650 Urine 915 1055 270 Other: Voiding Method Indwelling Catheter Indwelling Catheter Indwelling Catheter ABP, PAP, CO, CI - Last Documented Arterial Blood Pressure 95/64 - Exam In general patient is intubated, sedated, maintained on mechanical ventilation HEENT head normocephalic and atraumatic, NG tube is in Neck is supple no JVD no goiter no lymphadenopathy no carotid bruit Chest examination is clear to auscultation no crackles no wheezing Cardiac exam reveals regular heart sounds S1 and S2 no gallops no murmurs Abdomen is soft with mild diffuse tenderness no palpable masses no organomegaly Extremity exam reveals no edema no cyanosis or clubbing Neurological examination reveals no gross focal deficits - Labs CBC & Chem 7: 12/10/21 04:27 12/10/21 04:27 Labs: Abnormal Lab Results - Last 24 Hours (Table) 12/09/21 12/09/21 12/10/21 Range/Units 12:04 17:42 04:27 Plt Count 137 L (150-450) k/uL Lymphocytes # 0.9 L (1.0-4.8) k/uL APTT (22.0-30.0) sec ABG pH (7.35-7.45) ABG HCO3 (21-25) mmol/L ABG Total CO2 (19-24) mmol/L Chloride (98-107) mmol/L BUN (9-20) mg/dL Creatinine (0.66-1.25) mg/dL Glucose (74-99) mg/dL POC Glucose (mg/dL) 121 H 140 H (70-110) mg/dL Calcium (8.4-10.2) mg/dL Total Protein (6.3-8.2) g/dL Albumin (3.5-5.0) g/dL 12/10/21 12/10/21 12/10/21 Range/Units 04:27 04:27 05:58 Plt Count (150-450) k/uL Lymphocytes # (1.0-4.8) k/uL APTT 56.7 H (22.0-30.0) sec ABG pH 7.48 H (7.35-7.45) ABG HCO3 26 H (21-25) mmol/L ABG Total CO2 27 H (19-24) mmol/L Chloride 111 H (98-107) mmol/L BUN 38 H (9-20) mg/dL Creatinine 1.91 H (0.66-1.25) mg/dL Glucose 140 H (74-99) mg/dL POC Glucose (mg/dL) (70-110) mg/dL Calcium 7.6 L (8.4-10.2) mg/dL Total Protein 4.5 L (6.3-8.2) g/dL Albumin 2.4 L (3.5-5.0) g/dL Microbiology - Last 24 Hours (Table) 12/08/21 03:20 Gram Stain - Final Sputum Sputum Culture - Preliminary 12/05/21 15:15 Blood Culture - Preliminary Blood No Growth after 96 hours 12/05/21 15:05 Blood Culture - Preliminary Blood No Growth after 96 hours Assessment and Plan Plan: Distal small bowel obstruction Underlying history of COPD Underlying history of hypertension Acute on chronic renal failure was elevated BUN and creatinine Chronic kidney disease with evidence of autosomal dominant polycystic kidney di sease on computed tomography scan Episodes of atrial flutter in the emergency room Underlying history of osteoarthritis. Atrial fibrillation with RVR. Patient maintained on amiodarone Hypotension. Patient maintained on Levophed for pressure support At this time patient is in the emergency room plan is to admit to ICU He is maintained on IV fluids and NG tube is in Patient currently intubated and sedated Critical care, cardiology, nephrology and surgical service is following Patient maintained on IV antibiotics Zosyn and Flagyl
[2021-12-10] MEDS: DEXMEDETOMIDINE/0.9% NACL(PMX) 400 MCG in EMPTY BAG 1 BAG IV SCH (10:29)
[2021-12-10] MEDS: NOREPINEPHRINE 8 MG in SODIUM CHLORIDE 0.9% 250 ML IV SCH (11:04)
[2021-12-10 11:44] LABS: Glucose,Whole Blood 113 mg/dL (70-110)
[2021-12-10] MEDS: AMIODARONE 450 MG in DEXTROSE 5% IN WATER 250 ML IV SCH ×2 (14:03)
--- NOTE | 2021-12-10 14:30 | P.PN ---
Subjective Progress Note Date: 12/10/21 Principal diagnosis: Small bowel obstruction, abdominal sepsis, and septic shock This is a 66-year-old male patient, who presented to the emergency because of abdominal pain and nausea and emesis and the patient states that he has not passed a bowel movement for the past 3 days. His oral intake was minimal and was becoming progressively more sick and dehydrated. Upon arrival, he was hypotensive with a BP of 65/47. The patient was started on IV fluids. The patient is known to have polycystic kidney disease and he has chronic kidney disease and his baseline creatinine was 1.8 from 2019. His initial blood work showed a white cell count of 11.6. His hemoglobin was elevated at 21.3 and the baseline is not known. It'll platelet count 214. BUN was at 91 with a creatin ine of 4.95 consistent with an acute on top of chronic kidney disease. Lactic acid level was elevated at 3.4. Based on that, a CAT scan of the abdomen was done that showed a distended stomach, distended small bowel, transition point and a decompressed large bowel. The patient is known to have an umbilical hernia. No evidence of any incarceration. There was evidence of polycystic kidney disease. The patient currently has an NG tube in place. He has occult positive stools. The NG output was 1600. He is known to have COPD, polycystic kidney disease, hypertension. No previous history of abdominal surgeries. His abdomen is still distended. No altered mentation. He is able to follow c ommands and answer questions appropriately. No previous history of cardiac disease. The liver function tests showed an AST of 95, ALT of 62, normal alkaline phosphatase of 59, and the bilirubin was at 1.5. Follow-up lactic acid level is down to 2.5. His COVID 19 by PCR was negative. Normal coagulation profile. On 12/06/2021, the patient's condition essentially unchanged. The patient has an NG tube in place and output was around 400 mL over the past 12 hours. Abdomen is slightly distended. The patient umbilical hernia. He does have some mild direct tenderness. No bowel sounds. No bowel movements. No flatus. He remains obstructive. He was IV fluids and he is still on IV fluids running at the rate of 100 mL an hour of normal saline. The blood work from today shows a white cell count of 9 with a hemoglobin of 18.5. There was an obvious drop in hemoglobin from 21 down to 18. Platelet counts are 93. Blood work shows improvement acute kidney injury. The patient's creatinine is down to 3.8 with a BM 96. Serum bicarbonate of 18 with a sodium level of 138. Liver function tests are all within normal limits. The patient was weaned by general surgery. We'll continue our conservative measures of gastric decompression via an NG tube and general surgeries also on the case. Chest x-ray from today shows some atelectatic changes in lung bases. NG tube is in a good location the stomach. No other acute abnormalities noted. The patient was also seen by nephrology and the patient was also seen by cardiology. The patient wasn't into atrial fibrillation with rapid ventricular response yesterday. He was initially on a Cardizem drip which controlled his rate is not controlled his rate. He became hypotensive. Subsequently, he was switched to a amiodarone drip and currently he is loaded with amiodarone and he is on a maintenance of 1 mg per minute as part of the loading protocol. His current heart rate is 101 and it is still in atrial fibrillation. Echo was also ordered by cardiology. 12/07/2021, the patient is more lethargic compared to yesterday. This morning, he is confused and lethargic. He was requiring significant OUTPUT overnight and he has taken 0.5 mg of Dilaudid IV every 2 hours. NG output is still high in the order of 600 mL. Normal bowel sounds. Abdomen remains distended. The same time, the patient is in atrial fibrillation with rapid ventricular response. Earlier this morning, his heart rate went up to 153. It is still irregular. The patient remains on amiodarone 0.5 mg per minute and the patient also was started on IV heparin yesterday. No evidence of any bleeding. PTT this morning is at 42.6. At the same time, the patient's creatinine continues to improve. He is currently on IV fluids in the form of normal saline at the rate of 100 mL an hour and the BUN is at 92 with a creatinine of 3.18. Sodium is 143. LFTs are within normal limits. The white cell count is at 9.1. The blood cultures of been negative thus far. The overall fluid balance over the past 24 hours has been +1.4 L. She is afebrile. His neurologic exam is nonfocal. He remains on IV Protonix. Gen. surgery is on the case. Echocardiogram was done yesterday and the patient has a preserved LV function with an ejection fraction of 60%. No valvular Abnormalities. Reevaluated today on 12/08/2021, patient is intubated and mechanically ventilate d. Patient was intubated placed last night, and his clinical condition continued to deteriorate. Patient is now on assist control rate of 26, volume 450 FiO2 50% and PEEP of 5, ABG this morning showed a pO2 of 76 pCO2 34 pH of 7.45 and this is patient is on norepinephrine at 0.14 mcg/kg/m also on propofol at 50 mcg/kg/m patient is on IV fluid at 80 mL/h he is also on heparin for atrial fibrillation and his renal functioning seems to be improving however his BUN is 69 creatinine 2.49 and his sodium is 1:15 hence his IV fluid was changed to D5W by nephrology earlier today. Patient is on antibiotics is also on Flagyl. He is on amiodarone 0.5 mg/m, and he is on fentanyl at 0.8 mcg/kg/h all labs were reviewed today, his PTT is 66.2 WBC count is 11.8 hemoglobin is 16.6. Chest x-ray showed endotracheal tube and nasogastric tube as well as central line is stable position. It also showed evidence of interstitial edema/infiltrates with subsegmental atelectasis and small effusion. Pulmonary vascular congestion is noted, underlying pneumonia is not entirely ruled out, it is definitely in the differential diagnoses but this is felt to be less likely Reevaluated today on 12/09/21, remains in the ICU intubated and mechanically ventilated. Patient is on assist control rate of 26, volume 450 FiO2 50% and PEEP of 5. ABG showed a pO2 of 79 pCO2 43 pH of 7.40. Hence no changes were made in the ventilator settings. Chest x-ray today showed minimal vascular congestion, no evidence of pneumonia/infiltrate patient remains on amiodarone of 0.5 mg/m and required norepinephrine at 0.14 mcg/kg/m he is on propofol at 50 mcg/kg/m he is also on Flagyl and Zosyn. Patient is receiving fentanyl at 1.5 mcg/kg/h. Flat plate of the abdomen continues to show dilated bowel however the surgeon on the case and reviewed the case with the radiologist and felt there may be actually better passage of contrast into the ascending colon and a new stool present in the rectum suggestive of improvement of the obstruction. Hence surgery is not planning any surgical intervention at this point, patient was cleared for surgical intervention if felt necessary by surgery on the case. I cleared the patient, and the certified travel counselor cleared the patient. WBC count today is 10 hemoglobin 15.7 PTT is 64.3 patient remains on heparin. Electrolytes are normal slightly elevated sodium of 146, renal profile is improving BUN is down to 53 and creatinine is down to 2.31 Reevaluated today on 12/10/21, patient remains in the ICU, intubated and mechanically ventilated. He is presently on assist control rate of 26, tidal volume 450 FiO2 50% PEEP of 5, however after reviewing the ABG, patient a pO2 of 89 pCO2 35 pH of 7.48, I kept him on 50% however I increased his tidal volume to 500 and decrease the rate to 20. Patient is still requiring amiodarone. At 0.5 mg/m, he is also on heparin, propofol at 50 mcg/kg/m, is also on norepinephrine at 0.03 mcg/kg/m. Antibiotics [place], patient remains on Flagyl and on Zosyn. According to the surgeon his chest x-ray and flat bit of the abdomen is showing improvement in his obstructive pattern. Hence no surgery is scheduled. Patient will be started on TPN today, his endotracheal tube was advanced 1.5 cm.WBC count today is 8.6 hemoglobin is 15.0. PTT is 56.7.basic metabolic profile is normal, BUN is 38 creatinine 1.91, improving, but not back to normal.chest x-ray is showing bibasilar atelectasis, possible infiltrate/pneumonia. Objective - Vital Signs Vital signs: Vital Signs Temp 98.2 F 12/10/21 12:00 Pulse 78 12/10/21 13:15 Resp 26 H 12/10/21 13:15 BP 110/84 12/10/21 13:15 Pulse Ox 96 12/10/21 13:15 FiO2 50 12/10/21 13:15 Intake & Output 12/09/21 12/10/21 12/10/21 18:59 06:59 18:59 Intake Total 2387.541 2098.937 858.142 Output Total 1015 1705 565 Balance 1372.541 393.937 293.142 Weight 125.4 kg 125.4 kg Intake: IV 1100 1450 600 Dextrose 5% in Water 1, 1100 1300 600 000 ml @ 100 mls/hr IV . Q10H [facility] Rx#:[id number] Piperacillin-Tazobactam 3 50 .375 gm In Sodium Chloride 0.9% 100 ml @ 25 mls/hr IVPB Q12H [facility] Rx# :[id number] metroNIDAZOLE-NS PMX 500 100 mg In Saline 1 100ml.bag @ 100 mls/hr IVPB Q8HR [facility] Rx#:[id number] Intake, IV Titration 1287.541 648.937 258.142 Amount Amiodarone 450 mg In 194.448 Dextrose 5% in Water 250 ml @ 0.5 MG/MIN 16.667 mls/hr IV .Q15H [facility] Rx#: [id number] Heparin Sod,Pork in 0.45% 256.7 243.3 NaCl 25,000 unit In 0.45 % NaCl 1 250ml.bag @ 8.46 UNITS/KG/HR 10 mls/hr IV .Q24H [facility] Rx#:[id number] Norepinephrine 8 mg In 275.682 153.162 62.755 Sodium Chloride 0.9% 250 ml @ 0.05 MCG/KG/MIN 11. 436 mls/hr IV .[id number] [facility] Rx#:[id number] Potassium Chloride 10 meq 100 In Water For Injection 1 100ml.bag @ 100 mls/hr IVPB Q1H [facility] Rx#: [id number] fentaNYL (PF). 1,000 mcg 163.196 In Sodium Chloride 0.9% 80 ml @ 100 MCG/HR 10 mls /hr IV .Q10H [facility] Rx#: [id number] propofoL 1,000 mg In 397.515 252.475 95.387 Empty Bag 1 bag @ 5 MCG/ KG/MIN 3.546 mls/hr IV . Q24H [facility] Rx#:[id number] Output: Gastric Drainage 100 650 Urine 915 1055 565 Other: Voiding Method Indwelling Catheter Indwelling Catheter Indwelling Catheter ABP, PAP, CO, CI - Last Documented Arterial Blood Pressure 96/64 - Exam Physical Exam: Revealed a 66-year-old white male intubated and sedated and mechanically ventilated in no distress. Head: Atraumatic, normocephalic, endotracheal tube and orogastric tube are intact HEENT:[Neck is supple.] [No neck masses.] [No thyromegaly.] [No JVD.]., EOMI, nonicteric. Chest: [Crackles at the bases symmetrical chest expansion Cardiac Exam: Irregular irregular rhythm. [Normal S1 and S2, no S3 gallop, no murmur.] Abdomen: [Obese, distended, could not appreciate tenderness however the patient is sedated and on fentanyl drip no megaly, no rebound, no guarding, no bowel sounds Extremities: [No clubbing, trace of bipedal edema, no cyanosis.], Diminished pulses bilaterally. Neurological Exam: Cannot assess, patient is sedated and ventilated. Psychiatric: Could not assess. Musculoskeletal: No deformities. Skin: No rashes - Labs CBC & Chem 7: 12/10/21 04:27 12/10/21 04:27 Labs: Abnormal Lab Results - Last 24 Hours (Table) 12/09/21 12/10/21 12/10/21 Range/Units 17:42 04:27 04:27 Plt Count 137 L (150-450) k/uL Lymphocytes # 0.9 L (1.0-4.8) k/uL APTT (22.0-30.0) sec ABG pH (7.35-7.45) ABG HCO3 (21-25) mmol/L ABG Total CO2 (19-24) mmol/L Chloride 111 H (98-107) mmol/L BUN 38 H (9-20) mg/dL Creatinine 1.91 H (0.66-1.25) mg/dL Glucose 140 H (74-99) mg/dL POC Glucose (mg/dL) 140 H (70-110) mg/dL Calcium 7.6 L (8.4-10.2) mg/dL Total Protein 4.5 L (6.3-8.2) g/dL Albumin 2.4 L (3.5-5.0) g/dL 12/10/21 12/10/21 12/10/21 Range/Units 04:27 05:58 11:42 Plt Count (150-450) k/uL Lymphocytes # (1.0-4.8) k/uL APTT 56.7 H (22.0-30.0) sec ABG pH 7.48 H (7.35-7.45) ABG HCO3 26 H (21-25) mmol/L ABG Total CO2 27 H (19-24) mmol/L Chloride (98-107) mmol/L BUN (9-20) mg/dL Creatinine (0.66-1.25) mg/dL Glucose (74-99) mg/dL POC Glucose (mg/dL) 113 H (70-110) mg/dL Calcium (8.4-10.2) mg/dL Total Protein (6.3-8.2) g/dL Albumin (3.5-5.0) g/dL Microbiology - Last 24 Hours (Table) 12/08/21 03:20 Gram Stain - Final Sputum Sputum Culture - Preliminary 12/05/21 15:15 Blood Culture - Preliminary Blood No Growth after 96 hours 12/05/21 15:05 Blood Culture - Preliminary Blood No Growth after 96 hours Assessment and Plan Assessment: Impression: acute hypoxic respiratory failure requiring intubation and mechanical ventilation, secondary to above obstruction, abdominal sepsis, and possible septic shock. Acute small bowel obstruction Abdominal sepsis and septic shock Acute metabolic encephalopathy secondary to above New onset atrial fibrillation with RVR, patient is presently on amiodarone and is also on heparin umbilical hernia without incarceration Acute kidney injury secondary to sepsis Acute dehydration improving and his renal functioning is also improving with hydration. Anion gap metabolic acidosis secondary to abdominal sepsis and renal failure Underlying COPD Benign essential hypertension Degenerative joint disease History of nephrolithiasis Chronic back pain Recommendation: Continue ventilatory support, increased volume to 500 and decrease the rate down to 20 otherwise no changes made and vent settings. Continue IV fluid, continue to monitor electrolytes. Continue amiodarone and heparin Continue norepinephrine,/hemodynamic support Continue propofol, patient is off fentanyl today. Continue nasogastric tube to suction Continue IV heparin Continue GI and DVT prophylaxis we'll start the patient on TPN today. And the ball holder will be consulted Discussed condition with surgery on the case. No plans for surgical intervent ion at this point considering his new flat plate of the abdomen surgery is still on standby. Remains critically ill Critical care time is over 30 minutes. Time with Patient: Greater than 30
[2021-12-10 18:14] LABS: Magnesium 1.8 mg/dL (1.6-2.3)
[2021-12-10] MEDS ORDERED: Magnesium Replacement Protocol 1 EACH MISC MISCELLANE PRN (18:28)
[2021-12-10] MEDS: MAGNESIUM SULFATE-D5W PMX 1 GM in DEXTROSE/WATER 1 100ML.BAG IVPB SCH ×2 (18:47→20:32)
[2021-12-10] MEDS ORDERED: MVI, ADULT NO.4 WITH VIT K 10 ML, TRACE (CONC-1ML/DOSE) 1 ML in AMINO ACID 5%-D15W+LYTE... IV SCH ×3 (19:30)
[2021-12-10 23:52] LABS: Glucose,Whole Blood 109 mg/dL (70-110)
[2021-12-11] MEDS: fentaNYL (PF). 1,000 MCG in SODIUM CHLORIDE 0.9% 80 ML IV SCH ×4 (00:37→18:15)
[2021-12-11] MEDS: METOPROLOL TARTRATE 5 MG/5 ML VIAL IVP SCH ×2 (00:47→08:06)
[2021-12-11] MEDS: metroNIDAZOLE-NS PMX 500 MG in SALINE 1 100ML.BAG IVPB SCH ×4 (00:56→23:18)
[2021-12-11] MEDS: PIPERACILLIN-TAZOBACTAM 3.375 GM in SODIUM CHLORIDE 0.9% 100 ML IVPB SCH ×3 (02:59→18:35)
[2021-12-11] MEDS: DEXMEDETOMIDINE/0.9% NACL(PMX) 400 MCG in EMPTY BAG 1 BAG IV SCH ×2 (03:22→20:07)
[2021-12-11 03:51] LABS: Calcium 7.7 mg/dL (8.4-10.2); Phosphorus 3.1 mg/dL (2.5-4.5); Potassium 3.5 mmol/L (3.5-5.1)
[2021-12-11] MEDS ORDERED: Potassium Replacement Protocol 1 EACH MISC MISCELLANE PRN (04:05)
[2021-12-11] MEDS: POTASSIUM CHLORIDE 20 MEQ in WATER FOR INJECTION 1 100ML.BAG IVPB SCH ×2 (04:33→06:22)
[2021-12-11 06:09] LABS: ABG Base Excess 1.8 mmol/L; ABG HCO3 25 mmol/L (21-25); ABG Oxygen Saturation 96.3 % (94-97); ABG PCO2 34 mmHg (35-45); ABG PH 7.49 (7.35-7.45); ABG PO2 87 mmHg (83-108); ABG TCO2 26 mmol/L (19-24); Allen Test Performed? Yes
[2021-12-11] MEDS: HEPARIN SOD,PORK IN 0.45% NACL 25,000 UNIT in 0.45% NACL 1 250ML.BAG IV SCH ×2 (06:13→18:35)
[2021-12-11 06:24] LABS: Glucose,Whole Blood 107 mg/dL (70-110)
[2021-12-11] MEDS: CHLORHEXIDINE GLUCONATE 15 ML CUP MUCOUS MEM SCH ×2 (08:05→22:23)
[2021-12-11] MEDS: PANTOPRAZOLE 40 MG/10 ML VIAL IVP SCH (08:05)
--- NOTE | 2021-12-11 08:49 | XR ---
EXAMINATION TYPE: XR chest 1V portable DATE OF EXAM: 12/11/2021 COMPARISON: 12/10/2021 HISTORY: SOB, Follow Up FINDINGS: Indwelling tubes and catheters are unchanged. Improving basilar atelectasis and/or infiltrates as well as small left-sided effusion. Stable appearance of the cardio-mediastinal structures at this time. IMPRESSION: 1. Improving basilar atelectasis and/or infiltrates as well as small left-sided effusion.
--- NOTE | 2021-12-11 08:57 | P.PN ---
Subjective Progress Note Date: 12/11/21 Principal diagnosis: Small bowel obstruction The patient is seen on rounds. He is on a very low-dose of pressor. Good urine output. 500 NG output the last shift. Objective - Vital Signs Vital signs: Vital Signs Temp 98.1 F 12/11/21 08:00 Pulse 54 L 12/11/21 08:30 Resp 21 12/11/21 08:30 BP 104/70 12/11/21 08:30 Pulse Ox 97 12/11/21 08:30 FiO2 40 12/11/21 08:30 Intake & Output 12/10/21 12/11/21 12/11/21 18:59 06:59 18:59 Intake Total 2028.051 2326.441 30 Output Total 875 1600 75 Balance 1153.051 726.441 -45 Weight 125.4 kg 121 kg Intake: IV 1100 1300 Dextrose 5% in Water 1, 1100 1300 000 ml @ 100 mls/hr IV . Q10H [facility] Rx#:[id number] Intake, IV Titration 724.487 8910.441 30 Amount Amiodarone 450 mg In 243.338 Dextrose 5% in Water 250 ml @ 0.5 MG/MIN 16.667 mls/hr IV .Q15H [facility] Rx#: [id number] Heparin Sod,Pork in 0.45% 247.613 249.136 NaCl 25,000 unit In 0.45 % NaCl 1 250ml.bag @ 8.46 UNITS/KG/HR 10 mls/hr IV .Q24H [facility] Rx#:[id number] Mvi, Adult No.4 with Vit 330 30 K 10 ml Trace (Conc-1Ml/ Dose) 1 ml In Amino Acid 5%-D15w+Lytes*E* 1,000 ml @ 30 mls/hr IV .Q24H [facility] Rx#:[id number] Norepinephrine 8 mg In 62.755 161.022 Sodium Chloride 0.9% 250 ml @ 0.05 MCG/KG/MIN 11. 436 mls/hr IV .[id number] [facility] Rx#:[id number] Potassium Chloride 10 meq 100 In Water For Injection 1 100ml.bag @ 100 mls/hr IVPB Q1H [facility] Rx#: [id number] propofoL 1,000 mg In 274.345 286.283 Empty Bag 1 bag @ 5 MCG/ KG/MIN 3.546 mls/hr IV . Q24H [facility] Rx#:[id number] Output: Gastric Drainage 850 Urine 875 750 75 Other: Voiding Method Indwelling Catheter Indwelling Catheter Indwelling Catheter ABP, PAP, CO, CI - Last Documented Arterial Blood Pressure 117/68 - Constitutional Constitutional Comment(s): The patient is intubated. He is making some facial movements spontaneously General appearance: Present: no acute distress - Gastrointestinal General gastrointestinal: Present: distended, normal bowel sounds, umbilical hernia (Small incarcerated umbilical hernia). Absent: tenderness (No obvious tenderness, no grimacing with deep palpation) - Labs CBC & Chem 7: 12/10/21 04:27 12/11/21 03:00 Labs: Abnormal Lab Results - Last 24 Hours (Table) 12/10/21 12/10/21 12/11/21 Range/Units 11:42 14:44 03:00 APTT (22.0-30.0) sec ABG pH (7.35-7.45) ABG pCO2 (35-45) mmHg ABG Total CO2 (19-24) mmol/L Chloride 108 H (98-107) mmol/L BUN 30 H (9-20) mg/dL Creatinine 1.70 H (0.66-1.25) mg/dL Glucose 155 H (74-99) mg/dL POC Glucose (mg/dL) 113 H (70-110) mg/dL Calcium 7.7 L (8.4-10.2) mg/dL Triglycerides 186.00 H (0.00-149.00) mg/dL 12/11/21 12/11/21 Range/Units 05:40 06:07 APTT 54.4 H (22.0-30.0) sec ABG pH 7.49 H (7.35-7.45) ABG pCO2 34 L (35-45) mmHg ABG Total CO2 26 H (19-24) mmol/L Chloride (98-107) mmol/L BUN (9-20) mg/dL Creatinine (0.66-1.25) mg/dL Glucose (74-99) mg/dL POC Glucose (mg/dL) (70-110) mg/dL Calcium (8.4-10.2) mg/dL Triglycerides (0.00-149.00) mg/dL Microbiology - Last 24 Hours (Table) 12/05/21 15:15 Blood Culture - Preliminary Blood No Growth after 120 hours 12/05/21 15:05 Blood Culture - Preliminary Blood No Growth after 120 hours 12/08/21 03:20 Gram Stain - Final Sputum Sputum Culture - Preliminary Assessment and Plan (1) Small bowel obstruction Current Visit: Yes Status: Acute Code(s): K56.609 - UNSP INTESTNL OBST, UNSP TO PARTIAL VERSUS COMPLETE OBST SNOMED Code(s): 275880862 Plan: From a clinical standpoint the patient is slowly improving. Contrast did go through to the colon and yesterday's x-ray. Continue medical management. No plans for surgery at this point. We will continue to follow with you.
--- NOTE | 2021-12-11 09:08 | P.PN ---
Subjective Progress Note Date: 12/11/21 Patient is examined intubated and mechanically ventilated. Last night around midnight patient converted from atrial fibrillation to sinus bradycardia, heart rate is in the 50s, he has gone as low as the 40s. Amiodarone drip was discontinued and morning dose of IV Lopressor was held. Blood pressure stable 108/64. At this point there is no plans for surgery at this time. Will continue with IV norepinephrine and heparin. Will change IV Lopressor from scheduled to when necessary for heart rate above 100. Once patient is able to be transitioned to oral medications will do so at that time. Chest x-ray this morning shows improving basilar atelectasis and/or infiltrates as well as small left sided effusion. Kidney function has improved the BUN 30 creatinine 1.7 Objective - Vital Signs Vital signs: Vital Signs Temp 98.1 F 12/11/21 08:00 Pulse 54 L 12/11/21 08:30 Resp 21 12/11/21 08:30 BP 104/70 12/11/21 08:30 Pulse Ox 97 12/11/21 08:30 FiO2 40 12/11/21 08:30 Intake & Output 12/10/21 12/11/21 12/11/21 18:59 06:59 18:59 Intake Total 2028.051 2326.441 30 Output Total 875 1600 75 Balance 1153.051 726.441 -45 Weight 125.4 kg 121 kg Intake: IV 1100 1300 Dextrose 5% in Water 1, 1100 1300 000 ml @ 100 mls/hr IV . Q10H [facility] Rx#:[id number] Intake, IV Titration 949.027 7089.441 30 Amount Amiodarone 450 mg In 243.338 Dextrose 5% in Water 250 ml @ 0.5 MG/MIN 16.667 mls/hr IV .Q15H [facility] Rx#: [id number] Heparin Sod,Pork in 0.45% 247.613 249.136 NaCl 25,000 unit In 0.45 % NaCl 1 250ml.bag @ 8.46 UNITS/KG/HR 10 mls/hr IV .Q24H [facility] Rx#:[id number] Mvi, Adult No.4 with Vit 330 30 K 10 ml Trace (Conc-1Ml/ Dose) 1 ml In Amino Acid 5%-D15w+Lytes*E* 1,000 ml @ 30 mls/hr IV .Q24H [facility] Rx#:[id number] Norepinephrine 8 mg In 62.755 161.022 Sodium Chloride 0.9% 250 ml @ 0.05 MCG/KG/MIN 11. 436 mls/hr IV .[id number] [facility] Rx#:[id number] Potassium Chloride 10 meq 100 In Water For Injection 1 100ml.bag @ 100 mls/hr IVPB Q1H [facility] Rx#: [id number] propofoL 1,000 mg In 274.345 286.283 Empty Bag 1 bag @ 5 MCG/ KG/MIN 3.546 mls/hr IV . Q24H [facility] Rx#:[id number] Output: Gastric Drainage 850 Urine 875 750 75 Other: Voiding Method Indwelling Catheter Indwelling Catheter Indwelling Catheter ABP, PAP, CO, CI - Last Documented Arterial Blood Pressure 117/68 - Exam PHYSICAL EXAM: VITAL SIGNS: Reviewed. GENERAL: Well-developed in no acute distress. HEENT: Head is normocephalic. Pupils are equal, round. Sclerae anicteric. Mucous membranes of the mouth are moist. NECK: Supple. No JVD or thyromegaly RESPIRATORY: Patient is intubated and sedated Lungs diminished with scattered wheezes bilaterally CARDIO: irregular rate and rhythm. No murmur or gallops. EXTREMITIES: Normal range of motion. No clubbing or cyanosis. Peripheral pulses intact. Negative for bilateral lower extremity edema NEURO: sedated - Labs CBC & Chem 7: 12/10/21 04:27 12/11/21 03:00 Labs: Abnormal Lab Results - Last 24 Hours (Table) 12/10/21 12/10/21 12/11/21 Range/Units 11:42 14:44 03:00 APTT (22.0-30.0) sec ABG pH (7.35-7.45) ABG pCO2 (35-45) mmHg ABG Total CO2 (19-24) mmol/L Chloride 108 H (98-107) mmol/L BUN 30 H (9-20) mg/dL Creatinine 1.70 H (0.66-1.25) mg/dL Glucose 155 H (74-99) mg/dL POC Glucose (mg/dL) 113 H (70-110) mg/dL Calcium 7.7 L (8.4-10.2) mg/dL Triglycerides 186.00 H (0.00-149.00) mg/dL 12/11/21 12/11/21 Range/Units 05:40 06:07 APTT 54.4 H (22.0-30.0) sec ABG pH 7.49 H (7.35-7.45) ABG pCO2 34 L (35-45) mmHg ABG Total CO2 26 H (19-24) mmol/L Chloride (98-107) mmol/L BUN (9-20) mg/dL Creatinine (0.66-1.25) mg/dL Glucose (74-99) mg/dL POC Glucose (mg/dL) (70-110) mg/dL Calcium (8.4-10.2) mg/dL Triglycerides (0.00-149.00) mg/dL Microbiology - Last 24 Hours (Table) 12/05/21 15:15 Blood Culture - Preliminary Blood No Growth after 120 hours 12/05/21 15:05 Blood Culture - Preliminary Blood No Growth after 120 hours 12/08/21 03:20 Gram Stain - Final Sputum Sputum Culture - Preliminary Assessment and Plan Assessment: Persistent Atrial fibrillation converted to sinus rhythm Hypotension secondary to septic shock requiring intubation Improving acute kidney injury Small bowel obstruction Plan: Continue with all current cardiac medications Continue with IV heparin and IV Lopressor will transition to oral when patient is able to tolerate oral medications Surgery continues to follow for small bowel obstruction no plans for surgical intervention at this time Continue telemetry monitoring Prognosis guarded. Further recommendations based on clinical course The above impression and plan of care have been discussed and directed by the signing physician. Sheela Chao, nurse practitioner, acting as scribe for signing physician.
--- NOTE | 2021-12-11 09:51 | P.PN ---
Subjective Patient is seen in follow-up for acute kidney injury on chronic kidney disease. Renal function better. Nonoliguric. Intubated. Amiodarone stopped. Heart rate in the 50s. On Levophed. Sodium 138 today. Vital signs are stable. General: Intubated. HEENT: Head exam is unremarkable. LUNGS: Breath sounds decreased. HEART: Regular rhythm. Bradycardic. ABDOMEN: Distention noted. EXTREMITITES: No edema. Objective - Vital Signs Vital signs: Vital Signs Temp 98.1 F 12/11/21 08:00 Pulse 54 L 12/11/21 09:00 Resp 16 12/11/21 09:00 BP 104/70 12/11/21 09:00 Pulse Ox 97 12/11/21 09:00 FiO2 40 12/11/21 09:00 Intake & Output 12/10/21 12/11/21 12/11/21 18:59 06:59 18:59 Intake Total 2028.051 2326.441 60 Output Total 875 1600 250 Balance 1153.051 726.441 -190 Weight 125.4 kg 121 kg Intake: IV 1100 1300 Dextrose 5% in Water 1, 1100 1300 000 ml @ 100 mls/hr IV . Q10H [facility] Rx#:[id number] Intake, IV Titration 049.002 4754.441 60 Amount Amiodarone 450 mg In 243.338 Dextrose 5% in Water 250 ml @ 0.5 MG/MIN 16.667 mls/hr IV .Q15H [facility] Rx#: [id number] Heparin Sod,Pork in 0.45% 247.613 249.136 NaCl 25,000 unit In 0.45 % NaCl 1 250ml.bag @ 8.46 UNITS/KG/HR 10 mls/hr IV .Q24H [facility] Rx#:[id number] Mvi, Adult No.4 with Vit 330 60 K 10 ml Trace (Conc-1Ml/ Dose) 1 ml In Amino Acid 5%-D15w+Lytes*E* 1,000 ml @ 30 mls/hr IV .Q24H [facility] Rx#:[id number] Norepinephrine 8 mg In 62.755 161.022 Sodium Chloride 0.9% 250 ml @ 0.05 MCG/KG/MIN 11. 436 mls/hr IV .[id number] [facility] Rx#:[id number] Potassium Chloride 10 meq 100 In Water For Injection 1 100ml.bag @ 100 mls/hr IVPB Q1H [facility] Rx#: [id number] propofoL 1,000 mg In 274.345 286.283 Empty Bag 1 bag @ 5 MCG/ KG/MIN 3.546 mls/hr IV . Q24H [facility] Rx#:[id number] Output: Gastric Drainage 850 Urine 875 750 250 Other: Voiding Method Indwelling Catheter Indwelling Catheter Indwelling Catheter ABP, PAP, CO, CI - Last Documented Arterial Blood Pressure 116/68 - Labs CBC & Chem 7: 12/10/21 04:27 12/11/21 03:00 Labs: Abnormal Lab Results - Last 24 Hours (Table) 12/10/21 12/10/21 12/11/21 Range/Units 11:42 14:44 03:00 APTT (22.0-30.0) sec ABG pH (7.35-7.45) ABG pCO2 (35-45) mmHg ABG Total CO2 (19-24) mmol/L Chloride 108 H (98-107) mmol/L BUN 30 H (9-20) mg/dL Creatinine 1.70 H (0.66-1.25) mg/dL Glucose 155 H (74-99) mg/dL POC Glucose (mg/dL) 113 H (70-110) mg/dL Calcium 7.7 L (8.4-10.2) mg/dL Triglycerides 186.00 H (0.00-149.00) mg/dL 12/11/21 12/11/21 Range/Units 05:40 06:07 APTT 54.4 H (22.0-30.0) sec ABG pH 7.49 H (7.35-7.45) ABG pCO2 34 L (35-45) mmHg ABG Total CO2 26 H (19-24) mmol/L Chloride (98-107) mmol/L BUN (9-20) mg/dL Creatinine (0.66-1.25) mg/dL Glucose (74-99) mg/dL POC Glucose (mg/dL) (70-110) mg/dL Calcium (8.4-10.2) mg/dL Triglycerides (0.00-149.00) mg/dL Microbiology - Last 24 Hours (Table) 09/23/22 15:15 Blood Culture - Preliminary Blood No Growth after 120 hours 12/05/21 15:05 Blood Culture - Preliminary Blood No Growth after 120 hours 12/08/21 03:20 Gram Stain - Final Sputum Sputum Culture - Preliminary Assessment and Plan Plan: Assessment: 1. Acute kidney injury mostly prerenal secondary to hypovolemia from vomiting as well as hypotension and A. fib. Creatinine 4.95 on admission and is 1.7 today. No hydronephrosis noted on CAT scan. 2. Chronic kidney disease stage IIIB with baseline creatinine near 1.8 in 2019 secondary to polycystic kidney disease. 3. A. fib with RVR s/p amiodarone drip. Cardiology following. 4. Metabolic acidosis secondary to acute kidney injury and IV fluids. Improved. 5. Small bowel obstruction. Has NG tube. Surgery following. 6. Hypernatremia from lack of oral water intake. Resolved. 7. Shock maintained on Levophed. Plan: Hep-Lock IV fluids. Receiving TPN. Avoid nephrotoxins. Continue to monitor renal function and urine output. Wean FiO2 and vasopressors.
[2021-12-11] MEDS ORDERED: METOPROLOL TARTRATE 5 MG/5 ML VIAL IVP PRN (11:43)
[2021-12-11 11:55] LABS: Glucose,Whole Blood 112 mg/dL (70-110)
--- NOTE | 2021-12-11 12:46 | P.PN ---
Subjective Progress Note Date: 12/11/21 Principal diagnosis: Small bowel obstruction, abdominal sepsis, and septic shock This is a 66-year-old male patient, who presented to the emergency because of abdominal pain and nausea and emesis and the patient states that he has not passed a bowel movement for the past 3 days. His oral intake was minimal and was becoming progressively more sick and dehydrated. Upon arrival, he was hypotensive with a BP of 65/47. The patient was started on IV fluids. The patient is known to have polycystic kidney disease and he has chronic kidney disease and his baseline creatinine was 1.8 from 2019. His initial blood work showed a white cell count of 11.6. His hemoglobin was elevated at 21.3 and the baseline is not known. It'll platelet count 214. BUN was at 91 with a creatin ine of 4.95 consistent with an acute on top of chronic kidney disease. Lactic acid level was elevated at 3.4. Based on that, a CAT scan of the abdomen was done that showed a distended stomach, distended small bowel, transition point and a decompressed large bowel. The patient is known to have an umbilical hernia. No evidence of any incarceration. There was evidence of polycystic kidney disease. The patient currently has an NG tube in place. He has occult positive stools. The NG output was 1600. He is known to have COPD, polycystic kidney disease, hypertension. No previous history of abdominal surgeries. His abdomen is still distended. No altered mentation. He is able to follow c ommands and answer questions appropriately. No previous history of cardiac disease. The liver function tests showed an AST of 95, ALT of 62, normal alkaline phosphatase of 59, and the bilirubin was at 1.5. Follow-up lactic acid level is down to 2.5. His COVID 19 by PCR was negative. Normal coagulation profile. On 12/06/2021, the patient's condition essentially unchanged. The patient has an NG tube in place and output was around 400 mL over the past 12 hours. Abdomen is slightly distended. The patient umbilical hernia. He does have some mild direct tenderness. No bowel sounds. No bowel movements. No flatus. He remains obstructive. He was IV fluids and he is still on IV fluids running at the rate of 100 mL an hour of normal saline. The blood work from today shows a white cell count of 9 with a hemoglobin of 18.5. There was an obvious drop in hemoglobin from 21 down to 18. Platelet counts are 93. Blood work shows improvement acute kidney injury. The patient's creatinine is down to 3.8 with a BM 96. Serum bicarbonate of 18 with a sodium level of 138. Liver function tests are all within normal limits. The patient was weaned by general surgery. We'll continue our conservative measures of gastric decompression via an NG tube and general surgeries also on the case. Chest x-ray from today shows some atelectatic changes in lung bases. NG tube is in a good location the stomach. No other acute abnormalities noted. The patient was also seen by nephrology and the patient was also seen by cardiology. The patient wasn't into atrial fibrillation with rapid ventricular response yesterday. He was initially on a Cardizem drip which controlled his rate is not controlled his rate. He became hypotensive. Subsequently, he was switched to a amiodarone drip and currently he is loaded with amiodarone and he is on a maintenance of 1 mg per minute as part of the loading protocol. His current heart rate is 101 and it is still in atrial fibrillation. Echo was also ordered by cardiology. 12/07/2021, the patient is more lethargic compared to yesterday. This morning, he is confused and lethargic. He was requiring significant OUTPUT overnight and he has taken 0.5 mg of Dilaudid IV every 2 hours. NG output is still high in the order of 600 mL. Normal bowel sounds. Abdomen remains distended. The same time, the patient is in atrial fibrillation with rapid ventricular response. Earlier this morning, his heart rate went up to 153. It is still irregular. The patient remains on amiodarone 0.5 mg per minute and the patient also was started on IV heparin yesterday. No evidence of any bleeding. PTT this morning is at 42.6. At the same time, the patient's creatinine continues to improve. He is currently on IV fluids in the form of normal saline at the rate of 100 mL an hour and the BUN is at 92 with a creatinine of 3.18. Sodium is 143. LFTs are within normal limits. The white cell count is at 9.1. The blood cultures of been negative thus far. The overall fluid balance over the past 24 hours has been +1.4 L. She is afebrile. His neurologic exam is nonfocal. He remains on IV Protonix. Gen. surgery is on the case. Echocardiogram was done yesterday and the patient has a preserved LV function with an ejection fraction of 60%. No valvular Abnormalities. Reevaluated today on 12/08/2021, patient is intubated and mechanically ventilate d. Patient was intubated placed last night, and his clinical condition continued to deteriorate. Patient is now on assist control rate of 26, volume 450 FiO2 50% and PEEP of 5, ABG this morning showed a pO2 of 76 pCO2 34 pH of 7.45 and this is patient is on norepinephrine at 0.14 mcg/kg/m also on propofol at 50 mcg/kg/m patient is on IV fluid at 80 mL/h he is also on heparin for atrial fibrillation and his renal functioning seems to be improving however his BUN is 69 creatinine 2.49 and his sodium is 1:15 hence his IV fluid was changed to D5W by nephrology earlier today. Patient is on antibiotics is also on Flagyl. He is on amiodarone 0.5 mg/m, and he is on fentanyl at 0.8 mcg/kg/h all labs were reviewed today, his PTT is 66.2 WBC count is 11.8 hemoglobin is 16.6. Chest x-ray showed endotracheal tube and nasogastric tube as well as central line is stable position. It also showed evidence of interstitial edema/infiltrates with subsegmental atelectasis and small effusion. Pulmonary vascular congestion is noted, underlying pneumonia is not entirely ruled out, it is definitely in the differential diagnoses but this is felt to be less likely Reevaluated today on 12/09/21, remains in the ICU intubated and mechanically ventilated. Patient is on assist control rate of 26, volume 450 FiO2 50% and PEEP of 5. ABG showed a pO2 of 79 pCO2 43 pH of 7.40. Hence no changes were made in the ventilator settings. Chest x-ray today showed minimal vascular congestion, no evidence of pneumonia/infiltrate patient remains on amiodarone of 0.5 mg/m and required norepinephrine at 0.14 mcg/kg/m he is on propofol at 50 mcg/kg/m he is also on Flagyl and Zosyn. Patient is receiving fentanyl at 1.5 mcg/kg/h. Flat plate of the abdomen continues to show dilated bowel however the surgeon on the case and reviewed the case with the radiologist and felt there may be actually better passage of contrast into the ascending colon and a new stool present in the rectum suggestive of improvement of the obstruction. Hence surgery is not planning any surgical intervention at this point, patient was cleared for surgical intervention if felt necessary by surgery on the case. I cleared the patient, and the wool shearing supervisor cleared the patient. WBC count today is 10 hemoglobin 15.7 PTT is 64.3 patient remains on heparin. Electrolytes are normal slightly elevated sodium of 146, renal profile is improving BUN is down to 53 and creatinine is down to 2.31 Reevaluated today on 12/10/21, patient remains in the ICU, intubated and mechanically ventilated. He is presently on assist control rate of 26, tidal volume 450 FiO2 50% PEEP of 5, however after reviewing the ABG, patient a pO2 of 89 pCO2 35 pH of 7.48, I kept him on 50% however I increased his tidal volume to 500 and decrease the rate to 20. Patient is still requiring amiodarone. At 0.5 mg/m, he is also on heparin, propofol at 50 mcg/kg/m, is also on norepinephrine at 0.03 mcg/kg/m. Antibiotics [place], patient remains on Flagyl and on Zosyn. According to the surgeon his chest x-ray and flat bit of the abdomen is showing improvement in his obstructive pattern. Hence no surgery is scheduled. Patient will be started on TPN today, his endotracheal tube was advanced 1.5 cm.WBC count today is 8.6 hemoglobin is 15.0. PTT is 56.7.basic metabolic profile is normal, BUN is 38 creatinine 1.91, improving, but not back to normal.chest x-ray is showing bibasilar atelectasis, possible infiltrate/pneumonia. Patient was reevaluated today on 12/11/21, remains in the ICU, intubated and mechanically ventilated and sedated patient is on assist control rate of 20 tidal volume 500 FiO2 50% and PEEP of 5. ABG showed a pO2 of 87 pCO2 34 pH of 7.49 hence no changes made in his ventilator settings. Patient is still requiring norepinephrine at 0.02 mcg/kg/m he is on propofol 45 mcg/kg/m and I am cutting down the propofol to assess mental status and give him a sedation interruption trial. Patient remains on TPN remains on heparin. Continues to have no bowel movements, abdomen remains distended however I could hear bowel sounds today. Patient remains off fentanyl. Chest x-ray is showing mostly basilar atelectasis,/infiltrates, but improving steadily over the last few days. Patient is now off amiodarone, he converted to sinus rhythm. Nonetheless he remains on heparin. Renal profile is improving creatinine is down to 1.70 BUN is 30. His creatinine was as high as 4.95 on his initial evaluation/admission to [facility] - Vital Signs Vital signs: Vital Signs Temp 98.8 F 12/11/21 12:00 Pulse 56 L 12/11/21 12:00 Resp 14 12/11/21 12:00 BP 114/72 12/11/21 12:00 Pulse Ox 97 12/11/21 12:00 FiO2 40 12/11/21 12:00 Intake & Output 12/10/21 12/11/21 12/11/21 18:59 06:59 18:59 Intake Total 2028.051 2326.441 245.272 Output Total 875 1600 600 Balance 1153.051 726.441 -354.728 Weight 125.4 kg 121 kg Intake: IV 1100 1300 Dextrose 5% in Water 1, 1100 1300 000 ml @ 100 mls/hr IV . Q10H [facility] Rx#:[id number] Intake, IV Titration 950.414 4508.441 245.272 Amount Amiodarone 450 mg In 243.338 Dextrose 5% in Water 250 ml @ 0.5 MG/MIN 16.667 mls/hr IV .Q15H [facility] Rx#: [id number] Heparin Sod,Pork in 0.45% 247.613 249.136 NaCl 25,000 unit In 0.45 % NaCl 1 250ml.bag @ 8.46 UNITS/KG/HR 10 mls/hr IV .Q24H [facility] Rx#:[id number] Mvi, Adult No.4 with Vit 330 150 K 10 ml Trace (Conc-1Ml/ Dose) 1 ml In Amino Acid 5%-D15w+Lytes*E* 1,000 ml @ 30 mls/hr IV .Q24H [facility] Rx#:[id number] Norepinephrine 8 mg In 62.755 161.022 Sodium Chloride 0.9% 250 ml @ 0.05 MCG/KG/MIN 11. 436 mls/hr IV .[id number] [facility] Rx#:[id number] Potassium Chloride 10 meq 100 In Water For Injection 1 100ml.bag @ 100 mls/hr IVPB Q1H [facility] Rx#: [id number] propofoL 1,000 mg In 274.345 286.283 95.272 Empty Bag 1 bag @ 5 MCG/ KG/MIN 3.546 mls/hr IV . Q24H [facility] Rx#:[id number] Output: Gastric Drainage 850 Urine 875 750 600 Other: Voiding Method Indwelling Catheter Indwelling Catheter Indwelling Catheter ABP, PAP, CO, CI - Last Documented Arterial Blood Pressure 141/76 - Exam Physical Exam: Revealed a 66-year-old white male intubated and sedated and mechanically ventilated in no distress. Head: Atraumatic, normocephalic, endotracheal tube and orogastric tube are intact HEENT:[Neck is supple.] [No neck masses.] [No thyromegaly.] [No JVD.]., EOMI, nonicteric. Chest: [Crackles at the bases symmetrical chest expansion Cardiac Exam: Regular rate and rhythm. [Normal S1 and S2, no S3 gallop, no murmur.] Abdomen: [Obese, distended, could not appreciate tenderness however the patient is sedated and on fentanyl drip no megaly, no rebound, no guarding, positive bowel sounds today. Extremities: [No clubbing, trace of bipedal edema, no cyanosis.], Diminished pulses bilaterally. Neurological Exam: Cannot assess, patient is sedated and ventilated. Psychiatric: Could not assess. Musculoskeletal: No deformities. Skin: No rashes - Labs CBC & Chem 7: 12/10/21 04:27 12/11/21 11:55 Labs: Abnormal Lab Results - Last 24 Hours (Table) 12/10/21 12/11/21 12/11/21 Range/Units 14:44 03:00 05:40 APTT 54.4 H (22.0-30.0) sec ABG pH (7.35-7.45) ABG pCO2 (35-45) mmHg ABG Total CO2 (19-24) mmol/L Chloride 108 H (98-107) mmol/L BUN 30 H (9-20) mg/dL Creatinine 1.70 H (0.66-1.25) mg/dL Glucose 155 H (74-99) mg/dL POC Glucose (mg/dL) (70-110) mg/dL Calcium 7.7 L (8.4-10.2) mg/dL Triglycerides 186.00 H (0.00-149.00) mg/dL 12/11/21 12/11/21 Range/Units 06:07 11:54 APTT (22.0-30.0) sec ABG pH 7.49 H (7.35-7.45) ABG pCO2 34 L (35-45) mmHg ABG Total CO2 26 H (19-24) mmol/L Chloride (98-107) mmol/L BUN (9-20) mg/dL Creatinine (0.66-1.25) mg/dL Glucose (74-99) mg/dL POC Glucose (mg/dL) 112 H (70-110) mg/dL Calcium (8.4-10.2) mg/dL Triglycerides (0.00-149.00) mg/dL Microbiology - Last 24 Hours (Table) 12/05/21 15:15 Blood Culture - Preliminary Blood No Growth after 120 hours 12/05/21 15:05 Blood Culture - Preliminary Blood No Growth after 120 hours 12/08/21 03:20 Gram Stain - Final Sputum Sputum Culture - Preliminary Assessment and Plan Assessment: Impression: acute hypoxic respiratory failure requiring intubation and mechanical kendell tilation, secondary to above obstruction, abdominal sepsis, and possible septic shock. Acute small bowel obstruction Abdominal sepsis and septic shock Acute metabolic encephalopathy secondary to above New onset atrial fibrillation with RVR, however the patient converted to normal sinus to them yesterday, and is now off amiodarone umbilical hernia without incarceration Acute kidney injury secondary to sepsis, improving steadily since admission. Acute dehydration improving and his renal functioning is also improving with hydration. Anion gap metabolic acidosis secondary to abdominal sepsis and renal failure, resolved. Underlying COPD Benign essential hypertension Degenerative joint disease History of nephrolithiasis Chronic back pain Recommendation: Continue ventilatory support, no changes made in his vent settings today. Continue IV fluid, continue to monitor electrolytes. Continue heparin, discontinue amiodarone. Cardiology to address. Continue norepinephrine,/hemodynamic support, today he is still on a tiny dose of norepinephrine Cut down propofol and assess mental status today. Patient will be given a sedation interruption/sedation holiday today. Continue nasogastric tube to suction Continue GI and DVT prophylaxis Continue TPN Discussed his condition with the admitting physician Dr. Ge on the case. Updated him on his status Remains critically ill Critical care time is over 30 minutes. Time with Patient: Greater than 30
[2021-12-11] MEDS: HYDROmorphone 0.5 MG/0.5 ML SYRINGE IVP PRN ×2 (16:58→23:18)
--- NOTE | 2021-12-11 17:06 | P.PN ---
Subjective Progress Note Date: 12/11/21 Constantino Hernandez, is a 66 year old male who presented to [facility] emergency room, with a chief complaint of abdominal pain nausea and vomiting, his symptoms started 3 days ago and has been worsening. He was evaluated in the emergency room vital examination on presentation revealed a temperature of 96.7 pulse 101 respiration 24 blood pressure 154/89 however blood pressure dropped to 65/47 shortly after arrival pulse ox was 96% on room air Laboratory data revealed a white blood count of 11.6 hemoglobin 21.3 platelet count 116 sodium 134 potassium 5.0 chloride 94 CO2 16 BUN 91 creatinine 4.95 la ctic acid was elevated at 3.4 total bilirubin 1.5 AST 95 ALT 62 lipase within normal limits, zavala virus PCR was negative Testing in the emergency room revealed chest x-ray done in the emergency room revealed interstitial lung disease and chronic compression deformity of L1, computed tomography scan of the abdomen and pelvis revealed distal small bowel obstruction and 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 In the emergency room patient had an NG tube placed and had large amount of fluid removed, plan is to admit patient, consultation for surgery, nephrology, cardiology, and critical care initiated in the emergency room Past medical history is significant for history of hypertension, history of COPD, history of osteoarthritis, history of chronic kidney disease, history of chronic back pain. 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 On review of systems patient is alert and oriented 3, he has an NG tube in, he is complaining of some abdominal discomfort, otherwise he denies any complaints, there is no fever or chills no headache or dizziness no chest pain no shortness of breath, no nausea or vomiting since NG tube has been placed, no burning with urination no frequency or urgency and no hematuria. On 12/06/2021 patient was seen and examined in the ICU he is alert responsive in no apparent distress, he has an NG tube, he is maintained on oxygen via nasal cannula at 4 L, vital exam at 8 AM temperature 98.4 pulse 123 respiration 16 blood pressure 78/64 pulse ox 92% he is sleepy and denies any complaints at this time, there is no fever or chills no headache or dizziness no chest pain no shortness of breath no cough no nausea or vomiting no abdominal pain no diarrhea and no urinary symptoms, patient has not had any bowel movement or passed any gas since admission, there is some improvement on his laboratory data white blood count is down from 11.6-9.0 creatinine is down from 4.95-3.82 and lactic acid is down to 1.5, recommendation from nephrology, cardiology and critical care reviewed On 12/07/2021 patient is more confused. Per nursing staff patient had increased confusion throughout the night. Heart rate remains elevated. Cardiology services are following patient is on amiodarone. Surgical services ordering abdominal x-ray. Lactic acid 2.1. Creatinine improving to 3.18 awaiting further recommendations from surgery and critical care services On 12/08/2021 patient was seen and examined in the ICU he is intubated sedated maintained on mechanical ventilation, he is on assist control with FiO2 of 50% PEEP of 5 and draped of 26 he is maintained on norepinephrine for pressure control he remains in atrial fibrillation with a heart rate of 125 he is maintained on IV heparin kidney function is improving gradually his sodium is elevated at 150 he is maintained on IV amiodarone he is also maintained on IV antibiotics Zosyn and Flagyl, pulmonary critical care, cardiology, infectious disease, and nephrology are following patient is also followed by general surgery for bowel obstruction computed tomography scan of the brain done this morning did not reveal any evidence of intracranial bleeding, computed tomography scan of the abdomen and pelvis done again this morning and revealed evidence of bowel obstruction without significant change from previous computed tomography scan, will continue to follow closely prognosis is guarded. On 12/09/2021 patient was seen and examined in the ICU he is intubated sedated maintained on mechanical ventilation, no significant change on his ventilation settings, temperature is 90.8 heart rate 80 blood pressure 94/60 white blood count is 10.0 hemoglobin 15.7 platelet count 137 sodium 146 potassium 4.0 chloride 112 CO2 24 BUN 53 creatinine 2.31 patient was cleared by pulmonary and cardiology for abdominal surgery, however surgeon stated that there is some improvement on abdomen x-ray, no plans for surgery today, will continue to monitor closely 12/10/2021 patient remains in the intensive care unit intubated and sedated. No plans for surgical intervention at this time. Patient remains on Levophed for pressure support. Patient also on amiodarone. IV antibiotics of Flagyl and Zosyn. Critical care, surgical, cardiology and nephrology service following. On 12/11/2021 patient was seen and examined in the intensive care unit, he is intubated sedated maintained on mechanical ventilation, case was discussed in details with Dr. Mehta today, vital exam reveals a temperature of 98.2 pulse 62 respiration 18 pressure 120/69 oxygen saturation 96% on FiO2 40% patient is still requiring norepinephrine for pressure support, he is off the amiodarone, he has converted to normal sinus rhythm, renal function is improving with BUN 13 creatinine 1.7 Objective - Vital Signs Vital signs: Vital Signs Temp 98.1 F 12/11/21 08:00 Pulse 53 L 12/11/21 10:00 Resp 18 12/11/21 10:00 BP 111/70 12/11/21 10:00 Pulse Ox 97 12/11/21 10:00 FiO2 40 12/11/21 10:30 Intake & Output 12/10/21 12/11/21 12/11/21 18:59 06:59 18:59 Intake Total 2028.051 2326.441 90 Output Total 875 1600 350 Balance 1153.051 726.441 -260 Weight 125.4 kg 121 kg Intake: IV 1100 1300 Dextrose 5% in Water 1, 1100 1300 000 ml @ 100 mls/hr IV . Q10H [facility] Rx#:[id number] Intake, IV Titration 371.124 5058.441 90 Amount Amiodarone 450 mg In 243.338 Dextrose 5% in Water 250 ml @ 0.5 MG/MIN 16.667 mls/hr IV .Q15H [facility] Rx#: [id number] Heparin Sod,Pork in 0.45% 247.613 249.136 NaCl 25,000 unit In 0.45 % NaCl 1 250ml.bag @ 8.46 UNITS/KG/HR 10 mls/hr IV .Q24H [facility] Rx#:[id number] Mvi, Adult No.4 with Vit 330 90 K 10 ml Trace (Conc-1Ml/ Dose) 1 ml In Amino Acid 5%-D15w+Lytes*E* 1,000 ml @ 30 mls/hr IV .Q24H [facility] Rx#:[id number] Norepinephrine 8 mg In 62.755 161.022 Sodium Chloride 0.9% 250 ml @ 0.05 MCG/KG/MIN 11. 436 mls/hr IV .[id number] [facility] Rx#:[id number] Potassium Chloride 10 meq 100 In Water For Injection 1 100ml.bag @ 100 mls/hr IVPB Q1H [facility] Rx#: [id number] propofoL 1,000 mg In 274.345 286.283 Empty Bag 1 bag @ 5 MCG/ KG/MIN 3.546 mls/hr IV . Q24H [facility] Rx#:[id number] Output: Gastric Drainage 850 Urine 875 750 350 Other: Voiding Method Indwelling Catheter Indwelling Catheter Indwelling Catheter ABP, PAP, CO, CI - Last Documented Arterial Blood Pressure 125/72 - Exam In general patient is intubated, sedated, maintained on mechanical ventilation HEENT head normocephalic and atraumatic, NG tube is in Neck is supple no JVD no goiter no lymphadenopathy no carotid bruit Chest examination is clear to auscultation no crackles no wheezing Cardiac exam reveals regular heart sounds S1 and S2 no gallops no murmurs Abdomen is soft with mild diffuse tenderness no palpable masses no organomegaly Extremity exam reveals no edema no cyanosis or clubbing Neurological examination reveals no gross focal deficits - Labs CBC & Chem 7: 12/10/21 04:27 12/11/21 11:55 Labs: Abnormal Lab Results - Last 24 Hours (Table) 12/10/21 12/10/21 12/11/21 Range/Units 11:42 14:44 03:00 APTT (22.0-30.0) sec ABG pH (7.35-7.45) ABG pCO2 (35-45) mmHg ABG Total CO2 (19-24) mmol/L Chloride 108 H (98-107) mmol/L BUN 30 H (9-20) mg/dL Creatinine 1.70 H (0.66-1.25) mg/dL Glucose 155 H (74-99) mg/dL POC Glucose (mg/dL) 113 H (70-110) mg/dL Calcium 7.7 L (8.4-10.2) mg/dL Triglycerides 186.00 H (0.00-149.00) mg/dL 12/11/21 12/11/21 Range/Units 05:40 06:07 APTT 54.4 H (22.0-30.0) sec ABG pH 7.49 H (7.35-7.45) ABG pCO2 34 L (35-45) mmHg ABG Total CO2 26 H (19-24) mmol/L Chloride (98-107) mmol/L BUN (9-20) mg/dL Creatinine (0.66-1.25) mg/dL Glucose (74-99) mg/dL POC Glucose (mg/dL) (70-110) mg/dL Calcium (8.4-10.2) mg/dL Triglycerides (0.00-149.00) mg/dL Microbiology - Last 24 Hours (Table) 12/05/21 15:15 Blood Culture - Preliminary Blood No Growth after 120 hours 12/05/21 15:05 Blood Culture - Preliminary Blood No Growth after 120 hours 12/08/21 03:20 Gram Stain - Final Sputum Sputum Culture - Preliminary Assessment and Plan Plan: Distal small bowel obstruction Underlying history of COPD Underlying history of hypertension Acute on chronic renal failure was elevated BUN and creatinine Chronic kidney disease with evidence of autosomal dominant polycystic kidney dis ease on computed tomography scan Episodes of atrial flutter in the emergency room Underlying history of osteoarthritis. Atrial fibrillation with RVR. Patient maintained on amiodarone Hypotension. Patient maintained on Levophed for pressure support At this time patient is in the emergency room plan is to admit to ICU He is maintained on IV fluids and NG tube is in Patient currently intubated and sedated Critical care, cardiology, nephrology and surgical service is following Patient maintained on IV antibiotics Zosyn and Flagyl
[2021-12-11 18:08] LABS: Glucose,Whole Blood 105 mg/dL (70-110)
[2021-12-11] MEDS: 1: MVI, ADULT NO.4 WITH VIT K 10 ML, TRACE (CONC-1ML/DOSE) 1 ML in AMINO ACID 5%-D15W+LY IV SCH ×3 (20:41)
[2021-12-12 00:09] LABS: Glucose,Whole Blood 113 mg/dL (70-110)
[2021-12-12] MEDS: PIPERACILLIN-TAZOBACTAM 3.375 GM in SODIUM CHLORIDE 0.9% 100 ML IVPB SCH ×3 (02:31→18:06)
[2021-12-12] MEDS: HYDROmorphone 0.5 MG/0.5 ML SYRINGE IVP PRN ×2 (04:48→17:42)
[2021-12-12] MEDS: fentaNYL (PF). 1,000 MCG in SODIUM CHLORIDE 0.9% 80 ML IV SCH (04:53)
[2021-12-12 05:19] LABS: HCT 45.2 % (39.0-53.0); HGB 14.6 gm/dL (13.0-17.5); MCH 30.7 pg (25.0-35.0); MCHC 32.3 g/dL (31.0-37.0); MCV 94.9 fL (80.0-100.0); Platelet Count 131 k/uL (150-450); RBC 4.76 m/uL (4.30-5.90); RDW 14.6 % (11.5-15.5); WBC 9.1 k/uL (3.8-10.6)
[2021-12-12 05:37] LABS: ABG Base Excess 1.6 mmol/L; ABG HCO3 26 mmol/L (21-25); ABG Oxygen Saturation 97.3 % (94-97); ABG PCO2 37 mmHg (35-45); ABG PH 7.45 (7.35-7.45); ABG PO2 101 mmHg (83-108); ABG TCO2 27 mmol/L (19-24); Allen Test Performed? Yes
[2021-12-12 05:50] LABS: Calcium 8.1 mg/dL (8.4-10.2); Magnesium 1.9 mg/dL (1.6-2.3); Phosphorus 3.7 mg/dL (2.5-4.5); Potassium 3.9 mmol/L (3.5-5.1)
[2021-12-12] MEDS: POTASSIUM CHLORIDE 10 MEQ in WATER FOR INJECTION 1 100ML.BAG IVPB SCH ×2 (06:16→07:58)
[2021-12-12] MEDS: MAGNESIUM SULFATE-D5W PMX 1 GM in DEXTROSE/WATER 1 100ML.BAG IVPB SCH ×2 (06:35→07:58)
[2021-12-12] MEDS: HEPARIN SOD,PORK IN 0.45% NACL 25,000 UNIT in 0.45% NACL 1 250ML.BAG IV SCH ×2 (07:59→22:48)
--- NOTE | 2021-12-12 08:42 | XR ---
EXAMINATION TYPE: XR chest 1V portable DATE OF EXAM: 12/12/2021 COMPARISON: Chest x-ray 12/11/2021 HISTORY: Intubated TECHNIQUE: Single frontal view of the chest is obtained. FINDINGS: Endotracheal tube and NG tube, left subclavian central venous catheter are overlying appro priate positions. Patient is rotated. There is no evident pneumothorax. Basilar density in the left a ppears a hemidiaphragm as on prior exam. Cardiac mediastinal silhouette is stable. Lung volumes are l ow. There are overlying leads. Interstitium is mildly increased. IMPRESSION: Findings are similar to prior exam. Probable left lower lobe atelectasis versus pneumoni a and associated effusion, there may be a component of interstitial edema, exam is expiratory and rot ated, follow-up recommended.
[2021-12-12] MEDS: PANTOPRAZOLE 40 MG/10 ML VIAL IVP SCH (09:00)
[2021-12-12] MEDS: metroNIDAZOLE-NS PMX 500 MG in SALINE 1 100ML.BAG IVPB SCH ×2 (09:00→15:34)
[2021-12-12] MEDS: CHLORHEXIDINE GLUCONATE 15 ML CUP MUCOUS MEM SCH (09:01)
--- NOTE | 2021-12-12 09:07 | P.PN ---
Subjective Patient is seen in follow-up for acute kidney injury on chronic kidney disease. Renal function fairly stable. Nonoliguric. Off vasopressors. Intubated. NG output about 700 mL overnight. Vital signs are stable. General: Intubated. HEENT: Head exam is unremarkable. LUNGS: Breath sounds decreased. HEART: Regular rhythm. ABDOMEN: Distention noted. EXTREMITITES: No edema. Objective - Vital Signs Vital signs: Vital Signs Temp 97.5 F L 12/12/21 04:00 Pulse 58 L 12/12/21 07:00 Resp 22 12/12/21 07:00 BP 111/72 12/12/21 07:00 Pulse Ox 97 12/12/21 07:00 FiO2 40 12/12/21 07:57 Intake & Output 12/11/21 12/12/21 12/12/21 18:59 06:59 18:59 Intake Total 783.430 840 340.614 Output Total 1480 2655 Balance -696.570 -1815 340.614 Weight 129 kg Intake: IV 610 Amino Acid 5%-D15w+Lytes* 450 E* 1,000 ml @ 45 mls/hr IV .BY DURATION [facility] Rx#: [id number] Mvi, Adult No.4 with Vit 60 K 10 ml Trace (Conc-1Ml/ Dose) 1 ml In Amino Acid 5%-D15w+Lytes*E* 1,000 ml @ 30 mls/hr IV .Q24H [facility] Rx#:[id number] Piperacillin-Tazobactam 3 100 .375 gm In Sodium Chloride 0.9% 100 ml @ 25 mls/hr IVPB Q8H [facility] Rx#: [id number] Intake, IV Titration 783.430 230 340.614 Amount Heparin Sod,Pork in 0.45% 225.988 244.872 NaCl 25,000 unit In 0.45 % NaCl 1 250ml.bag @ 8.46 UNITS/KG/HR 10 mls/hr IV .Q24H [facility] Rx#:[id number] Mvi, Adult No.4 with Vit 330 30 K 10 ml Trace (Conc-1Ml/ Dose) 1 ml In Amino Acid 5%-D15w+Lytes*E* 1,000 ml @ 30 mls/hr IV .Q24H [facility] Rx#:[id number] Norepinephrine 8 mg In 32.17 Sodium Chloride 0.9% 250 ml @ 0.05 MCG/KG/MIN 11. 436 mls/hr IV .[id number] [facility] Rx#:[id number] propofoL 1,000 mg In 195.272 200 95.742 Empty Bag 1 bag @ 5 MCG/ KG/MIN 3.546 mls/hr IV . Q24H [facility] Rx#:[id number] Output: Gastric Drainage 1200 Urine 1480 1455 Other: Voiding Method Indwelling Catheter Indwelling Catheter ABP, PAP, CO, CI - Last Documented Arterial Blood Pressure 124/56 - Labs CBC & Chem 7: 12/12/21 05:07 12/12/21 05:07 Labs: Abnormal Lab Results - Last 24 Hours (Table) 12/11/21 12/12/21 12/12/21 Range/Units 11:54 00:08 05:07 Plt Count (150-450) k/uL APTT (22.0-30.0) sec ABG HCO3 (21-25) mmol/L ABG Total CO2 (19-24) mmol/L ABG O2 Saturation (94-97) % Chloride 109 H (98-107) mmol/L BUN 34 H (9-20) mg/dL Creatinine 1.80 H (0.66-1.25) mg/dL Glucose 128 H (74-99) mg/dL POC Glucose (mg/dL) 112 H 113 H (70-110) mg/dL Calcium 8.1 L (8.4-10.2) mg/dL 12/12/21 12/12/21 12/12/21 Range/Units 05:07 05:07 05:35 Plt Count 131 L (150-450) k/uL APTT 51.8 H (22.0-30.0) sec ABG HCO3 26 H (21-25) mmol/L ABG Total CO2 27 H (19-24) mmol/L ABG O2 Saturation 97.3 H (94-97) % Chloride (98-107) mmol/L BUN (9-20) mg/dL Creatinine (0.66-1.25) mg/dL Glucose (74-99) mg/dL POC Glucose (mg/dL) (70-110) mg/dL Calcium (8.4-10.2) mg/dL Microbiology - Last 24 Hours (Table) 12/05/21 15:15 Blood Culture - Final Blood No Growth after 144 hours 12/05/21 15:05 Blood Culture - Final Blood No Growth after 144 hours Assessment and Plan Plan: Assessment: 1. Acute kidney injury mostly prerenal secondary to hypovolemia from vomiting as well as hypotension and A. fib. Creatinine 4.95 on admission and is stable at 1.8 today. No hydronephrosis noted on CAT scan. 2. Chronic kidney disease stage IIIB with baseline creatinine near 1.8 in 2020 secondary to polycystic kidney disease. 3. A. fib with RVR s/p amiodarone drip. Cardiology following. 4. Metabolic acidosis secondary to acute kidney injury and IV fluids. Improved. 5. Small bowel obstruction. Has NG tube. Surgery following. 6. Hypernatremia from lack of oral water intake. Resolved. 7. Shock s/p Levophed. Plan: Remains off IV fluids. Receiving TPN. Avoid nephrotoxins. Continue to monitor renal function and urine output. Wean FiO2.
--- NOTE | 2021-12-12 10:06 | P.PN ---
Subjective Progress Note Date: 12/12/21 Constantino Hernandez, is a 66 year old male who presented to [facility] emergency room, with a chief complaint of abdominal pain nausea and vomiting, his symptoms started 3 days ago and has been worsening. He was evaluated in the emergency room vital examination on presentation revealed a temperature of 96.7 pulse 101 respiration 24 blood pressure 154/89 however blood pressure dropped to 65/47 shortly after arrival pulse ox was 96% on room air Laboratory data revealed a white blood count of 11.6 hemoglobin 21.3 platelet count 116 sodium 134 potassium 5.0 chloride 94 CO2 16 BUN 91 creatinine 4.95 la ctic acid was elevated at 3.4 total bilirubin 1.5 AST 95 ALT 62 lipase within normal limits, zavala virus PCR was negative Testing in the emergency room revealed chest x-ray done in the emergency room revealed interstitial lung disease and chronic compression deformity of L1, computed tomography scan of the abdomen and pelvis revealed distal small bowel obstruction and 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 In the emergency room patient had an NG tube placed and had large amount of fluid removed, plan is to admit patient, consultation for surgery, nephrology, cardiology, and critical care initiated in the emergency room Past medical history is significant for history of hypertension, history of COPD, history of osteoarthritis, history of chronic kidney disease, history of chronic back pain. 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 On review of systems patient is alert and oriented 3, he has an NG tube in, he is complaining of some abdominal discomfort, otherwise he denies any complaints, there is no fever or chills no headache or dizziness no chest pain no shortness of breath, no nausea or vomiting since NG tube has been placed, no burning with urination no frequency or urgency and no hematuria. On 12/06/2021 patient was seen and examined in the ICU he is alert responsive in no apparent distress, he has an NG tube, he is maintained on oxygen via nasal cannula at 4 L, vital exam at 8 AM temperature 98.4 pulse 123 respiration 16 blood pressure 78/64 pulse ox 92% he is sleepy and denies any complaints at this time, there is no fever or chills no headache or dizziness no chest pain no shortness of breath no cough no nausea or vomiting no abdominal pain no diarrhea and no urinary symptoms, patient has not had any bowel movement or passed any gas since admission, there is some improvement on his laboratory data white blood count is down from 11.6-9.0 creatinine is down from 4.95-3.82 and lactic acid is down to 1.5, recommendation from nephrology, cardiology and critical care reviewed On 12/07/2021 patient is more confused. Per nursing staff patient had increased confusion throughout the night. Heart rate remains elevated. Cardiology services are following patient is on amiodarone. Surgical services ordering abdominal x-ray. Lactic acid 2.1. Creatinine improving to 3.18 awaiting further recommendations from surgery and critical care services On 12/08/2021 patient was seen and examined in the ICU he is intubated sedated maintained on mechanical ventilation, he is on assist control with FiO2 of 50% PEEP of 5 and draped of 26 he is maintained on norepinephrine for pressure control he remains in atrial fibrillation with a heart rate of 125 he is maintained on IV heparin kidney function is improving gradually his sodium is elevated at 150 he is maintained on IV amiodarone he is also maintained on IV antibiotics Zosyn and Flagyl, pulmonary critical care, cardiology, infectious disease, and nephrology are following patient is also followed by general surgery for bowel obstruction computed tomography scan of the brain done this morning did not reveal any evidence of intracranial bleeding, computed tomography scan of the abdomen and pelvis done again this morning and revealed evidence of bowel obstruction without significant change from previous computed tomography scan, will continue to follow closely prognosis is guarded. On 12/09/2021 patient was seen and examined in the ICU he is intubated sedated maintained on mechanical ventilation, no significant change on his ventilation settings, temperature is 90.8 heart rate 80 blood pressure 94/60 white blood count is 10.0 hemoglobin 15.7 platelet count 137 sodium 146 potassium 4.0 chloride 112 CO2 24 BUN 53 creatinine 2.31 patient was cleared by pulmonary and cardiology for abdominal surgery, however surgeon stated that there is some improvement on abdomen x-ray, no plans for surgery today, will continue to monitor closely 12/10/2021 patient remains in the intensive care unit intubated and sedated. No plans for surgical intervention at this time. Patient remains on Levophed for pressure support. Patient also on amiodarone. IV antibiotics of Flagyl and Zosyn. Critical care, surgical, cardiology and nephrology service following. On 12/11/2021 patient was seen and examined in the intensive care unit, he is intubated sedated maintained on mechanical ventilation, case was discussed in details with Dr. Mehta today, vital exam reveals a temperature of 98.2 pulse 62 respiration 18 pressure 120/69 oxygen saturation 96% on FiO2 40% patient is still requiring norepinephrine for pressure support, he is off the amiodarone, he has converted to normal sinus rhythm, renal function is improving with BUN 13 creatinine 1.7 On 12/12/2021 patient remains in the intensive care unit. Patient remains on IV sedation. Patient has been weaned off amiodarone and Levophed. Possible extubation today per critical care. Creatinine 1.80 bun 34. Blood pressure 101/65 heart rate 61. FiO2 40%. Objective - Vital Signs Vital signs: Vital Signs Temp 98.4 F 12/12/21 08:00 Pulse 58 L 12/12/21 10:00 Resp 20 12/12/21 10:00 BP 101/65 12/12/21 10:00 Pulse Ox 96 12/12/21 10:00 FiO2 40 12/12/21 08:00 Intake & Output 12/11/21 12/12/21 12/12/21 18:59 06:59 18:59 Intake Total 783.430 840 575.614 Output Total 1480 2655 350 Balance -696.570 -1815 225.614 Weight 129 kg Intake: IV 610 100 Amino Acid 5%-D15w+Lytes* 450 E* 1,000 ml @ 45 mls/hr IV .BY DURATION [facility] Rx#: [id number] Mvi, Adult No.4 with Vit 60 K 10 ml Trace (Conc-1Ml/ Dose) 1 ml In Amino Acid 5%-D15w+Lytes*E* 1,000 ml @ 30 mls/hr IV .Q24H [facility] Rx#:[id number] Piperacillin-Tazobactam 3 100 .375 gm In Sodium Chloride 0.9% 100 ml @ 25 mls/hr IVPB Q8H [facility] Rx#: [id number] metroNIDAZOLE-NS PMX 500 100 mg In Saline 1 100ml.bag @ 100 mls/hr IVPB Q8HR [facility] Rx#:[id number] Intake, IV Titration 783.430 230 340.614 Amount Heparin Sod,Pork in 0.45% 225.988 244.872 NaCl 25,000 unit In 0.45 % NaCl 1 250ml.bag @ 8.46 UNITS/KG/HR 10 mls/hr IV .Q24H [facility] Rx#:[id number] Mvi, Adult No.4 with Vit 330 30 K 10 ml Trace (Conc-1Ml/ Dose) 1 ml In Amino Acid 5%-D15w+Lytes*E* 1,000 ml @ 30 mls/hr IV .Q24H [facility] Rx#:[id number] Norepinephrine 8 mg In 32.17 Sodium Chloride 0.9% 250 ml @ 0.05 MCG/KG/MIN 11. 436 mls/hr IV .[id number] [facility] Rx#:[id number] propofoL 1,000 mg In 195.272 200 95.742 Empty Bag 1 bag @ 5 MCG/ KG/MIN 3.546 mls/hr IV . Q24H [facility] Rx#:[id number] TPN/PPN 135 Amino Acid 5%-D15w+Lytes* 135 E* 1,000 ml @ 45 mls/hr IV .BY DURATION [facility] Rx#: [id number] Output: Gastric Drainage 1200 50 Urine 1480 1455 300 Other: Voiding Method Indwelling Catheter Indwelling Catheter ABP, PAP, CO, CI - Last Documented Arterial Blood Pressure 106/51 - Exam In general patient is intubated, sedated, maintained on mechanical ventilation HEENT head normocephalic and atraumatic, NG tube is in Neck is supple no JVD no goiter no lymphadenopathy no carotid bruit Chest examination is clear to auscultation no crackles no wheezing Cardiac exam reveals regular heart sounds S1 and S2 no gallops no murmurs Abdomen is soft with mild diffuse tenderness no palpable masses no organomegaly Extremity exam reveals no edema no cyanosis or clubbing Neurological examination reveals no gross focal deficits - Labs CBC & Chem 7: 12/12/21 05:07 12/12/21 05:07 Labs: Abnormal Lab Results - Last 24 Hours (Table) 12/11/21 12/12/21 12/12/21 Range/Units 11:54 00:08 05:07 Plt Count (150-450) k/uL APTT (22.0-30.0) sec ABG HCO3 (21-25) mmol/L ABG Total CO2 (19-24) mmol/L ABG O2 Saturation (94-97) % Chloride 109 H (98-107) mmol/L BUN 34 H (9-20) mg/dL Creatinine 1.80 H (0.66-1.25) mg/dL Glucose 128 H (74-99) mg/dL POC Glucose (mg/dL) 112 H 113 H (70-110) mg/dL Calcium 8.1 L (8.4-10.2) mg/dL 12/12/21 12/12/21 12/12/21 Range/Units 05:07 05:07 05:35 Plt Count 131 L (150-450) k/uL APTT 51.8 H (22.0-30.0) sec ABG HCO3 26 H (21-25) mmol/L ABG Total CO2 27 H (19-24) mmol/L ABG O2 Saturation 97.3 H (94-97) % Chloride (98-107) mmol/L BUN (9-20) mg/dL Creatinine (0.66-1.25) mg/dL Glucose (74-99) mg/dL POC Glucose (mg/dL) (70-110) mg/dL Calcium (8.4-10.2) mg/dL Microbiology - Last 24 Hours (Table) 12/05/21 15:15 Blood Culture - Final Blood No Growth after 144 hours 12/05/21 15:05 Blood Culture - Final Blood No Growth after 144 hours Assessment and Plan Plan: Distal small bowel obstruction Underlying history of COPD Underlying history of hypertension Acute on chronic renal failure was elevated BUN and creatinine Chronic kidney disease with evidence of autosomal dominant polycystic kidney disease on computed tomography scan Episodes of atrial flutter in the emergency room Underlying history of osteoarthritis. Atrial fibrillation with RVR. Patient maintained on amiodarone Hypotension. Patient maintained on Levophed for pressure support. Improving Patient remains in the intensive care unit He is maintained on IV fluids and NG tube is in Patient currently intubated and sedated Critical care, cardiology, nephrology and surgical service is following Patient maintained on IV antibiotics Zosyn and Flagyl
--- NOTE | 2021-12-12 10:20 | P.PN ---
Subjective Progress Note Date: 12/12/21 Patient remains in the ICU, intubated and mechanically ventilated. Patient continues to remain sinus rhythm on the monitor, with a heart rate of 50-60, blood pressure is well-controlled 111/72. Patient continues on IV heparin, will transition patient to oral on Eliquis or Xarelto depending on what is covered when he is able to tolerate oral medications. Patient had a sedation holiday and was not able to tolerate it yesterday. they will attempt with another sedation holiday today. Objective - Vital Signs Vital signs: Vital Signs Temp 97.5 F L 12/12/21 04:00 Pulse 58 L 12/12/21 07:00 Resp 22 12/12/21 07:00 BP 111/72 12/12/21 07:00 Pulse Ox 97 12/12/21 07:00 FiO2 40 12/12/21 07:57 Intake & Output 12/11/21 12/12/21 12/12/21 18:59 06:59 18:59 Intake Total 783.430 840 244.872 Output Total 1480 2655 Balance -696.570 -1815 244.872 Weight 129 kg Intake: IV 610 Amino Acid 5%-D15w+Lytes* 450 E* 1,000 ml @ 45 mls/hr IV .BY DURATION [facility] Rx#: [id number] Mvi, Adult No.4 with Vit 60 K 10 ml Trace (Conc-1Ml/ Dose) 1 ml In Amino Acid 5%-D15w+Lytes*E* 1,000 ml @ 30 mls/hr IV .Q24H [facility] Rx#:[id number] Piperacillin-Tazobactam 3 100 .375 gm In Sodium Chloride 0.9% 100 ml @ 25 mls/hr IVPB Q8H [facility] Rx#: [id number] Intake, IV Titration 783.430 230 244.872 Amount Heparin Sod,Pork in 0.45% 225.988 244.872 NaCl 25,000 unit In 0.45 % NaCl 1 250ml.bag @ 8.46 UNITS/KG/HR 10 mls/hr IV .Q24H [facility] Rx#:[id number] Mvi, Adult No.4 with Vit 330 30 K 10 ml Trace (Conc-1Ml/ Dose) 1 ml In Amino Acid 5%-D15w+Lytes*E* 1,000 ml @ 30 mls/hr IV .Q24H [facility] Rx#:[id number] Norepinephrine 8 mg In 32.17 Sodium Chloride 0.9% 250 ml @ 0.05 MCG/KG/MIN 11. 436 mls/hr IV .[id number] [facility] Rx#:[id number] propofoL 1,000 mg In 195.272 200 Empty Bag 1 bag @ 5 MCG/ KG/MIN 3.546 mls/hr IV . Q24H [facility] Rx#:[id number] Output: Gastric Drainage 1200 Urine 1480 1455 Other: Voiding Method Indwelling Catheter Indwelling Catheter ABP, PAP, CO, CI - Last Documented Arterial Blood Pressure 124/56 - Exam PHYSICAL EXAM: VITAL SIGNS: Reviewed. GENERAL: Well-developed in no acute distress. HEENT: Head is normocephalic. Pupils are equal, round. Sclerae anicteric. Mucous membranes of the mouth are moist. NECK: Supple. No JVD or thyromegaly RESPIRATORY: Patient is intubated and sedated Lungs diminished with scattered wheezes bilaterally CARDIO: irregular rate and rhythm. No murmur or gallops. EXTREMITIES: Normal range of motion. No clubbing or cyanosis. Peripheral pulses intact. Negative for bilateral lower extremity edema NEURO: sedated - Labs CBC & Chem 7: 12/12/21 05:07 12/12/21 05:07 Labs: Abnormal Lab Results - Last 24 Hours (Table) 12/11/21 12/12/21 12/12/21 Range/Units 11:54 00:08 05:07 Plt Count (150-450) k/uL APTT (22.0-30.0) sec ABG HCO3 (21-25) mmol/L ABG Total CO2 (19-24) mmol/L ABG O2 Saturation (94-97) % Chloride 109 H (98-107) mmol/L BUN 34 H (9-20) mg/dL Creatinine 1.80 H (0.66-1.25) mg/dL Glucose 128 H (74-99) mg/dL POC Glucose (mg/dL) 112 H 113 H (70-110) mg/dL Calcium 8.1 L (8.4-10.2) mg/dL 12/12/21 12/12/21 12/12/21 Range/Units 05:07 05:07 05:35 Plt Count 131 L (150-450) k/uL APTT 51.8 H (22.0-30.0) sec ABG HCO3 26 H (21-25) mmol/L ABG Total CO2 27 H (19-24) mmol/L ABG O2 Saturation 97.3 H (94-97) % Chloride (98-107) mmol/L BUN (9-20) mg/dL Creatinine (0.66-1.25) mg/dL Glucose (74-99) mg/dL POC Glucose (mg/dL) (70-110) mg/dL Calcium (8.4-10.2) mg/dL Microbiology - Last 24 Hours (Table) 12/05/21 15:15 Blood Culture - Final Blood No Growth after 144 hours 12/05/21 15:05 Blood Culture - Final Blood No Growth after 144 hours Assessment and Plan Assessment: Persistent Atrial fibrillation converted to sinus rhythm Hypotension secondary to septic shock requiring intubation Improving acute kidney injury Small bowel obstruction Plan: Continue with all current cardiac medications Continue with IV heparin and IV Lopressor prn will transition to oral when patient is able to tolerate oral medications Surgery continues to follow for small bowel obstruction no plans for surgical intervention at this time Continue telemetry monitoring Prognosis guarded. Further recommendations based on clinical course The above impression and plan of care have been discussed and directed by the signing physician. Sheela Chao, nurse practitioner, acting as scribe for signing physician.
[2021-12-12 11:51] LABS: Glucose,Whole Blood 119 mg/dL (70-110)
--- NOTE | 2021-12-12 12:34 | P.PN ---
Subjective Progress Note Date: 12/12/21 Principal diagnosis: Small bowel obstruction, abdominal sepsis, and septic shock This is a 66-year-old male patient, who presented to the emergency because of abdominal pain and nausea and emesis and the patient states that he has not passed a bowel movement for the past 3 days. His oral intake was minimal and was becoming progressively more sick and dehydrated. Upon arrival, he was hypotensive with a BP of 65/47. The patient was started on IV fluids. The patient is known to have polycystic kidney disease and he has chronic kidney disease and his baseline creatinine was 1.8 from 2019. His initial blood work showed a white cell count of 11.6. His hemoglobin was elevated at 21.3 and the baseline is not known. It'll platelet count 214. BUN was at 91 with a creatin ine of 4.95 consistent with an acute on top of chronic kidney disease. Lactic acid level was elevated at 3.4. Based on that, a CAT scan of the abdomen was done that showed a distended stomach, distended small bowel, transition point and a decompressed large bowel. The patient is known to have an umbilical hernia. No evidence of any incarceration. There was evidence of polycystic kidney disease. The patient currently has an NG tube in place. He has occult positive stools. The NG output was 1600. He is known to have COPD, polycystic kidney disease, hypertension. No previous history of abdominal surgeries. His abdomen is still distended. No altered mentation. He is able to follow c ommands and answer questions appropriately. No previous history of cardiac disease. The liver function tests showed an AST of 95, ALT of 62, normal alkaline phosphatase of 59, and the bilirubin was at 1.5. Follow-up lactic acid level is down to 2.5. His COVID 19 by PCR was negative. Normal coagulation profile. On 12/06/2021, the patient's condition essentially unchanged. The patient has an NG tube in place and output was around 400 mL over the past 12 hours. Abdomen is slightly distended. The patient umbilical hernia. He does have some mild direct tenderness. No bowel sounds. No bowel movements. No flatus. He remains obstructive. He was IV fluids and he is still on IV fluids running at the rate of 100 mL an hour of normal saline. The blood work from today shows a white cell count of 9 with a hemoglobin of 18.5. There was an obvious drop in hemoglobin from 21 down to 18. Platelet counts are 93. Blood work shows improvement acute kidney injury. The patient's creatinine is down to 3.8 with a BM 96. Serum bicarbonate of 18 with a sodium level of 138. Liver function tests are all within normal limits. The patient was weaned by general surgery. We'll continue our conservative measures of gastric decompression via an NG tube and general surgeries also on the case. Chest x-ray from today shows some atelectatic changes in lung bases. NG tube is in a good location the stomach. No other acute abnormalities noted. The patient was also seen by nephrology and the patient was also seen by cardiology. The patient wasn't into atrial fibrillation with rapid ventricular response yesterday. He was initially on a Cardizem drip which controlled his rate is not controlled his rate. He became hypotensive. Subsequently, he was switched to a amiodarone drip and currently he is loaded with amiodarone and he is on a maintenance of 1 mg per minute as part of the loading protocol. His current heart rate is 101 and it is still in atrial fibrillation. Echo was also ordered by cardiology. 12/07/2021, the patient is more lethargic compared to yesterday. This morning, he is confused and lethargic. He was requiring significant OUTPUT overnight and he has taken 0.5 mg of Dilaudid IV every 2 hours. NG output is still high in the order of 600 mL. Normal bowel sounds. Abdomen remains distended. The same time, the patient is in atrial fibrillation with rapid ventricular response. Earlier this morning, his heart rate went up to 153. It is still irregular. The patient remains on amiodarone 0.5 mg per minute and the patient also was started on IV heparin yesterday. No evidence of any bleeding. PTT this morning is at 42.6. At the same time, the patient's creatinine continues to improve. He is currently on IV fluids in the form of normal saline at the rate of 100 mL an hour and the BUN is at 92 with a creatinine of 3.18. Sodium is 143. LFTs are within normal limits. The white cell count is at 9.1. The blood cultures of been negative thus far. The overall fluid balance over the past 24 hours has been +1.4 L. She is afebrile. His neurologic exam is nonfocal. He remains on IV Protonix. Gen. surgery is on the case. Echocardiogram was done yesterday and the patient has a preserved LV function with an ejection fraction of 60%. No valvular Abnormalities. Reevaluated today on 12/08/2021, patient is intubated and mechanically ventilate d. Patient was intubated placed last night, and his clinical condition continued to deteriorate. Patient is now on assist control rate of 26, volume 450 FiO2 50% and PEEP of 5, ABG this morning showed a pO2 of 76 pCO2 34 pH of 7.45 and this is patient is on norepinephrine at 0.14 mcg/kg/m also on propofol at 50 mcg/kg/m patient is on IV fluid at 80 mL/h he is also on heparin for atrial fibrillation and his renal functioning seems to be improving however his BUN is 69 creatinine 2.49 and his sodium is 1:15 hence his IV fluid was changed to D5W by nephrology earlier today. Patient is on antibiotics is also on Flagyl. He is on amiodarone 0.5 mg/m, and he is on fentanyl at 0.8 mcg/kg/h all labs were reviewed today, his PTT is 66.2 WBC count is 11.8 hemoglobin is 16.6. Chest x-ray showed endotracheal tube and nasogastric tube as well as central line is stable position. It also showed evidence of interstitial edema/infiltrates with subsegmental atelectasis and small effusion. Pulmonary vascular congestion is noted, underlying pneumonia is not entirely ruled out, it is definitely in the differential diagnoses but this is felt to be less likely Reevaluated today on 12/09/21, remains in the ICU intubated and mechanically ventilated. Patient is on assist control rate of 26, volume 450 FiO2 50% and PEEP of 5. ABG showed a pO2 of 79 pCO2 43 pH of 7.40. Hence no changes were made in the ventilator settings. Chest x-ray today showed minimal vascular congestion, no evidence of pneumonia/infiltrate patient remains on amiodarone of 0.5 mg/m and required norepinephrine at 0.14 mcg/kg/m he is on propofol at 50 mcg/kg/m he is also on Flagyl and Zosyn. Patient is receiving fentanyl at 1.5 mcg/kg/h. Flat plate of the abdomen continues to show dilated bowel however the surgeon on the case and reviewed the case with the radiologist and felt there may be actually better passage of contrast into the ascending colon and a new stool present in the rectum suggestive of improvement of the obstruction. Hence surgery is not planning any surgical intervention at this point, patient was cleared for surgical intervention if felt necessary by surgery on the case. I cleared the patient, and the neurology technologist cleared the patient. WBC count today is 10 hemoglobin 15.7 PTT is 64.3 patient remains on heparin. Electrolytes are normal slightly elevated sodium of 146, renal profile is improving BUN is down to 53 and creatinine is down to 2.31 Reevaluated today on 12/10/21, patient remains in the ICU, intubated and mechanically ventilated. He is presently on assist control rate of 26, tidal volume 450 FiO2 50% PEEP of 5, however after reviewing the ABG, patient a pO2 of 89 pCO2 35 pH of 7.48, I kept him on 50% however I increased his tidal volume to 500 and decrease the rate to 20. Patient is still requiring amiodarone. At 0.5 mg/m, he is also on heparin, propofol at 50 mcg/kg/m, is also on norepinephrine at 0.03 mcg/kg/m. Antibiotics [place], patient remains on Flagyl and on Zosyn. According to the surgeon his chest x-ray and flat bit of the abdomen is showing improvement in his obstructive pattern. Hence no surgery is scheduled. Patient will be started on TPN today, his endotracheal tube was advanced 1.5 cm.WBC count today is 8.6 hemoglobin is 15.0. PTT is 56.7.basic metabolic profile is normal, BUN is 38 creatinine 1.91, improving, but not back to normal.chest x-ray is showing bibasilar atelectasis, possible infiltrate/pneumonia. Patient was reevaluated today on 12/11/21, remains in the ICU, intubated and mechanically ventilated and sedated patient is on assist control rate of 20 tidal volume 500 FiO2 50% and PEEP of 5. ABG showed a pO2 of 87 pCO2 34 pH of 7.49 hence no changes made in his ventilator settings. Patient is still requiring norepinephrine at 0.02 mcg/kg/m he is on propofol 45 mcg/kg/m and I am cutting down the propofol to assess mental status and give him a sedation interruption trial. Patient remains on TPN remains on heparin. Continues to have no bowel movements, abdomen remains distended however I could hear bowel sounds today. Patient remains off fentanyl. Chest x-ray is showing mostly basilar atelectasis,/infiltrates, but improving steadily over the last few days. Patient is now off amiodarone, he converted to sinus rhythm. Nonetheless he remains on heparin. Renal profile is improving creatinine is down to 1.70 BUN is 30. His creatinine was as high as 4.95 on his initial evaluation/admission Reevaluated today on 12/12/21, remains in ICU, intubated and mechanically ventilated, ventilator settings are assist control rate of 20 tidal volume 500 FiO2 40% and PEEP of 5. ABG showed a pO2 of 101 pCO2 37 pH of 7.45. Patient is off norepinephrine, he is still on propofol at 45 mcg/kg/m remains on heparin remains on TPN his also on Zosyn and Flagyl. Patient apparently had a small bowel movement yesterday his abdomen continues to be distended however. Seen by surgery yesterday, and no plans for any surgical intervention at this point since the patient is slowly improving. Considering this, I will give the patient today a weaning trial, I would likely discontinue propofol, and I would likely give the patient a trial of pressure support and CPAP, however he has to meet all the criteria for weaning and extubation before we proceed with extubating the patient. And this is yet to be determined today. Chest x-ray showed significant improvement in airspace disease and atelectasis, his WBC count today is 9.1 hemoglobin is 14.6. Basic metabolic profile is normal and his creatinine is holding at 1.80 Objective - Vital Signs Vital signs: Vital Signs Temp 95.6 F L 12/12/21 12:00 Pulse 72 12/12/21 12:00 Resp 16 12/12/21 12:00 BP 109/66 12/12/21 12:00 Pulse Ox 97 12/12/21 12:00 FiO2 40 12/12/21 12:04 Intake & Output 12/11/21 12/12/21 12/12/21 18:59 06:59 18:59 Intake Total 783.430 840 873.580 Output Total 1480 2655 705 Balance -696.570 -1815 168.580 Weight 129 kg 129 kg Intake: IV 610 240 0.9 40 Amino Acid 5%-D15w+Lytes* 450 E* 1,000 ml @ 45 mls/hr IV .BY DURATION [facility] Rx#: [id number] Mvi, Adult No.4 with Vit 60 K 10 ml Trace (Conc-1Ml/ Dose) 1 ml In Amino Acid 5%-D15w+Lytes*E* 1,000 ml @ 30 mls/hr IV .Q24H [facility] Rx#:[id number] Piperacillin-Tazobactam 3 100 100 .375 gm In Sodium Chloride 0.9% 100 ml @ 25 mls/hr IVPB Q8H [facility] Rx#: [id number] metroNIDAZOLE-NS PMX 500 100 mg In Saline 1 100ml.bag @ 100 mls/hr IVPB Q8HR [facility] Rx#:[id number] Intake, IV Titration 783.430 230 408.580 Amount Heparin Sod,Pork in 0.45% 225.988 244.872 NaCl 25,000 unit In 0.45 % NaCl 1 250ml.bag @ 8.46 UNITS/KG/HR 10 mls/hr IV .Q24H [facility] Rx#:[id number] Mvi, Adult No.4 with Vit 330 30 K 10 ml Trace (Conc-1Ml/ Dose) 1 ml In Amino Acid 5%-D15w+Lytes*E* 1,000 ml @ 30 mls/hr IV .Q24H [facility] Rx#:[id number] Norepinephrine 8 mg In 32.17 Sodium Chloride 0.9% 250 ml @ 0.05 MCG/KG/MIN 11. 436 mls/hr IV .[id number] [facility] Rx#:[id number] propofoL 1,000 mg In 195.272 200 163.708 Empty Bag 1 bag @ 5 MCG/ KG/MIN 3.546 mls/hr IV . Q24H [facility] Rx#:[id number] TPN/PPN 225 Amino Acid 5%-D15w+Lytes* 225 E* 1,000 ml @ 45 mls/hr IV .BY DURATION [facility] Rx#: [id number] Output: Gastric Drainage 1200 200 Urine 1480 1455 505 Other: Voiding Method Indwelling Catheter Indwelling Catheter Indwelling Catheter ABP, PAP, CO, CI - Last Documented Arterial Blood Pressure 143/70 - Exam Physical Exam: Revealed a 66-year-old white male intubated and sedated and mechanically ventilated in no distress. Head: Atraumatic, normocephalic, endotracheal tube and orogastric tube are intact HEENT:[Neck is supple.] [No neck masses.] [No thyromegaly.] [No JVD.]., EOMI, nonicteric. Chest: [Crackles at the bases symmetrical chest expansion Cardiac Exam: Regular rate and rhythm. [Normal S1 and S2, no S3 gallop, no murmur.] Abdomen: [Obese, distended, could not appreciate tenderness however the patient is sedated and on fentanyl drip no megaly, no rebound, no guarding, positive bowel sounds today. Extremities: [No clubbing, trace of bipedal edema, no cyanosis.], Diminished pulses bilaterally. Neurological Exam: Cannot assess, patient is sedated and ventilated. Psychiatric: Could not assess. Musculoskeletal: No deformities. Skin: No rashes - Labs CBC & Chem 7: 12/12/21 05:07 12/12/21 05:07 Labs: Abnormal Lab Results - Last 24 Hours (Table) 12/12/21 12/12/21 12/12/21 Range/Units 00:08 05:07 05:07 Plt Count (150-450) k/uL APTT 51.8 H (22.0-30.0) sec ABG HCO3 (21-25) mmol/L ABG Total CO2 (19-24) mmol/L ABG O2 Saturation (94-97) % Chloride 109 H (98-107) mmol/L BUN 34 H (9-20) mg/dL Creatinine 1.80 H (0.66-1.25) mg/dL Glucose 128 H (74-99) mg/dL POC Glucose (mg/dL) 113 H (70-110) mg/dL Calcium 8.1 L (8.4-10.2) mg/dL 12/12/21 12/12/21 12/12/21 Range/Units 05:07 05:35 11:49 Plt Count 131 L (150-450) k/uL APTT (22.0-30.0) sec ABG HCO3 26 H (21-25) mmol/L ABG Total CO2 27 H (19-24) mmol/L ABG O2 Saturation 97.3 H (94-97) % Chloride (98-107) mmol/L BUN (9-20) mg/dL Creatinine (0.66-1.25) mg/dL Glucose (74-99) mg/dL POC Glucose (mg/dL) 119 H (70-110) mg/dL Calcium (8.4-10.2) mg/dL Microbiology - Last 24 Hours (Table) 12/05/21 15:15 Blood Culture - Final Blood No Growth after 144 hours 12/05/21 15:05 Blood Culture - Final Blood No Growth after 144 hours Assessment and Plan Assessment: Impression: acute hypoxic respiratory failure requiring intubation and mechanical ventilation, secondary to above obstruction, abdominal sepsis, and possible septic shock. Acute small bowel obstruction Abdominal sepsis and septic shock Acute metabolic encephalopathy secondary to above New onset atrial fibrillation with RVR, however the patient converted to normal sinus to them yesterday, and is now off amiodarone umbilical hernia without incarceration Acute kidney injury secondary to sepsis, improving steadily since admission. Acute dehydration improving and his renal functioning is also improving with hydration. Anion gap metabolic acidosis secondary to abdominal sepsis and renal failure, resolved. Underlying COPD Benign essential hypertension Degenerative joint disease History of nephrolithiasis Chronic back pain Recommendation: Continue ventilatory support, however I will give the patient a trial of weaning today by switching the patient after stopping propofol and after awakening to pressure support of 10 and CPAP. Continue IV fluid, continue to monitor electrolytes. Continue heparin Off norepinephrine today. Stop propofol and assess mental status and possibly give the patient a weaning trial Continue nasogastric tube to suction Continue GI and DVT prophylaxis Continue TPN Remains critically ill Critical care time is over 30 minutes. Time with Patient: Greater than 30
--- NOTE | 2021-12-12 12:43 | P.PN ---
Subjective Progress Note Date: 12/12/21 Principal diagnosis: Small bowel obstruction The patient is seen on rounds. He's being weaned off the ventilator. In questioning the patient denies abdominal pain. He appears to be nodding yes and no appropriately. Objective - Vital Signs Vital signs: Vital Signs Temp 95.6 F L 12/12/21 12:00 Pulse 72 12/12/21 12:00 Resp 16 12/12/21 12:00 BP 109/66 12/12/21 12:00 Pulse Ox 97 12/12/21 12:00 FiO2 40 12/12/21 12:04 Intake & Output 12/11/21 12/12/21 12/12/21 18:59 06:59 18:59 Intake Total 783.430 840 873.580 Output Total 1480 2655 705 Balance -696.570 -1815 168.580 Weight 129 kg 129 kg Intake: IV 610 240 0.9 40 Amino Acid 5%-D15w+Lytes* 450 E* 1,000 ml @ 45 mls/hr IV .BY DURATION [facility] Rx#: [id number] Mvi, Adult No.4 with Vit 60 K 10 ml Trace (Conc-1Ml/ Dose) 1 ml In Amino Acid 5%-D15w+Lytes*E* 1,000 ml @ 30 mls/hr IV .Q24H [facility] Rx#:[id number] Piperacillin-Tazobactam 3 100 100 .375 gm In Sodium Chloride 0.9% 100 ml @ 25 mls/hr IVPB Q8H [facility] Rx#: [id number] metroNIDAZOLE-NS PMX 500 100 mg In Saline 1 100ml.bag @ 100 mls/hr IVPB Q8HR [facility] Rx#:[id number] Intake, IV Titration 783.430 230 408.580 Amount Heparin Sod,Pork in 0.45% 225.988 244.872 NaCl 25,000 unit In 0.45 % NaCl 1 250ml.bag @ 8.46 UNITS/KG/HR 10 mls/hr IV .Q24H [facility] Rx#:[id number] Mvi, Adult No.4 with Vit 330 30 K 10 ml Trace (Conc-1Ml/ Dose) 1 ml In Amino Acid 5%-D15w+Lytes*E* 1,000 ml @ 30 mls/hr IV .Q24H [facility] Rx#:[id number] Norepinephrine 8 mg In 32.17 Sodium Chloride 0.9% 250 ml @ 0.05 MCG/KG/MIN 11. 436 mls/hr IV .[id number] [facility] Rx#:[id number] propofoL 1,000 mg In 195.272 200 163.708 Empty Bag 1 bag @ 5 MCG/ KG/MIN 3.546 mls/hr IV . Q24H [facility] Rx#:[id number] TPN/PPN 225 Amino Acid 5%-D15w+Lytes* 225 E* 1,000 ml @ 45 mls/hr IV .BY DURATION [facility] Rx#: [id number] Output: Gastric Drainage 1200 200 Urine 1480 1455 505 Other: Voiding Method Indwelling Catheter Indwelling Catheter Indwelling Catheter ABP, PAP, CO, CI - Last Documented Arterial Blood Pressure 143/70 - Constitutional General appearance: Present: cooperative, no acute distress - Gastrointestinal Gastrointestinal Comment(s): Some tympany to percussion General gastrointestinal: Present: distended, normal bowel sounds. Absent: tenderness - Labs CBC & Chem 7: 12/12/21 05:07 12/12/21 05:07 Labs: Abnormal Lab Results - Last 24 Hours (Table) 12/12/21 12/12/21 12/12/21 Range/Units 00:08 05:07 05:07 Plt Count (150-450) k/uL APTT 51.8 H (22.0-30.0) sec ABG HCO3 (21-25) mmol/L ABG Total CO2 (19-24) mmol/L ABG O2 Saturation (94-97) % Chloride 109 H (98-107) mmol/L BUN 34 H (9-20) mg/dL Creatinine 1.80 H (0.66-1.25) mg/dL Glucose 128 H (74-99) mg/dL POC Glucose (mg/dL) 113 H (70-110) mg/dL Calcium 8.1 L (8.4-10.2) mg/dL 12/12/21 12/12/21 12/12/21 Range/Units 05:07 05:35 11:49 Plt Count 131 L (150-450) k/uL APTT (22.0-30.0) sec ABG HCO3 26 H (21-25) mmol/L ABG Total CO2 27 H (19-24) mmol/L ABG O2 Saturation 97.3 H (94-97) % Chloride (98-107) mmol/L BUN (9-20) mg/dL Creatinine (0.66-1.25) mg/dL Glucose (74-99) mg/dL POC Glucose (mg/dL) 119 H (70-110) mg/dL Calcium (8.4-10.2) mg/dL Microbiology - Last 24 Hours (Table) 12/05/21 15:15 Blood Culture - Final Blood No Growth after 144 hours 12/05/21 15:05 Blood Culture - Final Blood No Growth after 144 hours Assessment and Plan (1) Small bowel obstruction Current Visit: Yes Status: Acute Code(s): K56.609 - UNSP INTESTNL OBST, UNSP TO PARTIAL VERSUS COMPLETE OBST SNOMED Code(s): 309466407 Plan: Patient is medically improving. Plan is to extubate him later today. He had a small smear of a bowel movement. X-ray from several days ago showed contrast through to the colon. X-rays will be repeated tomorrow. Also give Dulcolax suppository to try to stimulate from downstream. Patient is slowly improving. No plans for surgery at this time.
[2021-12-12 12:48] LABS: ABG Base Excess 1.5 mmol/L; ABG HCO3 25 mmol/L (21-25); ABG Oxygen Saturation 97.1 % (94-97); ABG PCO2 35 mmHg (35-45); ABG PH 7.47 (7.35-7.45); ABG PO2 96 mmHg (83-108); ABG TCO2 26 mmol/L (19-24); Allen Test Performed? Yes
[2021-12-12] MEDS: bisacodyL 10 MG SUPP RECTAL SCH (13:15)
[2021-12-12] MEDS: DEXMEDETOMIDINE/0.9% NACL(PMX) 400 MCG in EMPTY BAG 1 BAG IV SCH (14:58)
[2021-12-12] MEDS: 1: MVI, ADULT NO.4 WITH VIT K 10 ML, TRACE (CONC-1ML/DOSE) 1 ML in AMINO ACID 5%-D15W+LY IV SCH ×6 (16:24→16:32)
[2021-12-13] MEDS: metroNIDAZOLE-NS PMX 500 MG in SALINE 1 100ML.BAG IVPB SCH ×4 (00:23→23:47)
[2021-12-13] MEDS: PIPERACILLIN-TAZOBACTAM 3.375 GM in SODIUM CHLORIDE 0.9% 100 ML IVPB SCH ×3 (02:56→18:14)
[2021-12-13 05:40] LABS: Calcium 8.4 mg/dL (8.4-10.2); Magnesium 1.9 mg/dL (1.6-2.3); Phosphorus 3.1 mg/dL (2.5-4.5); Potassium 3.8 mmol/L (3.5-5.1)
[2021-12-13] MEDS: MAGNESIUM SULFATE-D5W PMX 1 GM in DEXTROSE/WATER 1 100ML.BAG IVPB SCH ×2 (06:01→07:07)
[2021-12-13] MEDS: POTASSIUM CHLORIDE 10 MEQ in WATER FOR INJECTION 1 100ML.BAG IVPB SCH ×2 (06:01→07:05)
--- NOTE | 2021-12-13 07:24 | XR ---
EXAMINATION TYPE: XR abdomen 1V DATE OF EXAM: 12/13/2021 3:58 AM INDICATION: Patient age:Male; 66 years old; Reason for study: follow up small bowel obstruction; COMPARISON: 12/10/2021. TECHNIQUE: One radiographic view of the abdomen was obtained. FINDINGS: Multiple dilated loops of small bowel are seen measuring up to 5.4 cm. Nasogastric tube wit h distal tip projecting over the diaphragm the side-port projects in the distal esophagus. IMPRESSION: 1. Persistent dilation of the upper abdomen small bowel up to 5.4 cm. 2. Nasogastric tube side-port in the distal esophagus consider advancement of 9 cm.
--- NOTE | 2021-12-13 08:01 | XR ---
EXAMINATION TYPE: XR chest 1V portable DATE OF EXAM: 12/13/2021 3:58 AM COMPARISON: Chest radiograph from one day prior. TECHNIQUE: XR chest 1V portable Portable AP radiograph of the chest. CLINICAL INDICATION:Male, 66 years old with history of Tube placement; FINDINGS: Lungs/Pleura: There is no evidence of pleural effusion, focal consolidation, or pneumothorax. Simila r bibasilar streaky probable atelectasis. Pulmonary vascularity: Unremarkable. Heart/mediastinum: Cardiomediastinal silhouette is unremarkable. Musculoskeletal: No acute osseous pathology. Lines/Tubes: Nasogastric tube with side-port projecting over the distal esophagus. Left Central venous catheter with tip in the superior vena cava. IMPRESSION: 1. Nasogastric tube with side-port projecting distal esophagus consider advancement of 7 cm for opti mal placement. 2. Similar bibasilar atelectasis
[2021-12-13] MEDS: PANTOPRAZOLE 40 MG/10 ML VIAL IVP SCH ×2 (09:55→20:52)
[2021-12-13] MEDS: bisacodyL 10 MG SUPP RECTAL SCH (09:56)
[2021-12-13] MEDS: 1: MVI, ADULT NO.4 WITH VIT K 10 ML, TRACE (CONC-1ML/DOSE) 1 ML in AMINO ACID 5%-D15W+LY IV SCH ×3 (10:02)
--- NOTE | 2021-12-13 10:32 | P.PN ---
Subjective Progress Note Date: 12/13/21 Constantino Hernandez, is a 66 year old male who presented to [facility] emergency room, with a chief complaint of abdominal pain nausea and vomiting, his symptoms started 3 days ago and has been worsening. He was evaluated in the emergency room vital examination on presentation revealed a temperature of 96.7 pulse 101 respiration 24 blood pressure 154/89 however blood pressure dropped to 65/47 shortly after arrival pulse ox was 96% on room air Laboratory data revealed a white blood count of 11.6 hemoglobin 21.3 platelet count 116 sodium 134 potassium 5.0 chloride 94 CO2 16 BUN 91 creatinine 4.95 la ctic acid was elevated at 3.4 total bilirubin 1.5 AST 95 ALT 62 lipase within normal limits, zavala virus PCR was negative Testing in the emergency room revealed chest x-ray done in the emergency room revealed interstitial lung disease and chronic compression deformity of L1, computed tomography scan of the abdomen and pelvis revealed distal small bowel obstruction and 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 In the emergency room patient had an NG tube placed and had large amount of fluid removed, plan is to admit patient, consultation for surgery, nephrology, cardiology, and critical care initiated in the emergency room Past medical history is significant for history of hypertension, history of COPD, history of osteoarthritis, history of chronic kidney disease, history of chronic back pain. 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 On review of systems patient is alert and oriented 3, he has an NG tube in, he is complaining of some abdominal discomfort, otherwise he denies any complaints, there is no fever or chills no headache or dizziness no chest pain no shortness of breath, no nausea or vomiting since NG tube has been placed, no burning with urination no frequency or urgency and no hematuria. On 12/06/2021 patient was seen and examined in the ICU he is alert responsive in no apparent distress, he has an NG tube, he is maintained on oxygen via nasal cannula at 4 L, vital exam at 8 AM temperature 98.4 pulse 123 respiration 16 blood pressure 78/64 pulse ox 92% he is sleepy and denies any complaints at this time, there is no fever or chills no headache or dizziness no chest pain no shortness of breath no cough no nausea or vomiting no abdominal pain no diarrhea and no urinary symptoms, patient has not had any bowel movement or passed any gas since admission, there is some improvement on his laboratory data white blood count is down from 11.6-9.0 creatinine is down from 4.95-3.82 and lactic acid is down to 1.5, recommendation from nephrology, cardiology and critical care reviewed On 12/07/2021 patient is more confused. Per nursing staff patient had increased confusion throughout the night. Heart rate remains elevated. Cardiology services are following patient is on amiodarone. Surgical services ordering abdominal x-ray. Lactic acid 2.1. Creatinine improving to 3.18 awaiting further recommendations from surgery and critical care services On 12/08/2021 patient was seen and examined in the ICU he is intubated sedated maintained on mechanical ventilation, he is on assist control with FiO2 of 50% PEEP of 5 and draped of 26 he is maintained on norepinephrine for pressure control he remains in atrial fibrillation with a heart rate of 125 he is maintained on IV heparin kidney function is improving gradually his sodium is elevated at 150 he is maintained on IV amiodarone he is also maintained on IV antibiotics Zosyn and Flagyl, pulmonary critical care, cardiology, infectious disease, and nephrology are following patient is also followed by general surgery for bowel obstruction computed tomography scan of the brain done this morning did not reveal any evidence of intracranial bleeding, computed tomography scan of the abdomen and pelvis done again this morning and revealed evidence of bowel obstruction without significant change from previous computed tomography scan, will continue to follow closely prognosis is guarded. On 12/09/2021 patient was seen and examined in the ICU he is intubated sedated maintained on mechanical ventilation, no significant change on his ventilation settings, temperature is 90.8 heart rate 80 blood pressure 94/60 white blood count is 10.0 hemoglobin 15.7 platelet count 137 sodium 146 potassium 4.0 chloride 112 CO2 24 BUN 53 creatinine 2.31 patient was cleared by pulmonary and cardiology for abdominal surgery, however surgeon stated that there is some improvement on abdomen x-ray, no plans for surgery today, will continue to monitor closely 12/10/2021 patient remains in the intensive care unit intubated and sedated. No plans for surgical intervention at this time. Patient remains on Levophed for pressure support. Patient also on amiodarone. IV antibiotics of Flagyl and Zosyn. Critical care, surgical, cardiology and nephrology service following. On 12/11/2021 patient was seen and examined in the intensive care unit, he is intubated sedated maintained on mechanical ventilation, case was discussed in details with Dr. Mehta today, vital exam reveals a temperature of 98.2 pulse 62 respiration 18 pressure 120/69 oxygen saturation 96% on FiO2 40% patient is still requiring norepinephrine for pressure support, he is off the amiodarone, he has converted to normal sinus rhythm, renal function is improving with BUN 13 creatinine 1.7 On 12/12/2021 patient remains in the intensive care unit. Patient remains on IV sedation. Patient has been weaned off amiodarone and Levophed. Possible extubation today per critical care. Creatinine 1.80 bun 34. Blood pressure 101/65 heart rate 61. FiO2 40%. On 12/13/2021 patient was seen and examined in the ICU he is alert responsive in no apparent distress, he was extubated yesterday he is maintained on oxygen via nasal cannula and is tolerating well, NG tube is still in and maintained to suction, abdomen x-ray this morning still reveals evidence of bowel obstruction was dilated bowel loops, clinically patient is alert and answering questions appropriately, he states he is passing some gas, nurse states that that his smears of stools but no bowel movements, his heart rate is regular remains in normal sinus, he has bowel sounds, kidney function is improving, will continue to follow closely, input from pulmonary critical care, and surgery reviewed Objective - Vital Signs Vital signs: Vital Signs Temp 99 F 12/13/21 04:00 Pulse 77 12/13/21 07:00 Resp 17 12/13/21 07:00 BP 147/90 12/13/21 07:00 Pulse Ox 95 12/13/21 07:00 FiO2 40 12/12/21 12:04 Intake & Output 12/12/21 12/13/21 12/13/21 18:59 06:59 18:59 Intake Total 8584.436 0886 276 Output Total 2355 2895 150 Balance -869.294 -1416 126 Weight 129 kg 125.3 kg Intake: IV 560 1056 276 0.9 160 240 20 Magnesium Sulfate-D5w Pmx 100 100 1 gm In Dextrose/Water 1 100ml.bag @ 100 mls/hr IVPB Q1H [facility] Rx#: [id number] Mvi, Adult No.4 with Vit 616 56 K 10 ml Trace (Conc-1Ml/ Dose) 1 ml In Amino Acid 5%-D15w+Lytes*E* 1,000 ml @ 56 mls/hr IV .BY DURATION [facility] Rx#: [id number] Piperacillin-Tazobactam 3 200 .375 gm In Sodium Chloride 0.9% 100 ml @ 25 mls/hr IVPB Q8H [facility] Rx#: [id number] Potassium Chloride 10 meq 100 100 In Water For Injection 1 100ml.bag @ 100 mls/hr IVPB Q1H [facility] Rx#: [id number] metroNIDAZOLE-NS PMX 500 200 mg In Saline 1 100ml.bag @ 100 mls/hr IVPB Q8HR [facility] Rx#:[id number] Intake, IV Titration 408.580 250 Amount Heparin Sod,Pork in 0.45% 244.872 250 NaCl 25,000 unit In 0.45 % NaCl 1 250ml.bag @ 8.46 UNITS/KG/HR 10 mls/hr IV .Q24H [facility] Rx#:[id number] propofoL 1,000 mg In 163.708 Empty Bag 1 bag @ 5 MCG/ KG/MIN 3.546 mls/hr IV . Q24H [facility] Rx#:[id number] TPN/PPN 517 56 Amino Acid 5%-D15w+Lytes* 405 E* 1,000 ml @ 45 mls/hr IV .BY DURATION [facility] Rx#: [id number] TPN 112 56 Output: Gastric Drainage 500 1000 Urine 1855 1895 150 Other: Voiding Method Indwelling Catheter Indwelling Catheter # Bowel Movements 1 ABP, PAP, CO, CI - Last Documented Arterial Blood Pressure 167/76 - Exam In general patient is alert and oriented in no distress HEENT head normocephalic and atraumatic, NG tube is in Neck is supple no JVD no goiter no lymphadenopathy no carotid bruit Chest examination is clear to auscultation no crackles no wheezing Cardiac exam reveals regular heart sounds S1 and S2 no gallops no murmurs Abdomen is soft with mild diffuse tenderness no palpable masses no organomegaly Extremity exam reveals no edema no cyanosis or clubbing Neurological examination reveals no gross focal deficits - Labs CBC & Chem 7: 09/30/22 05:07 12/13/21 05:10 Labs: Abnormal Lab Results - Last 24 Hours (Table) 12/12/21 12/12/21 12/13/21 Range/Units 11:49 12:44 05:10 APTT (22.0-30.0) sec ABG pH 7.47 H (7.35-7.45) ABG Total CO2 26 H (19-24) mmol/L ABG O2 Saturation 97.1 H (94-97) % Chloride 109 H (98-107) mmol/L BUN 34 H (9-20) mg/dL Creatinine 1.55 H (0.66-1.25) mg/dL Glucose 137 H (74-99) mg/dL POC Glucose (mg/dL) 119 H (70-110) mg/dL 12/13/21 Range/Units 05:10 APTT 52.7 H (22.0-30.0) sec ABG pH (7.35-7.45) ABG Total CO2 (19-24) mmol/L ABG O2 Saturation (94-97) % Chloride (98-107) mmol/L BUN (9-20) mg/dL Creatinine (0.66-1.25) mg/dL Glucose (74-99) mg/dL POC Glucose (mg/dL) (70-110) mg/dL Assessment and Plan Plan: Distal small bowel obstruction Underlying history of COPD Underlying history of hypertension Acute on chronic renal failure was elevated BUN and creatinine Chronic kidney disease with evidence of autosomal dominant polycystic kidney disease on computed tomography scan Episodes of atrial flutter in the emergency room Underlying history of osteoarthritis. Atrial fibrillation with RVR. Patient maintained on amiodarone Hypotension. Patient maintained on Levophed for pressure support. Improving Patient remains in the intensive care unit He is maintained on IV fluids and NG tube is in Patient currently intubated and sedated Critical care, cardiology, nephrology and surgical service is following Patient maintained on IV antibiotics Zosyn and Flagyl
--- NOTE | 2021-12-13 10:47 | P.PN ---
Subjective Patient is seen for follow-up for acute kidney injury. Renal function has improved. Patient is awake, alert oriented 3. NG tube drainage of about 1500 mL Patient has had good urine output. Receiving TPN at 56 mL per hour. Off of pressors Serum creatinine is down to 1.5 today. Objective - Vital Signs Vital signs: Vital Signs Temp 98.2 F 12/13/21 08:00 Pulse 89 12/13/21 10:00 Resp 21 12/13/21 10:00 BP 152/95 12/13/21 10:00 Pulse Ox 96 12/13/21 10:00 FiO2 40 12/12/21 12:04 Intake & Output 12/12/21 12/13/21 12/13/21 18:59 06:59 18:59 Intake Total 7279.163 8953 574 Output Total 2355 2895 495 Balance -869.420 -1533 79 Weight 129 kg 125.3 kg Intake: IV 560 1056 574 0.9 160 240 50 Magnesium Sulfate-D5w Pmx 100 100 1 gm In Dextrose/Water 1 100ml.bag @ 100 mls/hr IVPB Q1H [facility] Rx#: [id number] Mvi, Adult No.4 with Vit 616 56 K 10 ml Trace (Conc-1Ml/ Dose) 1 ml In Amino Acid 5%-D15w+Lytes*E* 1,000 ml @ 56 mls/hr IV .BY DURATION [facility] Rx#: [id number] Piperacillin-Tazobactam 3 200 .375 gm In Sodium Chloride 0.9% 100 ml @ 25 mls/hr IVPB Q8H [facility] Rx#: [id number] Potassium Chloride 10 meq 100 100 In Water For Injection 1 100ml.bag @ 100 mls/hr IVPB Q1H [facility] Rx#: [id number] TPN 168 metroNIDAZOLE-NS PMX 500 200 100 mg In Saline 1 100ml.bag @ 100 mls/hr IVPB Q8HR [facility] Rx#:[id number] Intake, IV Titration 408.580 250 Amount Heparin Sod,Pork in 0.45% 244.872 250 NaCl 25,000 unit In 0.45 % NaCl 1 250ml.bag @ 8.46 UNITS/KG/HR 10 mls/hr IV .Q24H [facility] Rx#:[id number] propofoL 1,000 mg In 163.708 Empty Bag 1 bag @ 5 MCG/ KG/MIN 3.546 mls/hr IV . Q24H 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 Patient has an NG tube - Labs CBC & Chem 7: 12/12/21 05:07 12/13/21 05:10 Labs: Abnormal Lab Results - Last 24 Hours (Table) 12/12/21 12/12/21 12/13/21 Range/Units 11:49 12:44 05:10 APTT (22.0-30.0) sec ABG pH 7.47 H (7.35-7.45) ABG Total CO2 26 H (19-24) mmol/L ABG O2 Saturation 97.1 H (94-97) % Chloride 109 H (98-107) mmol/L BUN 34 H (9-20) mg/dL Creatinine 1.55 H (0.66-1.25) mg/dL Glucose 137 H (74-99) mg/dL POC Glucose (mg/dL) 119 H (70-110) mg/dL 12/13/21 Range/Units 05:10 APTT 52.7 H (22.0-30.0) sec ABG pH (7.35-7.45) ABG Total CO2 (19-24) mmol/L ABG O2 Saturation (94-97) % Chloride (98-107) mmol/L BUN (9-20) mg/dL Creatinine (0.66-1.25) mg/dL Glucose (74-99) mg/dL POC Glucose (mg/dL) (70-110) mg/dL Assessment and Plan Assessment: 1. Acute kidney injury mostly prerenal secondary to hypovolemia from vomiting as well as hypotension and A. fib. Creatinine 4.95 on admission and is stable at 1.5 today. No hydronephrosis noted on CAT scan. 2. Chronic kidney disease stage IIIB with baseline creatinine near 1.8 in 2020 secondary to polycystic kidney disease. 3. A. fib with RVR s/p amiodarone drip. Cardiology following. 4. Metabolic acidosis secondary to acute kidney injury and IV fluids. Improved. 5. Small bowel obstruction. Has NG tube. Surgery following. 6. Hypernatremia from lack of oral water intake. Resolved. 7. Shock s/p Levophed. Plan: Continue TPN Status post potassium replacement Continue to avoid nephrotoxic agents Repeat labs in a.m.
--- NOTE | 2021-12-13 11:18 | P.PN ---
Subjective Progress Note Date: 12/13/21 Principal diagnosis: Small bowel obstruction, abdominal sepsis, and septic shock This is a 66-year-old male patient, who presented to the emergency because of abdominal pain and nausea and emesis and the patient states that he has not passed a bowel movement for the past 3 days. His oral intake was minimal and was becoming progressively more sick and dehydrated. Upon arrival, he was hypotensive with a BP of 65/47. The patient was started on IV fluids. The patient is known to have polycystic kidney disease and he has chronic kidney disease and his baseline creatinine was 1.8 from 2019. His initial blood work showed a white cell count of 11.6. His hemoglobin was elevated at 21.3 and the baseline is not known. It'll platelet count 214. BUN was at 91 with a creatin ine of 4.95 consistent with an acute on top of chronic kidney disease. Lactic acid level was elevated at 3.4. Based on that, a CAT scan of the abdomen was done that showed a distended stomach, distended small bowel, transition point and a decompressed large bowel. The patient is known to have an umbilical hernia. No evidence of any incarceration. There was evidence of polycystic kidney disease. The patient currently has an NG tube in place. He has occult positive stools. The NG output was 1600. He is known to have COPD, polycystic kidney disease, hypertension. No previous history of abdominal surgeries. His abdomen is still distended. No altered mentation. He is able to follow c ommands and answer questions appropriately. No previous history of cardiac disease. The liver function tests showed an AST of 95, ALT of 62, normal alkaline phosphatase of 59, and the bilirubin was at 1.5. Follow-up lactic acid level is down to 2.5. His COVID 19 by PCR was negative. Normal coagulation profile. On 12/06/2021, the patient's condition essentially unchanged. The patient has an NG tube in place and output was around 400 mL over the past 12 hours. Abdomen is slightly distended. The patient umbilical hernia. He does have some mild direct tenderness. No bowel sounds. No bowel movements. No flatus. He remains obstructive. He was IV fluids and he is still on IV fluids running at the rate of 100 mL an hour of normal saline. The blood work from today shows a white cell count of 9 with a hemoglobin of 18.5. There was an obvious drop in hemoglobin from 21 down to 18. Platelet counts are 93. Blood work shows improvement acute kidney injury. The patient's creatinine is down to 3.8 with a BM 96. Serum bicarbonate of 18 with a sodium level of 138. Liver function tests are all within normal limits. The patient was weaned by general surgery. We'll continue our conservative measures of gastric decompression via an NG tube and general surgeries also on the case. Chest x-ray from today shows some atelectatic changes in lung bases. NG tube is in a good location the stomach. No other acute abnormalities noted. The patient was also seen by nephrology and the patient was also seen by cardiology. The patient wasn't into atrial fibrillation with rapid ventricular response yesterday. He was initially on a Cardizem drip which controlled his rate is not controlled his rate. He became hypotensive. Subsequently, he was switched to a amiodarone drip and currently he is loaded with amiodarone and he is on a maintenance of 1 mg per minute as part of the loading protocol. His current heart rate is 101 and it is still in atrial fibrillation. Echo was also ordered by cardiology. 12/07/2021, the patient is more lethargic compared to yesterday. This morning, he is confused and lethargic. He was requiring significant OUTPUT overnight and he has taken 0.5 mg of Dilaudid IV every 2 hours. NG output is still high in the order of 600 mL. Normal bowel sounds. Abdomen remains distended. The same time, the patient is in atrial fibrillation with rapid ventricular response. Earlier this morning, his heart rate went up to 153. It is still irregular. The patient remains on amiodarone 0.5 mg per minute and the patient also was started on IV heparin yesterday. No evidence of any bleeding. PTT this morning is at 42.6. At the same time, the patient's creatinine continues to improve. He is currently on IV fluids in the form of normal saline at the rate of 100 mL an hour and the BUN is at 92 with a creatinine of 3.18. Sodium is 143. LFTs are within normal limits. The white cell count is at 9.1. The blood cultures of been negative thus far. The overall fluid balance over the past 24 hours has been +1.4 L. She is afebrile. His neurologic exam is nonfocal. He remains on IV Protonix. Gen. surgery is on the case. Echocardiogram was done yesterday and the patient has a preserved LV function with an ejection fraction of 60%. No valvular Abnormalities. Reevaluated today on 12/08/2021, patient is intubated and mechanically ventilate d. Patient was intubated placed last night, and his clinical condition continued to deteriorate. Patient is now on assist control rate of 26, volume 450 FiO2 50% and PEEP of 5, ABG this morning showed a pO2 of 76 pCO2 34 pH of 7.45 and this is patient is on norepinephrine at 0.14 mcg/kg/m also on propofol at 50 mcg/kg/m patient is on IV fluid at 80 mL/h he is also on heparin for atrial fibrillation and his renal functioning seems to be improving however his BUN is 69 creatinine 2.49 and his sodium is 1:15 hence his IV fluid was changed to D5W by nephrology earlier today. Patient is on antibiotics is also on Flagyl. He is on amiodarone 0.5 mg/m, and he is on fentanyl at 0.8 mcg/kg/h all labs were reviewed today, his PTT is 66.2 WBC count is 11.8 hemoglobin is 16.6. Chest x-ray showed endotracheal tube and nasogastric tube as well as central line is stable position. It also showed evidence of interstitial edema/infiltrates with subsegmental atelectasis and small effusion. Pulmonary vascular congestion is noted, underlying pneumonia is not entirely ruled out, it is definitely in the differential diagnoses but this is felt to be less likely Reevaluated today on 12/09/21, remains in the ICU intubated and mechanically ventilated. Patient is on assist control rate of 26, volume 450 FiO2 50% and PEEP of 5. ABG showed a pO2 of 79 pCO2 43 pH of 7.40. Hence no changes were made in the ventilator settings. Chest x-ray today showed minimal vascular congestion, no evidence of pneumonia/infiltrate patient remains on amiodarone of 0.5 mg/m and required norepinephrine at 0.14 mcg/kg/m he is on propofol at 50 mcg/kg/m he is also on Flagyl and Zosyn. Patient is receiving fentanyl at 1.5 mcg/kg/h. Flat plate of the abdomen continues to show dilated bowel however the surgeon on the case and reviewed the case with the radiologist and felt there may be actually better passage of contrast into the ascending colon and a new stool present in the rectum suggestive of improvement of the obstruction. Hence surgery is not planning any surgical intervention at this point, patient was cleared for surgical intervention if felt necessary by surgery on the case. I cleared the patient, and the customer experience leader cleared the patient. WBC count today is 10 hemoglobin 15.7 PTT is 64.3 patient remains on heparin. Electrolytes are normal slightly elevated sodium of 146, renal profile is improving BUN is down to 53 and creatinine is down to 2.31 Reevaluated today on 12/10/21, patient remains in the ICU, intubated and mechanically ventilated. He is presently on assist control rate of 26, tidal volume 450 FiO2 50% PEEP of 5, however after reviewing the ABG, patient a pO2 of 89 pCO2 35 pH of 7.48, I kept him on 50% however I increased his tidal volume to 500 and decrease the rate to 20. Patient is still requiring amiodarone. At 0.5 mg/m, he is also on heparin, propofol at 50 mcg/kg/m, is also on norepinephrine at 0.03 mcg/kg/m. Antibiotics [place], patient remains on Flagyl and on Zosyn. According to the surgeon his chest x-ray and flat bit of the abdomen is showing improvement in his obstructive pattern. Hence no surgery is scheduled. Patient will be started on TPN today, his endotracheal tube was advanced 1.5 cm.WBC count today is 8.6 hemoglobin is 15.0. PTT is 56.7.basic metabolic profile is normal, BUN is 38 creatinine 1.91, improving, but not back to normal.chest x-ray is showing bibasilar atelectasis, possible infiltrate/pneumonia. Patient was reevaluated today on 12/11/21, remains in the ICU, intubated and mechanically ventilated and sedated patient is on assist control rate of 20 tidal volume 500 FiO2 50% and PEEP of 5. ABG showed a pO2 of 87 pCO2 34 pH of 7.49 hence no changes made in his ventilator settings. Patient is still requiring norepinephrine at 0.02 mcg/kg/m he is on propofol 45 mcg/kg/m and I am cutting down the propofol to assess mental status and give him a sedation interruption trial. Patient remains on TPN remains on heparin. Continues to have no bowel movements, abdomen remains distended however I could hear bowel sounds today. Patient remains off fentanyl. Chest x-ray is showing mostly basilar atelectasis,/infiltrates, but improving steadily over the last few days. Patient is now off amiodarone, he converted to sinus rhythm. Nonetheless he remains on heparin. Renal profile is improving creatinine is down to 1.70 BUN is 30. His creatinine was as high as 4.95 on his initial evaluation/admission Reevaluated today on 12/12/21, remains in ICU, intubated and mechanically ventilated, ventilator settings are assist control rate of 20 tidal volume 500 FiO2 40% and PEEP of 5. ABG showed a pO2 of 101 pCO2 37 pH of 7.45. Patient is off norepinephrine, he is still on propofol at 45 mcg/kg/m remains on heparin remains on TPN his also on Zosyn and Flagyl. Patient apparently had a small bowel movement yesterday his abdomen continues to be distended however. Seen by surgery yesterday, and no plans for any surgical intervention at this point since the patient is slowly improving. Considering this, I will give the patient today a weaning trial, I would likely discontinue propofol, and I would likely give the patient a trial of pressure support and CPAP, however he has to meet all the criteria for weaning and extubation before we proceed with extubating the patient. And this is yet to be determined today. Chest x-ray showed significant improvement in airspace disease and atelectasis, his WBC count today is 9.1 hemoglobin is 14.6. Basic metabolic profile is normal and his creatinine is holding at 1.80 Reevaluated today on 12/13/21, patient remains in the ICU, he was extubated yesterday, and so far his extubation has been uneventful and very successful. Patient is on few liters nasal cannula, chest x-ray showed significant improvement over the last few days, renal functioning is improving, and his creatinine is down to 1.55 from 1.80 yesterday. Nasogastric tube remains in place, his PTT is therapeutic at 52.7. Electrolytes are normal patient is having bowel sounds, he had a tiny bowel movement yesterday. Nonetheless his abdomen remains a bit distended. Noted today that the patient has some coffee ground material in his nasogastric tube, will recommend Protonix 40 mg twice a day patient is hemodynamically stable, and he is being followed closely by many consultants including surgery and cardiology. Objective - Vital Signs Vital signs: Vital Signs Temp 98.2 F 12/13/21 08:00 Pulse 89 12/13/21 10:00 Resp 21 12/13/21 10:00 BP 152/95 12/13/21 10:00 Pulse Ox 96 12/13/21 10:00 FiO2 40 12/12/21 12:04 Intake & Output 12/12/21 12/13/21 12/13/21 18:59 06:59 18:59 Intake Total 4507.781 3511 574 Output Total 2355 2895 495 Balance -869.420 -1533 79 Weight 129 kg 125.3 kg Intake: IV 560 1056 574 0.9 160 240 50 Magnesium Sulfate-D5w Pmx 100 100 1 gm In Dextrose/Water 1 100ml.bag @ 100 mls/hr IVPB Q1H [facility] Rx#: [id number] Mvi, Adult No.4 with Vit 616 56 K 10 ml Trace (Conc-1Ml/ Dose) 1 ml In Amino Acid 5%-D15w+Lytes*E* 1,000 ml @ 56 mls/hr IV .BY DURATION [facility] Rx#: [id number] Piperacillin-Tazobactam 3 200 .375 gm In Sodium Chloride 0.9% 100 ml @ 25 mls/hr IVPB Q8H [facility] Rx#: [id number] Potassium Chloride 10 meq 100 100 In Water For Injection 1 100ml.bag @ 100 mls/hr IVPB Q1H [facility] Rx#: [id number] TPN 168 metroNIDAZOLE-NS PMX 500 200 100 mg In Saline 1 100ml.bag @ 100 mls/hr IVPB Q8HR [facility] Rx#:[id number] Intake, IV Titration 408.580 250 Amount Heparin Sod,Pork in 0.45% 244.872 250 NaCl 25,000 unit In 0.45 % NaCl 1 250ml.bag @ 8.46 UNITS/KG/HR 10 mls/hr IV .Q24H [facility] Rx#:[id number] propofoL 1,000 mg In 163.708 Empty Bag 1 bag @ 5 MCG/ KG/MIN 3.546 mls/hr IV . Q24H [facility] Rx#:[id number] TPN/PPN 517 56 Amino Acid 5%-D15w+Lytes* 405 E* 1,000 ml @ 45 mls/hr IV .BY DURATION [facility] Rx#: [id number] TPN 112 56 Output: Gastric Drainage 500 1000 Urine 1855 1895 495 Other: Voiding Method Indwelling Catheter Indwelling Catheter # Bowel Movements 1 ABP, PAP, CO, CI - Last Documented Arterial Blood Pressure 166/79 - Exam Physical Exam: Revealed a 66-year-old white male on few liters nasal cannula, in no distress. Head: Atraumatic, normocephalic, nasogastric tube is intact. HEENT:[Neck is supple.] [No neck masses.] [No thyromegaly.] [No JVD.]., EOMI, nonicteric. Chest: Symmetrical chest expansion, clear breath sound bilaterally no crackles or rhonchi or wheezes Cardiac Exam: Regular rate and rhythm. [Normal S1 and S2, no S3 gallop, no murmur.] Abdomen: [Obese, distended, positive bowel sounds Extremities: [No clubbing, trace of bipedal edema, no cyanosis. Neurological Exam: Alert and oriented 3, no gross focal deficits. Psychiatric: Normal mood, affect and normal mental status examination Musculoskeletal: No deformities. Skin: No rashes - Labs CBC & Chem 7: 12/12/21 05:07 12/13/21 05:10 Labs: Abnormal Lab Results - Last 24 Hours (Table) 12/12/21 12/12/21 12/13/21 Range/Units 11:49 12:44 05:10 APTT (22.0-30.0) sec ABG pH 7.47 H (7.35-7.45) ABG Total CO2 26 H (19-24) mmol/L ABG O2 Saturation 97.1 H (94-97) % Chloride 109 H (98-107) mmol/L BUN 34 H (9-20) mg/dL Creatinine 1.55 H (0.66-1.25) mg/dL Glucose 137 H (74-99) mg/dL POC Glucose (mg/dL) 119 H (70-110) mg/dL 12/13/21 Range/Units 05:10 APTT 52.7 H (22.0-30.0) sec ABG pH (7.35-7.45) ABG Total CO2 (19-24) mmol/L ABG O2 Saturation (94-97) % Chloride (98-107) mmol/L BUN (9-20) mg/dL Creatinine (0.66-1.25) mg/dL Glucose (74-99) mg/dL POC Glucose (mg/dL) (70-110) mg/dL Assessment and Plan Assessment: Impression: acute hypoxic respiratory failure requiring intubation and mechanical ventilation, secondary to above obstruction, abdominal sepsis, and possible septic shock. Acute small bowel obstruction Abdominal sepsis and septic shock Acute metabolic encephalopathy secondary to above New onset atrial fibrillation with RVR, however the patient converted to normal sinus to them yesterday, and is now off amiodarone umbilical hernia without incarceration Acute kidney injury secondary to sepsis, improving steadily since admission. Acute dehydration improving and his renal functioning is also improving with hydration. Anion gap metabolic acidosis secondary to abdominal sepsis and renal failure, resolved. Underlying COPD Benign essential hypertension Degenerative joint disease History of nephrolithiasis Chronic back pain Recommendation: Continue oxygen at 2 L nasal cannula and titrate accordingly Continue incentive spirometry Continue nasogastric tube to suction Continue IV fluid, continue to monitor electrolytes. Continue heparin Continue GI and DVT prophylaxis Continue TPN Remains critically ill, although the patient was extubated on 12/12/21., No netheless we'll continue to monitor in the ICU Time with Patient: Less than 30
[2021-12-13 11:50] LABS: Glucose,Whole Blood 132 mg/dL (70-110)
--- NOTE | 2021-12-13 11:57 | P.PN ---
Subjective Progress Note Date: 12/13/21 Principal diagnosis: Partial small bowel obstruction Patient seen and examined he is resting in bed comfortably injury to about 300 mL light bilious output his abdomen is less distended. His report that yesterday he is passing flatus and had a small bowel movement Overnight the patient states that he feels better no abdominal pain no distention piece passing flatus and small bowel movement no nausea and vomiting NG tube put 300 mL of light bile Objective - Vital Signs Vital signs: Vital Signs Temp 98.2 F 12/13/21 08:00 Pulse 89 12/13/21 10:00 Resp 21 12/13/21 10:00 BP 152/95 12/13/21 10:00 Pulse Ox 96 12/13/21 10:00 FiO2 40 12/12/21 12:04 Intake & Output 12/12/21 12/13/21 12/13/21 18:59 06:59 18:59 Intake Total 0944.406 1454 574 Output Total 2355 2895 495 Balance -869.420 -1533 79 Weight 129 kg 125.3 kg Intake: IV 560 1056 574 0.9 160 240 50 Magnesium Sulfate-D5w Pmx 100 100 1 gm In Dextrose/Water 1 100ml.bag @ 100 mls/hr IVPB Q1H [facility] Rx#: [id number] Mvi, Adult No.4 with Vit 616 56 K 10 ml Trace (Conc-1Ml/ Dose) 1 ml In Amino Acid 5%-D15w+Lytes*E* 1,000 ml @ 56 mls/hr IV .BY DURATION [facility] Rx#: [id number] Piperacillin-Tazobactam 3 200 .375 gm In Sodium Chloride 0.9% 100 ml @ 25 mls/hr IVPB Q8H [facility] Rx#: [id number] Potassium Chloride 10 meq 100 100 In Water For Injection 1 100ml.bag @ 100 mls/hr IVPB Q1H [facility] Rx#: [id number] TPN 168 metroNIDAZOLE-NS PMX 500 200 100 mg In Saline 1 100ml.bag @ 100 mls/hr IVPB Q8HR [facility] Rx#:[id number] Intake, IV Titration 408.580 250 Amount Heparin Sod,Pork in 0.45% 244.872 250 NaCl 25,000 unit In 0.45 % NaCl 1 250ml.bag @ 8.46 UNITS/KG/HR 10 mls/hr IV .Q24H [facility] Rx#:[id number] propofoL 1,000 mg In 163.708 Empty Bag 1 bag @ 5 MCG/ KG/MIN 3.546 mls/hr IV . Q24H [facility] Rx#:[id number] TPN/PPN 517 56 Amino Acid 5%-D15w+Lytes* 405 E* 1,000 ml @ 45 mls/hr IV .BY DURATION [facility] Rx#: [id number] TPN 112 56 Output: Gastric Drainage 500 1000 Urine 1855 1895 495 Other: Voiding Method Indwelling Catheter Indwelling Catheter # Bowel Movements 1 ABP, PAP, CO, CI - Last Documented Arterial Blood Pressure 166/79 - Respiratory Respiratory: bilateral: rales - Cardiovascular Rhythm: irregularly irregular - Gastrointestinal General gastrointestinal: Present: decreased bowel sounds - Labs CBC & Chem 7: 12/12/21 05:07 12/13/21 05:10 Labs: Abnormal Lab Results - Last 24 Hours (Table) 12/12/21 12/13/21 12/13/21 Range/Units 12:44 05:10 05:10 APTT 52.7 H (22.0-30.0) sec ABG pH 7.47 H (7.35-7.45) ABG Total CO2 26 H (19-24) mmol/L ABG O2 Saturation 97.1 H (94-97) % Chloride 109 H (98-107) mmol/L BUN 34 H (9-20) mg/dL Creatinine 1.55 H (0.66-1.25) mg/dL Glucose 137 H (74-99) mg/dL POC Glucose (mg/dL) (70-110) mg/dL 12/13/21 Range/Units 11:48 APTT (22.0-30.0) sec ABG pH (7.35-7.45) ABG Total CO2 (19-24) mmol/L ABG O2 Saturation (94-97) % Chloride (98-107) mmol/L BUN (9-20) mg/dL Creatinine (0.66-1.25) mg/dL Glucose (74-99) mg/dL POC Glucose (mg/dL) 132 H (70-110) mg/dL Assessment and Plan Assessment: Small bowel obstruction appears to have been resolving passing flatus less distention no abdominal pain. Also patient has A. fib with rapid ventricular response rate now under better control (1) Hypotension Current Visit: Yes Status: Acute Code(s): I95.9 - HYPOTENSION, UNSPECIFIED SNOMED Code(s): 83424853 (2) Renal failure Current Visit: Yes Status: Acute Code(s): N19 - UNSPECIFIED KIDNEY FAILURE SNOMED Code(s): 25781238 (3) Small bowel obstruction Current Visit: Yes Status: Acute Code(s): K56.609 - UNSP INTESTNL OBST, UNSP TO PARTIAL VERSUS COMPLETE OBST SNOMED Code(s): 714727442
[2021-12-13] MEDS: NOREPINEPHRINE 8 MG in SODIUM CHLORIDE 0.9% 250 ML IV SCH (13:37)
[2021-12-13 18:01] LABS: Glucose,Whole Blood 111 mg/dL (70-110)
[2021-12-13 18:56] LABS: Basophils # (A) 0.1 k/uL (0-0.2); Basophils % (A) 0 %; Eosinophils # (A) 0.2 k/uL (0-0.7); Eosinophils % (A) 2 %; HCT 47.2 % (39.0-53.0); HGB 14.8 gm/dL (13.0-17.5); Lymphocytes # (A) 0.9 k/uL (1.0-4.8); Lymphocytes % (A) 8 %; MCH 29.7 pg (25.0-35.0); MCHC 31.3 g/dL (31.0-37.0); MCV 94.8 fL (80.0-100.0); Monocytes # (A) 0.4 k/uL (0-1.0); Monocytes % (A) 3 %; Neutrophils # (A) 10.3 k/uL (1.3-7.7); Neutrophils % (A) 86 %; Platelet Count 133 k/uL (150-450); RBC 4.98 m/uL (4.30-5.90); RDW 14.2 % (11.5-15.5)
--- NOTE | 2021-12-13 21:31 | PN ---
PROGRESS NOTE SUBJECTIVE: 66-year-old gentleman, who is admitted to ICU with small-bowel obstruction, was intubated on vent, and had episodes of atrial fibrillation. This morning, he is extubated, appears comfortable. Remains in sinus rhythm. Blood pressure is elevated. PHYSICAL EXAMINATION: VITAL SIGNS: On exam, comfortable. At rest, blood pressure is 168/78, respiratory rate 18. CHEST: Reveals diminished air entry bilaterally. HEART: Reveals first and second heart sounds. No gallop. Has no murmur. ABDOMEN: Appears distended. EXTREMITIES: Did not reveal any edema. LABORATORY DATA: Shows that the potassium is 3.8, creatinine is 1.5, BUN is 54. MEDICATIONS: The patient is currently on Lopressor 2.5 mg IV q. 8. ASSESSMENT: 1. Paroxysmal atrial fibrillation. 2. Small bowel obstruction. 3. Status post respiratory failure. PLAN: Once patient is able to take oral medications, lets resume the Norvasc at 10 mg daily and when renal functions improve, we can resume the PEBBLES inhibitors also. I will continue the IV heparin and once patient is more stable, I am going to switch him to Eliquis 5 mg b.i.d. MMODL / IJN: [id number] /
[2021-12-14] MEDS: PIPERACILLIN-TAZOBACTAM 3.375 GM in SODIUM CHLORIDE 0.9% 100 ML IVPB SCH ×3 (03:19→18:55)
[2021-12-14] MEDS: 1: MVI, ADULT NO.4 WITH VIT K 10 ML, TRACE (CONC-1ML/DOSE) 1 ML in AMINO ACID 5%-D15W+LY IV SCH ×9 (04:32→21:28)
[2021-12-14 05:25] LABS: Basophils # (A) 0.1 k/uL (0-0.2); Basophils % (A) 0 %; Eosinophils # (A) 0.2 k/uL (0-0.7); Eosinophils % (A) 2 %; HCT 47.3 % (39.0-53.0); HGB 14.8 gm/dL (13.0-17.5); Hypochromasia Slight; Lymphocytes # (A) 0.8 k/uL (1.0-4.8); Lymphocytes % (A) 7 %; MCHC 31.3 g/dL (31.0-37.0); Mean Platelet Volume 7.7; Monocytes # (A) 0.6 k/uL (0-1.0); Monocytes % (A) 5 %; Neutrophils # (A) 10.2 k/uL (1.3-7.7); Neutrophils % (A) 85 %; Platelet Count 135 k/uL (150-450); RBC 4.93 m/uL (4.30-5.90); RDW 14.2 % (11.5-15.5); WBC 11.9 k/uL (3.8-10.6)
[2021-12-14 05:38] LABS: Albumin 2.7 g/dL (3.5-5.0); Calcium 8.2 mg/dL (8.4-10.2); Magnesium 1.9 mg/dL (1.6-2.3); Phosphorus 3.3 mg/dL (2.5-4.5); Potassium 4.1 mmol/L (3.5-5.1)
[2021-12-14] MEDS: MAGNESIUM SULFATE-D5W PMX 1 GM in DEXTROSE/WATER 1 100ML.BAG IVPB SCH ×2 (06:28→09:55)
--- NOTE | 2021-12-14 08:54 | P.PN ---
Subjective Progress Note Date: 12/14/21 Constantino Hernandez, is a 66 year old male who presented to [facility] emergency room, with a chief complaint of abdominal pain nausea and vomiting, his symptoms started 3 days ago and has been worsening. He was evaluated in the emergency room vital examination on presentation revealed a temperature of 96.7 pulse 101 respiration 24 blood pressure 154/89 however blood pressure dropped to 65/47 shortly after arrival pulse ox was 96% on room air Laboratory data revealed a white blood count of 11.6 hemoglobin 21.3 platelet count 116 sodium 134 potassium 5.0 chloride 94 CO2 16 BUN 91 creatinine 4.95 la ctic acid was elevated at 3.4 total bilirubin 1.5 AST 95 ALT 62 lipase within normal limits, zavala virus PCR was negative Testing in the emergency room revealed chest x-ray done in the emergency room revealed interstitial lung disease and chronic compression deformity of L1, computed tomography scan of the abdomen and pelvis revealed distal small bowel obstruction and 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 In the emergency room patient had an NG tube placed and had large amount of fluid removed, plan is to admit patient, consultation for surgery, nephrology, cardiology, and critical care initiated in the emergency room Past medical history is significant for history of hypertension, history of COPD, history of osteoarthritis, history of chronic kidney disease, history of chronic back pain. 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 On review of systems patient is alert and oriented 3, he has an NG tube in, he is complaining of some abdominal discomfort, otherwise he denies any complaints, there is no fever or chills no headache or dizziness no chest pain no shortness of breath, no nausea or vomiting since NG tube has been placed, no burning with urination no frequency or urgency and no hematuria. On 12/06/2021 patient was seen and examined in the ICU he is alert responsive in no apparent distress, he has an NG tube, he is maintained on oxygen via nasal cannula at 4 L, vital exam at 8 AM temperature 98.4 pulse 123 respiration 16 blood pressure 78/64 pulse ox 92% he is sleepy and denies any complaints at this time, there is no fever or chills no headache or dizziness no chest pain no shortness of breath no cough no nausea or vomiting no abdominal pain no diarrhea and no urinary symptoms, patient has not had any bowel movement or passed any gas since admission, there is some improvement on his laboratory data white blood count is down from 11.6-9.0 creatinine is down from 4.95-3.82 and lactic acid is down to 1.5, recommendation from nephrology, cardiology and critical care reviewed On 12/07/2021 patient is more confused. Per nursing staff patient had increased confusion throughout the night. Heart rate remains elevated. Cardiology services are following patient is on amiodarone. Surgical services ordering abdominal x-ray. Lactic acid 2.1. Creatinine improving to 3.18 awaiting further recommendations from surgery and critical care services On 12/08/2021 patient was seen and examined in the ICU he is intubated sedated maintained on mechanical ventilation, he is on assist control with FiO2 of 50% PEEP of 5 and draped of 26 he is maintained on norepinephrine for pressure control he remains in atrial fibrillation with a heart rate of 125 he is maintained on IV heparin kidney function is improving gradually his sodium is elevated at 150 he is maintained on IV amiodarone he is also maintained on IV antibiotics Zosyn and Flagyl, pulmonary critical care, cardiology, infectious disease, and nephrology are following patient is also followed by general surgery for bowel obstruction computed tomography scan of the brain done this morning did not reveal any evidence of intracranial bleeding, computed tomography scan of the abdomen and pelvis done again this morning and revealed evidence of bowel obstruction without significant change from previous computed tomography scan, will continue to follow closely prognosis is guarded. On 12/09/2021 patient was seen and examined in the ICU he is intubated sedated maintained on mechanical ventilation, no significant change on his ventilation settings, temperature is 90.8 heart rate 80 blood pressure 94/60 white blood count is 10.0 hemoglobin 15.7 platelet count 137 sodium 146 potassium 4.0 chloride 112 CO2 24 BUN 53 creatinine 2.31 patient was cleared by pulmonary and cardiology for abdominal surgery, however surgeon stated that there is some improvement on abdomen x-ray, no plans for surgery today, will continue to monitor closely 12/10/2021 patient remains in the intensive care unit intubated and sedated. No plans for surgical intervention at this time. Patient remains on Levophed for pressure support. Patient also on amiodarone. IV antibiotics of Flagyl and Zosyn. Critical care, surgical, cardiology and nephrology service following. On 12/11/2021 patient was seen and examined in the intensive care unit, he is intubated sedated maintained on mechanical ventilation, case was discussed in details with Dr. Mehta today, vital exam reveals a temperature of 98.2 pulse 62 respiration 18 pressure 120/69 oxygen saturation 96% on FiO2 40% patient is still requiring norepinephrine for pressure support, he is off the amiodarone, he has converted to normal sinus rhythm, renal function is improving with BUN 13 creatinine 1.7 On 12/12/2021 patient remains in the intensive care unit. Patient remains on IV sedation. Patient has been weaned off amiodarone and Levophed. Possible extubation today per critical care. Creatinine 1.80 bun 34. Blood pressure 101/65 heart rate 61. FiO2 40%. On 12/13/2021 patient was seen and examined in the ICU he is alert responsive in no apparent distress, he was extubated yesterday he is maintained on oxygen via nasal cannula and is tolerating well, NG tube is still in and maintained to suction, abdomen x-ray this morning still reveals evidence of bowel obstruction was dilated bowel loops, clinically patient is alert and answering questions appropriately, he states he is passing some gas, nurse states that that his smears of stools but no bowel movements, his heart rate is regular remains in normal sinus, he has bowel sounds, kidney function is improving, will continue to follow closely, input from pulmonary critical care, and surgery reviewed On 12/14/2021 patient was seen and examined in the ICU he is alert and oriented 3 in no apparent distress, there is no fever or chills no headache or dizziness no chest pain no shortness of breath no cough no nausea or vomiting no abdominal pain no diarrhea no blood in the stools no burning with urination no frequency or urgency no hematuria, he is maintained on oxygen via nasal cannula his pulse ox is 94% on 2 L nasal cannula, temperature 98.8 pulse 67 respiration 15 blood pressure 134/87 NG tube is in, Rivero catheter is in, patient stated that he is passing gas, he is having smears of stools but has not had any bowel movement yet. Objective - Vital Signs Vital signs: Vital Signs Temp 98.8 F 12/14/21 04:00 Pulse 76 12/14/21 07:00 Resp 19 10/02/22 07:00 BP 137/87 12/14/21 07:00 Pulse Ox 95 12/14/21 07:00 FiO2 40 12/12/21 12:04 Intake & Output 12/13/21 12/14/21 12/14/21 18:59 06:59 18:59 Intake Total 1523 1627 56 Output Total 1865 2565 200 Balance -342 -938 -144 Weight 123.3 kg Intake: IV 1273 616 56 0.9 70 Magnesium Sulfate-D5w Pmx 100 1 gm In Dextrose/Water 1 100ml.bag @ 100 mls/hr IVPB Q1H [facility] Rx#: [id number] Mvi, Adult No.4 with Vit 56 K 10 ml Trace (Conc-1Ml/ Dose) 1 ml In Amino Acid 5%-D15w+Lytes*E* 1,000 ml @ 56 mls/hr IV .BY DURATION [facility] Rx#: [id number] Piperacillin-Tazobactam 3 75 .375 gm In Sodium Chloride 0.9% 100 ml @ 25 mls/hr IVPB Q8H [facility] Rx#: [id number] Potassium Chloride 10 meq 100 In Water For Injection 1 100ml.bag @ 100 mls/hr IVPB Q1H [facility] Rx#: [id number] TPN 672 616 56 metroNIDAZOLE-NS PMX 500 200 mg In Saline 1 100ml.bag @ 100 mls/hr IVPB Q8HR [facility] Rx#:[id number] Intake, IV Titration 250 1011 Amount Heparin Sod,Pork in 0.45% 250 NaCl 25,000 unit In 0.45 % NaCl 1 250ml.bag @ 8.46 UNITS/KG/HR 10 mls/hr IV .Q24H [facility] Rx#:[id number] Mvi, Adult No.4 with Vit 1011 K 10 ml Trace (Conc-1Ml/ Dose) 1 ml In Amino Acid 5%-D15w+Lytes*E* 1,000 ml @ 56 mls/hr IV .BY DURATION [facility] Rx#: [id number] Output: Gastric Drainage 300 Urine 1865 2265 200 Other: Voiding Method Indwelling Catheter Indwelling Catheter # Bowel Movements 1 ABP, PAP, CO, CI - Last Documented Arterial Blood Pressure 164/82 - Exam In general patient is alert and oriented in no distress HEENT head normocephalic and atraumatic, NG tube is in Neck is supple no JVD no goiter no lymphadenopathy no carotid bruit Chest examination is clear to auscultation no crackles no wheezing Cardiac exam reveals regular heart sounds S1 and S2 no gallops no murmurs Abdomen is soft with mild diffuse tenderness no palpable masses no organomegaly Extremity exam reveals no edema no cyanosis or clubbing Neurological examination reveals no gross focal deficits - Labs CBC & Chem 7: 12/14/21 05:13 12/14/21 05:13 Labs: Abnormal Lab Results - Last 24 Hours (Table) 12/13/21 12/13/21 12/13/21 Range/Units 11:48 17:59 18:36 WBC 12.0 H (3.8-10.6) k/uL Plt Count 133 L (150-450) k/uL Neutrophils # 10.3 H (1.3-7.7) k/uL Lymphocytes # 0.9 L (1.0-4.8) k/uL Chloride (98-107) mmol/L BUN (9-20) mg/dL Creatinine (0.66-1.25) mg/dL Glucose (74-99) mg/dL POC Glucose (mg/dL) 132 H 111 H (70-110) mg/dL Calcium (8.4-10.2) mg/dL Total Protein (6.3-8.2) g/dL Albumin (3.5-5.0) g/dL 12/14/21 12/14/21 Range/Units 05:13 05:13 WBC 11.9 H (3.8-10.6) k/uL Plt Count 135 L (150-450) k/uL Neutrophils # 10.2 H (1.3-7.7) k/uL Lymphocytes # 0.8 L (1.0-4.8) k/uL Chloride 109 H (98-107) mmol/L BUN 36 H (9-20) mg/dL Creatinine 1.37 H (0.66-1.25) mg/dL Glucose 139 H (74-99) mg/dL POC Glucose (mg/dL) (70-110) mg/dL Calcium 8.2 L (8.4-10.2) mg/dL Total Protein 5.0 L (6.3-8.2) g/dL Albumin 2.7 L (3.5-5.0) g/dL Assessment and Plan Plan: Distal small bowel obstruction Underlying history of COPD Underlying history of hypertension Acute on chronic renal failure was elevated BUN and creatinine Chronic kidney disease with evidence of autosomal dominant polycystic kidney disease on computed tomography scan Episodes of atrial flutter in the emergency room Underlying history of osteoarthritis. Atrial fibrillation with RVR. Patient maintained on amiodarone Hypotension. Patient maintained on Levophed for pressure support. Improving Patient remains in the intensive care unit He is maintained on IV fluids and NG tube is in Patient currently intubated and sedated Critical care, cardiology, nephrology and surgical service is following Patient maintained on IV antibiotics Zosyn and Flagyl
[2021-12-14] MEDS: NOREPINEPHRINE 8 MG in SODIUM CHLORIDE 0.9% 250 ML IV SCH (09:36)
--- NOTE | 2021-12-14 09:39 | P.PN ---
Subjective Patient is seen for follow-up for acute kidney injury. Renal function has improved. Patient is awake, alert oriented 3. NG tube drainage of about 300 mL Patient has had good urine output. Receiving TPN Off of pressors Urine output 4.1 L Serum creatinine is down to 1.3 today. Objective - Vital Signs Vital signs: Vital Signs Temp 98.8 F 12/14/21 04:00 Pulse 76 12/14/21 07:00 Resp 19 12/14/21 07:00 BP 137/87 12/14/21 07:00 Pulse Ox 95 12/14/21 07:00 FiO2 40 12/12/21 12:04 Intake & Output 12/13/21 12/14/21 12/14/21 18:59 06:59 18:59 Intake Total 1523 1627 56 Output Total 1865 2565 200 Balance -342 -938 -144 Weight 123.3 kg Intake: IV 1273 616 56 0.9 70 Magnesium Sulfate-D5w Pmx 100 1 gm In Dextrose/Water 1 100ml.bag @ 100 mls/hr IVPB Q1H [facility] Rx#: [id number] Mvi, Adult No.4 with Vit 56 K 10 ml Trace (Conc-1Ml/ Dose) 1 ml In Amino Acid 5%-D15w+Lytes*E* 1,000 ml @ 56 mls/hr IV .BY DURATION [facility] Rx#: [id number] Piperacillin-Tazobactam 3 75 .375 gm In Sodium Chloride 0.9% 100 ml @ 25 mls/hr IVPB Q8H [facility] Rx#: [id number] Potassium Chloride 10 meq 100 In Water For Injection 1 100ml.bag @ 100 mls/hr IVPB Q1H [facility] Rx#: [id number] TPN 672 616 56 metroNIDAZOLE-NS PMX 500 200 mg In Saline 1 100ml.bag @ 100 mls/hr IVPB Q8HR [facility] Rx#:[id number] Intake, IV Titration 250 1011 Amount Heparin Sod,Pork in 0.45% 250 NaCl 25,000 unit In 0.45 % NaCl 1 250ml.bag @ 8.46 UNITS/KG/HR 10 mls/hr IV .Q24H [facility] Rx#:[id number] Mvi, Adult No.4 with Vit 1011 K 10 ml Trace (Conc-1Ml/ Dose) 1 ml In Amino Acid 5%-D15w+Lytes*E* 1,000 ml @ 56 mls/hr IV .BY DURATION [facility] Rx#: [id number] Output: Gastric Drainage 300 Urine 1865 2265 200 Other: Voiding Method Indwelling Catheter Indwelling Catheter # Bowel Movements 1 ABP, PAP, CO, CI - Last Documented Arterial Blood Pressure 164/82 - Exam Awake, comfortable, not in any acute distress Alert oriented 3 Examination of the heart S1 and S2 Examination lungs bilateral breath sounds are heard Abdomen is soft mildly tender Examination lower extremities shows trace edema bilaterally MATCH UP PERSON exam grossly intact Patient has an NG tube - Labs CBC & Chem 7: 12/14/21 05:13 12/14/21 05:13 Labs: Abnormal Lab Results - Last 24 Hours (Table) 12/13/21 12/13/21 12/13/21 Range/Units 11:48 17:59 18:36 WBC 12.0 H (3.8-10.6) k/uL Plt Count 133 L (150-450) k/uL Neutrophils # 10.3 H (1.3-7.7) k/uL Lymphocytes # 0.9 L (1.0-4.8) k/uL Chloride (98-107) mmol/L BUN (9-20) mg/dL Creatinine (0.66-1.25) mg/dL Glucose (74-99) mg/dL POC Glucose (mg/dL) 132 H 111 H (70-110) mg/dL Calcium (8.4-10.2) mg/dL Total Protein (6.3-8.2) g/dL Albumin (3.5-5.0) g/dL 12/14/21 12/14/21 Range/Units 05:13 05:13 WBC 11.9 H (3.8-10.6) k/uL Plt Count 135 L (150-450) k/uL Neutrophils # 10.2 H (1.3-7.7) k/uL Lymphocytes # 0.8 L (1.0-4.8) k/uL Chloride 109 H (98-107) mmol/L BUN 36 H (9-20) mg/dL Creatinine 1.37 H (0.66-1.25) mg/dL Glucose 139 H (74-99) mg/dL POC Glucose (mg/dL) (70-110) mg/dL Calcium 8.2 L (8.4-10.2) mg/dL Total Protein 5.0 L (6.3-8.2) g/dL Albumin 2.7 L (3.5-5.0) g/dL Assessment and Plan Assessment: 1. Acute kidney injury mostly prerenal secondary to hypovolemia from vomiting as well as hypotension and A. fib. Creatinine 4.95 on admission and is stable at 1.5 today. No hydronephrosis noted on CAT scan. 2. Chronic kidney disease stage IIIB with baseline creatinine near 1.8 in 2020 secondary to polycystic kidney disease. 3. A. fib with RVR s/p amiodarone drip. Cardiology following. 4. Metabolic acidosis secondary to acute kidney injury and IV fluids. Improved. 5. Small bowel obstruction. Has NG tube. Surgery following. 6. Hypernatremia from lack of oral water intake. Resolved. 7. Shock s/p Levophed. Plan: Continue TPN Status post potassium replacement yesterday Continue to avoid nephrotoxic agents Repeat labs in a.m.
[2021-12-14] MEDS: PANTOPRAZOLE 40 MG/10 ML VIAL IVP SCH ×2 (09:51→21:22)
[2021-12-14] MEDS: bisacodyL 10 MG SUPP RECTAL SCH ×2 (09:52→15:51)
[2021-12-14] MEDS: metroNIDAZOLE-NS PMX 500 MG in SALINE 1 100ML.BAG IVPB SCH ×3 (09:52→17:23)
[2021-12-14] MEDS: ENOXAPARIN 30 MG/0.3 ML SYRINGE SQ SCH (09:52)
[2021-12-14 11:57] LABS: Glucose,Whole Blood 119 mg/dL (70-110)
--- NOTE | 2021-12-14 12:22 | P.PN ---
Subjective Progress Note Date: 12/14/21 Principal diagnosis: Small bowel obstruction, abdominal sepsis, and septic shock This is a 66-year-old male patient, who presented to the emergency because of abdominal pain and nausea and emesis and the patient states that he has not passed a bowel movement for the past 3 days. His oral intake was minimal and was becoming progressively more sick and dehydrated. Upon arrival, he was hypotensive with a BP of 65/47. The patient was started on IV fluids. The patient is known to have polycystic kidney disease and he has chronic kidney disease and his baseline creatinine was 1.8 from 2019. His initial blood work showed a white cell count of 11.6. His hemoglobin was elevated at 21.3 and the baseline is not known. It'll platelet count 214. BUN was at 91 with a creatin ine of 4.95 consistent with an acute on top of chronic kidney disease. Lactic acid level was elevated at 3.4. Based on that, a CAT scan of the abdomen was done that showed a distended stomach, distended small bowel, transition point and a decompressed large bowel. The patient is known to have an umbilical hernia. No evidence of any incarceration. There was evidence of polycystic kidney disease. The patient currently has an NG tube in place. He has occult positive stools. The NG output was 1600. He is known to have COPD, polycystic kidney disease, hypertension. No previous history of abdominal surgeries. His abdomen is still distended. No altered mentation. He is able to follow c ommands and answer questions appropriately. No previous history of cardiac disease. The liver function tests showed an AST of 95, ALT of 62, normal alkaline phosphatase of 59, and the bilirubin was at 1.5. Follow-up lactic acid level is down to 2.5. His COVID 19 by PCR was negative. Normal coagulation profile. On 12/06/2021, the patient's condition essentially unchanged. The patient has an NG tube in place and output was around 400 mL over the past 12 hours. Abdomen is slightly distended. The patient umbilical hernia. He does have some mild direct tenderness. No bowel sounds. No bowel movements. No flatus. He remains obstructive. He was IV fluids and he is still on IV fluids running at the rate of 100 mL an hour of normal saline. The blood work from today shows a white cell count of 9 with a hemoglobin of 18.5. There was an obvious drop in hemoglobin from 21 down to 18. Platelet counts are 93. Blood work shows improvement acute kidney injury. The patient's creatinine is down to 3.8 with a BM 96. Serum bicarbonate of 18 with a sodium level of 138. Liver function tests are all within normal limits. The patient was weaned by general surgery. We'll continue our conservative measures of gastric decompression via an NG tube and general surgeries also on the case. Chest x-ray from today shows some atelectatic changes in lung bases. NG tube is in a good location the stomach. No other acute abnormalities noted. The patient was also seen by nephrology and the patient was also seen by cardiology. The patient wasn't into atrial fibrillation with rapid ventricular response yesterday. He was initially on a Cardizem drip which controlled his rate is not controlled his rate. He became hypotensive. Subsequently, he was switched to a amiodarone drip and currently he is loaded with amiodarone and he is on a maintenance of 1 mg per minute as part of the loading protocol. His current heart rate is 101 and it is still in atrial fibrillation. Echo was also ordered by cardiology. 12/07/2021, the patient is more lethargic compared to yesterday. This morning, he is confused and lethargic. He was requiring significant OUTPUT overnight and he has taken 0.5 mg of Dilaudid IV every 2 hours. NG output is still high in the order of 600 mL. Normal bowel sounds. Abdomen remains distended. The same time, the patient is in atrial fibrillation with rapid ventricular response. Earlier this morning, his heart rate went up to 153. It is still irregular. The patient remains on amiodarone 0.5 mg per minute and the patient also was started on IV heparin yesterday. No evidence of any bleeding. PTT this morning is at 42.6. At the same time, the patient's creatinine continues to improve. He is currently on IV fluids in the form of normal saline at the rate of 100 mL an hour and the BUN is at 92 with a creatinine of 3.18. Sodium is 143. LFTs are within normal limits. The white cell count is at 9.1. The blood cultures of been negative thus far. The overall fluid balance over the past 24 hours has been +1.4 L. She is afebrile. His neurologic exam is nonfocal. He remains on IV Protonix. Gen. surgery is on the case. Echocardiogram was done yesterday and the patient has a preserved LV function with an ejection fraction of 60%. No valvular Abnormalities. Reevaluated today on 12/08/2021, patient is intubated and mechanically ventilate d. Patient was intubated placed last night, and his clinical condition continued to deteriorate. Patient is now on assist control rate of 26, volume 450 FiO2 50% and PEEP of 5, ABG this morning showed a pO2 of 76 pCO2 34 pH of 7.45 and this is patient is on norepinephrine at 0.14 mcg/kg/m also on propofol at 50 mcg/kg/m patient is on IV fluid at 80 mL/h he is also on heparin for atrial fibrillation and his renal functioning seems to be improving however his BUN is 69 creatinine 2.49 and his sodium is 1:15 hence his IV fluid was changed to D5W by nephrology earlier today. Patient is on antibiotics is also on Flagyl. He is on amiodarone 0.5 mg/m, and he is on fentanyl at 0.8 mcg/kg/h all labs were reviewed today, his PTT is 66.2 WBC count is 11.8 hemoglobin is 16.6. Chest x-ray showed endotracheal tube and nasogastric tube as well as central line is stable position. It also showed evidence of interstitial edema/infiltrates with subsegmental atelectasis and small effusion. Pulmonary vascular congestion is noted, underlying pneumonia is not entirely ruled out, it is definitely in the differential diagnoses but this is felt to be less likely Reevaluated today on 12/09/21, remains in the ICU intubated and mechanically ventilated. Patient is on assist control rate of 26, volume 450 FiO2 50% and PEEP of 5. ABG showed a pO2 of 79 pCO2 43 pH of 7.40. Hence no changes were made in the ventilator settings. Chest x-ray today showed minimal vascular congestion, no evidence of pneumonia/infiltrate patient remains on amiodarone of 0.5 mg/m and required norepinephrine at 0.14 mcg/kg/m he is on propofol at 50 mcg/kg/m he is also on Flagyl and Zosyn. Patient is receiving fentanyl at 1.5 mcg/kg/h. Flat plate of the abdomen continues to show dilated bowel however the surgeon on the case and reviewed the case with the radiologist and felt there may be actually better passage of contrast into the ascending colon and a new stool present in the rectum suggestive of improvement of the obstruction. Hence surgery is not planning any surgical intervention at this point, patient was cleared for surgical intervention if felt necessary by surgery on the case. I cleared the patient, and the crude tester cleared the patient. WBC count today is 10 hemoglobin 15.7 PTT is 64.3 patient remains on heparin. Electrolytes are normal slightly elevated sodium of 146, renal profile is improving BUN is down to 53 and creatinine is down to 2.31 Reevaluated today on 12/10/21, patient remains in the ICU, intubated and mechanically ventilated. He is presently on assist control rate of 26, tidal volume 450 FiO2 50% PEEP of 5, however after reviewing the ABG, patient a pO2 of 89 pCO2 35 pH of 7.48, I kept him on 50% however I increased his tidal volume to 500 and decrease the rate to 20. Patient is still requiring amiodarone. At 0.5 mg/m, he is also on heparin, propofol at 50 mcg/kg/m, is also on norepinephrine at 0.03 mcg/kg/m. Antibiotics [place], patient remains on Flagyl and on Zosyn. According to the surgeon his chest x-ray and flat bit of the abdomen is showing improvement in his obstructive pattern. Hence no surgery is scheduled. Patient will be started on TPN today, his endotracheal tube was advanced 1.5 cm.WBC count today is 8.6 hemoglobin is 15.0. PTT is 56.7.basic metabolic profile is normal, BUN is 38 creatinine 1.91, improving, but not back to normal.chest x-ray is showing bibasilar atelectasis, possible infiltrate/pneumonia. Patient was reevaluated today on 12/11/21, remains in the ICU, intubated and mechanically ventilated and sedated patient is on assist control rate of 20 tidal volume 500 FiO2 50% and PEEP of 5. ABG showed a pO2 of 87 pCO2 34 pH of 7.49 hence no changes made in his ventilator settings. Patient is still requiring norepinephrine at 0.02 mcg/kg/m he is on propofol 45 mcg/kg/m and I am cutting down the propofol to assess mental status and give him a sedation interruption trial. Patient remains on TPN remains on heparin. Continues to have no bowel movements, abdomen remains distended however I could hear bowel sounds today. Patient remains off fentanyl. Chest x-ray is showing mostly basilar atelectasis,/infiltrates, but improving steadily over the last few days. Patient is now off amiodarone, he converted to sinus rhythm. Nonetheless he remains on heparin. Renal profile is improving creatinine is down to 1.70 BUN is 30. His creatinine was as high as 4.95 on his initial evaluation/admission Reevaluated today on 12/12/21, remains in ICU, intubated and mechanically ventilated, ventilator settings are assist control rate of 20 tidal volume 500 FiO2 40% and PEEP of 5. ABG showed a pO2 of 101 pCO2 37 pH of 7.45. Patient is off norepinephrine, he is still on propofol at 45 mcg/kg/m remains on heparin remains on TPN his also on Zosyn and Flagyl. Patient apparently had a small bowel movement yesterday his abdomen continues to be distended however. Seen by surgery yesterday, and no plans for any surgical intervention at this point since the patient is slowly improving. Considering this, I will give the patient today a weaning trial, I would likely discontinue propofol, and I would likely give the patient a trial of pressure support and CPAP, however he has to meet all the criteria for weaning and extubation before we proceed with extubating the patient. And this is yet to be determined today. Chest x-ray showed significant improvement in airspace disease and atelectasis, his WBC count today is 9.1 hemoglobin is 14.6. Basic metabolic profile is normal and his creatinine is holding at 1.80 Reevaluated today on 12/13/21, patient remains in the ICU, he was extubated yesterday, and so far his extubation has been uneventful and very successful. Patient is on few liters nasal cannula, chest x-ray showed significant improvement over the last few days, renal functioning is improving, and his creatinine is down to 1.55 from 1.80 yesterday. Nasogastric tube remains in place, his PTT is therapeutic at 52.7. Electrolytes are normal patient is having bowel sounds, he had a tiny bowel movement yesterday. Nonetheless his abdomen remains a bit distended. Noted today that the patient has some coffee ground material in his nasogastric tube, will recommend Protonix 40 mg twice a day patient is hemodynamically stable, and he is being followed closely by many consultants including surgery and cardiology. Reevaluated today on 12/14/21, remains in the ICU, patient is on room air, O2 sa ts is 93%, he is continuing to do well with incentive spirometry, continues to have nasogastric tube in place, he had a dark stool movement yesterday, patient was on heparin which is now discontinued and I'm recommending that the patient takes Lovenox instead. He is in sinus rhythm, no further episodes of cardiac arrhythmia. Patient is asking to be moved out of bed and possibly placed on a bedside chair, and he would like to use the commode he may be able to have a bowel movement. His abdomen remains a bit distended. However he does have bowel sounds. WBC count today is 11.9 hemoglobin is stable at 14.8 electrolytes are normal renal profile continues to improve and his creatinine today is down to 1.37 Objective - Vital Signs Vital signs: Vital Signs Temp 98.5 F 12/14/21 08:00 Pulse 67 12/14/21 11:00 Resp 15 12/14/21 11:00 BP 137/97 12/14/21 11:00 Pulse Ox 93 L 12/14/21 11:00 FiO2 40 12/12/21 12:04 Intake & Output 12/13/21 12/14/21 12/14/21 18:59 06:59 18:59 Intake Total 1523 1627 424 Output Total 1865 2565 550 Balance -342 -938 -126 Weight 123.3 kg Intake: IV 1273 616 424 0.9 70 Magnesium Sulfate-D5w Pmx 100 1 gm In Dextrose/Water 1 100ml.bag @ 100 mls/hr IVPB Q1H [facility] Rx#: [id number] Magnesium Sulfate-D5w Pmx 100 1 gm In Dextrose/Water 1 100ml.bag @ 100 mls/hr IVPB Q1H [facility] Rx#: [id number] Mvi, Adult No.4 with Vit 56 K 10 ml Trace (Conc-1Ml/ Dose) 1 ml In Amino Acid 5%-D15w+Lytes*E* 1,000 ml @ 56 mls/hr IV .BY DURATION [facility] Rx#: [id number] Piperacillin-Tazobactam 3 75 .375 gm In Sodium Chloride 0.9% 100 ml @ 25 mls/hr IVPB Q8H [facility] Rx#: [id number] Potassium Chloride 10 meq 100 In Water For Injection 1 100ml.bag @ 100 mls/hr IVPB Q1H [facility] Rx#: [id number] TPN 672 616 224 metroNIDAZOLE-NS PMX 500 200 100 mg In Saline 1 100ml.bag @ 100 mls/hr IVPB Q8HR [facility] Rx#:[id number] Intake, IV Titration 250 1011 Amount Heparin Sod,Pork in 0.45% 250 NaCl 25,000 unit In 0.45 % NaCl 1 250ml.bag @ 8.46 UNITS/KG/HR 10 mls/hr IV .Q24H [facility] Rx#:[id number] Mvi, Adult No.4 with Vit 1011 K 10 ml Trace (Conc-1Ml/ Dose) 1 ml In Amino Acid 5%-D15w+Lytes*E* 1,000 ml @ 56 mls/hr IV .BY DURATION [facility] Rx#: [id number] Output: Gastric Drainage 300 Urine 1865 2265 550 Other: Voiding Method Indwelling Catheter Indwelling Catheter Indwelling Catheter # Bowel Movements 1 ABP, PAP, CO, CI - Last Documented Arterial Blood Pressure 164/82 - Exam Physical Exam: Revealed a 66-year-old white male on room air. Head: Atraumatic, normocephalic, nasogastric tube is intact. HEENT:[Neck is supple.] [No neck masses.] [No thyromegaly.] [No JVD.]., EOMI, nonicteric. Chest: Symmetrical chest expansion, clear breath sound bilaterally no crackles or rhonchi or wheezes Cardiac Exam: Regular rate and rhythm. [Normal S1 and S2, no S3 gallop, no murmur.] Abdomen: [Obese, distended, positive bowel sounds Extremities: [No clubbing, trace of bipedal edema, no cyanosis. Neurological Exam: Alert and oriented 3, no gross focal deficits. Psychiatric: Normal mood, affect and normal mental status examination Musculoskeletal: No deformities. Skin: No rashes - Labs CBC & Chem 7: 12/14/21 05:13 12/14/21 05:13 Labs: Abnormal Lab Results - Last 24 Hours (Table) 12/13/21 12/13/21 12/14/21 Range/Units 17:59 18:36 05:13 WBC 12.0 H (3.8-10.6) k/uL Plt Count 133 L (150-450) k/uL Neutrophils # 10.3 H (1.3-7.7) k/uL Lymphocytes # 0.9 L (1.0-4.8) k/uL Chloride 109 H (98-107) mmol/L BUN 36 H (9-20) mg/dL Creatinine 1.37 H (0.66-1.25) mg/dL Glucose 139 H (74-99) mg/dL POC Glucose (mg/dL) 111 H (70-110) mg/dL Calcium 8.2 L (8.4-10.2) mg/dL Total Protein 5.0 L (6.3-8.2) g/dL Albumin 2.7 L (3.5-5.0) g/dL 12/14/21 12/14/21 Range/Units 05:13 11:54 WBC 11.9 H (3.8-10.6) k/uL Plt Count 135 L (150-450) k/uL Neutrophils # 10.2 H (1.3-7.7) k/uL Lymphocytes # 0.8 L (1.0-4.8) k/uL Chloride (98-107) mmol/L BUN (9-20) mg/dL Creatinine (0.66-1.25) mg/dL Glucose (74-99) mg/dL POC Glucose (mg/dL) 119 H (70-110) mg/dL Calcium (8.4-10.2) mg/dL Total Protein (6.3-8.2) g/dL Albumin (3.5-5.0) g/dL Assessment and Plan Assessment: Impression: acute hypoxic respiratory failure requiring intubation and mechanical ventilation, secondary to above obstruction, abdominal sepsis, and possible septic shock. Acute small bowel obstruction Abdominal sepsis and septic shock Acute metabolic encephalopathy secondary to above New onset atrial fibrillation with RVR, however the patient converted to normal sinus to them yesterday, and is now off amiodarone umbilical hernia without incarceration Acute kidney injury secondary to sepsis, improving steadily since admission. Acute dehydration improving and his renal functioning is also improving with hydration. Anion gap metabolic acidosis secondary to abdominal sepsis and renal failure, resolved. Underlying COPD Benign essential hypertension Degenerative joint disease History of nephrolithiasis Chronic back pain Recommendation: Ambulate patient today to a bedside chair and possibly have the patient use a bedside commode Continue incentive spirometry Continue nasogastric tube to suction Continue IV fluid, continue to monitor electrolytes. Change heparin to Lovenox 30 mg subcu daily Continue GI and DVT prophylaxis Continue TPN We'll continue to monitor in the ICU for the next 24 hours Time with Patient: Less than 30
--- NOTE | 2021-12-14 12:46 | P.PN ---
Subjective Progress Note Date: 12/14/21 Principal diagnosis: Partial small bowel obstruction Patient seen and examined he is resting in bed comfortably injury to about 300 mL light bilious output his abdomen is less distended. His report that yesterday he is passing flatus and had a small bowel movement 12/13/21 Overnight the patient states that he feels better no abdominal pain no distention piece passing flatus and small bowel movement no nausea and// vomiting NG tube put 300 mL of light bile 12/14/21 NG tube put 300 mL overnight. Patient had a large bowel movement yesterday and another large bowel movement today he's been passing flatus. There was an issue with some minimal blood in the first bowel movement patient was on heparin drip. Since then the patient is being off the heparin drip. He is on therapeutic dose of Lovenox. His H&H been stable he is hemodynamically stable with a blood clot distal to be secondary to constipation. He has not had any luck her rectum no melena since then his stool is brown. The plan is to remove the NG tube start patient on sips of clears today if he does well tomorrow we'll start him on clear liquid diet. Small bowel obstruction is resolved Objective - Vital Signs Vital signs: Vital Signs Temp 98.5 F 12/14/21 08:00 Pulse 67 12/14/21 11:00 Resp 15 12/14/21 11:00 BP 137/97 12/14/21 11:00 Pulse Ox 93 L 12/14/21 11:00 FiO2 40 12/12/21 12:04 Intake & Output 12/13/21 12/14/21 12/14/21 18:59 06:59 18:59 Intake Total 1523 1627 424 Output Total 1034 7948 550 Balance -342 -938 -126 Weight 123.3 kg Intake: IV 1273 616 424 0.9 70 Magnesium Sulfate-D5w Pmx 100 1 gm In Dextrose/Water 1 100ml.bag @ 100 mls/hr IVPB Q1H [facility] Rx#: [id number] Magnesium Sulfate-D5w Pmx 100 1 gm In Dextrose/Water 1 100ml.bag @ 100 mls/hr IVPB Q1H [facility] Rx#: [id number] Mvi, Adult No.4 with Vit 56 K 10 ml Trace (Conc-1Ml/ Dose) 1 ml In Amino Acid 5%-D15w+Lytes*E* 1,000 ml @ 56 mls/hr IV .BY DURATION [facility] Rx#: [id number] Piperacillin-Tazobactam 3 75 .375 gm In Sodium Chloride 0.9% 100 ml @ 25 mls/hr IVPB Q8H [facility] Rx#: [id number] Potassium Chloride 10 meq 100 In Water For Injection 1 100ml.bag @ 100 mls/hr IVPB Q1H [facility] Rx#: [id number] TPN 672 616 224 metroNIDAZOLE-NS PMX 500 200 100 mg In Saline 1 100ml.bag @ 100 mls/hr IVPB Q8HR [facility] Rx#:[id number] Intake, IV Titration 250 1011 Amount Heparin Sod,Pork in 0.45% 250 NaCl 25,000 unit In 0.45 % NaCl 1 250ml.bag @ 8.46 UNITS/KG/HR 10 mls/hr IV .Q24H [facility] Rx#:[id number] Mvi, Adult No.4 with Vit 1011 K 10 ml Trace (Conc-1Ml/ Dose) 1 ml In Amino Acid 5%-D15w+Lytes*E* 1,000 ml @ 56 mls/hr IV .BY DURATION [facility] Rx#: [id number] Output: Gastric Drainage 300 Urine 1865 2265 550 Other: Voiding Method Indwelling Catheter Indwelling Catheter Indwelling Catheter # Bowel Movements 1 ABP, PAP, CO, CI - Last Documented Arterial Blood Pressure 164/82 - Labs CBC & Chem 7: 12/14/21 05:13 12/14/21 05:13 Labs: Abnormal Lab Results - Last 24 Hours (Table) 12/13/21 12/13/21 12/14/21 Range/Units 17:59 18:36 05:13 WBC 12.0 H (3.8-10.6) k/uL Plt Count 133 L (150-450) k/uL Neutrophils # 10.3 H (1.3-7.7) k/uL Lymphocytes # 0.9 L (1.0-4.8) k/uL Chloride 109 H (98-107) mmol/L BUN 36 H (9-20) mg/dL Creatinine 1.37 H (0.66-1.25) mg/dL Glucose 139 H (74-99) mg/dL POC Glucose (mg/dL) 111 H (70-110) mg/dL Calcium 8.2 L (8.4-10.2) mg/dL Total Protein 5.0 L (6.3-8.2) g/dL Albumin 2.7 L (3.5-5.0) g/dL 12/14/21 12/14/21 Range/Units 05:13 11:54 WBC 11.9 H (3.8-10.6) k/uL Plt Count 135 L (150-450) k/uL Neutrophils # 10.2 H (1.3-7.7) k/uL Lymphocytes # 0.8 L (1.0-4.8) k/uL Chloride (98-107) mmol/L BUN (9-20) mg/dL Creatinine (0.66-1.25) mg/dL Glucose (74-99) mg/dL POC Glucose (mg/dL) 119 H (70-110) mg/dL Calcium (8.4-10.2) mg/dL Total Protein (6.3-8.2) g/dL Albumin (3.5-5.0) g/dL Assessment and Plan (1) Hypotension Narrative/Plan: 12/14/21 NG tube put 300 mL overnight. Patient had a large bowel movement yesterday and another large bowel movement today he's been passing flatus. There was an issue with some minimal blood in the first bowel movement patient was on heparin drip. Since then the patient is being off the heparin drip. He is on therapeutic dose of Lovenox. His H&H been stable he is hemodynamically stable with a blood clot distal to be secondary to constipation. He has not had any luck her rectum no melena since then his stool is brown. The plan is to remove the NG tube start patient on sips of clears today if he d oes well tomorrow we'll start him on clear liquid diet. Small bowel obstruction is resolved Current Visit: Yes Status: Acute Code(s): I95.9 - HYPOTENSION, UNSPECIFIED SNOMED Code(s): 06695510 (2) Renal failure Current Visit: Yes Status: Acute Code(s): N19 - UNSPECIFIED KIDNEY FAILURE SNOMED Code(s): 63033276 (3) Small bowel obstruction Current Visit: Yes Status: Acute Code(s): K56.609 - UNSP INTESTNL OBST, UNSP TO PARTIAL VERSUS COMPLETE OBST SNOMED Code(s): 245084955
[2021-12-14 18:58] LABS: Glucose,Whole Blood 125 mg/dL (70-110)
--- NOTE | 2021-12-15 00:48 | PN ---
PROGRESS NOTE SUBJECTIVE: The patient is admitted to ICU with small bowel obstruction, was intubated and on vent. He is doing better. OBJECTIVE: VITAL SIGNS: He remains in sinus rhythm with a heart rate of 67 beats per minute. Blood pressure is 137/90. Respiratory rate is 18. CHEST: Reveals good air entry bilaterally. HEART: Reveals first and second heart sounds. No gallop. EXTREMITIES: Did not reveal any edema. ASSESSMENT: Paroxysmal atrial fibrillation. The patient is currently in sinus rhythm. MEDICATIONS: Include: 1. IV Lopressor on a p.r.n. basis. 2. Subcu Lovenox. MMODL / IJN: [id number] /
[2021-12-15] MEDS: metroNIDAZOLE-NS PMX 500 MG in SALINE 1 100ML.BAG IVPB SCH ×3 (01:32→15:47)
[2021-12-15] MEDS: PIPERACILLIN-TAZOBACTAM 3.375 GM in SODIUM CHLORIDE 0.9% 100 ML IVPB SCH ×3 (03:52→20:47)
[2021-12-15 05:31] LABS: Basophils % (A) 0 %; Eosinophils # (A) 0.2 k/uL (0-0.7); Eosinophils % (A) 2 %; HCT 46.5 % (39.0-53.0); HGB 14.8 gm/dL (13.0-17.5); Hypochromasia Slight; Lymphocytes # (A) 0.8 k/uL (1.0-4.8); Lymphocytes % (A) 8 %; MCH 30.4 pg (25.0-35.0); MCHC 31.7 g/dL (31.0-37.0); MCV 95.9 fL (80.0-100.0); Monocytes # (A) 0.5 k/uL (0-1.0); Monocytes % (A) 5 %; Neutrophils % (A) 84 %; Platelet Count 149 k/uL (150-450); RBC 4.85 m/uL (4.30-5.90); WBC 9.6 k/uL (3.8-10.6)
[2021-12-15 05:46] LABS: Albumin 2.6 g/dL (3.5-5.0); Calcium 8.4 mg/dL (8.4-10.2); Magnesium 1.8 mg/dL (1.6-2.3); Phosphorus 3.3 mg/dL (2.5-4.5); Potassium 4.1 mmol/L (3.5-5.1); Total Bilirubin 1.1 mg/dL (0.2-1.3); Total Protein 5.2 g/dL (6.3-8.2)
[2021-12-15] MEDS ORDERED: Magnesium Replacement Protocol 1 EACH MISC MISCELLANE PRN (07:59)
[2021-12-15] MEDS: MAGNESIUM SULFATE-D5W PMX 1 GM in DEXTROSE/WATER 1 100ML.BAG IVPB SCH ×2 (08:06→11:05)
[2021-12-15] MEDS: bisacodyL 10 MG SUPP RECTAL SCH (08:07)
[2021-12-15] MEDS: PANTOPRAZOLE 40 MG/10 ML VIAL IVP SCH ×2 (08:07→20:48)
[2021-12-15] MEDS: ENOXAPARIN 30 MG/0.3 ML SYRINGE SQ SCH (08:07)
--- NOTE | 2021-12-15 09:40 | P.PN ---
Subjective Progress Note Date: 12/15/21 Constantino Hernandez, is a 66 year old male who presented to [facility] emergency room, with a chief complaint of abdominal pain nausea and vomiting, his symptoms started 3 days ago and has been worsening. He was evaluated in the emergency room vital examination on presentation revealed a temperature of 96.7 pulse 101 respiration 24 blood pressure 154/89 however blood pressure dropped to 65/47 shortly after arrival pulse ox was 96% on room air Laboratory data revealed a white blood count of 11.6 hemoglobin 21.3 platelet count 116 sodium 134 potassium 5.0 chloride 94 CO2 16 BUN 91 creatinine 4.95 la ctic acid was elevated at 3.4 total bilirubin 1.5 AST 95 ALT 62 lipase within normal limits, zavala virus PCR was negative Testing in the emergency room revealed chest x-ray done in the emergency room revealed interstitial lung disease and chronic compression deformity of L1, computed tomography scan of the abdomen and pelvis revealed distal small bowel obstruction and 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 In the emergency room patient had an NG tube placed and had large amount of fluid removed, plan is to admit patient, consultation for surgery, nephrology, cardiology, and critical care initiated in the emergency room Past medical history is significant for history of hypertension, history of COPD, history of osteoarthritis, history of chronic kidney disease, history of chronic back pain. 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 On review of systems patient is alert and oriented 3, he has an NG tube in, he is complaining of some abdominal discomfort, otherwise he denies any complaints, there is no fever or chills no headache or dizziness no chest pain no shortness of breath, no nausea or vomiting since NG tube has been placed, no burning with urination no frequency or urgency and no hematuria. On 12/06/2021 patient was seen and examined in the ICU he is alert responsive in no apparent distress, he has an NG tube, he is maintained on oxygen via nasal cannula at 4 L, vital exam at 8 AM temperature 98.4 pulse 123 respiration 16 blood pressure 78/64 pulse ox 92% he is sleepy and denies any complaints at this time, there is no fever or chills no headache or dizziness no chest pain no shortness of breath no cough no nausea or vomiting no abdominal pain no diarrhea and no urinary symptoms, patient has not had any bowel movement or passed any gas since admission, there is some improvement on his laboratory data white blood count is down from 11.6-9.0 creatinine is down from 4.95-3.82 and lactic acid is down to 1.5, recommendation from nephrology, cardiology and critical care reviewed On 12/07/2021 patient is more confused. Per nursing staff patient had increased confusion throughout the night. Heart rate remains elevated. Cardiology services are following patient is on amiodarone. Surgical services ordering abdominal x-ray. Lactic acid 2.1. Creatinine improving to 3.18 awaiting further recommendations from surgery and critical care services On 12/08/2021 patient was seen and examined in the ICU he is intubated sedated maintained on mechanical ventilation, he is on assist control with FiO2 of 50% PEEP of 5 and draped of 26 he is maintained on norepinephrine for pressure control he remains in atrial fibrillation with a heart rate of 125 he is maintained on IV heparin kidney function is improving gradually his sodium is elevated at 150 he is maintained on IV amiodarone he is also maintained on IV antibiotics Zosyn and Flagyl, pulmonary critical care, cardiology, infectious disease, and nephrology are following patient is also followed by general surgery for bowel obstruction computed tomography scan of the brain done this morning did not reveal any evidence of intracranial bleeding, computed tomography scan of the abdomen and pelvis done again this morning and revealed evidence of bowel obstruction without significant change from previous computed tomography scan, will continue to follow closely prognosis is guarded. On 12/09/2021 patient was seen and examined in the ICU he is intubated sedated maintained on mechanical ventilation, no significant change on his ventilation settings, temperature is 90.8 heart rate 80 blood pressure 94/60 white blood count is 10.0 hemoglobin 15.7 platelet count 137 sodium 146 potassium 4.0 chloride 112 CO2 24 BUN 53 creatinine 2.31 patient was cleared by pulmonary and cardiology for abdominal surgery, however surgeon stated that there is some improvement on abdomen x-ray, no plans for surgery today, will continue to monitor closely 12/10/2021 patient remains in the intensive care unit intubated and sedated. No plans for surgical intervention at this time. Patient remains on Levophed for pressure support. Patient also on amiodarone. IV antibiotics of Flagyl and Zosyn. Critical care, surgical, cardiology and nephrology service following. On 12/11/2021 patient was seen and examined in the intensive care unit, he is intubated sedated maintained on mechanical ventilation, case was discussed in details with Dr. Mehta today, vital exam reveals a temperature of 98.2 pulse 62 respiration 18 pressure 120/69 oxygen saturation 96% on FiO2 40% patient is still requiring norepinephrine for pressure support, he is off the amiodarone, he has converted to normal sinus rhythm, renal function is improving with BUN 13 creatinine 1.7 On 12/12/2021 patient remains in the intensive care unit. Patient remains on IV sedation. Patient has been weaned off amiodarone and Levophed. Possible extubation today per critical care. Creatinine 1.80 bun 34. Blood pressure 101/65 heart rate 61. FiO2 40%. On 12/13/2021 patient was seen and examined in the ICU he is alert responsive in no apparent distress, he was extubated yesterday he is maintained on oxygen via nasal cannula and is tolerating well, NG tube is still in and maintained to suction, abdomen x-ray this morning still reveals evidence of bowel obstruction was dilated bowel loops, clinically patient is alert and answering questions appropriately, he states he is passing some gas, nurse states that that his smears of stools but no bowel movements, his heart rate is regular remains in normal sinus, he has bowel sounds, kidney function is improving, will continue to follow closely, input from pulmonary critical care, and surgery reviewed On 12/14/2021 patient was seen and examined in the ICU he is alert and oriented 3 in no apparent distress, there is no fever or chills no headache or dizziness no chest pain no shortness of breath no cough no nausea or vomiting no abdominal pain no diarrhea no blood in the stools no burning with urination no frequency or urgency no hematuria, he is maintained on oxygen via nasal cannula his pulse ox is 94% on 2 L nasal cannula, temperature 98.8 pulse 67 respiration 15 blood pressure 134/87 NG tube is in, Rivero catheter is in, patient stated that he is passing gas, he is having smears of stools but has not had any bowel movement yet. On 12/15/2021 patient was seen and examined in the ICU he is alert and oriented 3 in no apparent distress, he had a bowel movement yesterday and NG tube has been removed, patient is feeling better there is no fever or chills no headache or dizziness no chest pain no shortness of breath no cough no nausea or vomiting no abdominal pain no diarrhea no blood in the stools no burning with urination no frequency or urgency and no hematuria he is maintained on room air and pulse ox is 94%. IV heparin has been discontinued by cardiology and he is currently maintained on subcu Lovenox, patient is improving gradually will consult physical therapy and occupational therapy will follow closely. Objective - Vital Signs Vital signs: Vital Signs Temp 98.4 F 12/15/21 08:00 Pulse 81 12/15/21 09:00 Resp 16 12/15/21 08:00 BP 149/90 12/15/21 09:00 Pulse Ox 95 12/15/21 09:00 FiO2 40 12/12/21 12:04 Intake & Output 12/14/21 12/15/21 12/15/21 18:59 06:59 18:59 Intake Total 1102 1755.267 332 Output Total 1875 1455 450 Balance -773 300.267 -118 Weight 124 kg Intake: IV 1102 807 232 0.9 30 110 20 Magnesium Sulfate-D5w Pmx 100 1 gm In Dextrose/Water 1 100ml.bag @ 100 mls/hr IVPB Q1H [facility] Rx#: [id number] Piperacillin-Tazobactam 3 100 25 .375 gm In Sodium Chloride 0.9% 100 ml @ 25 mls/hr IVPB Q8H [facility] Rx#: [id number] TPN 672 672 112 metroNIDAZOLE-NS PMX 500 200 100 mg In Saline 1 100ml.bag @ 100 mls/hr IVPB Q8HR [facility] Rx#:[id number] Intake, IV Titration 948.267 100 Amount Magnesium Sulfate-D5w Pmx 100 1 gm In Dextrose/Water 1 100ml.bag @ 100 mls/hr IVPB Q1H [facility] Rx#: [id number] Mvi, Adult No.4 with Vit 948.267 K 10 ml Trace (Conc-1Ml/ Dose) 1 ml In Amino Acid 5%-D15w+Lytes*E* 1,000 ml @ 56 mls/hr IV .BY DURATION [facility] Rx#: [id number] Output: Urine 1875 1455 450 Other: Voiding Method Indwelling Catheter Indwelling Catheter Indwelling Catheter ABP, PAP, CO, CI - Last Documented Arterial Blood Pressure 164/82 - Exam In general patient is alert and oriented in no distress HEENT head normocephalic and atraumatic, NG tube is in Neck is supple no JVD no goiter no lymphadenopathy no carotid bruit Chest examination is clear to auscultation no crackles no wheezing Cardiac exam reveals regular heart sounds S1 and S2 no gallops no murmurs Abdomen is soft with mild diffuse tenderness no palpable masses no organomegaly Extremity exam reveals no edema no cyanosis or clubbing Neurological examination reveals no gross focal deficits - Labs CBC & Chem 7: 12/15/21 04:42 12/15/21 04:42 Labs: Abnormal Lab Results - Last 24 Hours (Table) 12/14/21 12/14/21 12/15/21 Range/Units 11:54 18:56 04:42 Plt Count (150-450) k/uL Neutrophils # (1.3-7.7) k/uL Lymphocytes # (1.0-4.8) k/uL Chloride 109 H (98-107) mmol/L Carbon Dioxide 20 L (22-30) mmol/L BUN 35 H (9-20) mg/dL Creatinine 1.43 H (0.66-1.25) mg/dL Glucose 135 H (74-99) mg/dL POC Glucose (mg/dL) 119 H 125 H (70-110) mg/dL Alkaline Phosphatase 35 L (38-126) U/L Total Protein 5.2 L (6.3-8.2) g/dL Albumin 2.6 L (3.5-5.0) g/dL 12/15/21 Range/Units 04:42 Plt Count 149 L (150-450) k/uL Neutrophils # 8.0 H (1.3-7.7) k/uL Lymphocytes # 0.8 L (1.0-4.8) k/uL Chloride (98-107) mmol/L Carbon Dioxide (22-30) mmol/L BUN (9-20) mg/dL Creatinine (0.66-1.25) mg/dL Glucose (74-99) mg/dL POC Glucose (mg/dL) (70-110) mg/dL Alkaline Phosphatase (38-126) U/L Total Protein (6.3-8.2) g/dL Albumin (3.5-5.0) g/dL Assessment and Plan Plan: Distal small bowel obstruction Underlying history of COPD Underlying history of hypertension Acute on chronic renal failure was elevated BUN and creatinine Chronic kidney disease with evidence of autosomal dominant polycystic kidney disease on computed tomography scan Episodes of atrial flutter in the emergency room Underlying history of osteoarthritis. Atrial fibrillation with RVR. Patient maintained on amiodarone Hypotension. Patient maintained on Levophed for pressure support. Improving Patient remains in the intensive care unit He is maintained on IV fluids and NG tube is in Patient currently intubated and sedated Critical care, cardiology, nephrology and surgical service is following Patient maintained on IV antibiotics Zosyn and Flagyl
--- NOTE | 2021-12-15 10:37 | P.PN ---
Subjective Patient is seen for follow-up for acute kidney injury. Renal function has improved. Patient is awake, alert oriented 3. NG tube has been removed Patient has had good urine output. Receiving TPN Off of pressors Urine output 3.3 L Objective - Vital Signs Vital signs: Vital Signs Temp 98.4 F 12/15/21 08:00 Pulse 81 12/15/21 09:00 Resp 16 12/15/21 08:00 BP 149/90 12/15/21 09:00 Pulse Ox 95 12/15/21 09:00 FiO2 40 12/12/21 12:04 Intake & Output 12/14/21 12/15/21 12/15/21 18:59 06:59 18:59 Intake Total 1102 1755.267 332 Output Total 1875 1455 450 Balance -773 300.267 -118 Weight 124 kg Intake: IV 1102 807 232 0.9 30 110 20 Magnesium Sulfate-D5w Pmx 100 1 gm In Dextrose/Water 1 100ml.bag @ 100 mls/hr IVPB Q1H [facility] Rx#: [id number] Piperacillin-Tazobactam 3 100 25 .375 gm In Sodium Chloride 0.9% 100 ml @ 25 mls/hr IVPB Q8H [facility] Rx#: [id number] TPN 672 672 112 metroNIDAZOLE-NS PMX 500 200 100 mg In Saline 1 100ml.bag @ 100 mls/hr IVPB Q8HR [facility] Rx#:[id number] Intake, IV Titration 948.267 100 Amount Magnesium Sulfate-D5w Pmx 100 1 gm In Dextrose/Water 1 100ml.bag @ 100 mls/hr IVPB Q1H [facility] Rx#: [id number] Mvi, Adult No.4 with Vit 948.267 K 10 ml Trace (Conc-1Ml/ Dose) 1 ml In Amino Acid 5%-D15w+Lytes*E* 1,000 ml @ 56 mls/hr IV .BY DURATION [facility] Rx#: [id number] Output: Urine 1875 1455 450 Other: Voiding Method Indwelling Catheter Indwelling Catheter Indwelling Catheter ABP, PAP, CO, CI - Last Documented Arterial Blood Pressure 164/82 - Exam Awake, comfortable, not in any acute distress Alert oriented 3 Examination of the heart S1 and S2 Examination lungs bilateral breath sounds are heard Abdomen is soft mildly tender Examination lower extremities shows trace edema bilaterally [employer] exam grossly intact - Labs CBC & Chem 7: 12/15/21 04:42 12/15/21 04:42 Labs: Abnormal Lab Results - Last 24 Hours (Table) 12/14/21 12/14/21 12/15/21 Range/Units 11:54 18:56 04:42 Plt Count (150-450) k/uL Neutrophils # (1.3-7.7) k/uL Lymphocytes # (1.0-4.8) k/uL Chloride 109 H (98-107) mmol/L Carbon Dioxide 20 L (22-30) mmol/L BUN 35 H (9-20) mg/dL Creatinine 1.43 H (0.66-1.25) mg/dL Glucose 135 H (74-99) mg/dL POC Glucose (mg/dL) 119 H 125 H (70-110) mg/dL Alkaline Phosphatase 35 L (38-126) U/L Total Protein 5.2 L (6.3-8.2) g/dL Albumin 2.6 L (3.5-5.0) g/dL 12/15/21 Range/Units 04:42 Plt Count 149 L (150-450) k/uL Neutrophils # 8.0 H (1.3-7.7) k/uL Lymphocytes # 0.8 L (1.0-4.8) k/uL Chloride (98-107) mmol/L Carbon Dioxide (22-30) mmol/L BUN (9-20) mg/dL Creatinine (0.66-1.25) mg/dL Glucose (74-99) mg/dL POC Glucose (mg/dL) (70-110) mg/dL Alkaline Phosphatase (38-126) U/L Total Protein (6.3-8.2) g/dL Albumin (3.5-5.0) g/dL Assessment and Plan Assessment: 1. Acute kidney injury mostly prerenal secondary to hypovolemia from vomiting as well as hypotension and A. fib. Creatinine 4.95 on admission and is stable at 1.4 today. No hydronephrosis noted on CAT scan. 2. Chronic kidney disease stage IIIB with baseline creatinine near 1.8 in 2019 secondary to polycystic kidney disease. 3. A. fib with RVR s/p amiodarone drip. Cardiology following. 4. Metabolic acidosis secondary to acute kidney injury and IV fluids. Improved. 5. Small bowel obstruction. Has NG tube. Surgery following. 6. Hypernatremia from lack of oral water intake. Resolved. 7. Shock s/p Levophed. Plan: Continue TPN Continue to avoid nephrotoxic agents Repeat labs in a.m.
[2021-12-15] MEDS: NOREPINEPHRINE 8 MG in SODIUM CHLORIDE 0.9% 250 ML IV SCH (11:09)
--- NOTE | 2021-12-15 12:25 | CDI ---
Documentation Clarification Form Date: 12/15/2021 12:07:27 PM From: Marcela oLyolaDiazRENÉ chavez, CCDS Admit Date: 12/05/2021 01:39:00 PM Patient Name: Constantino Hernandez Visit Number: [id number] Discharge Date: ATTENTION: The Clinical Documentation Specialists (CDI) and [facility] Coding Staff appreciate your assistance in clarifying documentation. Please respond to the clarification below the line at the bottom and electronically sign. The CDI & [facility] Coding staff will review the response and follow-up if needed. Please note: Queries are made part of the Legal Health Record. If you have any questions, please contact the author of this message via ITS. Dr. Thierno Ge: The patient presented with the following clinical indicators. Additional clarification regarding the etiology/cause of the clinical indicators is requested. History/Risk Factors per the 12/05 H/P: Hypertension, COPD, Osteoarthritis, CKD, Chronic Back Pain, Kidney Stones, Polycystic Kidney Disease. Clinical Indicators: Presented to the ED on 12/05 with Nausea, Vomiting, Diarrhea and Back pain, Loss of Appetite for 3 days, Lower Abdominal Pain. Admit with to ICU with SBO, Atrial Fibrillation with RVR and Renal Failure. Per the 12/05 Lunchroom Aide Consult and Assessment: Acute ABO, Umbilical Hernia w/o incarceration, BELL on CKD, Dehydration, Secondary erythrocytosis with elevated Hemoglobin level. Anion gap metabolic acidosis, Mild lactic acidosis. Per the 12/08 Lunchroom Aide Progress Note: Acute SBO, Abdominal Sepsis and Septic Shock, BELL secondary to Sepsis, Anion gap metabolic acidosis secondary to abdominal Sepsis and Renal failure. 12/05 VS: T 96.7, P 101, R 24, BP 154/89, PO 96 RA, 91 2Lnc 12/05 LAB: WBC 11.6, RBC 6.96, Hgb 21.3, Hct 65.8, Plt Ct 116, Neutrophils 9.8, Lymphocytes 0.5; Na 134, Chloride 94, CO2 16, BUN 91, Creatinine 4.95, Glucose 142, Lactic Acid 3.4, Total Bilirubin 1.5, AST 95, ALT 62. 12/05 CT Abdomen/Pelvis: Distal SBO, Autosomal dominant polycystic kidney disease. Small amount of ascites about the liver an in the pelvis. Treatment 12/05: Admit to ICU, NGT, Rivero catheter, O2 2Lnc, IV Dilaudid 0.5 mg x4, I Na Chl 1,000 mls @ 999 mls/hr q1H x2, I Na Chl 1,000 mls @ 130 mls/hr q7H, IV Protonix 40 mg x1, IV Zofran 4 mg x1, IV Zosyn 100 mls @ 25 mls/hr q12H, IV Cardizem Drip bolus 10 mg x1, IV Cardizem 125 mls @ 5 mls/hr q24H In your professional opinion, please clarify if these findings signify one of the following conditions: [ xxx ] Sepsis POA [ ] Sepsis, Not POA [ ] Sepsis ruled out [ ] Severe Sepsis with organ failure [ ] Septic Shock [ ] Other, please specify [ ] Unable to determine (Template Last Reviewed: April 2020) SONJA
--- NOTE | 2021-12-15 12:36 | P.PN ---
Subjective Progress Note Date: 12/15/21 Principal diagnosis: Small bowel obstruction. Reevaluated today on 12/13/21, patient remains in the ICU, he was extubated yesterday, and so far his extubation has been uneventful and very successful. Patient is on few liters nasal cannula, chest x-ray showed significant improvem ent over the last few days, renal functioning is improving, and his creatinine is down to 1.55 from 1.80 yesterday. Nasogastric tube remains in place, his PTT is therapeutic at 52.7. Electrolytes are normal patient is having bowel sounds, he had a tiny bowel movement yesterday. Nonetheless his abdomen remains a bit distended. Noted today that the patient has some coffee ground material in his nasogastric tube, will recommend Protonix 40 mg twice a day patient is hemodynamically stable, and he is being followed closely by many consultants including surgery and cardiology. Reevaluated today on 12/14/21, remains in the ICU, patient is on room air, O2 sats is 93%, he is continuing to do well with incentive spirometry, continues to have nasogastric tube in place, he had a dark stool movement yesterday, patient was on heparin which is now discontinued and I'm recommending that the patient takes Lovenox instead. He is in sinus rhythm, no further episodes of cardiac arrhythmia. Patient is asking to be moved out of bed and possibly placed on a bedside chair, and he would like to use the commode he may be able to have a bowel movement. His abdomen remains a bit distended. However he does have bowel sounds. WBC count today is 11.9 hemoglobin is stable at 14.8 electrolytes are normal renal profile continues to improve and his creatinine today is down to 1.37 Progress note dated 12/15/2021. A 66-year-old male who was admitted back on December 05, for small bowel obstruction, and acute kidney injury. Fortunately, the patient did not require any surgery. He was intubated for mental status changes on December 08, and was successfully extubated on December 12. Currently, he is on room air. He's getting TPN at 56 mL an hour. The patient's arterial line can be discontinued. The patient could be discharged out to the general medical floor with telemetry in my opinion. White count 9.6, hemoglobin 14.8, hematocrit 46.5, and platelet count 249,000. Sodium 138, potassium 4.1, chlorides 109, CO2 20, BUN 35, and creatinine 1.43. Albumin is 2.6. Blood and sputum sampling is negative. Objective - Vital Signs Vital signs: Vital Signs Temp 98.4 F 12/15/21 08:00 Pulse 75 12/15/21 11:00 Resp 16 12/15/21 11:59 BP 143/89 12/15/21 11:00 Pulse Ox 95 12/15/21 11:00 FiO2 40 12/12/21 12:04 Intake & Output 12/14/21 12/15/21 12/15/21 18:59 06:59 18:59 Intake Total 1102 9019.766 4909 Output Total 1875 1455 1000 Balance -773 300.267 36 Weight 124 kg Intake: IV 1102 807 596 0.9 30 110 60 Magnesium Sulfate-D5w Pmx 100 1 gm In Dextrose/Water 1 100ml.bag @ 100 mls/hr IVPB Q1H [facility] Rx#: [id number] Piperacillin-Tazobactam 3 100 25 100 .375 gm In Sodium Chloride 0.9% 100 ml @ 25 mls/hr IVPB Q8H [facility] Rx#: [id number] TPN 672 672 336 metroNIDAZOLE-NS PMX 500 200 100 mg In Saline 1 100ml.bag @ 100 mls/hr IVPB Q8HR [facility] Rx#:[id number] Intake, IV Titration 948.267 200 Amount Magnesium Sulfate gm 1 gm 100 In Amino Acid 5%-D15w+ Lytes*E* 1,000 ml @ 56 mls/hr IV .BY DURATION [facility] Rx#:[id number] Magnesium Sulfate-D5w Pmx 100 1 gm In Dextrose/Water 1 100ml.bag @ 100 mls/hr IVPB Q1H [facility] Rx#: [id number] Mvi, Adult No.4 with Vit 948.267 K 10 ml Trace (Conc-1Ml/ Dose) 1 ml In Amino Acid 5%-D15w+Lytes*E* 1,000 ml @ 56 mls/hr IV .BY DURATION [facility] Rx#: [id number] Oral 240 Output: Urine 1875 1455 1000 Other: Voiding Method Indwelling Catheter Indwelling Catheter Indwelling Catheter ABP, PAP, CO, CI - Last Documented Arterial Blood Pressure 164/82 - Exam No acute distress, oriented 3. Not on any supplemental oxygen. No acute distress. HEENT examination is grossly unremarkable. Neck supple. Full range of motion. No adenopathy thyromegaly or neck vein distention. Cardiovascular examination reveals regular rhythm rate. S1-S2 normal. No S3 or S4. No discernible murmur noted. Heart rate 75 bpm. Lungs reveal clear breath sounds. Breath sounds are equal bilaterally. No adventitious lung sounds including wheezes rhonchi or crackles. Resting room air saturation is 95%. Abdomen soft bowel sounds are heard. No masses or tenderness. Extremities are intact. No cyanosis clubbing or edema. Skin is without rash or lesion. Neurologic examination is brief but nonfocal. - Labs CBC & Chem 7: 12/15/21 04:42 12/15/21 04:42 Labs: Abnormal Lab Results - Last 24 Hours (Table) 12/14/21 12/15/21 12/15/21 Range/Units 18:56 04:42 04:42 Plt Count 149 L (150-450) k/uL Neutrophils # 8.0 H (1.3-7.7) k/uL Lymphocytes # 0.8 L (1.0-4.8) k/uL Chloride 109 H (98-107) mmol/L Carbon Dioxide 20 L (22-30) mmol/L BUN 35 H (9-20) mg/dL Creatinine 1.43 H (0.66-1.25) mg/dL Glucose 135 H (74-99) mg/dL POC Glucose (mg/dL) 125 H (70-110) mg/dL Alkaline Phosphatase 35 L (38-126) U/L Total Protein 5.2 L (6.3-8.2) g/dL Albumin 2.6 L (3.5-5.0) g/dL Assessment and Plan Assessment: Acute hypoxemic respiratory failure, requiring intubation and mechanical ventilation, December 08, till December 12. Acute small bowel obstruction, improved. Abdominal sepsis and septic shock. Acute metabolic encephalopathy, secondary to sepsis. History of atrial fibrillation/RVR, resolved. Umbilical hernia, without incarceration. Acute kidney injury secondary to sepsis. Acute dehydration. Anion gap metabolic acidosis. History of COPD. Essential hypertension. DJD. History of kidney stones. Chronic back pain. Plan: Plan dated 12/15/2021. The patient's doing much better. I told the nurse that we could discontinue the arterial line, and consider transferring the patient to the general medical floor, with telemetry. The patient did have an episode of acute atrial fibrillation. Labs, x-rays, and medications are reviewed. Additional recommendations and suggestions are forthcoming. Prognosis is certainly guarded. We will continue to follow and make recommendations along the way. Time with Patient: Less than 30
[2021-12-15 13:06] VITALS: BMI 34.1
--- NOTE | 2021-12-15 17:23 | P.PN ---
Subjective Progress Note Date: 12/15/21 The patient is seen on rounds. Feeling well today, having bowel movements and passing gas. He is hungry. Patient was just moved up from the ICU. Denies any abdominal pain, nausea or vomiting. Objective - Vital Signs Vital signs: Vital Signs Temp 98.4 F 12/15/21 08:00 Pulse 86 12/15/21 16:00 Resp 26 H 12/15/21 16:00 BP 145/91 12/15/21 16:00 Pulse Ox 94 L 12/15/21 15:00 FiO2 40 12/12/21 12:04 Intake & Output 12/14/21 12/15/21 12/15/21 18:59 06:59 18:59 Intake Total 1102 7434.871 7000 Output Total 1875 1455 1350 Balance -773 300.267 214 Weight 124 kg 124 kg Intake: IV 1102 807 884 0.9 30 110 90 Magnesium Sulfate-D5w Pmx 100 1 gm In Dextrose/Water 1 100ml.bag @ 100 mls/hr IVPB Q1H [facility] Rx#: [id number] Piperacillin-Tazobactam 3 100 25 100 .375 gm In Sodium Chloride 0.9% 100 ml @ 25 mls/hr IVPB Q8H [facility] Rx#: [id number] TPN 672 672 594 metroNIDAZOLE-NS PMX 500 200 100 mg In Saline 1 100ml.bag @ 100 mls/hr IVPB Q8HR [facility] Rx#:[id number] Intake, IV Titration 948.267 200 Amount Magnesium Sulfate gm 1 gm 100 In Amino Acid 5%-D15w+ Lytes*E* 1,000 ml @ 56 mls/hr IV .BY DURATION [facility] Rx#:[id number] Magnesium Sulfate-D5w Pmx 100 1 gm In Dextrose/Water 1 100ml.bag @ 100 mls/hr IVPB Q1H [facility] Rx#: [id number] Mvi, Adult No.4 with Vit 948.267 K 10 ml Trace (Conc-1Ml/ Dose) 1 ml In Amino Acid 5%-D15w+Lytes*E* 1,000 ml @ 56 mls/hr IV .BY DURATION [facility] Rx#: [id number] Oral 480 Output: Urine 1875 1455 1350 Other: Voiding Method Indwelling Catheter Indwelling Catheter Indwelling Catheter # Bowel Movements 1 ABP, PAP, CO, CI - Last Documented Arterial Blood Pressure 164/82 - Constitutional General appearance: Present: cooperative, no acute distress - Gastrointestinal General gastrointestinal: Present: distended (Softly distended), normal bowel sounds. Absent: tenderness - Labs CBC & Chem 7: 12/15/21 04:42 12/15/21 04:42 Labs: Abnormal Lab Results - Last 24 Hours (Table) 12/14/21 12/15/21 12/15/21 Range/Units 18:56 04:42 04:42 Plt Count 149 L (150-450) k/uL Neutrophils # 8.0 H (1.3-7.7) k/uL Lymphocytes # 0.8 L (1.0-4.8) k/uL Chloride 109 H (98-107) mmol/L Carbon Dioxide 20 L (22-30) mmol/L BUN 35 H (9-20) mg/dL Creatinine 1.43 H (0.66-1.25) mg/dL Glucose 135 H (74-99) mg/dL POC Glucose (mg/dL) 125 H (70-110) mg/dL Alkaline Phosphatase 35 L (38-126) U/L Total Protein 5.2 L (6.3-8.2) g/dL Albumin 2.6 L (3.5-5.0) g/dL Assessment and Plan (1) Small bowel obstruction Current Visit: Yes Status: Acute Code(s): K56.609 - UNSP INTESTNL OBST, UNSP TO PARTIAL VERSUS COMPLETE OBST SNOMED Code(s): 960176989 (2) Atrial fibrillation Current Visit: Yes Status: Acute Code(s): I48.91 - UNSPECIFIED ATRIAL FIBRILLATION SNOMED Code(s): 57120573 Plan: Patient is clinically improving. He still somewhat distended and tympanitic began having bowel movements and passing flatus. He tolerated clear liquids so he'll be advanced to a full liquid diet. Progressing slowly. Questions were encouraged and answered.
[2021-12-15] MEDS: METOPROLOL TARTRATE 5 MG/5 ML VIAL IVP SCH ×8 (17:35→17:42)
[2021-12-16] MEDS: metroNIDAZOLE-NS PMX 500 MG in SALINE 1 100ML.BAG IVPB SCH ×3 (01:50→16:59)
[2021-12-16] MEDS: PIPERACILLIN-TAZOBACTAM 3.375 GM in SODIUM CHLORIDE 0.9% 100 ML IVPB SCH ×3 (04:48→20:17)
--- NOTE | 2021-12-16 05:53 | PN ---
PROGRESS NOTE SUBJECTIVE: Mr. Constantino Hernandez is in sinus rhythm, resting comfortably. He has no chest pain or shortness of breath. He is here with a small bowel obstruction, conservative management, developed paroxysmal atrial fib back in sinus rhythm. I am suggesting that if he can take oral medications, we can place him on 25 mg b.i.d. of metoprolol tartrate. OBJECTIVE: HEART: S1-S2 heard normally, short systolic murmur noted. LUNGS: Revealed decent air entry. ABDOMEN: Soft, bowel sounds are audible. Rest of physical examination is unchanged. MMODL / IJN: [id number] /
[2021-12-16 06:49] LABS: ALT 41 U/L (4-49); AST 29 U/L (17-59); African American GFR (CKD) 51 (>60 ml/min/1.73 sqM); Albumin 2.6 g/dL (3.5-5.0); Albumin/Globulin Ratio 1.1; Alkaline Phosphatase 42 U/L (38-126); Anion Gap 5 mmol/L; Blood Urea Nitrogen 33 mg/dL (9-20); Calcium 8.2 mg/dL (8.4-10.2); Carbon Dioxide 25 mmol/L (22-30); Chloride 107 mmol/L (98-107); Globulin 2.4 g/dL; Glucose 116 mg/dL (74-99); Non-African American GFR(CKD) 44 (>60 ml/min/1.73 sqM); Phosphorus 3.3 mg/dL (2.5-4.5); Potassium 4.2 mmol/L (3.5-5.1); Sodium 137 mmol/L (137-145)
[2021-12-16] MEDS: bisacodyL 10 MG SUPP RECTAL SCH (08:50)
[2021-12-16] MEDS: ENOXAPARIN 30 MG/0.3 ML SYRINGE SQ SCH (08:58)
[2021-12-16] MEDS: PANTOPRAZOLE 40 MG/10 ML VIAL IVP SCH ×2 (08:58→20:18)
[2021-12-16 09:23] LABS: Basophils # (A) 0.03 X 10*3/uL (0.00-0.10); Basophils % (A) 0.3 %; Eosinophils # (A) 0.14 X 10*3/uL (0.04-0.35); Eosinophils % (A) 1.4 %; HCT 45.3 % (39.6-50.0); HGB 14.7 g/dL (13.0-17.0); Immature Grans, Automated 1.8 %; Lymphocytes # (A) 0.92 X 10*3/uL (0.90-5.00); Lymphocytes % (A) 8.9 %; MCH 30.7 pg (27.0-32.0); MCHC 32.5 g/dL (32.0-37.0); MCV 94.6 fL (80.0-97.0); Mean Platelet Volume 9.4 fL (9.5-12.2); Monocytes # (A) 0.99 X 10*3/uL (0.20-1.00); Monocytes % (A) 9.6 %; NRBC Per 100 WBC 0 /100 WBCS (0.0-0.0); Neutrophils # (A) 8.07 X 10*3/uL (1.80-7.70); Platelet Count 147 X 10*3/uL (140-440); RBC 4.79 X 10*6/uL (4.40-5.60); RDW 15.2 % (11.5-14.5); WBC 10.34 X 10*3/uL (4.50-10.00)
--- NOTE | 2021-12-16 09:24 | P.PN ---
Subjective The patient is a 66-year-old male with no prior cardiac history, history of hypertension, COPD, former nicotine dependence. Does not follow with a ca rdiologist. Patient presented with progressive abdominal discomfort, going on for 3 days, was found to have small bowel obstruction. Cardiology consultation was requested because of new on set atrial fibrillation, that occurred secondary to acute hypoxic respiratory failure and required intubation and mechanical ventilation. He has been maintaining sinus rhythm with no further episodes of atrial fibrillation. He was been transferred out of the ICU. Echo revealed EF 60-65%. Patient seen and examined at bedside, no acute distress. Sitting up in the bedside chair, no complaints. Tolerating diet. Passing gas and having bowel movements. He denies any chest pain, shortness of breath, palpitations, lightheadedness or dizziness. He is maintaining sinus mechanism heart rate 6080s. His vital signs are stable. Labs Sodium 137, potassium 4.2, BUN 33, serum 1.6 GENERAL: Well-appearing, in no acute distress. NECK: Supple without JVD or thyromegaly. LUNGS: Breath sounds clear to auscultation bilaterally. Respiration equal and unlabored. No wheezes, rales or rhonchi. HEART: Regular rate and rhythm without murmurs, rubs or gallops. S1 and S2 heard. EXTREMITIES: Normal range of motion, no edema. No clubbing or cyanosis. Peripheral pulses intact. ASSESSMENT Paroxysmal atrial fibrillation with RVR, maintaining sinus mechanism Small bowel obstruction Hypotension Acute hypoxic respiratory failure requiring intubation and mechanical ventilation Acute metabolic encephalopathy, resolved Acute kidney inury History of hypertension PLAN From a cardiology perspective, no further inpatient workup indicated at this time. Will hold on anticoagulation at this time. New onset atrial fibrillation related to acute hypoxic respiratory failure requiring intubation and mechanical ventilation, no further episodes of atrial fibrillation. We will follow the patient as needed. Follow up outpatient with Dr. Martinez in 2 weeks. Please re- consult if needed. Nurse Practitioner note has been reviewed, I agree with a documented findings and plan of care. Patient was seen and examined. Objective - Vital Signs Vital signs: Vital Signs Temp 97.6 F 12/16/21 08:07 Pulse 84 12/16/21 08:07 Resp 18 12/16/21 08:07 BP 156/86 12/16/21 08:07 Pulse Ox 98 12/16/21 08:07 FiO2 40 12/12/21 12:04 Intake & Output 12/15/21 12/16/21 12/16/21 18:59 06:59 18:59 Intake Total 1564 450 Output Total 1350 Balance 214 450 Weight 124 kg Intake: IV 884 0.9 90 Piperacillin-Tazobactam 3 100 .375 gm In Sodium Chloride 0.9% 100 ml @ 25 mls/hr IVPB Q8H [facility] Rx#: [id number] TPN 594 metroNIDAZOLE-NS PMX 500 100 mg In Saline 1 100ml.bag @ 100 mls/hr IVPB Q8HR [facility] Rx#:[id number] Intake, IV Titration 200 Amount Magnesium Sulfate gm 1 gm 100 In Amino Acid 5%-D15w+ Lytes*E* 1,000 ml @ 56 mls/hr IV .BY DURATION [facility] Rx#:[id number] Magnesium Sulfate-D5w Pmx 100 1 gm In Dextrose/Water 1 100ml.bag @ 100 mls/hr IVPB Q1H [facility] Rx#: [id number] Oral 480 450 Output: Urine 1350 Other: Voiding Method Indwelling Catheter Indwelling Catheter # Voids 3 # Bowel Movements 1 3 ABP, PAP, CO, CI - Last Documented Arterial Blood Pressure 164/82 - Labs CBC & Chem 7: 12/15/21 04:42 12/16/21 06:03 Labs: Abnormal Lab Results - Last 24 Hours (Table) 12/16/21 Range/Units 06:03 BUN 33 H (9-20) mg/dL Creatinine 1.61 H (0.66-1.25) mg/dL Glucose 116 H (74-99) mg/dL Calcium 8.2 L (8.4-10.2) mg/dL Total Protein 5.0 L (6.3-8.2) g/dL Albumin 2.6 L (3.5-5.0) g/dL
[2021-12-16] MEDS: NOREPINEPHRINE 8 MG in SODIUM CHLORIDE 0.9% 250 ML IV SCH (10:55)
--- NOTE | 2021-12-16 12:18 | P.PN ---
Subjective Progress Note Date: 12/16/21 Reevaluated today on 12/13/21, patient remains in the ICU, he was extubated yesterday, and so far his extubation has been uneventful and very successful. Patient is on few liters nasal cannula, chest x-ray showed significant improvement over the last few days, renal functioning is improving, and his creatinine is down to 1.55 from 1.80 yesterday. Nasogastric tube remains in place, his PTT is therapeutic at 52.7. Electrolytes are normal patient is having bowel sounds, he had a tiny bowel movement yesterday. Nonetheless his abdomen remains a bit distended. Noted today that the patient has some coffee ground material in his nasogastric tube, will recommend Protonix 40 mg twice a day patient is hemodynamically stable, and he is being followed closely by many consultants including surgery and cardiology. Reevaluated today on 12/14/21, remains in the ICU, patient is on room air, O2 sats is 93%, he is continuing to do well with incentive spirometry, continues to have nasogastric tube in place, he had a dark stool movement yesterday, patient was on heparin which is now discontinued and I'm recommending that the patient takes Lovenox instead. He is in sinus rhythm, no further episodes of cardiac arrhythmia. Patient is asking to be moved out of bed and possibly placed on a bedside chair, and he would like to use the commode he may be able to have a bowel movement. His abdomen remains a bit distended. However he does have bowel sounds. WBC count today is 11.9 hemoglobin is stable at 14.8 electrolytes are normal renal profile continues to improve and his creatinine today is down t o 1.37 Progress note dated 12/15/2021. A 66-year-old male who was admitted back on December 05, for small bowel obstruction, and acute kidney injury. Fortunately, the patient did not require any surgery. He was intubated for mental status changes on December 08, and was successfully extubated on December 12. Currently, he is on room air. He's getting TPN at 56 mL an hour. The patient's arterial line can be discontinued. The patient could be discharged out to the general medical floor with telemetry in my opinion. White count 9.6, hemoglobin 14.8, hematocrit 46.5, and platelet count 249,000. Sodium 138, potassium 4.1, chlorides 109, CO2 20, BUN 35, and creatinine 1.43. Albumin is 2.6. Blood and sputum sampling is negative. The patient is seen today 12/16/2021 in follow-up on the regular medical floor. He is doing very well. He is sitting up in a chair at the bedside. Awake and alert in no acute distress. He is tolerating a full liquid diet. He is continued on TPN currently at 90 ML's per hour. He is maintaining O2 saturations in the 90s on room air. White count 10.3. Hemoglobin 14.7. Sodium 137. Potassium 4.2. BUN 33. Creatinine 1.61. Glucose 116. He remains on Lovenox for DVT prophylaxis. Continued on Zosyn and Flagyl. Objective - Vital Signs Vital signs: Vital Signs Temp 97.8 F 12/16/21 11:34 Pulse 79 12/16/21 11:34 Resp 17 12/16/21 11:34 BP 139/86 12/16/21 11:34 Pulse Ox 97 12/16/21 11:34 FiO2 40 12/12/21 12:04 Intake & Output 12/15/21 12/16/21 12/16/21 18:59 06:59 18:59 Intake Total 1564 450 Output Total 1350 800 Balance 214 450 -800 Weight 124 kg 118.826 kg Intake: IV 884 0.9 90 Piperacillin-Tazobactam 3 100 .375 gm In Sodium Chloride 0.9% 100 ml @ 25 mls/hr IVPB Q8H [facility] Rx#: [id number] TPN 594 metroNIDAZOLE-NS PMX 500 100 mg In Saline 1 100ml.bag @ 100 mls/hr IVPB Q8HR [facility] Rx#:[id number] Intake, IV Titration 200 Amount Magnesium Sulfate gm 1 gm 100 In Amino Acid 5%-D15w+ Lytes*E* 1,000 ml @ 56 mls/hr IV .BY DURATION [facility] Rx#:[id number] Magnesium Sulfate-D5w Pmx 100 1 gm In Dextrose/Water 1 100ml.bag @ 100 mls/hr IVPB Q1H [facility] Rx#: [id number] Oral 480 450 Output: Urine 1350 800 Other: Voiding Method Indwelling Catheter Indwelling Catheter Urinal # Voids 3 # Bowel Movements 1 3 ABP, PAP, CO, CI - Last Documented Arterial Blood Pressure 164/82 - Exam GENERAL EXAM: Alert, very pleasant 66 showed gentleman, up in a chair at the bedside, on room air, comfortable in no apparent distress. HEAD: Normocephalic. EYES: Normal reaction of pupils, equal size. NOSE: Clear with pink turbinates. THROAT: No erythema or exudates. NECK: No masses, no JVD. CHEST: No chest wall deformity. LUNGS: Equal air entry with no crackles, wheeze, rhonchi or dullness. CVS: S1 and S2 normal with no audible murmur, regular rhythm. ABDOMEN: No hepatosplenomegaly, normal bowel sounds, no guarding or rigidity. SPINE: No scoliosis or deformity SKIN: No rashes CENTRAL NERVOUS SYSTEM: No focal deficits, tone is normal in all 4 extremities. EXTREMITIES: There is no peripheral edema. No clubbing, no cyanosis. Peripheral pulses are intact. - Labs CBC & Chem 7: 12/16/21 06:03 12/16/21 06:03 Labs: Abnormal Lab Results - Last 24 Hours (Table) 12/16/21 12/16/21 Range/Units 06:03 06:03 WBC 10.34 H (4.50-10.00) X 10*3/uL RDW 15.2 H (11.5-14.5) % MPV 9.4 L (9.5-12.2) fL Immature Gran # 0.19 H (0.00-0.04) X 10*3/uL Neutrophils # 8.07 H (1.80-7.70) X 10*3/uL BUN 33 H (9-20) mg/dL Creatinine 1.61 H (0.66-1.25) mg/dL Glucose 116 H (74-99) mg/dL Calcium 8.2 L (8.4-10.2) mg/dL Total Protein 5.0 L (6.3-8.2) g/dL Albumin 2.6 L (3.5-5.0) g/dL Assessment and Plan Assessment: Acute hypoxemic respiratory failure, requiring intubation and mechanical ventilation, December 08, till December 12. Recovered and on room air Acute small bowel obstruction, improved. Tolerating full liquids. Remains on TPN. Abdominal sepsis and septic shock. Acute metabolic encephalopathy, secondary to sepsis. History of atrial fibrillation/RVR, resolved. Umbilical hernia, without incarceration. Acute kidney injury secondary to sepsis. Acute dehydration. Anion gap metabolic acidosis. History of COPD. Essential hypertension. DJD. History of kidney stones. Chronic back pain. Plan: The patient was seen and evaluated Currently stable from the pulmonary and critical care standpoint Tolerating a full liquid diet, TPN to be decreased Increase his activity as tolerated We will continue to follow 1I have personally seen and examined the patient, performed the documentation and the assessment and plan as written. Number of minutes spent on the visit:10.
--- NOTE | 2021-12-16 13:30 | P.PN ---
Subjective Patient is seen for follow-up for acute kidney injury. Renal function has improved. Patient is awake, alert oriented 3. NG tube has been removed Patient has had good urine output. Receiving TPN Off of pressors Urine output 3.3 L Transferred out of ICU. Sitting on a bedside chair today and doing well Objective - Vital Signs Vital signs: Vital Signs Temp 97.8 F 12/16/21 11:34 Pulse 79 12/16/21 11:34 Resp 17 12/16/21 11:34 BP 139/86 12/16/21 11:34 Pulse Ox 97 12/16/21 11:34 FiO2 40 12/12/21 12:04 Intake & Output 12/15/21 12/16/21 12/16/21 18:59 06:59 18:59 Intake Total 1564 450 Output Total 1350 800 Balance 214 450 -800 Weight 124 kg 118.826 kg Intake: IV 884 0.9 90 Piperacillin-Tazobactam 3 100 .375 gm In Sodium Chloride 0.9% 100 ml @ 25 mls/hr IVPB Q8H [facility] Rx#: [id number] TPN 594 metroNIDAZOLE-NS PMX 500 100 mg In Saline 1 100ml.bag @ 100 mls/hr IVPB Q8HR [facility] Rx#:[id number] Intake, IV Titration 200 Amount Magnesium Sulfate gm 1 gm 100 In Amino Acid 5%-D15w+ Lytes*E* 1,000 ml @ 56 mls/hr IV .BY DURATION [facility] Rx#:[id number] Magnesium Sulfate-D5w Pmx 100 1 gm In Dextrose/Water 1 100ml.bag @ 100 mls/hr IVPB Q1H [facility] Rx#: [id number] Oral 480 450 Output: Urine 1350 800 Other: Voiding Method Indwelling Catheter Indwelling Catheter Urinal # Voids 3 # Bowel Movements 1 3 ABP, PAP, CO, CI - Last Documented Arterial Blood Pressure 164/82 - Exam Awake, comfortable, not in any acute distress Alert oriented 3 Examination of the heart S1 and S2 Examination lungs bilateral breath sounds are heard Abdomen is soft mildly tender Examination lower extremities shows 1+ edema bilaterally BEEKEEPER exam grossly intact - Labs CBC & Chem 7: 12/16/21 06:03 12/16/21 06:03 Labs: Abnormal Lab Results - Last 24 Hours (Table) 12/16/21 12/16/21 Range/Units 06:03 06:03 WBC 10.34 H (4.50-10.00) X 10*3/uL RDW 15.2 H (11.5-14.5) % MPV 9.4 L (9.5-12.2) fL Immature Gran # 0.19 H (0.00-0.04) X 10*3/uL Neutrophils # 8.07 H (1.80-7.70) X 10*3/uL BUN 33 H (9-20) mg/dL Creatinine 1.61 H (0.66-1.25) mg/dL Glucose 116 H (74-99) mg/dL Calcium 8.2 L (8.4-10.2) mg/dL Total Protein 5.0 L (6.3-8.2) g/dL Albumin 2.6 L (3.5-5.0) g/dL Assessment and Plan Assessment: 1. Acute kidney injury mostly prerenal secondary to hypovolemia from vomiting as well as hypotension and A. fib. Creatinine 4.95 on admission and had decreased to 1.4. It is up at 1.6 today. Patient is voiding on his own. Blood pressure has not been low. No hydronephrosis noted on CAT scan. 2. Chronic kidney disease stage IIIB with baseline creatinine near 1.8 in 2020 secondary to polycystic kidney disease. 3. A. fib with RVR s/p amiodarone drip. Cardiology following. 4. Metabolic acidosis secondary to acute kidney injury and IV fluids. Improved. 5. Small bowel obstruction. Has NG tube. Surgery following. 6. Hypernatremia from lack of oral water intake. Resolved. 7. Shock s/p Levophed. Plan: Continue weaned off TPN Continue to avoid nephrotoxic agents Repeat labs in a.m. Encourage increase oral intake Monitor for urinary retention.
--- NOTE | 2021-12-16 17:37 | P.PN ---
Subjective Progress Note Date: 12/16/21 Constantino Hernandez, is a 66 year old male who presented to [facility] emergency room, with a chief complaint of abdominal pain nausea and vomiting, his symptoms started 3 days ago and has been worsening. He was evaluated in the emergency room vital examination on presentation revealed a temperature of 96.7 pulse 101 respiration 24 blood pressure 154/89 however blood pressure dropped to 65/47 shortly after arrival pulse ox was 96% on room air Laboratory data revealed a white blood count of 11.6 hemoglobin 21.3 platelet count 116 sodium 134 potassium 5.0 chloride 94 CO2 16 BUN 91 creatinine 4.95 la ctic acid was elevated at 3.4 total bilirubin 1.5 AST 95 ALT 62 lipase within normal limits, zavala virus PCR was negative Testing in the emergency room revealed chest x-ray done in the emergency room revealed interstitial lung disease and chronic compression deformity of L1, computed tomography scan of the abdomen and pelvis revealed distal small bowel obstruction and 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 In the emergency room patient had an NG tube placed and had large amount of fluid removed, plan is to admit patient, consultation for surgery, nephrology, cardiology, and critical care initiated in the emergency room Past medical history is significant for history of hypertension, history of COPD, history of osteoarthritis, history of chronic kidney disease, history of chronic back pain. 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 On review of systems patient is alert and oriented 3, he has an NG tube in, he is complaining of some abdominal discomfort, otherwise he denies any complaints, there is no fever or chills no headache or dizziness no chest pain no shortness of breath, no nausea or vomiting since NG tube has been placed, no burning with urination no frequency or urgency and no hematuria. On 12/06/2021 patient was seen and examined in the ICU he is alert responsive in no apparent distress, he has an NG tube, he is maintained on oxygen via nasal cannula at 4 L, vital exam at 8 AM temperature 98.4 pulse 123 respiration 16 blood pressure 78/64 pulse ox 92% he is sleepy and denies any complaints at this time, there is no fever or chills no headache or dizziness no chest pain no shortness of breath no cough no nausea or vomiting no abdominal pain no diarrhea and no urinary symptoms, patient has not had any bowel movement or passed any gas since admission, there is some improvement on his laboratory data white blood count is down from 11.6-9.0 creatinine is down from 4.95-3.82 and lactic acid is down to 1.5, recommendation from nephrology, cardiology and critical care reviewed On 12/07/2021 patient is more confused. Per nursing staff patient had increased confusion throughout the night. Heart rate remains elevated. Cardiology services are following patient is on amiodarone. Surgical services ordering abdominal x-ray. Lactic acid 2.1. Creatinine improving to 3.18 awaiting further recommendations from surgery and critical care services On 12/08/2021 patient was seen and examined in the ICU he is intubated sedated maintained on mechanical ventilation, he is on assist control with FiO2 of 50% PEEP of 5 and draped of 26 he is maintained on norepinephrine for pressure control he remains in atrial fibrillation with a heart rate of 125 he is maintained on IV heparin kidney function is improving gradually his sodium is elevated at 150 he is maintained on IV amiodarone he is also maintained on IV antibiotics Zosyn and Flagyl, pulmonary critical care, cardiology, infectious disease, and nephrology are following patient is also followed by general surgery for bowel obstruction computed tomography scan of the brain done this morning did not reveal any evidence of intracranial bleeding, computed tomography scan of the abdomen and pelvis done again this morning and revealed evidence of bowel obstruction without significant change from previous computed tomography scan, will continue to follow closely prognosis is guarded. On 12/09/2021 patient was seen and examined in the ICU he is intubated sedated maintained on mechanical ventilation, no significant change on his ventilation settings, temperature is 90.8 heart rate 80 blood pressure 94/60 white blood count is 10.0 hemoglobin 15.7 platelet count 137 sodium 146 potassium 4.0 chloride 112 CO2 24 BUN 53 creatinine 2.31 patient was cleared by pulmonary and cardiology for abdominal surgery, however surgeon stated that there is some improvement on abdomen x-ray, no plans for surgery today, will continue to monitor closely 12/10/2021 patient remains in the intensive care unit intubated and sedated. No plans for surgical intervention at this time. Patient remains on Levophed for pressure support. Patient also on amiodarone. IV antibiotics of Flagyl and Zosyn. Critical care, surgical, cardiology and nephrology service following. On 12/11/2021 patient was seen and examined in the intensive care unit, he is intubated sedated maintained on mechanical ventilation, case was discussed in details with Dr. Mehta today, vital exam reveals a temperature of 98.2 pulse 62 respiration 18 pressure 120/69 oxygen saturation 96% on FiO2 40% patient is still requiring norepinephrine for pressure support, he is off the amiodarone, he has converted to normal sinus rhythm, renal function is improving with BUN 13 creatinine 1.7 On 12/12/2021 patient remains in the intensive care unit. Patient remains on IV sedation. Patient has been weaned off amiodarone and Levophed. Possible extubation today per critical care. Creatinine 1.80 bun 34. Blood pressure 101/65 heart rate 61. FiO2 40%. On 12/13/2021 patient was seen and examined in the ICU he is alert responsive in no apparent distress, he was extubated yesterday he is maintained on oxygen via nasal cannula and is tolerating well, NG tube is still in and maintained to suction, abdomen x-ray this morning still reveals evidence of bowel obstruction was dilated bowel loops, clinically patient is alert and answering questions appropriately, he states he is passing some gas, nurse states that that his smears of stools but no bowel movements, his heart rate is regular remains in normal sinus, he has bowel sounds, kidney function is improving, will continue to follow closely, input from pulmonary critical care, and surgery reviewed On 12/14/2021 patient was seen and examined in the ICU he is alert and oriented 3 in no apparent distress, there is no fever or chills no headache or dizziness no chest pain no shortness of breath no cough no nausea or vomiting no abdominal pain no diarrhea no blood in the stools no burning with urination no frequency or urgency no hematuria, he is maintained on oxygen via nasal cannula his pulse ox is 94% on 2 L nasal cannula, temperature 98.8 pulse 67 respiration 15 blood pressure 134/87 NG tube is in, Rivero catheter is in, patient stated that he is passing gas, he is having smears of stools but has not had any bowel movement yet. On 12/15/2021 patient was seen and examined in the ICU he is alert and oriented 3 in no apparent distress, he had a bowel movement yesterday and NG tube has been removed, patient is feeling better there is no fever or chills no headache or dizziness no chest pain no shortness of breath no cough no nausea or vomiting no abdominal pain no diarrhea no blood in the stools no burning with urination no frequency or urgency and no hematuria he is maintained on room air and pulse ox is 94%. IV heparin has been discontinued by cardiology and he is currently maintained on subcu Lovenox, patient is improving gradually will consult physical therapy and occupational therapy will follow closely. On 12/16/2021 patient was seen and examined on the medical floor he is alert and oriented 3 in no apparent distress he is having bowel movement and is able to ambulate there is no fever or chills no headache or dizziness no chest pain no shortness of breath no cough no nausea or vomiting no abdominal pain no diarrhea no blood in the stools no burning with urination no frequency or urgency and no hematuria at this time will decrease antibiotic Will DC Flagyl Will discontinue TPN, increase ambulation possible discharge in the next 1-2 days Objective - Vital Signs Vital signs: Vital Signs Temp 97.8 F 12/16/21 11:34 Pulse 79 12/16/21 11:34 Resp 17 12/16/21 11:34 BP 139/86 12/16/21 11:34 Pulse Ox 97 12/16/21 11:34 FiO2 40 12/12/21 12:04 Intake & Output 12/15/21 12/16/21 12/16/21 18:59 06:59 18:59 Intake Total 1564 450 Output Total 1350 800 Balance 214 450 -800 Weight 124 kg 118.826 kg Intake: IV 884 0.9 90 Piperacillin-Tazobactam 3 100 .375 gm In Sodium Chloride 0.9% 100 ml @ 25 mls/hr IVPB Q8H [facility] Rx#: [id number] TPN 594 metroNIDAZOLE-NS PMX 500 100 mg In Saline 1 100ml.bag @ 100 mls/hr IVPB Q8HR [facility] Rx#:[id number] Intake, IV Titration 200 Amount Magnesium Sulfate gm 1 gm 100 In Amino Acid 5%-D15w+ Lytes*E* 1,000 ml @ 56 mls/hr IV .BY DURATION [facility] Rx#:[id number] Magnesium Sulfate-D5w Pmx 100 1 gm In Dextrose/Water 1 100ml.bag @ 100 mls/hr IVPB Q1H [facility] Rx#: [id number] Oral 480 450 Output: Urine 1350 800 Other: Voiding Method Indwelling Catheter Indwelling Catheter Urinal # Voids 3 # Bowel Movements 1 3 ABP, PAP, CO, CI - Last Documented Arterial Blood Pressure 164/82 - Exam In general patient is alert and oriented in no distress HEENT head normocephalic and atraumatic, NG tube is in Neck is supple no JVD no goiter no lymphadenopathy no carotid bruit Chest examination is clear to auscultation no crackles no wheezing Cardiac exam reveals regular heart sounds S1 and S2 no gallops no murmurs Abdomen is soft with mild diffuse tenderness no palpable masses no organomegaly Extremity exam reveals no edema no cyanosis or clubbing Neurological examination reveals no gross focal deficits - Labs CBC & Chem 7: 12/16/21 06:03 12/16/21 06:03 Labs: Abnormal Lab Results - Last 24 Hours (Table) 12/16/21 12/16/21 Range/Units 06:03 06:03 WBC 10.34 H (4.50-10.00) X 10*3/uL RDW 15.2 H (11.5-14.5) % MPV 9.4 L (9.5-12.2) fL Immature Gran # 0.19 H (0.00-0.04) X 10*3/uL Neutrophils # 8.07 H (1.80-7.70) X 10*3/uL BUN 33 H (9-20) mg/dL Creatinine 1.61 H (0.66-1.25) mg/dL Glucose 116 H (74-99) mg/dL Calcium 8.2 L (8.4-10.2) mg/dL Total Protein 5.0 L (6.3-8.2) g/dL Albumin 2.6 L (3.5-5.0) g/dL Assessment and Plan Plan: Distal small bowel obstruction Underlying history of COPD Underlying history of hypertension Acute on chronic renal failure was elevated BUN and creatinine Chronic kidney disease with evidence of autosomal dominant polycystic kidney disease on computed tomography scan Episodes of atrial flutter in the emergency room Underlying history of osteoarthritis. Atrial fibrillation with RVR. Patient maintained on amiodarone Hypotension. Patient maintained on Levophed for pressure support. Improving Patient remains in the intensive care unit He is maintained on IV fluids and NG tube is in Patient currently intubated and sedated Critical care, cardiology, nephrology and surgical service is following Patient maintained on IV antibiotics Zosyn and Flagyl
--- NOTE | 2021-12-16 18:10 | P.PN ---
Subjective Progress Note Date: 12/16/21 Principal diagnosis: Small bowel obstruction The patient is feeling well. Tolerating a diet. Has had several more bowel movements Objective - Vital Signs Vital signs: Vital Signs Temp 97.9 F 12/16/21 17:11 Pulse 79 12/16/21 17:11 Resp 18 12/16/21 17:11 BP 144/86 12/16/21 17:11 Pulse Ox 97 12/16/21 17:11 FiO2 40 12/12/21 12:04 Intake & Output 12/15/21 12/16/21 12/16/21 18:59 06:59 18:59 Intake Total 1564 450 930 Output Total 1350 800 Balance 214 450 130 Weight 124 kg 118.826 kg Intake: IV 884 100 0.9 90 Piperacillin-Tazobactam 3 100 100 .375 gm In Sodium Chloride 0.9% 100 ml @ 25 mls/hr IVPB Q8H [facility] Rx#: [id number] TPN 594 metroNIDAZOLE-NS PMX 500 100 mg In Saline 1 100ml.bag @ 100 mls/hr IVPB Q8HR [facility] Rx#:[id number] Intake, IV Titration 200 830 Amount Magnesium Sulfate gm 1 gm 100 In Amino Acid 5%-D15w+ Lytes*E* 1,000 ml @ 56 mls/hr IV .BY DURATION [facility] Rx#:[id number] Magnesium Sulfate-D5w Pmx 100 1 gm In Dextrose/Water 1 100ml.bag @ 100 mls/hr IVPB Q1H [facility] Rx#: [id number] Mvi, Adult No.4 with Vit 630 K 10 ml Trace (Conc-1Ml/ Dose) 1 ml Magnesium Sulfate gm 1 gm In Amino Acid 5%-D15w+Lytes*E* 1, 000 ml @ 56 mls/hr IV .BY DURATION [facility] Rx#: [id number] metroNIDAZOLE-NS PMX 500 200 mg In Saline 1 100ml.bag @ 100 mls/hr IVPB Q8HR [facility] Rx#:[id number] Oral 480 450 Output: Urine 1350 800 Other: Voiding Method Indwelling Catheter Indwelling Catheter Urinal # Voids 3 # Bowel Movements 1 3 ABP, PAP, CO, CI - Last Documented Arterial Blood Pressure 164/82 - Constitutional General appearance: Present: cooperative, no acute distress - Gastrointestinal General gastrointestinal: Present: distended (softly distended), normal bowel sounds. Absent: tenderness - Labs CBC & Chem 7: 12/16/21 06:03 12/16/21 06:03 Labs: Abnormal Lab Results - Last 24 Hours (Table) 12/16/21 12/16/21 Range/Units 06:03 06:03 WBC 10.34 H (4.50-10.00) X 10*3/uL RDW 15.2 H (11.5-14.5) % MPV 9.4 L (9.5-12.2) fL Immature Gran # 0.19 H (0.00-0.04) X 10*3/uL Neutrophils # 8.07 H (1.80-7.70) X 10*3/uL BUN 33 H (9-20) mg/dL Creatinine 1.61 H (0.66-1.25) mg/dL Glucose 116 H (74-99) mg/dL Calcium 8.2 L (8.4-10.2) mg/dL Total Protein 5.0 L (6.3-8.2) g/dL Albumin 2.6 L (3.5-5.0) g/dL Assessment and Plan (1) Small bowel obstruction Current Visit: Yes Status: Acute Code(s): K56.609 - UNSP INTESTNL OBST, UNSP TO PARTIAL VERSUS COMPLETE OBST SNOMED Code(s): 398899087 (2) Atrial fibrillation Current Visit: Yes Status: Acute Code(s): I48.91 - UNSPECIFIED ATRIAL FIBRILLATION SNOMED Code(s): 50300701 Plan: Advance to low fiber diet for 1 week the resume regular diet. As the patient is doing well, I will follow up on a prn basis. Please contact me if you would like the patient reevaluated.
[2021-12-17] MEDS: PIPERACILLIN-TAZOBACTAM 3.375 GM in SODIUM CHLORIDE 0.9% 100 ML IVPB SCH ×2 (03:48→11:13)
[2021-12-17 06:19] LABS: African American GFR (CKD) 51 (>60 ml/min/1.73 sqM); Anion Gap 11 mmol/L; Blood Urea Nitrogen 28 mg/dL (9-20); Calcium 8.8 mg/dL (8.4-10.2); Carbon Dioxide 23 mmol/L (22-30); Chloride 105 mmol/L (98-107); Glucose 111 mg/dL (74-99); Magnesium 1.7 mg/dL (1.6-2.3); Non-African American GFR(CKD) 44 (>60 ml/min/1.73 sqM); Phosphorus 3.6 mg/dL (2.5-4.5); Potassium 4.7 mmol/L (3.5-5.1); Sodium 139 mmol/L (137-145)
[2021-12-17] MEDS: PANTOPRAZOLE 40 MG/10 ML VIAL IVP SCH (08:22)
[2021-12-17] MEDS: bisacodyL 10 MG SUPP RECTAL SCH (08:23)
[2021-12-17] MEDS ORDERED: METOPROLOL TARTRATE 25 MG TAB PO SCH (09:00)
--- NOTE | 2021-12-17 09:00 | P.PN ---
Subjective The patient is a 66-year-old male with no prior cardiac history, history of hypertension, COPD, former nicotine dependence. Does not follow with a ca rdiologist. Patient presented with progressive abdominal discomfort, going on for 3 days, was found to have small bowel obstruction. Cardiology consultation was requested because of new on set atrial fibrillation, that occurred secondary to acute hypoxic respiratory failure and required intubation and mechanical ventilation. He has been maintaining sinus rhythm with no further episodes of atrial fibrillation. He was been transferred out of the ICU. Echo revealed EF 60-65%. Patient seen and examined at bedside, no acute distress. Overnight, early this morning, patient was noted to be tachycardic, telemetry reviewed patient went into A fib with RVR HR 160s. Patient refused EKG. He was given 2.5mg IV Lopressor and he converted to sinus rhythm. Patient is maintaining sinus rhythm. He is Sitting up in the bedside chair, no complaints. Tolerating diet. Passing gas and having bowel movements. He denies any chest pain, shortness of breath, palpitations, lightheadedness or dizziness. He was asymptomatic when he was in A fib with RVR. He is maintaining sinus mechanism heart rate 80s-100s. His vital signs are stable. Labs Sodium 139, potassium 4.7, BUN 28, serum creatinine 1.6, magnesium 1.7 Blood pressure 122/78, heart rate 83, afebrile, saturations 96% on room air GENERAL: Well-appearing, in no acute distress. NECK: Supple without JVD or thyromegaly. LUNGS: Breath sounds clear to auscultation bilaterally. Respiration equal and unlabored. No wheezes, rales or rhonchi. HEART: Regular rate and rhythm without murmurs, rubs or gallops. S1 and S2 heard. EXTREMITIES: Normal range of motion, no edema. No clubbing or cyanosis. Peripheral pulses intact. ASSESSMENT Paroxysmal atrial fibrillation with RVR, currently in sinus mechanism, -[id number] score 2 Small bowel obstruction Hypotension Acute hypoxic respiratory failure requiring intubation and mechanical ventilation Acute metabolic encephalopathy, resolved Acute kidney inury History of hypertension PLAN Start Xarelto 20mg nightly, case management consulted for coverage Will reach out to surgery for clearance to start anticoagulation Metoprolol tartrate 25mg BID From a cardiology perspective, patient is stable to be discharged when cleared by primary and other consultants. Recommend follow up outpatient with Dr. Martinez in 1 week. Nurse Practitioner note has been reviewed, I agree with a documented findings a nd plan of care. Patient was seen and examined. Objective - Vital Signs Vital signs: Vital Signs Temp 98.6 F 12/17/21 05:00 Pulse 109 H 12/17/21 05:00 Resp 20 12/17/21 05:00 BP 122/78 12/17/21 05:00 Pulse Ox 96 12/17/21 05:00 FiO2 40 12/12/21 12:04 Intake & Output 12/16/21 12/17/21 12/17/21 18:59 06:59 18:59 Intake Total 930 240 Output Total 800 Balance 130 240 Weight 118.826 kg Intake: IV 100 240 0.9 240 Piperacillin-Tazobactam 3 100 .375 gm In Sodium Chloride 0.9% 100 ml @ 25 mls/hr IVPB Q8H [facility] Rx#: [id number] Intake, IV Titration 830 Amount Mvi, Adult No.4 with Vit 630 K 10 ml Trace (Conc-1Ml/ Dose) 1 ml Magnesium Sulfate gm 1 gm In Amino Acid 5%-D15w+Lytes*E* 1, 000 ml @ 56 mls/hr IV .BY DURATION [facility] Rx#: [id number] metroNIDAZOLE-NS PMX 500 200 mg In Saline 1 100ml.bag @ 100 mls/hr IVPB Q8HR [facility] Rx#:[id number] Output: Urine 800 Other: Voiding Method Urinal Urinal ABP, PAP, CO, CI - Last Documented Arterial Blood Pressure 164/82 - Labs CBC & Chem 7: 12/16/21 06:03 12/17/21 05:53 Labs: Abnormal Lab Results - Last 24 Hours (Table) 12/16/21 12/17/21 Range/Units 06:03 05:53 WBC 10.34 H (4.50-10.00) X 10*3/uL RDW 15.2 H (11.5-14.5) % MPV 9.4 L (9.5-12.2) fL Immature Gran # 0.19 H (0.00-0.04) X 10*3/uL Neutrophils # 8.07 H (1.80-7.70) X 10*3/uL BUN 28 H (9-20) mg/dL Creatinine 1.60 H (0.66-1.25) mg/dL Glucose 111 H (74-99) mg/dL
[2021-12-17 12:28] VITALS: BP 115/61; PULSE 75; RESP 18; TEMP 98.3
--- NOTE | 2021-12-17 12:53 | P.PN ---
Subjective Progress Note Date: 12/17/21 Reevaluated today on 12/13/21, patient remains in the ICU, he was extubated yesterday, and so far his extubation has been uneventful and very successful. Patient is on few liters nasal cannula, chest x-ray showed significant improvement over the last few days, renal functioning is improving, and his creatinine is down to 1.55 from 1.80 yesterday. Nasogastric tube remains in place, his PTT is therapeutic at 52.7. Electrolytes are normal patient is having bowel sounds, he had a tiny bowel movement yesterday. Nonetheless his abdomen remains a bit distended. Noted today that the patient has some coffee ground material in his nasogastric tube, will recommend Protonix 40 mg twice a day patient is hemodynamically stable, and he is being followed closely by many consultants including surgery and cardiology. Reevaluated today on 12/14/21, remains in the ICU, patient is on room air, O2 sats is 93%, he is continuing to do well with incentive spirometry, continues to have nasogastric tube in place, he had a dark stool movement yesterday, patient was on heparin which is now discontinued and I'm recommending that the patient takes Lovenox instead. He is in sinus rhythm, no further episodes of cardiac arrhythmia. Patient is asking to be moved out of bed and possibly placed on a bedside chair, and he would like to use the commode he may be able to have a bowel movement. His abdomen remains a bit distended. However he does have bowel sounds. WBC count today is 11.9 hemoglobin is stable at 14.8 electrolytes are normal renal profile continues to improve and his creatinine today is down t o 1.37 Progress note dated 12/15/2021. A 66-year-old male who was admitted back on December 05, for small bowel obstruction, and acute kidney injury. Fortunately, the patient did not require any surgery. He was intubated for mental status changes on December 08, and was successfully extubated on December 12. Currently, he is on room air. He's getting TPN at 56 mL an hour. The patient's arterial line can be discontinued. The patient could be discharged out to the general medical floor with telemetry in my opinion. White count 9.6, hemoglobin 14.8, hematocrit 46.5, and platelet count 249,000. Sodium 138, potassium 4.1, chlorides 109, CO2 20, BUN 35, and creatinine 1.43. Albumin is 2.6. Blood and sputum sampling is negative. The patient is seen today 12/16/2021 in follow-up on the regular medical floor. He is doing very well. He is sitting up in a chair at the bedside. Awake and alert in no acute distress. He is tolerating a full liquid diet. He is continued on TPN currently at 90 ML's per hour. He is maintaining O2 saturations in the 90s on room air. White count 10.3. Hemoglobin 14.7. Sodium 137. Potassium 4.2. BUN 33. Creatinine 1.61. Glucose 116. He remains on Lovenox for DVT prophylaxis. Continued on Zosyn and Flagyl. The patient is seen today 12/17/2021 in follow-up on the regular medical floor. He is up ambulating in his room. Awake and alert in no acute distress. Maintaining good O2 saturations in the 90s on room air. Appetite is good. Sputum culture revealed no growth. Blood cultures reveal no growth. Sodium 139. Potassium 4.7. BUN 28. Creatinine 1.60. Glucose 111. He is continued on Zosyn. Anticoagulated with Xarelto. Objective - Vital Signs Vital signs: Vital Signs Temp 98.3 F 12/17/21 12:27 Pulse 75 12/17/21 12:27 Resp 18 12/17/21 12:27 BP 115/61 12/17/21 12:27 Pulse Ox 98 12/17/21 12:27 FiO2 40 12/12/21 12:04 Intake & Output 12/16/21 12/17/21 12/17/21 18:59 06:59 18:59 Intake Total 930 240 Output Total 800 Balance 130 240 Weight 118.826 kg 118.524 kg Intake: IV 100 240 0.9 240 Piperacillin-Tazobactam 3 100 .375 gm In Sodium Chloride 0.9% 100 ml @ 25 mls/hr IVPB Q8H [facility] Rx#: [id number] Intake, IV Titration 830 Amount Mvi, Adult No.4 with Vit 630 K 10 ml Trace (Conc-1Ml/ Dose) 1 ml Magnesium Sulfate gm 1 gm In Amino Acid 5%-D15w+Lytes*E* 1, 000 ml @ 56 mls/hr IV .BY DURATION [facility] Rx#: [id number] metroNIDAZOLE-NS PMX 500 200 mg In Saline 1 100ml.bag @ 100 mls/hr IVPB Q8HR [facility] Rx#:[id number] Output: Urine 800 Other: Voiding Method Urinal Urinal Toilet # Voids 1 ABP, PAP, CO, CI - Last Documented Arterial Blood Pressure 164/82 - Exam GENERAL EXAM: Alert, very pleasant 66-year-old male patient, up in room, on room air, comfortable in no apparent distress. HEAD: Normocephalic. EYES: Normal reaction of pupils, equal size. NOSE: Clear with pink turbinates. THROAT: No erythema or exudates. NECK: No masses, no JVD. CHEST: No chest wall deformity. LUNGS: Equal air entry with no crackles, wheeze, rhonchi or dullness. CVS: S1 and S2 normal with no audible murmur, regular rhythm. ABDOMEN: No hepatosplenomegaly, normal bowel sounds, no guarding or rigidity. SPINE: No scoliosis or deformity SKIN: No rashes CENTRAL NERVOUS SYSTEM: No focal deficits, tone is normal in all 4 extremities. EXTREMITIES: There is no peripheral edema. No clubbing, no cyanosis. Peripheral pulses are intact. - Labs CBC & Chem 7: 12/16/21 06:03 12/17/21 05:53 Labs: Abnormal Lab Results - Last 24 Hours (Table) 12/17/21 12/17/21 Range/Units 05:53 05:53 BUN 28 H (9-20) mg/dL Creatinine 1.60 H (0.66-1.25) mg/dL Glucose 111 H (74-99) mg/dL Triglycerides 240.00 H (0.00-149.00) mg/dL Assessment and Plan Assessment: Acute hypoxemic respiratory failure, requiring intubation and mechanical ventilation, December 08, till December 12. Recovered and on room air Acute small bowel obstruction, improved. Tolerating low fiber diet Abdominal sepsis and septic shock. Acute metabolic encephalopathy, secondary to sepsis. History of atrial fibrillation/RVR, resolved. Umbilical hernia, without incarceration. Acute kidney injury secondary to sepsis. Acute dehydration. Anion gap metabolic acidosis. History of COPD. Essential hypertension. DJD. History of kidney stones. Chronic back pain. Plan: The patient was seen and evaluated Cleared for discharge from pulmonary standpoint Discontinue Zosyn Home once cleared by surgery 1I have personally seen and examined the patient, performed the documentation and the assessment and plan as written. Number of minutes spent on the visit:10.
--- NOTE | 2021-12-17 17:25 | P.PN ---
Subjective Patient is seen for follow-up for acute kidney injury. Sitting on a bedside chair today and doing well Urine output 1.3 L for last 24 hours Serum creatinine staying at 1.6 mg/dL Patient is tolerating oral intake. Objective - Vital Signs Vital signs: Vital Signs Temp 98.3 F 12/17/21 12:27 Pulse 75 12/17/21 12:27 Resp 18 12/17/21 12:27 BP 115/61 12/17/21 12:27 Pulse Ox 98 12/17/21 12:27 FiO2 40 12/12/21 12:04 Intake & Output 12/16/21 12/17/21 12/17/21 18:59 06:59 18:59 Intake Total 930 240 Output Total 800 Balance 130 240 Weight 118.826 kg 118.524 kg Intake: IV 100 240 0.9 240 Piperacillin-Tazobactam 3 100 .375 gm In Sodium Chloride 0.9% 100 ml @ 25 mls/hr IVPB Q8H [facility] Rx#: [id number] Intake, IV Titration 830 Amount Mvi, Adult No.4 with Vit 630 K 10 ml Trace (Conc-1Ml/ Dose) 1 ml Magnesium Sulfate gm 1 gm In Amino Acid 5%-D15w+Lytes*E* 1, 000 ml @ 56 mls/hr IV .BY DURATION [facility] Rx#: [id number] metroNIDAZOLE-NS PMX 500 200 mg In Saline 1 100ml.bag @ 100 mls/hr IVPB Q8HR [facility] Rx#:[id number] Output: Urine 800 Other: Voiding Method Urinal Urinal Toilet # Voids 1 ABP, PAP, CO, CI - Last Documented Arterial Blood Pressure 164/82 - Exam Awake, comfortable, not in any acute distress Alert oriented 3 Examination of the heart S1 and S2 Examination lungs bilateral breath sounds are heard Abdomen is soft mildly tender Examination lower extremities shows 1+ edema bilaterally COBBLER UPPER exam grossly intact - Labs CBC & Chem 7: 12/16/21 06:03 12/17/21 05:53 Labs: Abnormal Lab Results - Last 24 Hours (Table) 12/17/21 12/17/21 Range/Units 05:53 05:53 BUN 28 H (9-20) mg/dL Creatinine 1.60 H (0.66-1.25) mg/dL Glucose 111 H (74-99) mg/dL Triglycerides 240.00 H (0.00-149.00) mg/dL Assessment and Plan Assessment: 1. Acute kidney injury mostly prerenal secondary to hypovolemia from vomiting as well as hypotension and A. fib. Creatinine 4.95 on admission and had decrea sed to 1.4. And staying at 1.6 for the last couple of days. Patient is voiding on his own. Blood pressure has not been low. No hydronephrosis noted on CAT scan. 2. Chronic kidney disease stage IIIB with baseline creatinine near 1.8 in 2020 secondary to polycystic kidney disease. 3. A. fib with RVR s/p amiodarone drip. Cardiology following. 4. Metabolic acidosis secondary to acute kidney injury and IV fluids. Improved. 5. Small bowel obstruction. Has NG tube. Surgery following. 6. Hypernatremia from lack of oral water intake. Resolved. 7. Shock s/p Levophed. Plan: Patient is encouraged to increase oral intake. He will follow-up as outpatient in 1-2 weeks post discharge. Avoid NSAIDs
[2021-12-17] MEDS ORDERED: RIVAROXABAN 20 MG TAB PO SCH (17:30)
== END 2021-12-17 15:06 | disposition home or self-care (01) | DRG 870 ==
LOC: EC 09:45 → 2SICU 13:39 → 5NMEDONC 12-15 17:02
PROVIDERS: ADMIT Internal Medicine; ATTEND Internal Medicine
PROC: 3E043XZ Introduction of Vasopressor into Central Vein, Percutaneous Approach (ICD-10-PCS; 2021-12-05)
PROC: 0D9670Z Drainage of Stomach with Drainage Device, Via Natural or Artificial Opening (ICD-10-PCS; 2021-12-05)
PROC: 0BH17EZ Insertion of Endotracheal Airway into Trachea, Via Natural or Artificial Opening (ICD-10-PCS; principal; 2021-12-07)
PROC: 5A1955Z Respiratory Ventilation, Greater than 96 Consecutive Hours (ICD-10-PCS; principal; 2021-12-07)
PROC: 02HV33Z Insertion of Infusion Device into Superior Vena Cava, Percutaneous Approach (ICD-10-PCS; 2021-12-07)
PROC: 3E0436Z Introduction of Nutritional Substance into Central Vein, Percutaneous Approach (ICD-10-PCS; 2021-12-10)
DX: A41.9 Sepsis, unspecified organism (principal); G93.41 Metabolic encephalopathy; J96.01 Acute respiratory failure with hypoxia; K65.1 Peritoneal abscess; R65.21 Severe sepsis with septic shock; R57.1 Hypovolemic shock; E87.0 Hyperosmolality and hypernatremia; E87.20 Acidosis, unspecified; I48.19 Other persistent atrial fibrillation; I48.92 Unspecified atrial flutter; J84.9 Interstitial pulmonary disease, unspecified; J98.11 Atelectasis; K56.690 Other partial intestinal obstruction; M48.56XA Collapsed vertebra, not elsewhere classified, lumbar region, initial encounter for fracture; N17.9 Acute kidney failure, unspecified; Q61.2 Polycystic kidney, adult type; K56.51 Intestinal adhesions [bands], with partial obstruction; D69.6 Thrombocytopenia, unspecified; J44.9 Chronic obstructive pulmonary disease, unspecified; R00.1 Bradycardia, unspecified; N18.32 Chronic kidney disease, stage 3b; I12.9 Hypertensive chronic kidney disease with stage 1 through stage 4 chronic kidney disease, or unspecified chronic kidney disease; K21.9 Gastro-esophageal reflux disease without esophagitis; D75.1 Secondary polycythemia; E86.0 Dehydration; E86.1 Hypovolemia; G89.29 Other chronic pain; M54.9 Dorsalgia, unspecified; I44.4 Left anterior fascicular block; K08.89 Other specified disorders of teeth and supporting structures; K42.9 Umbilical hernia without obstruction or gangrene; M19.90 Unspecified osteoarthritis, unspecified site; Z20.822 Contact with and (suspected) exposure to COVID-19; Z28.311 Partially vaccinated for COVID-19; Z28.21 Immunization not carried out because of patient refusal; Z71.3 Dietary counseling and surveillance; Z79.01 Long term (current) use of anticoagulants; Z79.899 Other long term (current) drug therapy; Z87.442 Personal history of urinary calculi; Z90.49 Acquired absence of other specified parts of digestive tract
CPT/HCPCS: 36415; 36600; 70450; 71045; 71046; 74018; 74019; 74176; 80048; 80051; 80053; 81001; 82271; 82330; 82805; 83605; 83690; 83735; 84100; 84132; 84145; 84295; 84443; 84478; 85025; 85027; 85610; 85730; 86850; 86900; 86901; 87040; 87070; 87205; 87635; 93005; 93306; 94002; 94003; 96361; 96374; 96376; 99285